=== PATIENT | female | born 1965 | race Caucasian/White ===

== ENCOUNTER → 2019-01-08 | Outpatient (CLI) | payer MEDICARE, MEDICAID ==
[~2019-01-08] MED LIST: ACET500L36 PO; ACHD5005 PO; ADDR10T PO; ALPR.25T PO; ALPR2TAB2 PO; ARPZ10T PO; ASCO-262 PO; BISA5TAB8 PO; BNZT1T PO; CEPH500T PO; CHOL200018 PO; CIPR-225 PO; CITA-105 PO; CLON1TAB27 PO; CLON1TAB3 PO; CYAN500T44 PO; CYCL5TAB PO; DICY10CA26 PO; EST30C VG; ESTR1TAB24 PO; GUAN1TAB PO; HYDR-3714 PO; HYDR-700 PO; HYDR-757 PO; LEVO25TA5 PO; LEVOTHYROXINE; LOVA10TA PO; MELO-195 PO; METH-290 PO; METO10TA3 PO; METR500T PO; MIRA50TA PO; MIRT30TA6 PO; NF-ESOM40C PO; NITR-65 PO; NORT10CA PO; OMG1KC PO; ONDA4TAB8 PO; ONDAN4ODT PO; OXYB5TAB9 PO; PARO40TA PO; POTA-53 PO; PREMARIN CREAM; PROM12.59 PO; PROM25TA14 PO; SULF-222 PO; TIZA4TAB55 PO; TRAM50TA2 PO
--- NOTE | 2019-01-08 12:36 | Diagnostic Imaging Report ---
INDICATION: Routine screening. COMPARISON: 08/26/2014. TECHNIQUE: 2D and 3D bilateral screening mammography was performed with CAD. FINDINGS: Scattered fibroglandular densities are identified bilaterally. The parenchymal pattern is stable. No dominant mass or malignant appearing microcalcifications are seen. The axillae are unremarkable. IMPRESSION: No mammographic features suspicious for malignancy are identified. ACR BI-RADS Category 1: Negative. Result letter will be mailed to the patient. Note: At least 10% of breast cancer is not imaged by mammography. Dictated by: Dictated on workstation # [id number]
== END ==
LOC: RAD 10:57
PROVIDERS: ATTEND Nurse Practitioner Family
DX: Z12.31 Encounter for screening mammogram for malignant neoplasm of breast (principal)
CPT/HCPCS: 77067

== ENCOUNTER 2019-01-30 05:35 | Outpatient (CLI) | payer MEDICARE, MEDICAID ==
[~2019-01-30] VITALS: Ht 157.5 cm; Wt 52.6 kg
[2019-01-30] MEDS ORDERED: ARIP10TA17 PO (11:01)
[2019-01-30] MEDS ORDERED: GABA-488 PO (11:01)
[2019-01-30] MEDS ORDERED: LOVA40TA2 PO (11:01)
[2019-01-30] MEDS ORDERED: MIRA50TA PO (11:01)
== END 2019-01-30 11:03 | disposition home or self-care (01) ==
LOC: PREOP 05:35
PROVIDERS: ATTEND Surgery
DX: Z01.818 Encounter for other preprocedural examination (principal)

== ENCOUNTER 2019-02-06 07:25 | Day surgery (SDC) | payer MEDICARE, MEDICAID ==
[~2019-02-06] VITALS: Ht 157.5 cm; Wt 52.6 kg
[~2019-02-06 07:25] MED LIST changes: +ARIP10TA17 PO; +GABA-488 PO; +LOVA40TA2 PO
[2019-02-06] MEDS ORDERED: LACTATED RINGERS 1,000 ML IV ONE (07:32)
[2019-02-06] MEDS ORDERED: LACTATED RINGERS 1,000 ML IV STA (07:34)
[2019-02-06] MEDS ORDERED: MIDAZOLAM 2 MG/2 ML (VERSED) VIAL ONE (07:44)
[2019-02-06] MEDS ORDERED: PROPOFOL INJECTION 50 ML IV ONE ×2 (07:45→09:19)
[2019-02-06 07:46] VITALS: BP 104/51
--- OUTSIDE RECORDS SUMMARY | 2019-02-06 07:46 | XMS REPORT | Encounter Summary ---
Author Author [facility] Organization [facility] Address Unknown Phone Unavailable Care Team Providers Care Fireworks Assembly Supervisor Name Role Phone Linda Goncalves MD Unavailable Cindy Harding RN Unavailable Unavailable Ryan Melvin RN Unavailable Unavailable Ryan Kovacs MD Unavailable Macarena Ramey MD PCP Unavailable Angel Avila [facility] Unavailable Sophia Sepulveda RN Unavailable Unavailable Opal Giraldo MD Unavailable Unavailable [employer] WOOD INSPECTOR Unavailable Reason for Visit * Reason Comments Medication Refill Encounter Details Care Team Description Date Type Department Linda Goncalves MD [address] [facility] [address] [place] [address] 11/12/2018 Refill [facility] [address] [place] [address] Social History Date Tobacco Use Types Packs/Day Years Used Current Every Day Smoker Cigarettes 1 35 Smokeless Tobacco: Never Used Alcohol Use Drinks/Week oz/Week Comments Yes 1-2 Standard 0.5 - 1.0 occ drinks or equivalent Sex Assigned at Date Recorded Not on file Industry Job Start Date Occupation Not on file Not on file Not on file Travel End Travel History Travel Start No recent travel history available. documented as of this encounter Plan of Treatment Not on filedocumented as of this encounter Visit Diagnoses Not on filedocumented in this encounter
--- OUTSIDE RECORDS SUMMARY | 2019-02-06 07:46 | XMS REPORT | Clinical Summary ---
Author Author [facility] Organization [facility] Address Unknown Phone Unavailable Care Team Providers Care Senior Engineering Associate Name Role Phone Linda Goncalves MD Unavailable Cindy Harding RN Unavailable Unavailable Ryan Melvin RN Unavailable Unavailable Ryan Kovacs MD Unavailable Macarena Ramey MD PCP Unavailable Angel Avila Unavailable Sophia Sepulveda RN Unavailable Unavailable Opal Giraldo MD Unavailable Unavailable Danna Washburn Unavailable Source Comments Some departments are not documenting in the electronic medical record. If you d o not see the information that you expected, contact Release of Information in [facility] Information Management department at [phone] for further assistan ce in locating additional records.[facility] Allergies Comments Active Allergy Reactions Severity Noted Date Benztropine MENTAL STATUS 02/07/2014 CHANGES Oxybutynin ANXIETY 05/14/2013 Solifenacin HALLUCINATION 11/26/2013 S Bupropion Hcl HIVES 05/14/2013 Medications End Date Status Medication Sig Dispensed Refills Start Date Active MULTIVITS Take by 0 W-IRON,HEMATINIC (HIGH mouth. POTENCY VIT A TO Z SELECT PO) Active guanFACINE (TENEX) 1 mg Take 1 mg by 0 tablet mouth daily. Active nortriptyline (PAMELOR) Take 10 mg by 0 10 mg capsule mouth at bedtime daily. Active ALPRAZolam(+) (XANAX) 2 Take 2 mg by 0 mg tablet mouth at bedtime as needed. Active citalopram (CELEXA) 40 mg Take 40 mg by 0 tablet mouth daily. Active estradiol (ESTRACE) 1 mg Take 1 mg by 0 tablet mouth daily. Active dextroamphetamine-ampheta Take 10 mg by 0 mine (ADDERALL) 10 mg mouth twice tablet daily Active promethazine (PHENERGAN) Take 25 mg by 0 25 mg tablet mouth every 6 hours as needed. Active estrogens, conjugated(+) Apply to 1 Container 11 (PREMARIN) 0.625 mg/g vaginal area 4 vaginal cream three times a week Active polyethylene glycol 3350 Take 17 g by 2 Bottle 1 (GLYCOLAX; MIRALAX) 17 mouth daily. 4 gram/dose powderIndications: Chronic constipation Active estrogens, conjugated(+) Insert or 42.5 g 11 (PREMARIN) 0.625 mg/g Apply to 6 vaginal cream vaginal area three times weekly. Active polyethylene glycol 3350 Take 17 g by 119 g (GLYCOLAX; MIRALAX) 17 mouth daily. 6 gram/dose powder Active estradiol (ESTRACE) 0.01 Apply a 42.5 g % (0.1 mg/g) vaginal finger tip to 6 cream vaginal area three times a week Active MYRBETRIQ 50 mg tablet TAKE 1 TABLET 90 tablet 0 BY MOUTH 9 EVERY DAY Active Problems Problem Noted Date Mixed stress and urge urinary incontinence 10/22/2013 Overview: S/P TVH-BSO and Mesh [place] [address] [place] in [place], [place], complicated by cystotomy and vaginal extrusion during TVT-O placement 2008 intra-office mesh excision and mesh intra-OR excision 2008 ( localized area excised) positional voiding, constipation, dyspareunia, episodes of gross hematuria, and ANGELITA at this time. UDS (06/11/13): +LPP, otherwise normal Urethrolysis, mesh excision 06/26/13; developed worsened mixed incontinence. Trial of vesicare: improved urgency, yet led to hallucinations and stopped CT unremarkable except signficant constipation - Mirabegron 50mg, PFRT, estrace and exercise regimen brought resolution of symptoms 09/23/2014: Symptoms well controlled on Mirabegron, Constipation management, pelvic exercise and estrace. L ast Assessment & Plan: Recommend patient resume premarin cream, begin miralax, resume mirabegron and RTC prn at this point. Erosion of vaginal mesh 05/14/2013 Overview: S/P TVH-BSO [place] Mesh [place] [address] [place] in [place], [place], complicated by cystotomy and vaginal extrusion during TVT-O placement 2008 intra-office mesh excision and mesh intra-OR excision 2008 ( localized area excised) positional voiding, constipation, dyspareunia, episodes of gross hematuria, and ANGELITA at this time. UDS (06/11/13): +LPP, otherwise normal Cysto (06/11/13): unremarkable Urethrolysis, mesh excision 06/26/13 Now developed severe mixed incontinence. 10/22/13:Stopped taking Vesicare because of hallucinations 11/26/13: on benztropine per psychologist with some improvement in urinary symptoms UDS: some dysnergia, no DO, rectal sphincter muscle overactivity Returns with persistent L suprapubic stabbing pain; constipation; attempting PFMT and seeing slight improvement; UUI slightly improved with mirabegron Multiple pelvic exams without any evidence of vaginal mesh L ast Assessment & Plan: - Encounters Care Team Description Date Type Specialty Linda Goncalves MD 11/12/2018 Refill Urology from Last 3 Months Family History Medical History Relation Name Comments Cancer Father Diabetes Father Heart Attack Father Heart Disease Father Cancer Maternal Grandmother Heart Attack Mother Heart Disease Mother Hypertension Mother Stroke Mother Bleeding Disorders Other Cancer-Prostate Other Kidney Cancer Other Kidney Disease Other Bleeding Disorders Sister Hypertension Sister Relation Name Status Comments Father Maternal Grandmother Mother Other Sister Social History Date Tobacco Use Types Packs/Day [...] Travel Start No recent travel history available. Last Filed Vital Signs Time Taken Vital Sign Reading 02/19/2016 4:07 PM CDT Blood Pressure 109/70 02/19/2016 4:07 PM CDT Pulse 90 01/31/2014 1:14 PM CDT Temperature 36.9 C (98.5 F) 02/19/2016 4:07 PM CDT Respiratory Rate 16 06/26/2013 4:00 PM CDT Oxygen Saturation 100% - Inhaled Oxygen - Concentration 02/19/2016 4:07 PM CDT Weight 51.6 kg (113 lb 12.8 oz) 02/19/2016 4:07 PM CDT Height 160 cm (5' 3") 02/19/2016 4:07 PM CDT Body Mass Index 20.16 Plan of Treatment Health Maintenance Due Date Last Done Comments HEPATITIS C SCREENING 1965 PHYSICAL (COMPREHENSIVE) 1972 EXAM HIV SCREENING 1980 DTAP/TDAP VACCINES (1 - 1983 Tdap) CERVICAL CANCER SCREENING 1995 BREAST CANCER SCREENING 2005 COLORECTAL CANCER 2015 SCREENING SHINGLES RECOMBINANT 2015 VACCINE (1 of 2) INFLUENZA VACCINE 06/19/2019 Results Not on filefrom Last 3 Months Insurance Type Payer Benefit Subscriber ID Effective Phone Address Plan / Dates Group Medicare COVENTRY MEDICARE COVENTRY xxxxxxxxxxx [id number] ADVANTRA resent MEDICARE PPO Advance Directives Patient has advance care planning documents on file. For more information, kailey costello contact: [facility] [address] [place] [address]
--- OUTSIDE RECORDS SUMMARY | 2019-02-06 07:47 | XMS REPORT ---
Author Author Migration, Doctor Organization [facility] Address Unknown Phone Unavailable Care Team Providers Care Mobile Ui Designer Name Role Phone Migration, Doctor Unavailable Unavailable PROBLEMS Type Condition ICD9-CM Code ZDY85-RE Code Onset Dates Condition Status SNOMED Code Problem Mixed hyperlipidemia E78.2 Active 427984626 Problem Acquired hypothyroidism E03.9 Active 551975355 Problem Hypothyroidism, unspecified E03.9 Active 90726487 Problem Cigarette nicotine dependence without complication F17.210 Active 79626613 Problem COPD (chronic obstructive pulmonary disease) J44.9 Active 49332750 Problem Generalized anxiety disorder F41.1 Active 15847673 Problem Bipolar II disorder F31.81 Active 59176524 Problem Cannabis use disorder, mild, abuse F12.10 Active 89390111 ALLERGIES No Information ENCOUNTERS Encounter Location Date Diagnosis [place] [id number] [place] [address] January, [place] [id number] [place] [address] Dec, Well woman exam without gynecological exam Z00.00 ; Screening for breast cancer Z12.31 and Screening for malignant neoplasm of colon Z12.11 [place] [id number] [place] [address] 06 Oct, 2018 Bipolar II disorder F31.81 ; Generalized anxiety disorder F41.1 and Cannabis use disorder, mild, abuse F12.10 [place] [id number] [place] [address] 09 Jun, 2018 Trochanteric bursitis of right hip M70.61 [place] [id number] [place] [address] 13 May, 2018 Trochanteric bursitis of right hip M70.61 and Cigarette nicotine dependence without complication F17.210 [place] [id number] [place] [address] Apr, [place] [id number] [place] [address] Apr, Mixed hyperlipidemia E78.2 [place] [id number] [place] [address] Apr, [address] [address] Apr, Bipolar II disorder F31.81 ; Generalized anxiety disorder F41.1 and Cannabis use disorder, mild, abuse F12.[address] [address] Feb, Mixed hyperlipidemia E78.2 ; Acquired hypothyroidism E03.9 and Routine adult health maintenance Z00.[address] [address] January, Bipolar II disorder F31.81 [place] [address] [address] January, Bipolar II disorder F31.81 ; Generalized anxiety disorder F41.1 ; Cannabis use disorder, mild, abuse F12.10 and Fatigue associated with anemia D64.9 [place] [id number] [place] [address] Dec, Hypothyroidism, unspecified E03.9 ; Tobacco abuse Z72.0 and COPD (chronic obstructive pulmonary disease) J44.9 [place] [id number] [place] [address] Jul, Bipolar II disorder F31.81 ; Generalized anxiety disorder F41.1 and Cannabis use disorder, mild, abuse F12.10 [place] [id number] [place] [address] Apr, Bipolar II disorder F31.81 ; Nausea and vomiting in adult R11.2 ; Generalized anxiety disorder F41.1 ; Heartburn R12 and Cannabis use disorder, mild, abuse F12.[address] [id number] [address] Apr, Bipolar II disorder F31.81 ; Generalized anxiety disorder F41.1 and Cannabis use disorder, mild, abuse F12.10 [place] [id number] [place] [address] Apr, Nausea and vomiting in adult R11.2 and Heartburn R12 [place] [id number] [place] [address] Apr, Bipolar II disorder F31.81 [place] [id number] [place] [address] Mar, Generalized anxiety disorder F41.1 [place] [id number] [place] [address] Feb, Bipolar II disorder F31.81 ; Generalized anxiety disorder F41.1 and Cannabis use disorder, mild, abuse F12.10 [place] [address] [place] [address] January, Bipolar II disorder F31.81 ; Generalized anxiety disorder F41.1 and Cannabis use disorder, mild, abuse F12.10 [place] [id number] [place] [address] Dec, Bipolar II disorder F31.81 ; Generalized anxiety disorder F41.1 and Cannabis use disorder, mild, abuse F12.10 [place] [address] [place] [address] Dec, Generalized anxiety disorder F41.1 [place] [id number] [place] [address] Nov, [place] [id number] [place] [address] Nov, Generalized anxiety disorder F41.1 ; Cannabis use disorder, mild, abuse F12.10 and Bipolar II disorder F31.81 [place] [id number] [place] [address] Nov, Bipolar II disorder F31.81 [place] [id number] [place] [address] Nov, Bipolar II disorder F31.81 ; Generalized anxiety disorder F41.1 and Cannabis use disorder, mild, abuse F12.10 [place] [id number] [place] [address] Oct, [place] [address] [address] Oct, Bipolar II disorder F31.81 ; Generalized anxiety disorder F41.1 and Cannabis use disorder, mild, abuse F12.10 [place] [id number] [place] [address] Aug, COPD (chronic obstructive pulmonary disease) J44.[address] [address] Aug, Recent urinary tract infection Z87.440 ; Acquired hypothyroidism E03.9 ; Encounter for immunization Z23 ; Mixed hyperlipidemia E78.2 ; COPD (chronic obstructive pulmonary disease) J44.9 and Tobacco abuse Z72.0 [place] [id number] [place] [address] Jul, [place] [id number] [place] [address] Jul, [address] [address] Jul, Recent urinary tract infection Z87.440 ; Acute cystitis with hematuria N30.01 ; Vaginal itching L29.8 and Skin infection L08.9 [place] [id number] [place] [address] Jun, Hydronephrosis, unspecified hydronephrosis type N13.30 [place] [id number] [place] [address] Apr, [facility] [address] [place] [address] Sep, Acquired hypothyroidism E03.9 ; Mixed hyperlipidemia E78.2 ; COPD (chronic obstructive pulmonary disease) J44.9 and Thrush B37.0 [place] [id number] [place] [address] Aug, [place] [address] [address] Aug, Acquired hypothyroidism E03.9 ; Mixed hyperlipidemia E78.2 ; COPD (chronic obstructive pulmonary disease) J44.9 and URI (upper respiratory infection) J06.9 [place] [address] [address] January, Blood in stool 578.1 and Weight loss 783.21 [place] [address] [address] January, Other and unspecified hyperlipidemia 272.4 ; Unspecified hypothyroidism 244.9 ; Nondependent tobacco use disorder 305.1 ; Weight loss 783.21 ; History of colon polyps V12.72 and Blood in stool 578.1 [place] [id number] [place] [address] Dec, [place] [id number] [place] [address] Dec, [place] [id number] [place] [address] Dec, [place] [id number] [place] [address] Dec, [place] [id number] [place] [address] Nov, [place] [id number] [place] [address] Nov, [place] [address] [address] Nov, [facility] [place] [facility] [address] [id number] [place] [address] Nov, [facility] [place] [facility] [address] [id number] [place] [address] Sep, [facility] [place] [facility] [address] [facility] [id number] [place] [address] Sep, [facility] [place] [facility] [address] [id number] [place] [address] Aug, [facility] [place] [facility] [address] [id number] [place] [address] Aug, [facility] [place] [facility] [address] [facility] [id number] [place] [address] Aug, [facility] [place] [facility] [address] [facility] [id number] [place] [address] Aug, [facility] [place] [facility] [address] [facility] [id number] [place] [address] Aug, [facility] [place] [facility] [address] [facility] [id number] [place] [address] Aug, [facility] [place] [facility] [address] [facility] [id number] [place] [address] Aug, [facility] [place] [facility] [address] [facility] [id number] [place] [address] Aug, [facility] [place] [facility] [address] [id number], [place] [address] Jul, [facility] [place] [facility] [address] [id number] [place] [address] Jul, [facility] [place] [facility] [address] [facility] [id number] [place] [address] Jul, [facility] [place] [facility] [address] [facility] [id number] [place] [address] Jul, [facility] [place] [facility] [address] [id number] [place] [address] Jul, [facility] [place] [facility] [address] [id number] [place] [address] Jul, [facility] [place] [facility] [address] [id number] [place] [address] Jun, [facility] [place] [facility] [address] [id number] [place] [address] Jun, [facility] [place] [facility] [address] [id number] [place] [address] Jun, [facility] [place] [facility] [address] [id number] [place] [address] Jun, [facility] [place] [facility] [address] [id number] [place] [address] Apr, [facility] [place] [facility] [address] [id number] [place] [address] Apr, [facility] [place] [facility] [address] [id number] [place] [address] Mar, [facility] [place] [facility] [address] [id number] [place] [address] Mar, [facility] [place] [facility] [address] [id number] [place] [address] Feb, [facility] [place] [facility] [address] [id number] [place] [address] Feb, [facility] [place] [facility] [address] [id number] [place] [address] Sep, [facility] [place] [facility] [address] [id number] [place] [address] Sep, [facility] [place] [facility] [address] [id number] [place] [address] Aug, [facility] [place] [facility] [address] [id number] [place] [address] Aug, [facility] [place] [facility] [address] [id number] [place] [address] Aug, [facility] [place] [facility] [address] [id number] [place] [address] Aug, [facility] [place] [facility] [address] [id number] [place] [address] Jun, [facility] [place] [facility] [address] [id number] [place] [address] Jun, [facility] [place] [facility] [address] [id number] [place] [address] Jun, [facility] [place] [facility] [address] [id number] [place] [address] Jun, [facility] [place] [facility] [address] [id number] [place] [address] Jun, [facility] [place] [facility] [address] [id number], [place] [address] Jun, [facility] [place] [facility] [address] [id number] [place] [address] Jun, [facility] [place] [facility] [address] [id number], [place] [address] Jun, [facility] [place] [facility] [address] [id number], [place] [address] Jun, [facility] [place] [facility] [address] [id number], [place] [address] May, [facility] [place] [facility] [address] [id number] [place] [address] Apr, [facility] [place] [facility] [address] [id number], [place] [address] Apr, [facility] [place] [facility] [address] [id number], [place] [address] Apr, [facility] [place] [facility] [address] [id number] [place] [address] Mar, [facility] [address] [id number] [place] [address] Mar, [facility] [place] [facility] [address] [id number] [place] [address] Mar, [facility] [address] [id number] [place] [address] Mar, [facility] [place] [facility] [address] [id number] [place] [address] Mar, [facility] [address] [id number] [place] [address] Mar, [facility] [address] [id number] [place] [address] Mar, [facility] [address] [id number] [place] [address] Mar, [facility] [address] [id number] [place] [address] Mar, [facility] [address] [id number] [place] [address] Mar, [facility] [address] [id number] [place] [address] Feb, [facility] [address] [id number] [place] [address] Oct, [facility] [address] [id number] [place] [address] Sep, [facility] [place] [facility] [address] [id number] [place] [address] Aug, [facility] [place] [facility] [address] [id number] [place] [address] Aug, [facility] [address] [id number] [place] [address] Aug, [facility] [address] [facility] [id number] [place] [address] Aug, [facility] [address] [facility] [id number], [place] [address] Nov, IMMUNIZATIONS No Known Immunizations SOCIAL HISTORY Never Assessed REASON FOR VISIT EMR-[facility] PLAN OF CARE VITAL SIGNS MEDICATIONS Unknown Medications RESULTS No Results PROCEDURES No Known procedures INSTRUCTIONS MEDICATIONS ADMINISTERED No Known Medications MEDICAL (GENERAL) HISTORY Type Description Date Medical History Hypothyroidism Medical History chronic pain Medical History Anxiety/Depression/Bipolar/PTSD?Painic Disorder/ADHD-Sees [facility] Medical History cyst on liver Medical History endometriosis Medical History chronic irregular bowels s/p back surgery with bowel injury Medical History CECY with freq UTIs Medical History PPV23 (PNEUMOVAX) DX Medical History Bulging Discs Medical History High Cholestrol Medical History Tobacco User Medical History Urinary Incontinence Medical History HEART MURMUR Surgical History colonoscopy- polyps 2011 Surgical History hysterectomy, total with bilateral salpingo-oophorectomy (BSO) r/t adhesions and endometriosis, complicated by cystotomy, required transvaginal tape obturator (Dr. rCow) 2004 or 2006 Surgical History bladder mesh removed 06/2013 Surgical History removal of vaginal wall lesion 07/2012 Surgical History back surgery with injury to bowel, bladder mesh for perforation Surgical History Bladder mesh Hospitalization History Surgery/ Childbirth Hospitalization History Denies any past psychiatric hospitalizations
--- OUTSIDE RECORDS SUMMARY | 2019-02-06 07:47 | XMS REPORT ---
Author Author Migration, Doctor Organization [facility] Address Unknown Phone Unavailable Care Team Providers Care Car Repairer Name Role Phone Migration, Doctor Unavailable Unavailable PROBLEMS Type Condition ICD9-CM Code CFP80-BM Code Onset Dates Condition Status SNOMED Code Problem Mixed hyperlipidemia E78.2 Active 900391010 Problem Acquired hypothyroidism E03.9 Active 109534400 Problem Hypothyroidism, unspecified E03.9 Active 51693894 Problem Cigarette nicotine dependence without complication F17.210 Active 84806232 Problem COPD (chronic obstructive pulmonary disease) J44.9 Active 93565079 Problem Generalized anxiety disorder F41.1 Active 82549818 Problem Bipolar II disorder F31.81 Active 67326428 Problem Cannabis use disorder, mild, abuse F12.10 Active 31576467 ALLERGIES No Information ENCOUNTERS Encounter Location Date Diagnosis [place] [id number] [place] [address] January, [place] [id number] [place] [address] Dec, Well woman exam without gynecological exam Z00.00 ; Screening for breast cancer Z12.31 and Screening for malignant neoplasm of colon Z12.11 [place] [id number] [place] [id number] 06 Oct, 2018 Bipolar II disorder F31.81 ; Generalized anxiety disorder F41.1 and Cannabis use disorder, mild, abuse F12.10 [place] [id number] [place] [address] 09 Jun, 2018 Trochanteric bursitis of right hip M70.61 [place] [id number] [place] [address] 13 May, 2018 Trochanteric bursitis of right hip M70.61 and Cigarette nicotine dependence without complication F17.210 [place] [id number] [place] [address] Apr, [place] [id number] [place] [address] Apr, Mixed hyperlipidemia E78.2 [place] [id number] [place] [address] Apr, [address] [address] Apr, Bipolar II disorder F31.81 ; Generalized anxiety disorder F41.1 and Cannabis use disorder, mild, abuse F12.[address] [address] Feb, Mixed hyperlipidemia E78.2 ; Acquired hypothyroidism E03.9 and Routine adult health maintenance Z00.[address] [address] January, Bipolar II disorder F31.81 [place] [address] [address] January, Bipolar II disorder F31.81 ; Generalized anxiety disorder F41.1 ; Cannabis use disorder, mild, abuse F12.10 and Fatigue associated with anemia D64.9 [place] [id number] [place] [address] Dec, Hypothyroidism, unspecified E03.9 ; Tobacco abuse Z72.0 and COPD (chronic obstructive pulmonary disease) J44.9 [place] [id number] [place] [address] Jul, Bipolar II disorder F31.81 ; Generalized anxiety disorder F41.1 and Cannabis use disorder, mild, abuse F12.10 [place] [id number] [place] [address] Apr, Bipolar II disorder F31.81 ; Nausea and vomiting in adult R11.2 ; Generalized anxiety disorder F41.1 ; Heartburn R12 and Cannabis use disorder, mild, abuse F12.[address] [id number] [address] Apr, Bipolar II disorder F31.81 ; Generalized anxiety disorder F41.1 and Cannabis use disorder, mild, abuse F12.10 [place] [id number] [place] [address] Apr, Nausea and vomiting in adult R11.2 and Heartburn R12 [place] [id number] [place] [address] Apr, Bipolar II disorder F31.81 [place] [id number] [place] [address] Mar, Generalized anxiety disorder F41.1 [place] [id number] [place] [address] Feb, Bipolar II disorder F31.81 ; Generalized anxiety disorder F41.1 and Cannabis use disorder, mild, abuse F12.10 [place] [address] [place] [address] January, Bipolar II disorder F31.81 ; Generalized anxiety disorder F41.1 and Cannabis use disorder, mild, abuse F12.10 [place] [address] [place] [address] Dec, Bipolar II disorder F31.81 ; Generalized anxiety disorder F41.1 and Cannabis use disorder, mild, abuse F12.10 [place] [address] [place] [address] Dec, Generalized anxiety disorder F41.1 [place] [id number] [place] [address] Nov, [place] [id number] [place] [address] Nov, Generalized anxiety disorder F41.1 ; Cannabis use disorder, mild, abuse F12.10 and Bipolar II disorder F31.81 [place] [id number] [place] [address] Nov, Bipolar II disorder F31.81 [place] [id number] [place] [address] Nov, Bipolar II disorder F31.81 ; Generalized anxiety disorder F41.1 and Cannabis use disorder, mild, abuse F12.10 [place] [id number] [place] [address] Oct, [place] [address] [address] Oct, Bipolar II disorder F31.81 ; Generalized anxiety disorder F41.1 and Cannabis use disorder, mild, abuse F12.10 [place] [id number] [place] [address] Aug, COPD (chronic obstructive pulmonary disease) J44.[address] [address] Aug, Recent urinary tract infection Z87.440 ; Acquired hypothyroidism E03.9 ; Encounter for immunization Z23 ; Mixed hyperlipidemia E78.2 ; COPD (chronic obstructive pulmonary disease) J44.9 and Tobacco abuse Z72.0 [place] [id number] [place] [address] Jul, [place] [id number] [place] [address] Jul, [address] [address] Jul, Recent urinary tract infection Z87.440 ; Acute cystitis with hematuria N30.01 ; Vaginal itching L29.8 and Skin infection L08.9 [place] [id number] [place] [address] Jun, Hydronephrosis, unspecified hydronephrosis type N13.30 [place] [id number] [place] [address] Apr, [facility] [address] [place] [address] Sep, Acquired hypothyroidism E03.9 ; Mixed hyperlipidemia E78.2 ; COPD (chronic obstructive pulmonary disease) J44.9 and Thrush B37.0 [place] [id number] [place] [address] Aug, [place] [address] [address] Aug, Acquired hypothyroidism E03.9 ; Mixed hyperlipidemia E78.2 ; COPD (chronic obstructive pulmonary disease) J44.9 and URI (upper respiratory infection) J06.9 [place] [address] [address] January, Blood in stool 578.1 and Weight loss 783.21 [place] [address] [address] January, Other and unspecified hyperlipidemia 272.4 ; Unspecified hypothyroidism 244.9 ; Nondependent tobacco use disorder 305.1 ; Weight loss 783.21 ; History of colon polyps V12.72 and Blood in stool 578.1 [place] [id number] [place] [address] Dec, [place] [id number] [place] [address] Dec, [place] [id number] [place] [address] Dec, [place] [id number] [place] [address] Dec, [place] [id number] [place] [address] Nov, [place] [id number] [place] [address] Nov, [place] [address] [address] Nov, [facility] [place] [facility] [address] [id number] [place] [address] Nov, [facility] [place] [facility] [address] [id number] [place] [address] Sep, [facility] [place] [facility] [address] [facility] [id number] [place] [address] Sep, [facility] [place] [facility] [address] [id number] [place] [address] Aug, [facility] [place] [facility] [address] [id number] [place] [address] Aug, [facility] [place] [facility] [address] [facility] [id number] [place] [address] Aug, [facility] [place] [facility] [address] [facility] [id number] [place] [address] Aug, [facility] [place] [facility] [address] [facility] [id number] [place] [address] Aug, [facility] [place] [facility] [address] [facility] [id number] [place] [address] Aug, [facility] [place] [facility] [address] [facility] [id number] [place] [address] Aug, [facility] [place] [facility] [address] [facility] [id number] [place] [address] Aug, [facility] [place] [facility] [address] [id number] [address] Jul, [facility] [place] [facility] [address] [id number] [place] [address] Jul, [facility] [place] [facility] [address] [facility] [id number] [place] [address] Jul, [facility] [place] [facility] [address] [facility] [id number] [place] [address] Jul, [facility] [place] [facility] [address] [id number] [place] [address] Jul, [facility] [place] [facility] [address] [id number] [place] [address] Jul, [facility] [place] [facility] [address] [id number] [place] [address] Jun, [facility] [place] [facility] [address] [id number] [place] [address] Jun, [facility] [place] [facility] [address] [id number] [place] [address] Jun, [facility] [place] [facility] [address] [id number] [place] [address] Jun, [facility] [place] [facility] [address] [id number] [place] [address] Apr, [facility] [place] [facility] [address] [id number] [place] [address] Apr, [facility] [place] [facility] [address] [id number] [place] [address] Mar, [facility] [place] [facility] [address] [id number] [place] [address] Mar, [facility] [place] [facility] [address] [id number] [place] [address] Feb, [facility] [place] [facility] [address] [id number] [place] [address] Feb, [facility] [place] [facility] [address] [id number] [place] [address] Sep, [facility] [place] [facility] [address] [id number] [place] [address] Sep, [facility] [place] [facility] [address] [id number] [place] [address] Aug, [facility] [place] [facility] [address] [id number] [place] [address] Aug, [facility] [place] [facility] [address] [id number] [place] [address] Aug, [facility] [place] [facility] [address] [id number] [place] [address] Aug, [facility] [place] [facility] [address] [id number] [place] [address] Jun, [facility] [place] [facility] [address] [id number] [place] [address] Jun, [facility] [place] [facility] [address] [id number] [place] [address] Jun, [facility] [place] [facility] [address] [id number] [place] [address] Jun, [facility] [place] [facility] [address] [id number] [place] [address] Jun, [facility] [place] [facility] [address] [id number] [address] Jun, [facility] [place] [facility] [address] [id number] [place] [address] Jun, [facility] [place] [facility] [address] [id number], [place] [address] Jun, [facility] [place] [facility] [address] [id number], [place] [address] Jun, [facility] [place] [facility] [address] [id number], [place] [address] May, [facility] [place] [facility] [address] [id number] [place] [address] Apr, [facility] [place] [facility] [address] [id number], [place] [address] Apr, [facility] [place] [facility] [address] [id number], [place] [address] Apr, [facility] [place] [facility] [address] [id number] [place] [address] Mar, [facility] [address] [id number] [place] [address] Mar, [facility] [place] [facility] [address] [id number] [place] [address] Mar, [facility] [address] [id number] [place] [address] Mar, [facility] [place] [facility] [address] [id number] [place] [address] Mar, [facility] [address] [id number] [place] [address] Mar, [facility] [address] [id number] [place] [address] Mar, [facility] [address] [id number] [place] [address] Mar, [facility] [address] [id number] [place] [address] Mar, [facility] [address] [id number] [place] [address] Mar, [facility] [address] [id number] [place] [address] Feb, [facility] [address] [id number] [place] [address] Oct, [facility] [address] [id number] [place] [address] Sep, [facility] [place] [facility] [address] [id number] [place] [address] Aug, [facility] [place] [facility] [address] [id number] [place] [address] Aug, [facility] [address] [id number] [place] [address] Aug, [facility] [address] [facility] [id number] [place] [address] Aug, [facility] [address] [facility] [id number], [place] [address] Nov, IMMUNIZATIONS No Known Immunizations SOCIAL HISTORY Never Assessed REASON FOR VISIT EMR-[facility] PLAN OF CARE VITAL SIGNS MEDICATIONS Unknown [...] by cystotomy, required transvaginal tape obturator (Dr. Crow) 2004 or 2006 Surgical History bladder mesh removed 06/2013 Surgical History removal of vaginal wall lesion 07/2012 Surgical History back surgery with injury to bowel, bladder mesh for perforation Surgical History Bladder mesh Hospitalization History Surgery/ Childbirth Hospitalization History Denies any past psychiatric hospitalizations
--- OUTSIDE RECORDS SUMMARY | 2019-02-06 07:47 | XMS REPORT ---
Author Author Migration, Doctor Organization [facility] Address Unknown Phone Unavailable Care Team Providers Care [employer]person [employer] Name Role Phone Migration, Doctor Unavailable Unavailable PROBLEMS Type Condition ICD9-CM Code VOF19-QZ Code Onset Dates Condition Status SNOMED Code Problem Mixed hyperlipidemia E78.2 Active 461509224 Problem Acquired hypothyroidism E03.9 Active 160334934 Problem Hypothyroidism, unspecified E03.9 Active 98730595 Problem Cigarette nicotine dependence without complication F17.210 Active 40886301 Problem COPD (chronic obstructive pulmonary disease) J44.9 Active 08502453 Problem Generalized anxiety disorder F41.1 Active 83531771 Problem Bipolar II disorder F31.81 Active 06502722 Problem Cannabis use disorder, mild, abuse F12.10 Active 58957150 ALLERGIES No Information ENCOUNTERS Encounter Location Date Diagnosis [place] [id number] [address] Apr, [place] [address] [place] [id number] [place] [address] January, Bipolar II disorder F31.81 ; Generalized anxiety disorder F41.1 and Cannabis use disorder, mild, abuse F12.10 [place] [id number], [place] [address] Dec, Well woman exam without gynecological exam Z00.00 ; Screening for breast cancer Z12.31 and Screening for malignant neoplasm of colon Z12.11 [place] [address], [place] [address] 06 Oct, 2018 Bipolar II disorder F31.81 ; Generalized anxiety disorder F41.1 and Cannabis use disorder, mild, abuse F12.10 [place] [address], [place] [address] Jun, Trochanteric bursitis of right hip M70.61 [place] [address] [place] [id number] [place] [address] May, Trochanteric bursitis of right hip M70.61 and Cigarette nicotine dependence without complication F17.210 [place] [address] [place] [id number] [place] [address] Apr, [place] [address] [place] [id number] [place] [address] Apr, Mixed hyperlipidemia E78.2 [place] [address] [address] Apr, [place] [address] [address] Apr, Bipolar II disorder F31.81 ; Generalized anxiety disorder F41.1 and Cannabis use disorder, mild, abuse F12.10 [place] [address] [address] Feb, Mixed hyperlipidemia E78.2 ; Acquired hypothyroidism E03.9 and Routine adult health maintenance Z00.00 [place] [address] [place] [id number] [place] [address] January, Bipolar II disorder F31.81 [place] [address] [place] [id number] [place] [address] January, Bipolar II disorder F31.81 ; Generalized anxiety disorder F41.1 ; Cannabis use disorder, mild, abuse F12.10 and Fatigue associated with anemia D64.9 [place] [address] [place] [id number] [place] [address] Dec, Hypothyroidism, unspecified E03.9 ; Tobacco abuse Z72.0 and COPD (chronic obstructive pulmonary disease) J44.9 [place] [address] [place] [id number] [place] [address] Jul, Bipolar II disorder F31.81 ; Generalized anxiety disorder F41.1 and Cannabis use disorder, mild, abuse F12.10 [place] [address] [place] [id number] [place] [address] Apr, Bipolar II disorder F31.81 ; Nausea and vomiting in adult R11.2 ; Generalized anxiety disorder F41.1 ; Heartburn R12 and Cannabis use disorder, mild, abuse F12.10 [facility] [id number] [place] [address] Apr, Bipolar II disorder F31.81 ; Generalized anxiety disorder F41.1 and Cannabis use disorder, mild, abuse F12.10 [facility] [address] [place] [id number] [place] [address] Apr, Nausea and vomiting in adult R11.2 and Heartburn R12 [facility] [address] [place] [id number] [place] [address] Apr, Bipolar II disorder F31.81 [facility] [address] [place] [id number] [place] [address] Mar, Generalized anxiety disorder F41.1 [facility] [address] [place] [id number] [place] [address] Feb, Bipolar II disorder F31.81 ; Generalized anxiety disorder F41.1 and Cannabis use disorder, mild, abuse F12.10 [facility] [address] [place] [id number] [place] [address] January, Bipolar II disorder F31.81 ; Generalized anxiety disorder F41.1 and Cannabis use disorder, mild, abuse F12.10 [facility] [id number] [place] [address] Dec, Bipolar II disorder F31.81 ; Generalized anxiety disorder F41.1 and Cannabis use disorder, mild, abuse F12.10 [facility] [address] [place] [id number] [place] [address] Dec, Generalized anxiety disorder F41.1 [facility] [address] [place] [id number] [place] [address] Nov, [facility] [address] [place] [id number] [place] [address] Nov, Generalized anxiety disorder F41.1 ; Cannabis use disorder, mild, abuse F12.10 and Bipolar II disorder F31.81 [place] [address] [place] [id number] [place] [address] Nov, Bipolar II disorder F31.81 [place] [address] [place] [id number] [place] [address] Nov, Bipolar II disorder F31.81 ; Generalized anxiety disorder F41.1 and Cannabis use disorder, mild, abuse F12.10 [place] [address] [place] [id number] [place] [address] Oct, [place] [address] [place] [id number] [place] [address] Oct, Bipolar II disorder F31.81 ; Generalized anxiety disorder F41.1 and Cannabis use disorder, mild, abuse F12.10 [place] [address] [address] Aug, COPD (chronic obstructive pulmonary disease) J44.9 [place] [address] [address] Aug, Recent urinary tract infection Z87.440 ; Acquired hypothyroidism E03.9 ; Encounter for immunization Z23 ; Mixed hyperlipidemia E78.2 ; COPD (chronic obstructive pulmonary disease) J44.9 and Tobacco abuse Z72.0 [place] [address] [place] [id number] [place] [address] Jul, [place] [address] [place] [id number] [place] [address] Jul, [place] [address] [address] Jul, Recent urinary tract infection Z87.440 ; Acute cystitis with hematuria N30.01 ; Vaginal itching L29.8 and Skin infection L08.9 [place] [address] [address] Jun, Hydronephrosis, unspecified hydronephrosis type N13.30 [place] [address] [place] [id number] [place] [address] Apr, [place] [address] [address] Sep, Acquired hypothyroidism E03.9 ; Mixed hyperlipidemia E78.2 ; COPD (chronic obstructive pulmonary disease) J44.9 and Thrush B37.0 [place] [address] [address] Aug, [place] [address] [address] Aug, Acquired hypothyroidism E03.9 ; Mixed hyperlipidemia E78.2 ; COPD (chronic obstructive pulmonary disease) J44.9 and URI (upper respiratory infection) J06.9 [place] [address] [address] January, Blood in stool 578.1 and Weight loss 783.[address] [address] January, Other and unspecified hyperlipidemia 272.4 ; Unspecified hypothyroidism 244.9 ; Nondependent tobacco use disorder 305.1 ; Weight loss 783.21 ; History of colon polyps V12.72 and Blood in stool 578.1 [place] [address] [place] [id number] [place] [address] Dec, [place] [address] [place] [id number] [place] [address] Dec, [place] [address] [address] Dec, [place] [address] [place] [id number] [place] [address] Dec, [place] [address] [address] Nov, [facility] [place] [facility] [address] [id number] [place] [address] Nov, [facility] [place] [facility] [address] [id number] [place] [address] Nov, [facility] [place] [facility] [address] [id number] [place] [address] Nov, [facility] [place] [facility] [address] [id number] [place] [address] Sep, [facility] [place] [facility] [address] [id number] [place] [address] Sep, [facility] [place] [facility] [address] [id number] [place] [address] Aug, [facility] [place] [facility] [address] [id number] [place] [address] Aug, [facility] [place] [facility] [address] [id number] [place] [address] Aug, [facility] [place] [facility] [address] [id number] [place] [address] Aug, [facility] [place] [facility] [address] [id number] [place] [address] Aug, [facility] [place] [facility] [address] [id number] [place] [address] Aug, [facility] [place] [facility] [address] [id number], [place] [address] Aug, [facility] [place] [facility] [address] [id number] [place] [address] Aug, [facility] [place] [facility] [address] [id number] [place] [address] Jul, [facility] [place] [facility] [address] [id number] [place] [address] Jul, [facility] [place] [facility] [address] [id number] [place] [address] Jul, [facility] [place] [facility] [address] [id number] [place] [address] Jul, [facility] [place] [facility] [address] [id number] [place] [address] Jul, [facility] [place] [facility] [address] [id number] [place] [address] Jul, [facility] [place] [facility] [address] [id number] [place] [address] Jun, [facility] [place] [facility] [address] [id number] [place] [address] Jun, [facility] [place] [facility] [address] [id number] [place] [address] Jun, [facility] [place] [facility] [address] [id number] [place] [address] Jun, [facility] [place] [facility] [address] [id number] [place] [address] Apr, [facility] [place] [facility] [address] [id number] [place] [address] Apr, [facility] [place] [facility] [address] [id number] [place] [address] Mar, [facility] [place] [facility] [address] [id number] [place] [address] Mar, [facility] [place] [facility] [address] [id number] [place] [address] Feb, [facility] [place] [facility] [address] [id number] [place] [address] Feb, [facility] [place] [facility] [address] [id number] [place] [address] Sep, [facility] [place] [facility] [address] [id number] [place] [address] Sep, [facility] [place] [facility] [address] [id number] [place] [address] Aug, [facility] [place] [facility] [address] [id number] [place] [address] Aug, [facility] [place] [facility] [address] [id number] [place] [address] Aug, [facility] [place] [facility] [address] [id number] [place] [address] Aug, [facility] [place] [facility] [address] [id number] [place] [address] Jun, [facility] [place] [facility] [address] [id number] [place] [address] Jun, [facility] [place] [facility] [address] [id number] [place] [address] Jun, [facility] [place] [facility] [address] [id number] [place] [address] Jun, [facility] [place] [facility] [address] [id number] [place] [address] Jun, [facility] [place] [facility] [address] [id number], [place] [address] Jun, [facility] [place] [facility] [address] [id number] [place] [address] Jun, [facility] [place] [facility] [address] [id number], [place] [address] Jun, [facility] [place] [facility] [address] [id number] [place] [address] Jun, [facility] [place] [facility] [address] [id number], [place] [address] May, [facility] [place] [facility] [address] [id number], [place] [address] Apr, [facility] [place] [facility] [address] [id number], [place] [address] Apr, [facility] [address] [id number] [place] [address] Apr, [facility] [place] [facility] [address] [id number] [place] [address] Mar, [facility] [place] [facility] [address] [id number] [place] [address] Mar, [facility] [place] [facility] [address] [id number] [place] [address] Mar, [facility] [place] [facility] [address] [id number] [place] [address] Mar, [facility] [place] [facility] [address] [id number] [place] [address] Mar, [facility] [address] [id number] [place] [address] Mar, [facility] [place] [facility] [address] [id number] [place] [address] Mar, [facility] [address] [id number] [place] [address] Mar, [facility] [place] [facility] [address] [id number] [place] [address] Mar, [facility] [place] [facility] [address] [id number] [place] [address] Mar, [facility] [place] [facility] [address] [id number] [place] [address] Feb, [facility] [place] [facility] [address] [id number] [place] [address] Oct, [facility] [place] [facility] [address] [id number] [place] [address] Sep, [facility] [place] [facility] [address] [id number] [place] [address] Aug, [facility] [place] [facility] [address] [facility] [place] [id number] [place] [address] Aug, [facility] [address] [facility] [place] [id number], [place] [address] Aug, [facility] [address] [facility] [place] [id number] [place] [address] Aug, [facility] [address] [facility] [id number], [place] [address] Nov, IMMUNIZATIONS No Known Immunizations SOCIAL HISTORY Never Assessed REASON FOR VISIT EMR-[facility] [place] PLAN OF CARE VITAL SIGNS MEDICATIONS [...]
--- OUTSIDE RECORDS SUMMARY | 2019-02-06 07:48 | XMS REPORT ---
Author Author Migration, Doctor Organization [facility] Address Unknown Phone Unavailable Care Team Providers Care Tool Machine Setup Operator Name Role Phone Migration, Doctor Unavailable Unavailable PROBLEMS Type Condition ICD9-CM Code FOM08-ER Code Onset Dates Condition Status SNOMED Code Problem Mixed hyperlipidemia E78.2 Active 085870703 Problem Acquired hypothyroidism E03.9 Active 584569285 Problem Hypothyroidism, unspecified E03.9 Active 06345551 Problem Cigarette nicotine dependence without complication F17.210 Active 25956796 Problem COPD (chronic obstructive pulmonary disease) J44.9 Active 90003562 Problem Generalized anxiety disorder F41.1 Active 24377728 Problem Bipolar II disorder F31.81 Active 68420397 Problem Cannabis use disorder, mild, abuse F12.10 Active 33826940 ALLERGIES No Information ENCOUNTERS Encounter Location Date Diagnosis [place] [id number] [place] [address] January, [place] [id number] [place] [address] Dec, Well woman exam without gynecological exam Z00.00 ; Screening for breast cancer Z12.31 and Screening for malignant neoplasm of colon Z12.11 [place] [id number] [place] [address] 06 Oct, 2018 Bipolar II disorder F31.81 ; Generalized anxiety disorder F41.1 and Cannabis use disorder, mild, abuse F12.10 [place] [id number] [place] [address] 09 Jun, 2018 Trochanteric bursitis of right hip M70.61 [place] [id number] [place] [address] 13 May, 2018 Trochanteric bursitis of right hip M70.61 and Cigarette nicotine dependence without complication F17.210 [place] [id number] [place] [address] Apr, [place] [id number] [place] [address] Apr, Mixed hyperlipidemia E78.2 [place] [id number] [place] [address] Apr, [address] [address] Apr, Bipolar II disorder F31.81 ; Generalized anxiety disorder F41.1 and Cannabis use disorder, mild, abuse F12.[address] [address] Feb, Mixed hyperlipidemia E78.2 ; Acquired hypothyroidism E03.9 and Routine adult health maintenance Z00.[address] [address] January, Bipolar II disorder F31.81 [place] [address] [address] January, Bipolar II disorder F31.81 ; Generalized anxiety disorder F41.1 ; Cannabis use disorder, mild, abuse F12.10 and Fatigue associated with anemia D64.9 [place] [id number] [place] [address] Dec, Hypothyroidism, unspecified E03.9 ; Tobacco abuse Z72.0 and COPD (chronic obstructive pulmonary disease) J44.9 [place] [id number] [place] [address] Jul, Bipolar II disorder F31.81 ; Generalized anxiety disorder F41.1 and Cannabis use disorder, mild, abuse F12.10 [place] [id number] [place] [address] Apr, Bipolar II disorder F31.81 ; Nausea and vomiting in adult R11.2 ; Generalized anxiety disorder F41.1 ; Heartburn R12 and Cannabis use disorder, mild, abuse F12.[address] [id number] [address] Apr, Bipolar II disorder F31.81 ; Generalized anxiety disorder F41.1 and Cannabis use disorder, mild, abuse F12.10 [place] [id number] [place] [address] Apr, Nausea and vomiting in adult R11.2 and Heartburn R12 [place] [id number] [place] [address] Apr, Bipolar II disorder F31.81 [place] [id number] [place] [address] Mar, Generalized anxiety disorder F41.1 [place] [id number] [place] [address] Feb, Bipolar II disorder F31.81 ; Generalized anxiety disorder F41.1 and Cannabis use disorder, mild, abuse F12.10 [place] [address] [place] [address] January, Bipolar II disorder F31.81 ; Generalized anxiety disorder F41.1 and Cannabis use disorder, mild, abuse F12.10 [place] [id number] [place] [address] Dec, Bipolar II disorder F31.81 ; Generalized anxiety disorder F41.1 and Cannabis use disorder, mild, abuse F12.10 [place] [id number] [place] [address] Dec, Generalized anxiety disorder F41.1 [place] [id number] [place] [address] Nov, [place] [id number] [place] [address] Nov, Generalized anxiety disorder F41.1 ; Cannabis use disorder, mild, abuse F12.10 and Bipolar II disorder F31.81 [place] [id number] [place] [address] Nov, Bipolar II disorder F31.81 [place] [id number] [place] [address] Nov, Bipolar II disorder F31.81 ; Generalized anxiety disorder F41.1 and Cannabis use disorder, mild, abuse F12.10 [place] [id number] [place] [address] Oct, [place] [address] [address] Oct, Bipolar II disorder F31.81 ; Generalized anxiety disorder F41.1 and Cannabis use disorder, mild, abuse F12.10 [place] [id number] [place] [address] Aug, COPD (chronic obstructive pulmonary disease) J44.[address] [address] Aug, Recent urinary tract infection Z87.440 ; Acquired hypothyroidism E03.9 ; Encounter for immunization Z23 ; Mixed hyperlipidemia E78.2 ; COPD (chronic obstructive pulmonary disease) J44.9 and Tobacco abuse Z72.0 [place] [id number] [place] [address] Jul, [place] [id number] [place] [address] Jul, [address] [address] Jul, Recent urinary tract infection Z87.440 ; Acute cystitis with hematuria N30.01 ; Vaginal itching L29.8 and Skin infection L08.9 [place] [id number] [place] [address] Jun, Hydronephrosis, unspecified hydronephrosis type N13.30 [place] [id number] [place] [address] Apr, [facility] [address] [place] [address] Sep, Acquired hypothyroidism E03.9 ; Mixed hyperlipidemia E78.2 ; COPD (chronic obstructive pulmonary disease) J44.9 and Thrush B37.0 [place] [id number] [place] [address] Aug, [place] [address] [address] Aug, Acquired hypothyroidism E03.9 ; Mixed hyperlipidemia E78.2 ; COPD (chronic obstructive pulmonary disease) J44.9 and URI (upper respiratory infection) J06.9 [place] [address] [address] January, Blood in stool 578.1 and Weight loss 783.21 [place] [address] [address] January, Other and unspecified hyperlipidemia 272.4 ; Unspecified hypothyroidism 244.9 ; Nondependent tobacco use disorder 305.1 ; Weight loss 783.21 ; History of colon polyps V12.72 and Blood in stool 578.1 [place] [id number] [place] [address] Dec, [place] [id number] [place] [address] Dec, [place] [id number] [place] [address] Dec, [place] [id number] [place] [address] Dec, [place] [id number] [place] [address] Nov, [place] [id number] [place] [address] Nov, [place] [address] [address] Nov, [facility] [place] [facility] [address] [id number] [place] [address] Nov, [facility] [place] [facility] [address] [id number] [place] [address] Sep, [facility] [place] [facility] [address] [facility] [id number] [place] [address] Sep, [facility] [place] [facility] [address] [id number] [place] [address] Aug, [facility] [place] [facility] [address] [id number] [place] [address] Aug, [facility] [place] [facility] [address] [facility] [id number] [place] [address] Aug, [facility] [place] [facility] [address] [facility] [id number] [place] [address] Aug, [facility] [place] [facility] [address] [facility] [id number] [place] [address] Aug, [facility] [place] [facility] [address] [facility] [id number] [place] [address] Aug, [facility] [place] [facility] [address] [facility] [id number] [place] [address] Aug, [facility] [place] [facility] [address] [facility] [id number] [place] [address] Aug, [facility] [place] [facility] [address] [id number], [place] [address] Jul, [facility] [place] [facility] [address] [id number] [place] [address] Jul, [facility] [place] [facility] [address] [facility] [id number] [place] [address] Jul, [facility] [place] [facility] [address] [facility] [id number] [place] [address] Jul, [facility] [place] [facility] [address] [id number] [place] [address] Jul, [facility] [place] [facility] [address] [id number] [place] [address] Jul, [facility] [place] [facility] [address] [id number] [place] [address] Jun, [facility] [place] [facility] [address] [id number] [place] [address] Jun, [facility] [place] [facility] [address] [id number] [place] [address] Jun, [facility] [place] [facility] [address] [id number] [place] [address] Jun, [facility] [place] [facility] [address] [id number] [place] [address] Apr, [facility] [place] [facility] [address] [id number] [place] [address] Apr, [facility] [place] [facility] [address] [id number] [place] [address] Mar, [facility] [place] [facility] [address] [id number] [place] [address] Mar, [facility] [place] [facility] [address] [id number] [place] [address] Feb, [facility] [place] [facility] [address] [id number] [place] [address] Feb, [facility] [place] [facility] [address] [id number] [place] [address] Sep, [facility] [place] [facility] [address] [id number] [place] [address] Sep, [facility] [place] [facility] [address] [id number] [place] [address] Aug, [facility] [place] [facility] [address] [id number] [place] [address] Aug, [facility] [place] [facility] [address] [id number] [place] [address] Aug, [facility] [place] [facility] [address] [id number] [place] [address] Aug, [facility] [place] [facility] [address] [id number] [place] [address] Jun, [facility] [place] [facility] [address] [id number] [place] [address] Jun, [facility] [place] [facility] [address] [id number] [place] [address] Jun, [facility] [place] [facility] [address] [id number] [place] [address] Jun, [facility] [place] [facility] [address] [id number] [place] [address] Jun, [facility] [place] [facility] [address] [id number][place] [address] Jun, [facility] [place] [facility] [address] [id number] [place] [address] Jun, [facility] [place] [facility] [address] [id number], [place] [address] Jun, [facility] [place] [facility] [address] [id number], [place] [address] Jun, [facility] [place] [facility] [address] [id number], [place] [address] May, [facility] [place] [facility] [address] [id number] [place] [address] Apr, [facility] [place] [facility] [address] [id number], [place] [address] Apr, [facility] [place] [facility] [address] [id number], [place] [address] Apr, [facility] [place] [facility] [address] [id number] [place] [address] Mar, [facility] [address] [id number] [place] [address] Mar, [facility] [place] [facility] [address] [id number] [place] [address] Mar, [facility] [address] [id number] [place] [address] Mar, [facility] [place] [facility] [address] [id number] [place] [address] Mar, [facility] [address] [id number] [place] [address] Mar, [facility] [address] [id number] [place] [address] Mar, [facility] [address] [id number] [place] [address] Mar, [facility] [address] [id number] [place] [address] Mar, [facility] [address] [id number] [place] [address] Mar, [facility] [address] [id number] [place] [address] Feb, [facility] [address] [id number] [place] [address] Oct, [facility] [address] [id number] [place] [address] Sep, [facility] [place] [facility] [address] [id number] [place] [address] Aug, [facility] [place] [facility] [address] [id number] [place] [address] Aug, [facility] [address] [id number] [place] [address] Aug, [facility] [address] [facility] [id number] [place] [address] Aug, [facility] [address] [facility] [id number], [place] [address] Nov, IMMUNIZATIONS No Known Immunizations SOCIAL HISTORY Never Assessed REASON FOR VISIT EMR-[facility] PLAN OF CARE VITAL SIGNS MEDICATIONS Unknown [...] by cystotomy, required transvaginal tape obturator (Dr. Crwo) 2004 or 2006 Surgical History bladder mesh removed 06/2013 Surgical History removal of vaginal wall lesion 07/2012 Surgical History back surgery with injury to bowel, bladder mesh for perforation Surgical History Bladder mesh Hospitalization History Surgery/ Childbirth Hospitalization History Denies any past psychiatric hospitalizations
--- OUTSIDE RECORDS SUMMARY | 2019-02-06 07:48 | XMS REPORT ---
Author Author Migration, Doctor Organization [facility] Address Unknown Phone Unavailable Care Team Providers Care [employer] Worker Name Role Phone Migration, Doctor Unavailable Unavailable PROBLEMS Type Condition ICD9-CM Code NZI98-IF Code Onset Dates Condition Status SNOMED Code Problem Mixed hyperlipidemia E78.2 Active 730222232 Problem Acquired hypothyroidism E03.9 Active 971780685 Problem Hypothyroidism, unspecified E03.9 Active 44041709 Problem Cigarette nicotine dependence without complication F17.210 Active 55645817 Problem COPD (chronic obstructive pulmonary disease) J44.9 Active 63246823 Problem Generalized anxiety disorder F41.1 Active 81539317 Problem Bipolar II disorder F31.81 Active 12918608 Problem Cannabis use disorder, mild, abuse F12.10 Active 15542431 ALLERGIES No Information ENCOUNTERS Encounter Location Date Diagnosis [place] [id number] [place] [address] January, [place] [id number] [place] [address] Dec, [place] [id number] [place] [address] Oct, Bipolar II disorder F31.81 ; Generalized anxiety disorder F41.1 and Cannabis use disorder, mild, abuse F12.10 [place] [id number] [place] [address] Jun, Trochanteric bursitis of right hip M70.61 [place] [id number] [place] [address] May, Trochanteric bursitis of right hip M70.61 and Cigarette nicotine dependence without complication F17.210 [place] [id number] [place] [address] Apr, [place] [address] [place] [address] Apr, Mixed hyperlipidemia E78.2 [place] [address] [address] Apr, [place] [id number] [place] [address] Apr, Bipolar II disorder F31.81 ; Generalized anxiety disorder F41.1 and Cannabis use disorder, mild, abuse F12.10 [place] [id number] [place] [address] Feb, Mixed hyperlipidemia E78.2 ; Acquired hypothyroidism E03.9 and Routine adult health maintenance Z00.00 [place] [address] [address] January, Bipolar II disorder F31.81 [place] [address] [address] January, Bipolar II disorder F31.81 ; Generalized anxiety disorder F41.1 ; Cannabis use disorder, mild, abuse F12.10 and Fatigue associated with anemia D64.9 [place] [address] [address] Dec, Hypothyroidism, unspecified E03.9 ; Tobacco abuse Z72.0 and COPD (chronic obstructive pulmonary disease) J44.9 [place] [id number] [place] [address] Jul, Bipolar II disorder F31.81 ; Generalized anxiety disorder F41.1 and Cannabis use disorder, mild, abuse F12.10 [place] [id number] [place] [address] Apr, Bipolar II disorder F31.81 ; Nausea and vomiting in adult R11.2 ; Generalized anxiety disorder F41.1 ; Heartburn R12 and Cannabis use disorder, mild, abuse F12.10 [place] [id number] [place] [address] 22 Aug, 2017 Bipolar II disorder F31.81 ; Generalized anxiety disorder F41.1 and Cannabis use disorder, mild, abuse F12.10 [facility] [address] [place] [address] Apr, 2017 Nausea and vomiting in adult R11.2 and Heartburn R12 [facility] [address], [place] [address] Apr, Bipolar II disorder F31.81 [facility] [id number] [place] [address] Mar, Generalized anxiety disorder F41.1 [place] [id number] [place] [address] Feb, Bipolar II disorder F31.81 ; Generalized anxiety disorder F41.1 and Cannabis use disorder, mild, abuse F12.10 [place] [id number] [place] [address] January, Bipolar II disorder F31.81 ; Generalized anxiety disorder F41.1 and Cannabis use disorder, mild, abuse F12.10 [facility] [id number] [place] [address] Dec, Bipolar II disorder F31.81 ; Generalized anxiety disorder F41.1 and Cannabis use disorder, mild, abuse F12.10 [facility] [address], [place] [address] Dec, Generalized anxiety disorder F41.1 [facility] [address], [place] [address] Nov, [facility] [address], [place] [address] Nov, Generalized anxiety disorder F41.1 ; Cannabis use disorder, mild, abuse F12.10 and Bipolar II disorder F31.81 [facility] [address], [place] [address] Nov, Bipolar II disorder F31.81 [facility] [id number] [place] [address] Nov, Bipolar II disorder F31.81 ; Generalized anxiety disorder F41.1 and Cannabis use disorder, mild, abuse F12.10 [facility] [address] [place] [address] Oct, [facility] [id number] [place] [address] Oct, Bipolar II disorder F31.81 ; Generalized anxiety disorder F41.1 and Cannabis use disorder, mild, abuse F12.10 [place] [id number] [place] [address] 16 Aug, 2016 COPD (chronic obstructive pulmonary disease) J44.9 [place] [id number] [place] [address] 08 Aug, 2016 Recent urinary tract infection Z87.440 ; Acquired hypothyroidism E03.9 ; Encounter for immunization Z23 ; Mixed hyperlipidemia E78.2 ; COPD (chronic obstructive pulmonary disease) J44.9 and Tobacco abuse Z72.0 [place] [id number] [place] [address] Jul, [place] [id number] [place] [address] Jul, [place] [id number] [place] [address] Jul, Recent urinary tract infection Z87.440 ; Acute cystitis with hematuria N30.01 ; Vaginal itching L29.8 and Skin infection L08.9 [place] [address] [place] [address] Jun, Hydronephrosis, unspecified hydronephrosis type N13.30 [facility] [id number] [place] [address] Apr, [place] [id number] [place] [address] Sep, Acquired hypothyroidism E03.9 ; Mixed hyperlipidemia E78.2 ; COPD (chronic obstructive pulmonary disease) J44.9 and Thrush B37.0 [facility] [id number] [place] [address] Aug, [facility] [id number] [place] [address] Aug, Acquired hypothyroidism E03.9 ; Mixed hyperlipidemia E78.2 ; COPD (chronic obstructive pulmonary disease) J44.9 and URI (upper respiratory infection) J06.9 [place] [id number] [place] [address] January, Blood in stool 578.1 and Weight loss 783.21 [place] [id number] [place] [address] January, Other and unspecified hyperlipidemia 272.4 ; Unspecified hypothyroidism 244.9 ; Nondependent tobacco use disorder 305.1 ; Weight loss 783.21 ; History of colon polyps V12.72 and Blood in stool 578.1 [place] [id number] [place] [address] Dec, [place] [id number] [place] [address] Dec, [place] [id number] [place] [address] Dec, [facility] [id number] [place] [address] Dec, [facility] [id number] [place] [address] Nov, [facility] [id number] [place] [address] Nov, [facility] [id number] [place] [address] Nov, [facility] [address] [place] [address] Nov, [facility] [place] [facility] [address] [id number] [place] [address] Sep, [facility] [place] [facility] [address] [id number] [place] [address] Sep, [facility] [place] [facility] [address] [id number] [place] [address] Aug, [facility] [place] [facility] [address] [id number] [place] [address] Aug, [facility] [place] [facility] [address] [id number] [place] [address] Aug, [facility] [place] [facility] [address] [id number] [place] [address] Aug, [facility] [place] [facility] [address] [id number] [place] [address] Aug, [facility] [place] [facility] [address] [id number] [place] [address] Aug, [facility] [place] [facility] [address] [id number] [place] [address] Aug, [facility] [place] [facility] [address] [facility] [id number] [place] [address] Aug, [facility] [place] [facility] [address] [id number] [place] [address] Jul, [facility] [place] [facility] [address] [id number] [place] [address] Jul, [facility] [place] [facility] [address] [id number] [place] [address] Jul, [facility] [place] [facility] [address] [id number] [place] [address] Jul, [facility] [place] [facility] [address] [facility] [id number] [place] [address] Jul, [facility] [place] [facility] [address] [id number] [place] [address] Jul, [facility] [place] [facility] [address] [id number] [place] [address] Jun, [facility] [place] [facility] [address] [id number] [place] [address] Jun, [facility] [place] [facility] [address] [id number] [place] [address] Jun, [facility] [place] [facility] [address] [id number] [place] [address] Jun, [facility] [place] [facility] [address] [id number] [place] [address] Apr, [facility] [place] [facility] [address] [id number] [place] [address] Apr, [facility] [place] [facility] [address] [id number] [place] [address] Mar, [facility] [place] [facility] [address] [id number] [place] [address] Mar, [facility] [place] [facility] [address] [id number] [place] [address] Feb, [facility] [place] [facility] [address] [id number] [place] [address] Feb, [facility] [place] [facility] [address] [id number] [place] [address] Sep, [facility] [place] [facility] [address] [id number] [place] [address] Sep, [facility] [place] [facility] [address] [id number] [place] [address] Aug, [facility] [place] [facility] [address] [id number] [place] [address] Aug, [facility] [place] [facility] [address] [id number] [place] [address] Aug, [facility] [place] [facility] [address] [id number] [place] [address] Aug, [facility] [place] [facility] [address] [id number] [place] [address] Jun, [facility] [place] [facility] [address] [id number] [place] [address] Jun, [facility] [place] [facility] [address] [id number] [place] [address] Jun, [facility] [place] [facility] [address] [id number] [place] [address] Jun, [facility] [place] [facility] [address] [id number] [place] [address] Jun, [facility] [place] [facility] [address] [id number] [place] [address] Jun, [facility] [place] [facility] [address] [id number] [place] [address] Jun, [facility] [place] [facility] [address] [id number] [place] [address] Jun, [facility] [place] [facility] [address] [id number] [place] [address] Jun, [facility] [place] [facility] [address] [id number], [place] [address] May, [facility] [place] [facility] [address] [id number], [place] [address] Apr, [facility] [place] [facility] [address] [id number] [place] [address] Apr, [facility] [place] [facility] [address] [id number] [place] [address] Apr, [facility] [place] [facility] [address] [id number] [place] [address] Mar, [facility] [place] [facility] [address] [id number] [place] [address] Mar, [facility] [address] [id number] [place] [address] Mar, [facility] [address] [id number] [place] [address] Mar, [facility] [address] [id number] [place] [address] Mar, [facility] [address] [id number] [place] [address] Mar, [facility] [address] [id number] [place] [address] Mar, [facility] [address] [id number] [place] [address] Mar, [facility] [address] [id number] [place] [address] Mar, [facility] [address] [id number] [place] [address] Mar, [facility] [address] [id number] [place] [address] Feb, [facility] [address] [id number] [place] [address] Oct, [facility] [address] [id number] [place] [address] Sep, [facility] [address] [id number] [place] [address] Aug, [facility] [address] [id number] [place] [address] Aug, [facility] [address] [id number] [place] [address] Aug, [facility] [address] [id number] [place] [address] Aug, [facility] [address] [facility] [id number] [place] [address] Nov, IMMUNIZATIONS No Known Immunizations SOCIAL HISTORY Never Assessed REASON FOR VISIT EMR-[facility] PLAN OF CARE VITAL SIGNS MEDICATIONS [...]
--- OUTSIDE RECORDS SUMMARY | 2019-02-06 07:48 | XMS REPORT ---
Author Author Migration, Doctor Organization [facility] [place] [facility] Address Unknown Phone Unavailable Care Team Providers Care Mica Miner Name Role Phone Migration, Doctor Unavailable Unavailable PROBLEMS Type Condition ICD9-CM Code XNT33-JK Code Onset Dates Condition Status SNOMED Code Problem Mixed hyperlipidemia E78.2 Active 903406211 Problem Acquired hypothyroidism E03.9 Active 628829974 Problem Hypothyroidism, unspecified E03.9 Active 17351674 Problem Cigarette nicotine dependence without complication F17.210 Active 51357238 Problem COPD (chronic obstructive pulmonary disease) J44.9 Active 95311216 Problem Generalized anxiety disorder F41.1 Active 98450902 Problem Bipolar II disorder F31.81 Active 23357894 Problem Cannabis use disorder, mild, abuse F12.10 Active 90268604 ALLERGIES No Information ENCOUNTERS Encounter Location Date Diagnosis [place] [id number] [place] [address] January, [place] [id number] [place] [address] Dec, Well woman exam without gynecological exam Z00.00 ; Screening for breast cancer Z12.31 and Screening for malignant neoplasm of colon Z12.11 [place] [id number] [place] [address] 06 Oct, 2018 Bipolar II disorder F31.81 ; Generalized anxiety disorder F41.1 and Cannabis use disorder, mild, abuse F12.10 [place] [id number] [place] [address] 09 Jun, 2018 Trochanteric bursitis of right hip M70.61 [place] [id number] [place] [address] 13 May, 2018 Trochanteric bursitis of right hip M70.61 and Cigarette nicotine dependence without complication F17.210 [place] [id number] [place] [address] Apr, [place] [id number] [place] [address] Apr, Mixed hyperlipidemia E78.2 [place] [id number] [place] [address] Apr, [address] [address] Apr, Bipolar II disorder F31.81 ; Generalized anxiety disorder F41.1 and Cannabis use disorder, mild, abuse F12.[address] [address] Feb, Mixed hyperlipidemia E78.2 ; Acquired hypothyroidism E03.9 and Routine adult health maintenance Z00.[address] [address] January, Bipolar II disorder F31.81 [place] [address] [address] January, Bipolar II disorder F31.81 ; Generalized anxiety disorder F41.1 ; Cannabis use disorder, mild, abuse F12.10 and Fatigue associated with anemia D64.9 [place] [id number] [place] [address] Dec, Hypothyroidism, unspecified E03.9 ; Tobacco abuse Z72.0 and COPD (chronic obstructive pulmonary disease) J44.9 [place] [id number] [place] [address] Jul, Bipolar II disorder F31.81 ; Generalized anxiety disorder F41.1 and Cannabis use disorder, mild, abuse F12.10 [place] [id number] [place] [address] Apr, Bipolar II disorder F31.81 ; Nausea and vomiting in adult R11.2 ; Generalized anxiety disorder F41.1 ; Heartburn R12 and Cannabis use disorder, mild, abuse F12.[address] [id number] [address] Apr, Bipolar II disorder F31.81 ; Generalized anxiety disorder F41.1 and Cannabis use disorder, mild, abuse F12.10 [place] [id number] [place] [address] Apr, Nausea and vomiting in adult R11.2 and Heartburn R12 [place] [id number] [place] [address] Apr, Bipolar II disorder F31.81 [place] [id number] [place] [address] Mar, Generalized anxiety disorder F41.1 [place] [id number] [place] [address] Feb, Bipolar II disorder F31.81 ; Generalized anxiety disorder F41.1 and Cannabis use disorder, mild, abuse F12.10 [place] [id number] [place] [address] January, Bipolar II disorder F31.81 ; Generalized anxiety disorder F41.1 and Cannabis use disorder, mild, abuse F12.10 [place] [id number] [place] [address] Dec, Bipolar II disorder F31.81 ; Generalized anxiety disorder F41.1 and Cannabis use disorder, mild, abuse F12.10 [place] [id number] [place] [address] Dec, Generalized anxiety disorder F41.1 [place] [id number] [place] [address] Nov, [place] [id number] [place] [address] Nov, Generalized anxiety disorder F41.1 ; Cannabis use disorder, mild, abuse F12.10 and Bipolar II disorder F31.81 [place] [id number] [place] [address] Nov, Bipolar II disorder F31.81 [place] [id number] [place] [address] Nov, Bipolar II disorder F31.81 ; Generalized anxiety disorder F41.1 and Cannabis use disorder, mild, abuse F12.10 [place] [id number] [place] [address] Oct, [place] [address] [address] Oct, Bipolar II disorder F31.81 ; Generalized anxiety disorder F41.1 and Cannabis use disorder, mild, abuse F12.10 [place] [id number] [place] [address] Aug, COPD (chronic obstructive pulmonary disease) J44.[address] [address] Aug, Recent urinary tract infection Z87.440 ; Acquired hypothyroidism E03.9 ; Encounter for immunization Z23 ; Mixed hyperlipidemia E78.2 ; COPD (chronic obstructive pulmonary disease) J44.9 and Tobacco abuse Z72.0 [place] [id number] [place] [address] Jul, [place] [id number] [place] [address] Jul, [address] [address] Jul, Recent urinary tract infection Z87.440 ; Acute cystitis with hematuria N30.01 ; Vaginal itching L29.8 and Skin infection L08.9 [place] [id number] [place] [address] Jun, Hydronephrosis, unspecified hydronephrosis type N13.30 [place] [id number] [place] [address] Apr, [facility] [id number] [place] [address] Sep, Acquired hypothyroidism E03.9 ; Mixed hyperlipidemia E78.2 ; COPD (chronic obstructive pulmonary disease) J44.9 and Thrush B37.0 [place] [id number] [place] [address] Aug, [place] [address] [address] Aug, Acquired hypothyroidism E03.9 ; Mixed hyperlipidemia E78.2 ; COPD (chronic obstructive pulmonary disease) J44.9 and URI (upper respiratory infection) J06.9 [place] [address] [address] January, Blood in stool 578.1 and Weight loss 783.21 [place] [address] [address] January, Other and unspecified hyperlipidemia 272.4 ; Unspecified hypothyroidism 244.9 ; Nondependent tobacco use disorder 305.1 ; Weight loss 783.21 ; History of colon polyps V12.72 and Blood in stool 578.1 [place] [id number] [place] [address] Dec, [place] [id number] [place] [address] Dec, [place] [id number] [place] [address] Dec, [place] [id number] [place] [address] Dec, [place] [id number] [place] [address] Nov, [place] [id number] [place] [address] Nov, [place] [address] [address] Nov, [facility] [place] [facility] [address] [id number] [place] [address] Nov, [facility] [place] [facility] [address] [id number] [place] [address] Sep, [facility] [place] [facility] [address] [facility] [id number] [place] [address] Sep, [facility] [place] [facility] [address] [id number] [place] [address] Aug, [facility] [place] [facility] [address] [id number] [place] [address] Aug, [facility] [place] [facility] [address] [facility] [id number] [place] [address] Aug, [facility] [place] [facility] [address] [facility] [id number] [place] [address] Aug, [facility] [place] [facility] [address] [facility] [id number] [place] [address] Aug, [facility] [place] [facility] [address] [facility] [id number] [place] [address] Aug, [facility] [place] [facility] [address] [facility] [id number] [place] [address] Aug, [facility] [place] [facility] [address] [facility] [id number] [place] [address] Aug, [facility] [place] [facility] [address] [id number], [place] [address] Jul, [facility] [place] [facility] [address] [id number] [place] [address] Jul, [facility] [place] [facility] [address] [facility] [id number] [place] [address] Jul, [facility] [place] [facility] [address] [facility] [id number] [place] [address] Jul, [facility] [place] [facility] [address] [id number] [place] [address] Jul, [facility] [place] [facility] [address] [id number] [place] [address] Jul, [facility] [place] [facility] [address] [id number] [place] [address] Jun, [facility] [place] [facility] [address] [id number] [place] [address] Jun, [facility] [place] [facility] [address] [id number] [place] [address] Jun, [facility] [place] [facility] [address] [id number] [place] [address] Jun, [facility] [place] [facility] [address] [id number] [place] [address] Apr, [facility] [place] [facility] [address] [id number] [place] [address] Apr, [facility] [place] [facility] [address] [id number] [place] [address] Mar, [facility] [place] [facility] [address] [id number] [place] [address] Mar, [facility] [place] [facility] [address] [id number] [place] [address] Feb, [facility] [place] [facility] [address] [id number] [place] [address] Feb, [facility] [place] [facility] [address] [id number] [place] [address] Sep, [facility] [place] [facility] [address] [id number] [place] [address] Sep, [facility] [place] [facility] [address] [id number] [place] [address] Aug, [facility] [place] [facility] [address] [id number] [place] [address] Aug, [facility] [place] [facility] [address] [id number] [place] [address] Aug, [facility] [place] [facility] [address] [id number] [place] [address] Aug, [facility] [place] [facility] [address] [id number] [place] [address] Jun, [facility] [place] [facility] [address] [id number] [place] [address] Jun, [facility] [place] [facility] [address] [id number] [place] [address] Jun, [facility] [place] [facility] [address] [id number] [place] [address] Jun, [facility] [place] [facility] [address] [id number] [place] [address] Jun, [facility] [place] [facility] [address] [id number], [place] [address] Jun, [facility] [place] [facility] [address] [id number] [place] [address] Jun, [facility] [place] [facility] [address] [id number], [place] [address] Jun, [facility] [place] [facility] [address] [id number], [place] [address] Jun, [facility] [place] [facility] [address] [id number], [place] [address] May, [facility] [place] [facility] [address] [id number] [place] [address] Apr, [facility] [place] [facility] [address] [id number], [place] [address] Apr, [facility] [place] [facility] [address] [id number], [place] [address] Apr, [facility] [place] [facility] [address] [id number] [place] [address] Mar, [facility] [address] [id number] [place] [address] Mar, [facility] [place] [facility] [address] [id number] [place] [address] Mar, [facility] [address] [id number] [place] [address] Mar, [facility] [place] [facility] [address] [id number] [place] [address] Mar, [facility] [address] [id number] [place] [address] Mar, [facility] [address] [id number] [place] [address] Mar, [facility] [address] [id number] [place] [address] Mar, [facility] [address] [id number] [place] [address] Mar, [facility] [address] [id number] [place] [address] Mar, [facility] [address] [id number] [place] [address] Feb, [facility] [address] [id number] [place] [address] Oct, [facility] [address] [id number] [place] [address] Sep, [facility] [place] [facility] [address] [id number] [place] [address] Aug, [facility] [place] [facility] [address] [id number] [place] [address] Aug, [facility] [address] [id number] [place] [address] Aug, [facility] [address] [facility] [id number] [place] [address] Aug, [facility] [address] [facility] [id number], [place] [address] Nov, IMMUNIZATIONS No Known Immunizations SOCIAL HISTORY Never Assessed REASON FOR VISIT [place]MR[place] [place] OF CARE VITAL SIGNS MEDICATIONS Unknown [...]
--- OUTSIDE RECORDS SUMMARY | 2019-02-06 07:49 | XMS REPORT ---
Author Author SOLEDAD RICK Organization [facility] Address [address] [place] [address] Care Team Providers Care Ag Equipment Field Service Technician Name Role Phone SOLEDAD RICK Unavailable PROBLEMS Type Condition ICD9-CM Code SYT17-NV Code Onset Dates Condition Status SNOMED Code Problem Acquired hypothyroidism E03.9 Active 279134896 Problem Mixed hyperlipidemia E78.2 Active 844017835 Problem Cigarette nicotine dependence without complication F17.210 Active 77994428 Problem Hypothyroidism, unspecified E03.9 Active 15131395 Problem Generalized anxiety disorder F41.1 Active 79882310 Problem COPD (chronic obstructive pulmonary disease) J44.9 Active 13679837 Problem Cannabis use disorder, mild, abuse F12.10 Active 68018480 Problem Bipolar II disorder F31.81 Active 93281562 ALLERGIES Substance Reaction Event Type Date Status Wellbutrin Unknown Drug Allergy May, Active Remeron hallucinations Drug Allergy May, Active Oxybutynin hallucinations Drug Allergy May, Active Clonazepam "fuzzy" Drug Allergy May, Active ENCOUNTERS Encounter Location Date Diagnosis [place] [id number] [place] [address] Jul, [facility] [id number] [place] [address] May, Trochanteric bursitis of right hip M70.61 and Cigarette nicotine dependence without complication F17.210 [facility] [id number] [place] [address] Apr, [place] [address] [place] [id number] [place] [address] Apr, Mixed hyperlipidemia E78.2 [facility] [id number] [place] [address] Apr, [place] [id number] [place] [address] Apr, Bipolar II disorder F31.81 ; Generalized anxiety disorder F41.1 and Cannabis use disorder, mild, abuse F12.10 [place] [address] [place] [id number] [place] [address] Feb, Mixed hyperlipidemia E78.2 ; Acquired hypothyroidism E03.9 and Routine adult health maintenance Z00.00 [place] [address] [address] January, Bipolar II disorder F31.[address] [address] January, Bipolar II disorder F31.81 ; Generalized anxiety disorder F41.1 ; Cannabis use disorder, mild, abuse F12.10 and Fatigue associated with anemia D64.[address] [address] Dec, Hypothyroidism, unspecified E03.9 ; Tobacco abuse Z72.0 and COPD (chronic obstructive pulmonary disease) J44.9 [place] [id number] [place] [address] Jul, Bipolar II disorder F31.81 ; Generalized anxiety disorder F41.1 and Cannabis use disorder, mild, abuse F12.10 [place] [address] [place] [id number] [place] [address] Apr, Bipolar II disorder F31.81 ; Nausea and vomiting in adult R11.2 ; Generalized anxiety disorder F41.1 ; Heartburn R12 and Cannabis use disorder, mild, abuse F12.10 [place] [id number] [place] [address] Apr, Bipolar II disorder F31.81 ; Generalized anxiety disorder F41.1 and Cannabis use disorder, mild, abuse F12.10 [place] [id number] [place] [address] Apr, Nausea and vomiting in adult R11.2 and Heartburn R12 [facility] [address] [address] Apr, Bipolar II disorder F31.81 [facility] [address] [place] [id number] [place] [address] Mar, Generalized anxiety disorder F41.1 [facility] [address] [place] [id number] [place] [address] Feb, Bipolar II disorder F31.81 ; Generalized anxiety disorder F41.1 and Cannabis use disorder, mild, abuse F12.10 [facility] [address] [place] [id number] [place] [address] January, Bipolar II disorder F31.81 ; Generalized anxiety disorder F41.1 and Cannabis use disorder, mild, abuse F12.10 [facility] [address] [place] [id number] [place] [address] Dec, Bipolar II disorder F31.81 ; Generalized anxiety disorder F41.1 and Cannabis use disorder, mild, abuse F12.10 [facility] [id number] [place] [address] Dec, Generalized anxiety disorder F41.1 [facility] [address] [place] [id number] [place] [address] Nov, [facility] [id number] [place] [address] Nov, Generalized anxiety disorder F41.1 ; Cannabis use disorder, mild, abuse F12.10 and Bipolar II disorder F31.81 [facility] [address] [address] Nov, Bipolar II disorder F31.81 [facility] [address] [place] [id number] [place], [place] [id number] Nov, Bipolar II disorder F31.81 ; Generalized anxiety disorder F41.1 and Cannabis use disorder, mild, abuse F12.10 [facility] [address] [place] [id number] [place] [address] 23 Oct, 2016 [place] [address] [place] [id number] [place] [address] 17 Oct, 2016 Bipolar II disorder F31.81 ; Generalized anxiety disorder F41.1 and Cannabis use disorder, mild, abuse F12.10 [place] [address] [place] [id number] [place] [address] 16 Aug, 2016 COPD (chronic obstructive pulmonary disease) J44.9 [place] [address] [place] [id number] [place] [address] 08 Aug, 2016 Recent urinary tract infection Z87.440 ; Acquired hypothyroidism E03.9 ; Encounter for immunization Z23 ; Mixed hyperlipidemia E78.2 ; COPD (chronic obstructive pulmonary disease) J44.9 and Tobacco abuse Z72.0 [place] [address] [place] [id number] [place] [address] Jul, [place] [address] [place] [id number] [place] [address] Jul, [place] [address] [place] [id number] [place] [address] Jul, Recent urinary tract infection Z87.440 ; Acute cystitis with hematuria N30.01 ; Vaginal itching L29.8 and Skin infection L08.9 [place] [address] [place] [id number] [place] [address] Jun, Hydronephrosis, unspecified hydronephrosis type N13.30 [place] [address] [place] [id number] [place] [address] Apr, [address] [address] Sep, Acquired hypothyroidism E03.9 ; Mixed hyperlipidemia E78.2 ; COPD (chronic obstructive pulmonary disease) J44.9 and Thrush B37.0 [place] [address] [place] [id number] [place] [address] Aug, [facility] [address] [address] Aug, Acquired hypothyroidism E03.9 ; Mixed hyperlipidemia E78.2 ; COPD (chronic obstructive pulmonary disease) J44.9 and URI (upper respiratory infection) J06.9 [facility] [address] [address] January, Blood in stool 578.1 and Weight loss 783.21 [facility] [address] [place] [id number] [address] January, Other and unspecified hyperlipidemia 272.4 ; Unspecified hypothyroidism 244.9 ; Nondependent tobacco use disorder 305.1 ; Weight loss 783.21 ; History of colon polyps V12.72 and Blood in stool 578.1 [facility] [address] [address] Dec, [facility] [address] [address] Dec, [facility] [address] [address] Dec, [facility] [address] [address] Dec, [facility] [address] [address] Nov, [facility] [address] [address] Nov, [facility] [address] [address] Nov, [facility] [address] [address] Nov, [facility] [address] [address] Sep, [facility] [address] [place] [id number] [place] [address] Sep, [facility] [address] [id number] [place] [address] Aug, [facility] [place] [facility] [address] [id number] [place] [address] Aug, [facility] [place] [facility] [address] [id number] [place] [address] Aug, [facility] [place] [facility] [address] [id number] [place] [address] Aug, [facility] [place] [facility] [address] [id number] [place] [address] Aug, [facility] [place] [facility] [address] [id number] [place] [address] Aug, [facility] [place] [facility] [address] [id number] [place] [address] Aug, [facility] [place] [facility] [address] [id number] [place] [address] Aug, [facility] [place] [facility] [address] [id number] [place] [address] Jul, [facility] [place] [facility] [address] [facility] [id number] [place] [address] Jul, [facility] [place] [facility] [address] [id number] [place] [address] Jul, [facility] [place] [facility] [address] [id number] [place] [address] Jul, [facility] [place] [facility] [address] [id number] [place] [address] Jul, [facility] [place] [facility] [address] [facility] [id number] [place] [address] Jul, [facility] [place] [facility] [address] [id number] [place] [address] Jun, [facility] [place] [facility] [address] [id number] [place] [address] Jun, [facility] [place] [facility] [address] [id number] [place] [address] Jun, [facility] [place] [facility] [address] [id number] [place] [address] Jun, [facility] [place] [facility] [address] [id number] [place] [address] Apr, [facility] [place] [facility] [address] [id number] [place] [address] Apr, [facility] [place] [facility] [address] [id number] [place] [address] Mar, [facility] [place] [facility] [address] [id number] [place] [address] Mar, [facility] [place] [facility] [address] [id number] [place] [address] Feb, [facility] [place] [facility] [address] [id number] [place] [address] Feb, [facility] [place] [facility] [address] [id number] [place] [address] Sep, [facility] [place] [facility] [address] [id number] [place] [address] Sep, [facility] [place] [facility] [address] [id number] [place] [address] Aug, [facility] [place] [facility] [address] [id number] [place] [address] Aug, [facility] [place] [facility] [address] [id number] [place] [address] Aug, [facility] [place] [facility] [address] [id number] [place] [address] Aug, [facility] [place] [facility] [address] [id number] [place] [address] Jun, [facility] [place] [facility] [address] [id number] [place] [address] Jun, [facility] [place] [facility] [address] [id number] [place] [address] Jun, [facility] [place] [facility] [address] [id number] [place] [address] Jun, [facility] [place] [facility] [address] [id number] [place] [address] Jun, [facility] [place] [facility] [address] [id number] [place] [address] Jun, [facility] [place] [facility] [address] [id number] [place] [address] Jun, [facility] [place] [facility] [address] [id number] [place] [address] Jun, [facility] [place] [facility] [address] [id number] [place] [address] Jun, [facility] [place] [facility] [address] [id number] [place] [address] May, [facility] [place] [facility] [address] [id number] [place] [address] Apr, [facility] [place] [facility] [address] [id number] [place] [address] Apr, [facility] [place] [facility] [address] [id number] [place] [address] Apr, [facility] [place] [facility] [address] [id number] [place] [address] Mar, [facility] [place] [facility] [address] [id number] [place] [address] Mar, [facility] [place] [facility] [address] [id number] [place] [address] Mar, [facility] [place] [facility] [address] [id number] [place] [address] Mar, [facility] [address] [id number] [place] [address] Mar, [facility] [address] [facility] [id number] [place] [address] Mar, [facility] [address] [id number] [place] [address] Mar, [facility] [address] [id number] [place] [address] Mar, [facility] [address] [facility] [id number] [place] [address] Mar, [facility] [address] [facility] [id number] [place] [address] Mar, [facility] [address] [facility] [id number] [address] Feb, [facility] [address] [facility] [id number] [address] Oct, [facility] [address] [facility] [id number] [address] Sep, [facility] [address] [facility] [id number] [address] Aug, [facility] [address] [facility] [id number] [address] Aug, [facility] [address] [facility] [id number] [place] [address] Aug, [facility] [address] [facility] [id number] [place] [address] Aug, [facility] [address] [facility] [id number] [place] [address] Nov, IMMUNIZATIONS No Known Immunizations SOCIAL HISTORY Never Assessed REASON FOR VISIT Pain (acute)hip / 2 months right hip hurting taking tylenol for pain [place], wants to discuss smoking cessation with chanjavier Harrison MA, wants to get mammo gram [place] [facility] PLAN OF CARE Activity Details Follow Up 4 Months Reason: Pending Test Mammogram, Bilateral Screening VITAL SIGNS Height 63 in 2018-06-01 Weight 122.5 lbs 2018-06-01 Temperature 97.3 degrees Fahrenheit 2018-06-01 Heart Rate 102 bpm 2018-06-01 Respiratory Rate 18 2018-06-01 BMI 21.70 kg/m2 2018-06-01 Blood pressure systolic 110 mmHg 2018-06-01 Blood pressure diastolic 72 mmHg 2018-06-01 MEDICATIONS Medication Instructions Dosage Frequency Start Date End Date Duration Status Chantix 1 MG Orally Twice a day 1 tablet 12h January, 30 day(s) Active Abilify 10 mg by oral route Once a day 1 tablet by Oral route 1 time per day 24h 30 Active Myrbetriq 50 MG Orally Once a day 1 tablet 24h Active Diclofenac Sodium 75 MG Orally Twice a day 1 tablet with food or milk 12h 13 May, 2018 Jul, 30 day(s) Active Paroxetine HCl 40 mg 1 1/2 TABLETS ONCE A DAY ORALLY 30 DAYS Active Lovastatin 40 MG TAKE 1 TABLET BY MOUTH DAILY WITH A MEAL 30 days Active Gabapentin 300 mg WICE A DAY NEEDED FOR ANXIETY ORALLY 30 DAY(S) Active Paroxetine HCl 40 mg 1 1/2 TABLETS ONCE A DAY ORALLY 30 DAYS 30 Not-Taking RESULTS No Results PROCEDURES Procedure Date Ordered Result Body Site [facility] ESTABLISHED PATIENT Jun 01, 2018 INSTRUCTIONS MEDICATIONS ADMINISTERED No Known Medications MEDICAL [...]
--- OUTSIDE RECORDS SUMMARY | 2019-02-06 07:49 | XMS REPORT ---
Author Author SOLEDAD RICK Organization [facility] Address [address] [place] [address] Care Team Providers Care Movie Operator Name Role Phone SOLEDAD RICK Unavailable PROBLEMS Type Condition ICD9-CM Code EVJ01-PY Code Onset Dates Condition Status SNOMED Code Problem Acquired hypothyroidism E03.9 Active 286713161 Problem Mixed hyperlipidemia E78.2 Active 739678194 Problem Cigarette nicotine dependence without complication F17.210 Active 70312951 Problem Hypothyroidism, unspecified E03.9 Active 28583620 Problem Generalized anxiety disorder F41.1 Active 09849160 Problem COPD (chronic obstructive pulmonary disease) J44.9 Active 34026623 Problem Cannabis use disorder, mild, abuse F12.10 Active 78671492 Problem Bipolar II disorder F31.81 Active 05187981 ALLERGIES No Information ENCOUNTERS Encounter Location Date Diagnosis [place] [id number] [place] [address] Jul, [place] [id number] [place] [address] Jun, Trochanteric bursitis of right hip M70.61 [place] [id number] [place] [address] May, Trochanteric bursitis of right hip M70.61 and Cigarette nicotine dependence without complication F17.210 [facility] [address] [place] [address] Apr, [place] [id number] [place] [address] Apr, Mixed hyperlipidemia E78.2 [facility] [id number] [place] [address] Apr, [place] [address] [place] [address] Apr, Bipolar II disorder F31.81 ; Generalized anxiety disorder F41.1 and Cannabis use disorder, mild, abuse F12.10 [place] [id number] [place] [address] Feb, Mixed hyperlipidemia E78.2 ; Acquired hypothyroidism E03.9 and Routine adult health maintenance Z00.00 [place] [address] [address] January, Bipolar II disorder F31.[address] [address] January, Bipolar II disorder F31.81 ; Generalized anxiety disorder F41.1 ; Cannabis use disorder, mild, abuse F12.10 and Fatigue associated with anemia D64.[address] [address] Dec, Hypothyroidism, unspecified E03.9 ; Tobacco abuse Z72.0 and COPD (chronic obstructive pulmonary disease) J44.[address] [address] Jul, Bipolar II disorder F31.81 ; Generalized anxiety disorder F41.1 and Cannabis use disorder, mild, abuse F12.10 [place] [id number] [place] [address] Apr, Bipolar II disorder F31.81 ; Nausea and vomiting in adult R11.2 ; Generalized anxiety disorder F41.1 ; Heartburn R12 and Cannabis use disorder, mild, abuse F12.10 [place] [id number] [place] [address] Apr, Bipolar II disorder F31.81 ; Generalized anxiety disorder F41.1 and Cannabis use disorder, mild, abuse F12.10 [place] [id number] [place] [address] Apr, Nausea and vomiting in adult R11.2 and Heartburn R12 [facility] [address] [address] Apr, Bipolar II disorder F31.81 [place] [id number] [place] [address] Mar, Generalized anxiety disorder F41.1 [place] [id number] [place] [address] Feb, Bipolar II disorder F31.81 ; Generalized anxiety disorder F41.1 and Cannabis use disorder, mild, abuse F12.10 [place] [address] [place] [address] January, Bipolar II disorder F31.81 ; Generalized anxiety disorder F41.1 and Cannabis use disorder, mild, abuse F12.10 [place] [id number] [place] [address] Dec, Bipolar II disorder F31.81 ; Generalized anxiety disorder F41.1 and Cannabis use disorder, mild, abuse F12.10 [place] [address] [place] [address] Dec, Generalized anxiety disorder F41.1 [place] [id number] [place] [address] Nov, [place] [address] [place] [address] Nov, Generalized anxiety disorder F41.1 ; Cannabis use disorder, mild, abuse F12.10 and Bipolar II disorder F31.81 [place] [address] [address] Nov, Bipolar II disorder F31.81 [place] [id number] [place] [address] Nov, Bipolar II disorder F31.81 ; Generalized anxiety disorder F41.1 and Cannabis use disorder, mild, abuse F12.10 [place] [id number] [place] [address] 23 Oct, 2016 [place] [address] [place] [address] 17 Oct, 2016 Bipolar II disorder F31.81 ; Generalized anxiety disorder F41.1 and Cannabis use disorder, mild, abuse F12.10 [place] [address] [place] [address] Aug, COPD (chronic obstructive pulmonary disease) J44.9 [place] [id number] [place] [address] 08 Aug, 2016 Recent urinary tract infection Z87.440 ; Acquired hypothyroidism E03.9 ; Encounter for immunization Z23 ; Mixed hyperlipidemia E78.2 ; COPD (chronic obstructive pulmonary disease) J44.9 and Tobacco abuse Z72.0 [place] [id number] [place] [address] Jul, [place] [id number] [place] [address] Jul, [place] [id number] [place] [address] Jul, Recent urinary tract infection Z87.440 ; Acute cystitis with hematuria N30.01 ; Vaginal itching L29.8 and Skin infection L08.9 [place] [address] [address] Jun, Hydronephrosis, unspecified hydronephrosis type N13.30 [place] [id number] [place] [address] Apr, [place] [id number] [place] [address] Sep, Acquired hypothyroidism E03.9 ; Mixed hyperlipidemia E78.2 ; COPD (chronic obstructive pulmonary disease) J44.9 and Thrush B37.0 [place] [id number] [place] [address] Aug, [facility] [address], [place] [address] Aug, Acquired hypothyroidism E03.9 ; Mixed hyperlipidemia E78.2 ; COPD (chronic obstructive pulmonary disease) J44.9 and URI (upper respiratory infection) J06.9 [facility] [id number] [address] January, Blood in stool 578.1 and Weight loss 783.21 [facility] [id number] [place] [address] January, Other and unspecified hyperlipidemia 272.4 ; Unspecified hypothyroidism 244.9 ; Nondependent tobacco use disorder 305.1 ; Weight loss 783.21 ; History of colon polyps V12.72 and Blood in stool 578.1 [facility] [id number] [place] [address] Dec, [facility] [id number] [place] [address] Dec, [facility] [id number] [place] [address] Dec, [facility] [id number] [place] [address] Dec, [facility] [address] [address] Nov, [facility] [id number] [place] [address] Nov, [facility] [id number] [address] Nov, [facility] [id number] [place] [address] Nov, [facility] [address] [address] Sep, [facility] [id number] [place] [address] [place] [address] Sep, [facility] [place] [facility] [address] [id number] [place] [address] Aug, [facility] [place] [facility] [address] [id number] [place] [address] Aug, [facility] [place] [facility] [address] [id number] [place] [address] Aug, [facility] [place] [facility] [address] [id number] [place] [address] Aug, [facility] [place] [facility] [address] [id number] [place] [address] Aug, [facility] [place] [facility] [address] [id number] [place] [address] Aug, [facility] [place] [facility] [address] [id number] [place] [address] Aug, [facility] [place] [facility] [address] [id number] [place] [address] Aug, [facility] [place] [facility] [address] [id number] [place] [address] Jul, [facility] [place] [facility] [address] [id number] [place] [address] Jul, [facility] [place] [facility] [address] [id number] [place] [address] Jul, [facility] [place] [facility] [address] [id number], [place] [address] Jul, [facility] [place] [facility] [address] [id number] [place] [address] Jul, [facility] [place] [facility] [address] [id number] [place] [address] Jul, [facility] [place] [facility] [address] [id number] [place] [address] Jun, [facility] [place] [facility] [address] [id number] [place] [address] Jun, [facility] [place] [facility] [address] [id number] [place] [address] Jun, [facility] [place] [facility] [address] [id number] [place] [address] Jun, [facility] [place] [facility] [address] [id number] [place] [address] Apr, [facility] [place] [facility] [address] [id number] [place] [address] Apr, [facility] [place] [facility] [address] [id number] [place] [address] Mar, [facility] [place] [facility] [address] [id number] [place] [address] Mar, [facility] [place] [facility] [address] [id number] [place] [address] Feb, [facility] [place] [facility] [address] [id number] [place] [address] Feb, [facility] [place] [facility] [address] [id number] [place] [address] Sep, [facility] [place] [facility] [address] [id number] [place] [address] Sep, [facility] [place] [facility] [address] [id number] [place] [address] Aug, [facility] [place] [facility] [address] [id number] [place] [address] Aug, [facility] [place] [facility] [address] [id number] [place] [address] Aug, [facility] [place] [facility] [address] [id number] [place] [address] Aug, [facility] [place] [facility] [address] [id number] [place] [address] Jun, [facility] [place] [facility] [address] [id number] [place] [address] Jun, [facility] [place] [facility] [address] [id number] [place] [address] Jun, [facility] [place] [facility] [address] [id number] [place] [address] Jun, [facility] [place] [facility] [address] [id number] [place] [address] Jun, [facility] [place] [facility] [address] [id number] [place] [address] Jun, [facility] [place] [facility] [address] [id number] [place] [address] Jun, [facility] [place] [facility] [address] [id number] [place] [address] Jun, [facility] [place] [facility] [address] [id number] [place] [address] Jun, [facility] [place] [facility] [address] [id number] [place] [address] May, [facility] [place] [facility] [address] [id number] [place] [address] Apr, [facility] [place] [facility] [address] [id number], [place] [address] Apr, [facility] [place] [facility] [address] [id number], [place] [address] Apr, [facility] [place] [facility] [address] [id number] [place] [address] Mar, [facility] [place] [facility] [address] [id number] [place] [address] Mar, [facility] [place] [facility] [address] [id number] [place] [address] Mar, [facility] [place] [facility] [address] [facility] [id number] [address] Mar, [facility] [address] [facility] [id number], [place] [address] Mar, [facility] [address] [facility] [id number], [place] [address] Mar, [facility] [address] [facility] [id number], [place] [address] Mar, [facility] [address] [facility] [id number], [place] [address] Mar, [facility] [address] [facility] [id number], [place] [address] Mar, [facility] [address] [facility] [id number], [place] [address] Mar, [facility] [address], [place] [address] Feb, [facility] [id number], [place] [address] Oct, [facility] [address], [place] [address] Sep, [facility] [id number], [place] [address] Aug, [facility] [id number], [place] [address] Aug, [facility] [id number], [place] [address] Aug, [facility] [id number], [place] [address] Aug, [facility] [id number], [place] [address] Nov, IMMUNIZATIONS No Known Immunizations SOCIAL HISTORY Never Assessed REASON FOR VISIT requesting 90 day supply PLAN OF CARE VITAL SIGNS MEDICATIONS Medication Instructions Dosage Frequency Start Date End Date Duration Status Gabapentin 300 Orally 2 times a day as needed 1 CAPSULE 90 days Active RESULTS No Results PROCEDURES No Known procedures [...]
--- OUTSIDE RECORDS SUMMARY | 2019-02-06 07:50 | XMS REPORT ---
Author Author SOLEDAD RICK Organization [facility] Address [address] [place] [address] Care Team Providers Care Mechanical Assembler Name Role Phone SOLEDAD RICK Unavailable PROBLEMS Type Condition ICD9-CM Code CNX38-QU Code Onset Dates Condition Status SNOMED Code Problem Acquired hypothyroidism E03.9 Active 396666663 Problem Mixed hyperlipidemia E78.2 Active 737598557 Problem Cigarette nicotine dependence without complication F17.210 Active 75888094 Problem Hypothyroidism, unspecified E03.9 Active 35594869 Problem Generalized anxiety disorder F41.1 Active 39581904 Problem COPD (chronic obstructive pulmonary disease) J44.9 Active 65577727 Problem Cannabis use disorder, mild, abuse F12.10 Active 45753934 Problem Bipolar II disorder F31.81 Active 70083130 ALLERGIES No Information ENCOUNTERS Encounter Location Date Diagnosis [place] [address] [address] Jul, [place] [address] [address] May, Trochanteric bursitis of right hip M70.61 and Cigarette nicotine dependence without complication F17.210 [place] [address] [place] [id number] [place] [address] Apr, [facility] [address] [place] [id number] [place] [address] Apr, Mixed hyperlipidemia E78.2 [facility] [address] [address] Apr, [place] [address] [address] Apr, Bipolar II disorder F31.81 ; Generalized anxiety disorder F41.1 and Cannabis use disorder, mild, abuse F12.10 [place] [address], [place] [address] Feb, Mixed hyperlipidemia E78.2 ; Acquired hypothyroidism E03.9 and Routine adult health maintenance Z00.[id number] [place] [address] January, Bipolar II disorder F31.81 [place] [id number] [place] [address] January, Bipolar II disorder F31.81 ; Generalized anxiety disorder F41.1 ; Cannabis use disorder, mild, abuse F12.10 and Fatigue associated with anemia D64.9 [place] [id number] [place] [address] Dec, Hypothyroidism, unspecified E03.9 ; Tobacco abuse Z72.0 and COPD (chronic obstructive pulmonary disease) J44.9 [place] [id number] [place] [address] Jul, Bipolar II disorder F31.81 ; Generalized anxiety disorder F41.1 and Cannabis use disorder, mild, abuse F12.10 [place] [id number] [place] [address] Apr, Bipolar II disorder F31.81 ; Nausea and vomiting in adult R11.2 ; Generalized anxiety disorder F41.1 ; Heartburn R12 and Cannabis use disorder, mild, abuse F12.10 [place] [address] [place] [id number] [place] [address] Apr, Bipolar II disorder F31.81 ; Generalized anxiety disorder F41.1 and Cannabis use disorder, mild, abuse F12.10 [place] [id number] [place] [address] Apr, Nausea and vomiting in adult R11.2 and Heartburn R12 [place] [id number] [place] [address] Apr, Bipolar II disorder F31.81 [facility] [id number] [place] [address] Mar, Generalized anxiety disorder F41.1 [facility] [address] [place] [id number] [place] [address] Feb, Bipolar II disorder F31.81 ; Generalized anxiety disorder F41.1 and Cannabis use disorder, mild, abuse F12.10 [place] [address] [place] [id number] [place] [address] January, Bipolar II disorder F31.81 ; Generalized anxiety disorder F41.1 and Cannabis use disorder, mild, abuse F12.10 [place] [address] [place] [id number] [place] [address] Dec, Bipolar II disorder F31.81 ; Generalized anxiety disorder F41.1 and Cannabis use disorder, mild, abuse F12.10 [place] [address] [place] [id number] [place] [address] Dec, Generalized anxiety disorder F41.1 [place] [address] [place] [id number] [place] [address] Nov, [place] [address] [place] [id number] [place] [address] Nov, Generalized anxiety disorder F41.1 ; Cannabis use disorder, mild, abuse F12.10 and Bipolar II disorder F31.81 [facility] [address] [place] [id number] [place] [address] Nov, Bipolar II disorder F31.81 [facility] [id number] [place] [address] Nov, Bipolar II disorder F31.81 ; Generalized anxiety disorder F41.1 and Cannabis use disorder, mild, abuse F12.10 [facility] [id number] [place] [address] Oct, [facility] [address] [place] [id number] [place] [address] Oct, Bipolar II disorder F31.81 ; Generalized anxiety disorder F41.1 and Cannabis use disorder, mild, abuse F12.10 [place] [address] [address] 16 Aug, 2016 COPD (chronic obstructive pulmonary disease) J44.9 [place] [address] [address] 08 Aug, 2016 Recent urinary tract infection Z87.440 ; Acquired hypothyroidism E03.9 ; Encounter for immunization Z23 ; Mixed hyperlipidemia E78.2 ; COPD (chronic obstructive pulmonary disease) J44.9 and Tobacco abuse Z72.0 [place] [address] [address] Jul, [place] [address] [address] Jul, [place] [address] [address] Jul, Recent urinary tract infection Z87.440 ; Acute cystitis with hematuria N30.01 ; Vaginal itching L29.8 and Skin infection L08.9 [place] [address] [address] Jun, Hydronephrosis, unspecified hydronephrosis type N13.30 [place] [address] [address] Apr, [place] [address] [address] Sep, Acquired hypothyroidism E03.9 ; Mixed hyperlipidemia E78.2 ; COPD (chronic obstructive pulmonary disease) J44.9 and Thrush B37.0 [place] [address] [address] Aug, [place] [address] [address] Aug, Acquired hypothyroidism E03.9 ; Mixed hyperlipidemia E78.2 ; COPD (chronic obstructive pulmonary disease) J44.9 and URI (upper respiratory infection) J06.9 [facility] [address] [place] [id number] [place] [address] January, Blood in stool 578.1 and Weight loss 783.21 [facility] [address] [place] [id number] [place] [address] January, Other and unspecified hyperlipidemia 272.4 ; Unspecified hypothyroidism 244.9 ; Nondependent tobacco use disorder 305.1 ; Weight loss 783.21 ; History of colon polyps V12.72 and Blood in stool 578.1 [facility] [address] [place] [id number] [place] [address] Dec, [facility] [address] [place] [id number] [place] [address] Dec, [facility] [address] [place] [id number] [place] [address] Dec, [facility] [address] [place] [id number] [place] [address] Dec, [facility] [address] [place] [id number] [place] [address] Nov, [facility] [address] [place] [id number] [address] Nov, [facility] [address] [place] [id number] [place] [address] Nov, [facility] [id number] [place] [address] Nov, [facility] [address] [place] [id number] [place] [address] Sep, [facility] [address] [place] [id number] [address] Sep, [facility] [address] [place] [id number] [place] [address] Aug, [facility] [place] [facility] [address] [id number] [place] [address] Aug, [facility] [place] [facility] [address] [id number] [place] [address] Aug, [facility] [place] [facility] [address] [id number] [place] [address] Aug, [facility] [place] [facility] [address] [id number] [place] [address] Aug, [facility] [place] [facility] [address] [id number] [place] [address] Aug, [facility] [place] [facility] [address] [id number] [place] [address] Aug, [facility] [place] [facility] [address] [id number] [place] [address] Aug, [facility] [place] [facility] [address] [id number] [place] [address] Jul, [facility] [place] [facility] [address] [id number] [place] [address] Jul, [facility] [place] [facility] [address] [id number] [place] [address] Jul, [facility] [place] [facility] [address] [id number] [place] [address] Jul, [facility] [place] [facility] [address] [id number] [address] Jul, [facility] [place] [facility] [address] [id number] [place] [address] Jul, [facility] [place] [facility] [address] [id number] [place] [address] Jun, [facility] [place] [facility] [address] [id number] [place] [address] Jun, [facility] [place] [facility] [address] [id number] [place] [address] Jun, [facility] [place] [facility] [address] [id number] [place] [address] Jun, [facility] [place] [facility] [address] [id number] [place] [address] Apr, [facility] [place] [facility] [address] [id number] [place] [address] Apr, [facility] [place] [facility] [address] [id number] [place] [address] Mar, [facility] [place] [facility] [address] [id number] [place] [address] Mar, [facility] [place] [facility] [address] [id number] [place] [address] Feb, [facility] [place] [facility] [address] [id number] [place] [address] Feb, [facility] [place] [facility] [address] [id number] [place] [address] Sep, [facility] [place] [facility] [address] [id number] [place] [address] Sep, [facility] [place] [facility] [address] [id number] [place] [address] Aug, [facility] [place] [facility] [address] [id number] [place] [address] Aug, [facility] [place] [facility] [address] [id number] [place] [address] Aug, [facility] [place] [facility] [address] [id number] [place] [address] Aug, [facility] [place] [facility] [address] [id number] [place] [address] Jun, [facility] [place] [facility] [address] [id number] [place] [address] Jun, [facility] [place] [facility] [address] [id number] [place] [address] Jun, [facility] [place] [facility] [address] [id number] [place] [address] Jun, [facility] [place] [facility] [address] [id number] [place] [address] Jun, [facility] [place] [facility] [address] [id number] [place] [address] Jun, [facility] [place] [facility] [address] [id number] [place] [address] Jun, [facility] [place] [facility] [address] [id number] [place] [address] Jun, [facility] [place] [facility] [address] [id number] [place] [address] Jun, [facility] [place] [facility] [address] [id number] [place] [address] May, [facility] [place] [facility] [address] [id number] [place] [address] Apr, [facility] [place] [facility] [address] [id number] [place] [address] Apr, [facility] [place] [facility] [address] [id number] [place] [address] Apr, [facility] [place] [facility] [address] [id number] [place] [address] Mar, [facility] [place] [facility] [address] [id number] [place] [address] Mar, [facility] [place] [facility] [address] [id number] [place] [address] Mar, [facility] [place] [facility] [address] [id number] [place] [address] Mar, [facility] [place] [facility] [address] [id number] [place] [address] Mar, [facility] [address] [place] [id number] [address] Mar, [facility] [address], [place] [address] Mar, [facility] [address] [place] [id number] [address] Mar, [facility] [address], [place] [address] Mar, [facility] [address], [place] [address] Mar, [facility] [address], [place] [address] Feb, [facility] [address], [place] [address] Oct, [facility] [address], [place] [address] Sep, [facility] [address], [place] [address] Aug, [facility] [address], [place] [address] Aug, [facility] [address] [id number] [address] Aug, [facility] [address], [place] [address] Aug, [facility] [address] [place] [id number] [address] Nov, IMMUNIZATIONS No Known Immunizations SOCIAL HISTORY Never Assessed REASON FOR VISIT medication changes PLAN OF CARE VITAL SIGNS MEDICATIONS Medication Instructions Dosage Frequency Start Date End Date Duration Status Lovastatin 40 MG TAKE 1 TABLET BY MOUTH DAILY WITH A MEAL 30 days Active RESULTS No Results PROCEDURES No [...]
--- OUTSIDE RECORDS SUMMARY | 2019-02-06 07:50 | XMS REPORT ---
Author Author SOLEDAD RICK Organization [facility] Address [address] [place] [address] Care Team Providers Care Director Digital Advertising Name Role Phone SOLEDAD RICK Unavailable PROBLEMS Type Condition ICD9-CM Code IER65-ON Code Onset Dates Condition Status SNOMED Code Problem Acquired hypothyroidism E03.9 Active 963754117 Problem Mixed hyperlipidemia E78.2 Active 550770581 Problem Cigarette nicotine dependence without complication F17.210 Active 82340070 Problem Hypothyroidism, unspecified E03.9 Active 73648464 Problem Generalized anxiety disorder F41.1 Active 47465152 Problem COPD (chronic obstructive pulmonary disease) J44.9 Active 06150260 Problem Cannabis use disorder, mild, abuse F12.10 Active 44211474 Problem Bipolar II disorder F31.81 Active 36676468 ALLERGIES No Information ENCOUNTERS Encounter Location Date Diagnosis [place] [id number] [place] [address] Jul, [place] [address] [place] [id number] [place] [address] May, Trochanteric bursitis of right hip M70.61 ; Cigarette nicotine dependence without complication F17.210 and Routine adult health maintenance Z00.00 [place] [id number] [place] [address] Apr, [place] [address] [place] [address] Apr, Mixed hyperlipidemia E78.2 [facility] [address] [place] [id number] [place] [address] Apr, [place] [address] [place] [id number] [place] [address] Apr, Bipolar II disorder F31.81 ; Generalized anxiety disorder F41.1 and Cannabis use disorder, mild, abuse F12.10 [place] [address] [address] Feb, Mixed hyperlipidemia E78.2 ; Acquired hypothyroidism E03.9 and Routine adult health maintenance Z00.00 [place] [address] [place] [address] January, Bipolar II disorder F31.81 [place] [address] [place] [id number] [place] [address] January, Bipolar II disorder F31.81 ; Generalized anxiety disorder F41.1 ; Cannabis use disorder, mild, abuse F12.10 and Fatigue associated with anemia D64.9 [place] [address] [place] [id number] [place] [address] Dec, Hypothyroidism, unspecified E03.9 ; Tobacco abuse Z72.0 and COPD (chronic obstructive pulmonary disease) J44.9 [place] [address] [place] [id number] [place] [address] Jul, Bipolar II disorder F31.81 ; Generalized anxiety disorder F41.1 and Cannabis use disorder, mild, abuse F12.10 [place] [address] [place] [address] Apr, Bipolar II disorder F31.81 ; Nausea and vomiting in adult R11.2 ; Generalized anxiety disorder F41.1 ; Heartburn R12 and Cannabis use disorder, mild, abuse F12.10 [place] [address] [place] [address] Apr, Bipolar II disorder F31.81 ; Generalized anxiety disorder F41.1 and Cannabis use disorder, mild, abuse F12.10 [place] [address] [place] [id number] [place] [address] Apr, Nausea and vomiting in adult R11.2 and Heartburn R12 [place] [id number] [place] [address] Apr, Bipolar II disorder F31.81 [facility] [address] [place] [address] Mar, Generalized anxiety disorder F41.1 [facility] [address] [place] [id number] [place] [address] Feb, Bipolar II disorder F31.81 ; Generalized anxiety disorder F41.1 and Cannabis use disorder, mild, abuse F12.10 [place] [address] [place] [id number] [place] [address] January, Bipolar II disorder F31.81 ; Generalized anxiety disorder F41.1 and Cannabis use disorder, mild, abuse F12.10 [place] [address] [place] [id number] [place] [address] Dec, Bipolar II disorder F31.81 ; Generalized anxiety disorder F41.1 and Cannabis use disorder, mild, abuse F12.10 [place] [address] [place] [id number] [place] [address] Dec, Generalized anxiety disorder F41.1 [place] [address] [place] [id number] [place] [address] Nov, [place] [address] [place] [id number] [place] [address] Nov, Generalized anxiety disorder F41.1 ; Cannabis use disorder, mild, abuse F12.10 and Bipolar II disorder F31.81 [place] [address] [place] [id number] [place] [address] Nov, Bipolar II disorder F31.81 [facility] [address] [place] [address] Nov, Bipolar II disorder F31.81 ; Generalized anxiety disorder F41.1 and Cannabis use disorder, mild, abuse F12.10 [place] [address] [place] [address] Oct, [facility] [address] [place] [id number] [place] [address] 17 Oct, 2016 Bipolar II disorder F31.81 ; Generalized anxiety disorder F41.1 and Cannabis use disorder, mild, abuse F12.10 [place] [address] [place] [id number] [place] [address] 16 Aug, 2016 COPD (chronic obstructive pulmonary disease) J44.9 [place] [address] [place] [id number] [place] [address] 08 Aug, 2016 Recent urinary tract infection Z87.440 ; Acquired hypothyroidism E03.9 ; Encounter for immunization Z23 ; Mixed hyperlipidemia E78.2 ; COPD (chronic obstructive pulmonary disease) J44.9 and Tobacco abuse Z72.0 [place] [address] [address] Jul, [place] [address] [address] Jul, [place] [address] [address] Jul, Recent urinary tract infection Z87.440 ; Acute cystitis with hematuria N30.01 ; Vaginal itching L29.8 and Skin infection L08.9 [place] [address] [place] [id number] [place] [address] Jun, Hydronephrosis, unspecified hydronephrosis type N13.30 [place] [address] [place] [id number] [place] [address] Apr, [place] [address] [address] Sep, Acquired hypothyroidism E03.9 ; Mixed hyperlipidemia E78.2 ; COPD (chronic obstructive pulmonary disease) J44.9 and Thrush B37.0 [place] [address] [place] [id number] [place] [address] Aug, [place] [address] [place] [id number] [place] [address] Aug, Acquired hypothyroidism E03.9 ; Mixed hyperlipidemia E78.2 ; COPD (chronic obstructive pulmonary disease) J44.9 and URI (upper respiratory infection) J06.9 [facility] [address] [place] [id number] [place] [address] January, Blood in stool 578.1 and Weight loss 783.21 [facility] [address] [place] [id number] [place] [address] January, Other and unspecified hyperlipidemia 272.4 ; Unspecified hypothyroidism 244.9 ; Nondependent tobacco use disorder 305.1 ; Weight loss 783.21 ; History of colon polyps V12.72 and Blood in stool 578.1 [facility] [address] [place] [id number] [place] [address] Dec, [facility] [address] [place] [id number] [place] [address] Dec, [facility] [address] [place] [id number] [place] [address] Dec, [facility] [address] [place] [id number] [place] [address] Dec, [facility] [address] [place] [id number] [place] [address] Nov, [facility] [address] [id number] [address] Nov, [facility] [address] [place] [id number] [place] [address] Nov, [facility] [address] [place] [address] Nov, [facility] [address] [place] [id number] [place] [address] Sep, [facility] [address] [place] [address] Sep, [facility] [address] [place] [id number] [place] [address] Aug, [facility] [place] [facility] [address] [id number] [place] [address] Aug, [facility] [place] [facility] [address] [id number] [place] [address] Aug, [facility] [place] [facility] [address] [id number] [place] [address] Aug, [facility] [place] [facility] [address] [id number] [place] [address] Aug, [facility] [place] [facility] [address] [id number] [place] [address] Aug, [facility] [place] [facility] [address] [id number] [place] [address] Aug, [facility] [place] [facility] [address] [id number] [place] [address] Aug, [facility] [place] [facility] [address] [id number] [place] [address] Jul, [facility] [place] [facility] [address] [id number] [place] [address] Jul, [facility] [place] [facility] [address] [id number] [place] [address] Jul, [facility] [place] [facility] [address] [id number], [place] [address] Jul, [facility] [place] [facility] [address] [id number], [place] [address] Jul, [facility] [place] [facility] [address] [id number], [place] [address] Jul, [facility] [place] [facility] [address] [id number] [place] [address] Jun, [facility] [place] [facility] [address] [id number] [place] [address] Jun, [facility] [place] [facility] [address] [id number] [place] [address] Jun, [facility] [place] [facility] [address] [id number] [place] [address] Jun, [facility] [place] [facility] [address] [id number] [place] [address] Apr, [facility] [place] [facility] [address] [id number] [place] [address] Apr, [facility] [place] [facility] [address] [id number] [place] [address] Mar, [facility] [place] [facility] [address] [id number] [place] [address] Mar, [facility] [place] [facility] [address] [id number] [place] [address] Feb, [facility] [place] [facility] [address] [id number] [place] [address] Feb, [facility] [place] [facility] [address] [id number] [place] [address] Sep, [facility] [place] [facility] [address] [id number] [place] [address] Sep, [facility] [place] [facility] [address] [id number] [place] [address] Aug, [facility] [place] [facility] [address] [id number] [place] [address] Aug, [facility] [place] [facility] [address] [id number] [place] [address] Aug, [facility] [place] [facility] [address] [id number] [place] [address] Aug, [facility] [place] [facility] [address] [id number] [place] [address] Jun, [facility] [place] [facility] [address] [id number] [place] [address] Jun, [facility] [place] [facility] [address] [id number] [place] [address] Jun, [facility] [place] [facility] [address] [id number] [place] [address] Jun, [facility] [place] [facility] [address] [id number] [place] [address] Jun, [facility] [place] [facility] [address] [id number] [place] [address] Jun, [facility] [place] [facility] [address] [id number] [place] [address] Jun, [facility] [place] [facility] [address] [id number] [place] [address] Jun, [facility] [place] [facility] [address] [id number] [place] [address] Jun, [facility] [place] [facility] [address] [id number] [place] [address] May, [facility] [place] [facility] [address] [id number] [place] [address] Apr, [facility] [place] [facility] [address] [id number] [place] [address] Apr, [facility] [place] [facility] [address] [id number] [place] [address] Apr, [facility] [place] [facility] [address] [id number], [place] [address] Mar, [facility] [place] [facility] [address] [id number] [place] [address] Mar, [facility] [place] [facility] [address] [id number] [place] [address] Mar, [facility] [place] [facility] [address] [id number] [place] [address] Mar, [facility] [place] [facility] [address] [place] [address] Mar, [facility] [id number] [place] [address] Mar, [facility] [address] [place] [id number] [address] Mar, [facility] [id number] [place] [address] Mar, [facility] [id number] [place] [address] Mar, [facility] [id number] [address] Mar, [facility] [id number] [place] [address] Feb, [facility] [id number] [place] [address] Oct, [facility] [id number] [place] [address] Sep, [facility] [id number] [address] Aug, [facility] [id number] [place] [address] Aug, [facility] [id number] [place] [address] Aug, [facility] [address] [place] [address] Aug, [facility] [id number] [address] Nov, IMMUNIZATIONS No Known Immunizations SOCIAL HISTORY Never Assessed REASON FOR VISIT Refill request PLAN OF CARE VITAL SIGNS MEDICATIONS Medication Instructions Dosage Frequency Start Date End Date Duration Status Lovastatin 10 TAKE 1 TABLET BY MOUTH DAILY WITH A MEAL 90 Active RESULTS No Results PROCEDURES No Known [...]
--- OUTSIDE RECORDS SUMMARY | 2019-02-06 07:50 | XMS REPORT ---
Author Author DONALDO DREW [facility] Address [address] [place] [address] Care Team Providers Care Director Of Acquisitions Name Role Phone DONALDODREW Unavailable PROBLEMS Type Condition ICD9-CM Code SXJ19-AX Code Onset Dates Condition Status SNOMED Code Problem Acquired hypothyroidism E03.9 Active 169233041 Problem Mixed hyperlipidemia E78.2 Active 861943967 Problem Cigarette nicotine dependence without complication F17.210 Active 53614628 Problem Hypothyroidism, unspecified E03.9 Active 39242919 Problem Generalized anxiety disorder F41.1 Active 97279848 Problem COPD (chronic obstructive pulmonary disease) J44.9 Active 80107748 Problem Cannabis use disorder, mild, abuse F12.10 Active 90538258 Problem Bipolar II disorder F31.81 Active 83911687 ALLERGIES Substance Reaction Event Type Date Status Wellbutrin Unknown Drug Allergy Apr, Active Remeron hallucinations Drug Allergy Apr, Active Oxybutynin hallucinations Drug Allergy Apr, Active Clonazepam "fuzzy" Drug Allergy Apr, Active ENCOUNTERS Encounter Location Date Diagnosis [place] [id number] [place] [address] Jul, [facility] [id number] [place] [address] May, Trochanteric bursitis of right hip M70.61 ; Cigarette nicotine dependence without complication F17.210 and Routine adult health maintenance Z00.00 [facility] [address] [address] Apr, [facility] [id number] [place] [address] Apr, Mixed hyperlipidemia E78.2 [facility] [address] [address] Apr, [place] [id number] [place] [address] Apr, Bipolar II disorder F31.81 ; Generalized anxiety disorder F41.1 and Cannabis use disorder, mild, abuse F12.10 [place] [id number] [place] [address] Feb, Mixed hyperlipidemia E78.2 ; Acquired hypothyroidism E03.9 and Routine adult health maintenance Z00.00 [place] [id number] [place] [address] January, Bipolar II disorder F31.81 [place] [id number] [place] [address] January, Bipolar II disorder F31.81 ; Generalized anxiety disorder F41.1 ; Cannabis use disorder, mild, abuse F12.10 and Fatigue associated with anemia D64.9 [place] [id number] [place] [address] Dec, Hypothyroidism, unspecified E03.9 ; Tobacco abuse Z72.0 and COPD (chronic obstructive pulmonary disease) J44.9 [place] [id number] [place] [address] Jul, Bipolar II disorder F31.81 ; Generalized anxiety disorder F41.1 and Cannabis use disorder, mild, abuse F12.10 [place] [id number] [place] [address] Apr, Bipolar II disorder F31.81 ; Nausea and vomiting in adult R11.2 ; Generalized anxiety disorder F41.1 ; Heartburn R12 and Cannabis use disorder, mild, abuse F12.10 [place] [id number] [place] [address] Apr, Bipolar II disorder F31.81 ; Generalized anxiety disorder F41.1 and Cannabis use disorder, mild, abuse F12.10 [place] [id number] [place] [address] Apr, Nausea and vomiting in adult R11.2 and Heartburn R12 [facility] [id number] [place] [address] Apr, Bipolar II disorder F31.81 [facility] [id number] [place] [address] Mar, Generalized anxiety disorder F41.1 [facility] [id number] [place] [address] Feb, Bipolar II disorder F31.81 ; Generalized anxiety disorder F41.1 and Cannabis use disorder, mild, abuse F12.10 [place] [id number] [place] [address] January, Bipolar II disorder F31.81 ; Generalized anxiety disorder F41.1 and Cannabis use disorder, mild, abuse F12.10 [place] [id number] [place] [address] Dec, Bipolar II disorder F31.81 ; Generalized anxiety disorder F41.1 and Cannabis use disorder, mild, abuse F12.10 [place] [id number] [place] [address] Dec, Generalized anxiety disorder F41.1 [facility] [id number] [place] [address] Nov, [facility] [id number] [place] [address] Nov, Generalized anxiety disorder F41.1 ; Cannabis use disorder, mild, abuse F12.10 and Bipolar II disorder F31.81 [facility] [id number] [place] [address] Nov, Bipolar II disorder F31.81 [facility] [id number] [place] [address] Nov, Bipolar II disorder F31.81 ; Generalized anxiety disorder F41.1 and Cannabis use disorder, mild, abuse F12.10 [place] [id number] [place] [address] 23 Oct, [address] [address] 17 Oct, 2016 Bipolar II disorder F31.81 ; Generalized anxiety disorder F41.1 and Cannabis use disorder, mild, abuse F12.10 [place] [address] [address] 16 Aug, 2016 COPD (chronic obstructive pulmonary disease) J44.9 [place] [address] [address] 08 Aug, 2016 Recent urinary tract infection Z87.440 ; Acquired hypothyroidism E03.9 ; Encounter for immunization Z23 ; Mixed hyperlipidemia E78.2 ; COPD (chronic obstructive pulmonary disease) J44.9 and Tobacco abuse Z72.[address] [address] Jul, [place] [id number] [place] [address] Jul, [address] [address] Jul, Recent urinary tract infection Z87.440 ; Acute cystitis with hematuria N30.01 ; Vaginal itching L29.8 and Skin infection L08.9 [place] [id number] [place] [address] Jun, Hydronephrosis, unspecified hydronephrosis type N13.30 [place] [id number] [place] [address] Apr, [address] [address] Sep, Acquired hypothyroidism E03.9 ; Mixed hyperlipidemia E78.2 ; COPD (chronic obstructive pulmonary disease) J44.9 and Thrush B37.[address] [place] [address] Aug, [facility] [id number] [place] [address] Aug, Acquired hypothyroidism E03.9 ; Mixed hyperlipidemia E78.2 ; COPD (chronic obstructive pulmonary disease) J44.9 and URI (upper respiratory infection) J06.9 [facility] [id number] [place] [address] January, Blood in stool 578.1 and Weight loss 783.21 [facility] [id number] [place] [address] January, Other and unspecified hyperlipidemia 272.4 ; Unspecified hypothyroidism 244.9 ; Nondependent tobacco use disorder 305.1 ; Weight loss 783.21 ; History of colon polyps V12.72 and Blood in stool 578.1 [facility] [id number] [place] [address] Dec, [facility] [id number] [place] [address] Dec, [facility] [id number] [place] [address] Dec, [facility] [id number] [place] [address] Dec, [facility] [id number] [place] [address] Nov, [facility] [id number] [place] [address] Nov, [facility] [id number] [place] [address] Nov, [facility] [id number] [place] [address] Nov, [facility] [id number] [place] [address] Sep, [facility] [place] [facility] [address] [id number] [place] [address] Sep, [facility] [place] [facility] [address] [id number] [place] [address] Aug, [facility] [place] [facility] [address] [id number] [place] [address] Aug, [facility] [place] [facility] [address] [id number] [place] [address] Aug, [facility] [place] [facility] [address] [id number] [place] [address] Aug, [facility] [place] [facility] [address] [id number] [place] [address] Aug, [facility] [place] [facility] [address] [id number] [place] [address] Aug, [facility] [place] [facility] [address] [id number] [place] [address] Aug, [facility] [place] [facility] [address] [id number] [place] [address] Aug, [facility] [place] [facility] [address] [id number] [place] [address] Jul, [facility] [place] [facility] [address] [id number], [place] [address] Jul, [facility] [place] [facility] [address] [id number], [place] [address] Jul, [facility] [place] [facility] [address] [id number] [place] [address] Jul, [facility] [place] [facility] [address] [id number] [place] [address] Jul, [facility] [place] [facility] [address] [id number], [place] [address] Jul, [facility] [place] [facility] [address] [id number], [place] [address] Jun, [facility] [place] [facility] [address] [id number] [place] [address] Jun, [facility] [place] [facility] [address] [id number] [place] [address] Jun, [facility] [place] [facility] [address] [id number] [place] [address] Jun, [facility] [place] [facility] [address] [id number] [place] [address] Apr, [facility] [place] [facility] [address] [id number] [place] [address] Apr, [facility] [place] [facility] [address] [id number] [place] [address] Mar, [facility] [place] [facility] [address] [id number] [place] [address] Mar, [facility] [place] [facility] [address] [id number] [place] [address] Feb, [facility] [place] [facility] [address] [id number] [place] [address] Feb, [facility] [place] [facility] [address] [id number] [place] [address] Sep, [facility] [place] [facility] [address] [id number] [place] [address] Sep, [facility] [place] [facility] [address] [id number] [place] [address] Aug, [facility] [place] [facility] [address] [id number] [place] [address] Aug, [facility] [place] [facility] [address] [id number] [place] [address] Aug, [facility] [place] [facility] [address] [id number] [place] [address] Aug, [facility] [place] [facility] [address] [id number] [place] [address] Jun, [facility] [place] [facility] [address] [id number] [place] [address] Jun, [facility] [place] [facility] [address] [id number] [place] [address] Jun, [facility] [place] [facility] [address] [id number] [place] [address] Jun, [facility] [place] [facility] [address] [id number] [place] [address] Jun, [facility] [place] [facility] [address] [id number] [place] [address] Jun, [facility] [place] [facility] [address] [id number] [place] [address] Jun, [facility] [place] [facility] [address] [id number] [place] [address] Jun, [facility] [place] [facility] [address] [id number] [place] [address] Jun, [facility] [place] [facility] [address] [id number] [place] [address] May, [facility] [place] [facility] [address] [id number] [place] [address] Apr, [facility] [place] [facility] [address] [id number] [place] [address] Apr, [facility] [place] [facility] [address] [id number] [place] [address] Apr, [facility] [place] [facility] [address] [id number] [place] [address] Mar, [facility] [place] [facility] [address] [id number] [place] [address] Mar, [facility] [place] [facility] [address] [id number] [place] [address] Mar, [facility] [address] [id number] [place] [address] Mar, [facility] [address] [id number] [place] [address] Mar, [facility] [address] [facility] [id number] [place] [address] Mar, [facility] [address] [id number] [place] [address] Mar, [facility] [address] [id number] [place] [address] Mar, [facility] [address] [facility] [id number] [place] [address] Mar, [facility] [address] [facility] [id number] [place] [address] Mar, [facility] [address] [facility] [id number], [place] [address] Feb, [facility] [address] [facility] [id number] [place] [address] Oct, [facility] [address] [facility] [id number], [place] [address] Sep, [facility] [address] [facility] [id number], [place] [address] Aug, [facility] [address] [facility] [id number], [place] [address] Aug, [facility] [address] [facility] [id number], [place] [address] Aug, [facility] [address] [facility] [id number], [place] [address] Aug, [facility] [address] [facility] [id number], [place] [address] Nov, IMMUNIZATIONS No Known Immunizations SOCIAL HISTORY Never Assessed REASON FOR VISIT f/u Jeanne CHAPA PLAN OF CARE Activity Details Follow Up 3 Months Reason: Follow-up VITAL SIGNS Height 63 in 2018-04-20 Weight 122.9 lbs 2018-04-20 Heart Rate 79 bpm 2018-04-20 Respiratory Rate 20 2018-04-20 Oximetry 97 % 2018-04-20 BMI 21.77 kg/m2 2018-04-20 Blood pressure systolic 110 mmHg 2018-04-20 Blood pressure diastolic 62 mmHg 2018-04-20 MEDICATIONS Medication Instructions Dosage Frequency Start Date End Date Duration Status Abilify 10 mg by oral route Once a day 1 tablet by Oral route 1 time per day 24h Active Gabapentin 300 MG 1 CAPSULE TWICE A DAY NEEDED FOR ANXIETY ORALLY 30 DAY(S) Active Paroxetine HCl 40 mg 1 1/2 TABLETS ONCE A DAY ORALLY 30 DAYS Active Lovastatin 10 TAKE 1 TABLET BY MOUTH DAILY WITH A MEAL 90 Active Myrbetriq 50 MG Orally Once a day 1 tablet 24h Active Chantix 1 MG Orally Twice a day 1 tablet 12h January, 30 day(s) Active Gabapentin 300 MG 1 CAPSULE TWICE A DAY NEEDED FOR ANXIETY ORALLY 30 DAY(S) 30 Active Paroxetine HCl 40 mg 1 1/2 TABLETS ONCE A DAY ORALLY 30 DAYS 30 Active RESULTS No Results PROCEDURES Procedure Date Ordered Result Body Site [facility] VISIT ESTABLISHED PATIENT Apr 20, 2018 INSTRUCTIONS MEDICATIONS ADMINISTERED No Known Medications [...]
--- OUTSIDE RECORDS SUMMARY | 2019-02-06 07:50 | XMS REPORT ---
Author Author SOLEDAD RICK Organization [facility] [place] Address [address] [place] [address] Care Team Providers Care Airplane Fueler Name Role Phone SOLEDAD RICK Unavailable PROBLEMS Type Condition ICD9-CM Code CFZ29-RC Code Onset Dates Condition Status SNOMED Code Problem Acquired hypothyroidism E03.9 Active 287108364 Problem Mixed hyperlipidemia E78.2 Active 880456679 Problem Cigarette nicotine dependence without complication F17.210 Active 67310040 Problem Hypothyroidism, unspecified E03.9 Active 61832213 Problem Generalized anxiety disorder F41.1 Active 66142997 Problem COPD (chronic obstructive pulmonary disease) J44.9 Active 30903927 Problem Cannabis use disorder, mild, abuse F12.10 Active 47312142 Problem Bipolar II disorder F31.81 Active 50319593 ALLERGIES No Information ENCOUNTERS Encounter Location Date Diagnosis [place] [address] [address] Jul, [place] [address] [address] May, Trochanteric bursitis of right hip M70.61 and Cigarette nicotine dependence without complication F17.210 [place] [address] [place] [id number] [place] [address] Apr, [facility] [place] [address] [place] [id number] [place] [address] Apr, Mixed hyperlipidemia E78.2 [facility] [place] [address] [address] Apr, [place] [address] [address] Apr, Bipolar II disorder F31.81 ; Generalized anxiety disorder F41.1 and Cannabis use disorder, mild, abuse F12.10 [place] [address] [address] Feb, Mixed hyperlipidemia E78.2 ; Acquired hypothyroidism E03.9 and Routine adult health maintenance Z00.[id number] [place] [address] January, Bipolar II disorder F31.81 [place] [id number] [place] [address] January, Bipolar II disorder F31.81 ; Generalized anxiety disorder F41.1 ; Cannabis use disorder, mild, abuse F12.10 and Fatigue associated with anemia D64.9 [place] [id number] [place] [address] Dec, Hypothyroidism, unspecified E03.9 ; Tobacco abuse Z72.0 and COPD (chronic obstructive pulmonary disease) J44.9 [place] [id number] [place] [address] Jul, Bipolar II disorder F31.81 ; Generalized anxiety disorder F41.1 and Cannabis use disorder, mild, abuse F12.10 [place] [id number] [place] [address] Apr, Bipolar II disorder F31.81 ; Nausea and vomiting in adult R11.2 ; Generalized anxiety disorder F41.1 ; Heartburn R12 and Cannabis use disorder, mild, abuse F12.10 [place] [address] [place] [id number] [place] [address] Apr, Bipolar II disorder F31.81 ; Generalized anxiety disorder F41.1 and Cannabis use disorder, mild, abuse F12.10 [place] [id number] [place] [address] Apr, Nausea and vomiting in adult R11.2 and Heartburn R12 [place] [id number] [place] [address] Apr, Bipolar II disorder F31.81 [facility] [place] [id number] [place] [address] Mar, Generalized anxiety disorder F41.1 [facility] [place] [address] [place] [id number] [place] [address] Feb, Bipolar II disorder F31.81 ; Generalized anxiety disorder F41.1 and Cannabis use disorder, mild, abuse F12.10 [place] [address] [place] [id number] [place] [address] January, Bipolar II disorder F31.81 ; Generalized anxiety disorder F41.1 and Cannabis use disorder, mild, abuse F12.10 [place] [address] [place] [id number] [place] [address] Dec, Bipolar II disorder F31.81 ; Generalized anxiety disorder F41.1 and Cannabis use disorder, mild, abuse F12.10 [place] [address] [place] [id number] [place] [address] Dec, Generalized anxiety disorder F41.1 [place] [address] [place] [id number] [place] [address] Nov, [place] [address] [place] [id number] [place] [address] Nov, Generalized anxiety disorder F41.1 ; Cannabis use disorder, mild, abuse F12.10 and Bipolar II disorder F31.81 [facility] [place] [address] [place] [id number] [place] [address] Nov, Bipolar II disorder F31.81 [facility] [place] [address] [place] [address] Nov, Bipolar II disorder F31.81 ; Generalized anxiety disorder F41.1 and Cannabis use disorder, mild, abuse F12.10 [facility] [place] [address] [place] [address] Oct, [facility] [place] [address] [place] [id number] [place] [address] Oct, Bipolar II disorder F31.81 ; Generalized anxiety disorder F41.1 and Cannabis use disorder, mild, abuse F12.10 [place] [address] [address] 16 Aug, 2016 COPD (chronic obstructive pulmonary disease) J44.9 [place] [address] [address] 08 Aug, 2016 Recent urinary tract infection Z87.440 ; Acquired hypothyroidism E03.9 ; Encounter for immunization Z23 ; Mixed hyperlipidemia E78.2 ; COPD (chronic obstructive pulmonary disease) J44.9 and Tobacco abuse Z72.0 [place] [address] [address] Jul, [place] [address] [address] Jul, [place] [address] [address] Jul, Recent urinary tract infection Z87.440 ; Acute cystitis with hematuria N30.01 ; Vaginal itching L29.8 and Skin infection L08.9 [place] [address] [address] Jun, Hydronephrosis, unspecified hydronephrosis type N13.30 [place] [address] [address] Apr, [place] [address] [address] Sep, Acquired hypothyroidism E03.9 ; Mixed hyperlipidemia E78.2 ; COPD (chronic obstructive pulmonary disease) J44.9 and Thrush B37.0 [place] [address] [address] Aug, [place] [address] [address] Aug, Acquired hypothyroidism E03.9 ; Mixed hyperlipidemia E78.2 ; COPD (chronic obstructive pulmonary disease) J44.9 and URI (upper respiratory infection) J06.9 [facility] [place] [address] [place] [id number] [place] [address] January, Blood in stool 578.1 and Weight loss 783.21 [facility] [place] [address] [place] [id number] [place] [address] January, Other and unspecified hyperlipidemia 272.4 ; Unspecified hypothyroidism 244.9 ; Nondependent tobacco use disorder 305.1 ; Weight loss 783.21 ; History of colon polyps V12.72 and Blood in stool 578.1 [facility] [place] [address] [place] [id number] [place] [address] Dec, [facility] [address] [place] [id number] [place] [address] Dec, [facility] [address] [place] [id number] [place] [address] Dec, [facility] [address] [place] [id number] [place] [address] Dec, [facility] [address] [place] [id number] [place] [address] Nov, [facility] [address] [place] [id number] [address] Nov, [facility] [address] [place] [id number] [place] [address] Nov, [facility] [address] [place] [address] Nov, [facility] [place] [address] [place] [id number] [place] [address] Sep, [facility] [place] [address] [place] [id number] [address] Sep, [facility] [place] [address] [place] [id number] [place] [address] Aug, [facility] [place] [facility] [address] [id number] [place] [address] Aug, [facility] [place] [facility] [address] [id number] [place] [address] Aug, [facility] [place] [facility] [address] [id number] [place] [address] Aug, [facility] [place] [facility] [address] [id number] [place] [address] Aug, [facility] [place] [facility] [address] [id number] [place] [address] Aug, [facility] [place] [facility] [address] [id number] [place] [address] Aug, [facility] [place] [facility] [address] [id number] [place] [address] Aug, [facility] [place] [facility] [address] [id number] [place] [address] Jul, [facility] [place] [facility] [address] [id number] [place] [address] Jul, [facility] [place] [facility] [address] [id number] [place] [address] Jul, [facility] [place] [facility] [address] [id number] [place] [address] Jul, [facility] [place] [facility] [address] [id number] [address] Jul, [facility] [place] [facility] [address] [id number] [place] [address] Jul, [facility] [place] [facility] [address] [id number] [place] [address] Jun, [facility] [place] [facility] [address] [id number] [place] [address] Jun, [facility] [place] [facility] [address] [id number] [place] [address] Jun, [facility] [place] [facility] [address] [id number] [place] [address] Jun, [facility] [place] [facility] [address] [id number] [place] [address] Apr, [facility] [place] [facility] [address] [id number] [place] [address] Apr, [facility] [place] [facility] [address] [id number] [place] [address] Mar, [facility] [place] [facility] [address] [id number] [place] [address] Mar, [facility] [place] [facility] [address] [id number] [place] [address] Feb, [facility] [place] [facility] [address] [id number] [place] [address] Feb, [facility] [place] [facility] [address] [id number] [place] [address] Sep, [facility] [place] [facility] [address] [id number] [place] [address] Sep, [facility] [place] [facility] [address] [id number] [place] [address] Aug, [facility] [place] [facility] [address] [id number] [place] [address] Aug, [facility] [place] [facility] [address] [id number] [place] [address] Aug, [facility] [place] [facility] [address] [id number] [place] [address] Aug, [facility] [place] [facility] [address] [id number] [place] [address] Jun, [facility] [place] [facility] [address] [id number] [place] [address] Jun, [facility] [place] [facility] [address] [id number] [place] [address] Jun, [facility] [place] [facility] [address] [id number] [place] [address] Jun, [facility] [place] [facility] [address] [id number] [place] [address] Jun, [facility] [place] [facility] [address] [id number] [place] [address] Jun, [facility] [place] [facility] [address] [id number] [place] [address] Jun, [facility] [place] [facility] [address] [id number] [place] [address] Jun, [facility] [place] [facility] [address] [id number] [place] [address] Jun, [facility] [place] [facility] [address] [id number] [place] [address] May, [facility] [place] [facility] [address] [id number] [place] [address] Apr, [facility] [place] [facility] [address] [id number] [place] [address] Apr, [facility] [place] [facility] [address] [id number] [place] [address] Apr, [facility] [place] [facility] [address] [id number] [place] [address] Mar, [facility] [place] [facility] [address] [id number] [place] [address] Mar, [facility] [place] [facility] [address] [id number] [place] [address] Mar, [facility] [place] [facility] [address] [id number] [place] [address] Mar, [facility] [place] [facility] [address] [id number] [place] [address] Mar, [facility] [address] [place] [id number] [address] Mar, [facility] [address] [address] Mar, [facility] [address] [id number] [address] Mar, [facility] [address] [address] Mar, [facility] [address] [id number] [address] Mar, [facility] [place] [address] [address] Feb, [facility] [address] [address] Oct, [facility] [address] [address] Sep, [facility] [place] [address] [address] Aug, [facility] [address] [address] Aug, [facility] [address] [id number] [address] Aug, [facility] [place] [address] [address] Aug, [facility] [address] [id number] [address] Nov, IMMUNIZATIONS No Known Immunizations SOCIAL HISTORY Never Assessed REASON FOR VISIT Lab (walk-in) PLAN OF CARE VITAL SIGNS MEDICATIONS Unknown Medications RESULTS No Results PROCEDURES Procedure Date Ordered Result Body Site LAB NOT BILLED BY [facility] May 11, 2018 RISHABH TOVAR* May 11, 2018 INSTRUCTIONS MEDICATIONS ADMINISTERED No Known Medications [...]
--- OUTSIDE RECORDS SUMMARY | 2019-02-06 07:51 | XMS REPORT ---
Author Author DONALDO DREW [facility] Address [address] [place] [address] Care Team Providers Care Chip Tester Name Role Phone DONALDODREW Unavailable PROBLEMS Type Condition ICD9-CM Code FWR30-WX Code Onset Dates Condition Status SNOMED Code Problem Mixed hyperlipidemia E78.2 Active 214310327 Problem Hypothyroidism, unspecified E03.9 Active 11023608 Problem Cannabis use disorder, mild, abuse F12.10 Active 99920431 Problem COPD (chronic obstructive pulmonary disease) J44.9 Active 65743780 Problem Acquired hypothyroidism E03.9 Active 730837781 Problem Bipolar II disorder F31.81 Active 98249329 Problem Generalized anxiety disorder F41.1 Active 76490901 ALLERGIES No Information ENCOUNTERS Encounter Location Date Diagnosis [place] [address] [address] Jul, [place] [address] [address] Apr, [place] [address] [address] Apr, Bipolar II disorder F31.81 ; Generalized anxiety disorder F41.1 and Cannabis use disorder, mild, abuse F12.10 [facility] [address] [place] [id number] [place] [address] Feb, Mixed hyperlipidemia E78.2 ; Acquired hypothyroidism E03.9 and Routine adult health maintenance Z00.00 [place] [address] [address] January, Bipolar II disorder F31.81 [place] [address] [address] January, Bipolar II disorder F31.81 ; Generalized anxiety disorder F41.1 ; Cannabis use disorder, mild, abuse F12.10 and Fatigue associated with anemia D64.9 [place] [address] [place] [id number] [place] [address] Dec, Hypothyroidism, unspecified E03.9 ; Tobacco abuse Z72.0 and COPD (chronic obstructive pulmonary disease) J44.9 [place] [address] [place] [id number] [place] [address] Jul, Bipolar II disorder F31.81 ; Generalized anxiety disorder F41.1 and Cannabis use disorder, mild, abuse F12.10 [place] [address] [place] [id number] [place] [address] Apr, Bipolar II disorder F31.81 ; Nausea and vomiting in adult R11.2 ; Generalized anxiety disorder F41.1 ; Heartburn R12 and Cannabis use disorder, mild, abuse F12.10 [place] [address] [place] [id number] [place] [address] Apr, Bipolar II disorder F31.81 ; Generalized anxiety disorder F41.1 and Cannabis use disorder, mild, abuse F12.10 [place] [address] [address] Apr, Nausea and vomiting in adult R11.2 and Heartburn R12 [place] [address] [place] [id number] [place] [address] Apr, Bipolar II disorder F31.81 [place] [address] [place] [id number] [place] [address] Mar, Generalized anxiety disorder F41.1 [place] [address] [place] [id number] [place] [address] Feb, Bipolar II disorder F31.81 ; Generalized anxiety disorder F41.1 and Cannabis use disorder, mild, abuse F12.10 [place] [address] [place] [id number] [place] [address] January, Bipolar II disorder F31.81 ; Generalized anxiety disorder F41.1 and Cannabis use disorder, mild, abuse F12.10 [place] [id number] [place] [address] Dec, Bipolar II disorder F31.81 ; Generalized anxiety disorder F41.1 and Cannabis use disorder, mild, abuse F12.10 [place] [address] [place] [id number] [place] [address] Dec, Generalized anxiety disorder F41.1 [place] [address] [place] [id number] [place] [address] Nov, [place] [address] [place] [id number] [place] [address] Nov, Generalized anxiety disorder F41.1 ; Cannabis use disorder, mild, abuse F12.10 and Bipolar II disorder F31.81 [place] [address] [place] [id number] [place] [address] Nov, Bipolar II disorder F31.81 [place] [address] [place] [id number] [place] [address] Nov, Bipolar II disorder F31.81 ; Generalized anxiety disorder F41.1 and Cannabis use disorder, mild, abuse F12.10 [place] [address] [place] [id number] [place] [address] Oct, [place] [address] [place] [id number] [place] [address] Oct, Bipolar II disorder F31.81 ; Generalized anxiety disorder F41.1 and Cannabis use disorder, mild, abuse F12.10 [place] [address] [place] [id number] [place] [address] Aug, COPD (chronic obstructive pulmonary disease) J44.9 [place] [address] [place] [id number] [place] [address] 08 Aug, 2016 Recent urinary tract infection Z87.440 ; Acquired hypothyroidism E03.9 ; Encounter for immunization Z23 ; Mixed hyperlipidemia E78.2 ; COPD (chronic obstructive pulmonary disease) J44.9 and Tobacco abuse Z72.0 [place] [address] [place] [id number] [place] [address] Jul, [place] [address] [place] [id number] [place] [address] Jul, [place] [address] [place] [id number] [place] [address] Jul, Recent urinary tract infection Z87.440 ; Acute cystitis with hematuria N30.01 ; Vaginal itching L29.8 and Skin infection L08.[address] [address] Jun, Hydronephrosis, unspecified hydronephrosis type N13.30 [place] [address] [address] Apr, [address] [address] Sep, Acquired hypothyroidism E03.9 ; Mixed hyperlipidemia E78.2 ; COPD (chronic obstructive pulmonary disease) J44.9 and Thrush B37.0 [place] [id number] [place] [address] Aug, [place] [address] [place] [id number] [place] [address] Aug, Acquired hypothyroidism E03.9 ; Mixed hyperlipidemia E78.2 ; COPD (chronic obstructive pulmonary disease) J44.9 and URI (upper respiratory infection) J06.9 [place] [address] [place] [id number] [place] [address] January, Blood in stool 578.1 and Weight loss 783.21 [place] [address] [place] [id number] [place] [address] January, Other and unspecified hyperlipidemia 272.4 ; Unspecified hypothyroidism 244.9 ; Nondependent tobacco use disorder 305.1 ; Weight loss 783.21 ; History of colon polyps V12.72 and Blood in stool 578.1 [facility] [address] [facility] [id number] [place] [address] 30 Dec, 2014 [facility] [address] [place] [id number] [address] [address], [address] [facility] [address] [place] [address] 14 Dec, 2014 [facility] [address] [facility] [id number], [place] [address] Dec, [facility] [address] [place] [address] Nov, [facility] [address] [facility] [id number] [place] [address] Nov, [facility] [address] [address] Nov, [facility] [address] [address] Nov, [facility] [address] [address] Sep, [facility] [address] [address] Sep, [facility] [address] [id number] [address] Aug, [facility] [address] [facility] [id number] [address] Aug, [facility] [address] [place] [id number] [address] Aug, [facility] [address] [facility] [id number] [address] Aug, [facility] [address] [place] [id number], [place] [address] Aug, [facility] [place] [facility] [address] [id number] [place] [address] Aug, [facility] [place] [facility] [address] [id number] [place] [address] Aug, [facility] [place] [facility] [address] [id number] [place] [address] Aug, [facility] [place] [facility] [address] [id number] [place] [address] Jul, [facility] [place] [facility] [address] [id number] [place] [address] Jul, [facility] [place] [facility] [address] [id number] [place] [address] Jul, [facility] [place] [facility] [address] [id number] [place] [address] Jul, [facility] [place] [facility] [address] [id number] [place] [address] Jul, [facility] [place] [facility] [address] [id number] [place] [address] Jul, [facility] [place] [facility] [address] [id number] [place] [address] Jun, [facility] [place] [facility] [address] [id number] [place] [address] Jun, [facility] [place] [facility] [address] [id number] [place] [address] Jun, [facility] [place] [facility] [address] [id number] [place] [address] Jun, [facility] [place] [facility] [address] [id number] [place] [address] Apr, [facility] [place] [facility] [address] [id number] [place] [address] Apr, [facility] [place] [facility] [address] [id number] [place] [address] Mar, [facility] [place] [facility] [address] [id number] [place] [address] Mar, [facility] [place] [facility] [address] [id number] [place] [address] Feb, [facility] [place] [facility] [address] [id number] [place] [address] Feb, [facility] [place] [facility] [address] [id number] [place] [address] Sep, [facility] [place] [facility] [address] [id number] [place] [address] Sep, [facility] [place] [facility] [address] [id number] [place] [address] Aug, [facility] [place] [facility] [address] [id number] [place] [address] Aug, [facility] [place] [facility] [address] [id number], [place] [address] Aug, [facility] [place] [facility] [address] [id number] [place] [address] Aug, [facility] [place] [facility] [address] [id number] [place] [address] 28 Jun, 2013 [facility] [place] [facility] [address] [id number], [place] [address] 28 Jun, 2013 [facility] [place] [facility] [address] [id number], [place] [address] 24 Jun, 2013 [facility] [place] [facility] [address] [id number] [place] [address] 23 Jun, 2013 [facility] [place] [facility] [address] [id number], [place] [address] 23 Jun, 2013 [facility] [place] [facility] [address] [id number], [place] [address] 14 Jun, 2013 [facility] [place] [facility] [address] [id number] [place] [address] Jun, [facility] [place] [facility] [address] [id number] [place] [address] Jun, [facility] [place] [facility] [address] [id number] [place] [address] Jun, [facility] [place] [facility] [address] [id number] [place] [address] May, [facility] [place] [facility] [address] [id number] [place] [address] Apr, [facility] [place] [facility] [address] [id number] [place] [address] Apr, [facility] [place] [facility] [address] [id number] [place] [address] Apr, [facility] [place] [facility] [address] [id number] [place] [address] Mar, [facility] [place] [facility] [address] [id number] [place] [address] Mar, [facility] [place] [facility] [address] [id number] [place] [address] Mar, [facility] [place] [facility] [address] [id number] [place] [address] Mar, [facility] [place] [facility] [address] [id number] [place] [address] Mar, [facility] [place] [facility] [address] [id number] [place] [address] Mar, [facility] [place] [facility] [address] [id number] [place] [address] Mar, [facility] [place] [facility] [address] [id number] [place] [address] Mar, [facility] [place] [facility] [address] [id number] [place] [address] Mar, [facility] [address] [place] [id number] [address] Mar, [facility] [address] [address] Feb, [facility] [address] [place] [id number] [address] Oct, [facility] [address] [address] Sep, [facility] [address] [address] Aug, [facility] [address] [address] Aug, [facility] [address] [address] Aug, [facility] [address], [place] [address] Aug, [facility] [address] [place] [id number], [place] [address] Nov, IMMUNIZATIONS No Known Immunizations SOCIAL HISTORY Never Assessed REASON FOR VISIT Requests return call PLAN OF CARE VITAL SIGNS MEDICATIONS Medication Instructions Dosage Frequency Start Date End Date Duration Status Abilify 10 mg by oral route Once a day 1 tablet by Oral route 1 time per day 24h 30 days Active Chantix 1 MG Orally Twice a day 1 tablet 12h January, 30 day(s) Active RESULTS No Results PROCEDURES No Known [...]
--- OUTSIDE RECORDS SUMMARY | 2019-02-06 07:51 | XMS REPORT ---
Author Author SOLEDAD RICK Organization [facility] Address [address] [place] [address] Care Team Providers Care Voltage Tester Name Role Phone SOLEDAD RICK Unavailable PROBLEMS Type Condition ICD9-CM Code [id number] Code Onset Dates Condition Status SNOMED Code Problem Mixed hyperlipidemia E78.2 Active 831228762 Problem Hypothyroidism, unspecified E03.9 Active 57883842 Problem Cannabis use disorder, mild, abuse F12.10 Active 63163511 Problem COPD (chronic obstructive pulmonary disease) J44.9 Active 24528336 Problem Acquired hypothyroidism E03.9 Active 950929178 Problem Bipolar II disorder F31.81 Active 46033674 Problem Generalized anxiety disorder F41.1 Active 65699303 ALLERGIES Substance Reaction Event Type Date Status Wellbutrin Unknown Drug Allergy Feb, Active Remeron hallucinations Drug Allergy Feb, Active Oxybutynin hallucinations Drug Allergy Feb, Active Clonazepam "fuzzy" Drug Allergy Feb, Active ENCOUNTERS Encounter Location Date Diagnosis [place] [id number] [place] [address] Jul, [facility] [id number] [place] [address] Apr, Mixed hyperlipidemia E78.2 [facility] [id number] [place] [address] Apr, [facility] [id number] [place] [address] Apr, Bipolar II disorder F31.81 ; Generalized anxiety disorder F41.1 and Cannabis use disorder, mild, abuse F12.10 [facility] [id number] [place] [address] Feb, Mixed hyperlipidemia E78.2 ; Acquired hypothyroidism E03.9 and Routine adult health maintenance Z00.00 [facility] [id number] [place] [address] January, Bipolar II disorder F31.81 [facility] [id number] [place] [address] January, Bipolar II disorder F31.81 ; Generalized anxiety disorder F41.1 ; Cannabis use disorder, mild, abuse F12.10 and Fatigue associated with anemia D64.9 [facility] [id number] [place] [address] Dec, Hypothyroidism, unspecified E03.9 ; Tobacco abuse Z72.0 and COPD (chronic obstructive pulmonary disease) J44.9 [facility] [id number] [place] [address] Jul, Bipolar II disorder F31.81 ; Generalized anxiety disorder F41.1 and Cannabis use disorder, mild, abuse F12.10 [place] [id number] [place] [address] Apr, Bipolar II disorder F31.81 ; Nausea and vomiting in adult R11.2 ; Generalized anxiety disorder F41.1 ; Heartburn R12 and Cannabis use disorder, mild, abuse F12.10 [facility] [id number] [place] [address] Apr, Bipolar II disorder F31.81 ; Generalized anxiety disorder F41.1 and Cannabis use disorder, mild, abuse F12.10 [facility] [id number] [place] [address] Apr, Nausea and vomiting in adult R11.2 and Heartburn R12 [address] [address] Apr, Bipolar II disorder F31.81 [facility] [id number] [place] [address] Mar, Generalized anxiety disorder F41.1 [place] [address] [place] [address] Feb, Bipolar II disorder F31.81 ; Generalized anxiety disorder F41.1 and Cannabis use disorder, mild, abuse F12.10 [facility] [id number] [place] [address] January, Bipolar II disorder F31.81 ; Generalized anxiety disorder F41.1 and Cannabis use disorder, mild, abuse F12.10 [facility] [id number] [place] [address] Dec, Bipolar II disorder F31.81 ; Generalized anxiety disorder F41.1 and Cannabis use disorder, mild, abuse F12.10 [facility] [id number] [place] [address] Dec, Generalized anxiety disorder F41.1 [facility] [id number] [place] [address] Nov, [facility] [id number] [place] [address] Nov, Generalized anxiety disorder F41.1 ; Cannabis use disorder, mild, abuse F12.10 and Bipolar II disorder F31.81 [facility] [id number] [place] [address] Nov, Bipolar II disorder F31.81 [facility] [id number] [place] [address] Nov, Bipolar II disorder F31.81 ; Generalized anxiety disorder F41.1 and Cannabis use disorder, mild, abuse F12.10 [facility] [address] [place] [address] Oct, [facility] [id number] [place] [address] Oct, Bipolar II disorder F31.81 ; Generalized anxiety disorder F41.1 and Cannabis use disorder, mild, abuse F12.10 [facility] [id number] [place] [address] 16 Aug, 2016 COPD (chronic obstructive pulmonary disease) J44.9 [facility] [id number] [place] [address] 08 Aug, 2016 Recent urinary tract infection Z87.440 ; Acquired hypothyroidism E03.9 ; Encounter for immunization Z23 ; Mixed hyperlipidemia E78.2 ; COPD (chronic obstructive pulmonary disease) J44.9 and Tobacco abuse Z72.0 [place] [address] [address] Jul, [facility] [address] [address] Jul, [facility] [address] [address] Jul, Recent urinary tract infection Z87.440 ; Acute cystitis with hematuria N30.01 ; Vaginal itching L29.8 and Skin infection L08.9 [place] [address] [address] Jun, Hydronephrosis, unspecified hydronephrosis type N13.30 [place] [address] [address] Apr, [facility] [id number] [place] [address] Sep, Acquired hypothyroidism E03.9 ; Mixed hyperlipidemia E78.2 ; COPD (chronic obstructive pulmonary disease) J44.9 and Thrush B37.0 [place] [id number] [place] [address] Aug, [place] [address] [address] Aug, Acquired hypothyroidism E03.9 ; Mixed hyperlipidemia E78.2 ; COPD (chronic obstructive pulmonary disease) J44.9 and URI (upper respiratory infection) J06.9 [place] [address] [address] January, Blood in stool 578.1 and Weight loss 783.21 [facility] [address] [address] January, Other and unspecified hyperlipidemia 272.4 ; Unspecified hypothyroidism 244.9 ; Nondependent tobacco use disorder 305.1 ; Weight loss 783.21 ; History of colon polyps V12.72 and Blood in stool 578.1 [facility] [id number] [place] [address] 30 Dec, 2014 [facility] [address] [address] Dec, [facility] [id number] [place] [address] Dec, [facility] [id number] [place] [address] Dec, [facility] [id number] [address] Nov, [facility] [address] [address] Nov, [facility] [address] [address] Nov, [facility] [address] [address] Nov, [facility] [address] [address] Sep, [facility] [id number] [address] Sep, [facility] [address] [address] Aug, [facility] [id number] [address] Aug, [facility] [id number] [place] [address], [place] [address] Aug, [facility] [place] [facility] [address] [id number] [place] [address] Aug, [facility] [place] [facility] [address] [id number] [place] [address] Aug, [facility] [place] [facility] [address] [id number] [place] [address] Aug, [facility] [place] [facility] [address] [id number] [place] [address] Aug, [facility] [place] [facility] [address] [id number] [place] [address] Aug, [facility] [place] [facility] [address] [id number] [place] [address] Jul, [facility] [place] [facility] [address] [id number] [place] [address] Jul, [facility] [place] [facility] [address] [id number] [place] [address] Jul, [facility] [place] [facility] [address] [id number] [place] [address] Jul, [facility] [place] [facility] [address] [facility] [id number] [place] [address] Jul, [facility] [place] [facility] [address] [id number] [place] [address] Jul, [facility] [place] [facility] [address] [id number] [address] Jun, [facility] [place] [facility] [address] [id number] [place] [address] Jun, [facility] [place] [facility] [address] [facility] [id number] [place] [address] Jun, [facility] [place] [facility] [address] [facility] [id number] [place] [address] Jun, [facility] [place] [facility] [address] [id number] [place] [address] Apr, [facility] [place] [facility] [address] [id number] [place] [address] Apr, [facility] [place] [facility] [address] [id number] [place] [address] Mar, [facility] [place] [facility] [address] [id number] [place] [address] Mar, [facility] [place] [facility] [address] [id number] [place] [address] Feb, [facility] [place] [facility] [address] [id number] [place] [address] Feb, [facility] [place] [facility] [address] [id number] [place] [address] Sep, [facility] [place] [facility] [address] [id number] [place] [address] Sep, [facility] [place] [facility] [address] [id number] [place] [address] Aug, [facility] [place] [facility] [address] [id number] [place] [address] Aug, [facility] [place] [facility] [address] [id number] [place] [address] Aug, [facility] [place] [facility] [address] [id number] [place] [address] Aug, [facility] [place] [facility] [address] [id number] [place] [address] Jun, [facility] [place] [facility] [address] [id number] [place] [address] Jun, [facility] [place] [facility] [address] [id number] [place] [address] Jun, [facility] [place] [facility] [address] [id number] [place] [address] Jun, [facility] [place] [facility] [address] [id number] [place] [address] Jun, [facility] [place] [facility] [address] [id number] [place] [address] Jun, [facility] [place] [facility] [address] [id number] [place] [address] Jun, [facility] [place] [facility] [address] [id number] [place] [address] Jun, [facility] [place] [facility] [address] [id number] [place] [address] Jun, [facility] [place] [facility] [address] [id number] [place] [address] May, [facility] [place] [facility] [address] [id number] [place] [address] Apr, [facility] [place] [facility] [address] [id number] [place] [address] Apr, [facility] [place] [facility] [address] [id number] [place] [address] Apr, [facility] [place] [facility] [address] [id number] [place] [address] Mar, [facility] [place] [facility] [address] [id number] [place] [address] Mar, [facility] [place] [facility] [address] [id number] [address] Mar, [facility] [place] [facility] [address] [id number] [place] [address] Mar, [facility] [place] [facility] [address] [id number] [place] [address] Mar, [facility] [place] [facility] [address] [id number] [place] [address] Mar, [facility] [place] [facility] [address], [place] [address] Mar, [facility] [id number] [address] Mar, [facility] [address], [place] [address] Mar, [facility] [id number] [address] Mar, [facility] [address], [place] [address] Feb, [facility] [address] [address] Oct, [facility] [address], [place] [address] Sep, [facility] [address], [place] [address] Aug, [facility] [address], [place] [address] Aug, [facility] [address], [place] [address] Aug, [facility] [id number] [address] Aug, [facility] [id number] [address] Nov, IMMUNIZATIONS No Known Immunizations SOCIAL HISTORY Never Assessed REASON FOR VISIT Transition of Care -PR PLAN OF CARE Activity Details Follow Up 6 Months Reason: Pending Test Mammogram, Bilateral Screening VITAL SIGNS Height 63 in 2018-02-24 Weight 124 lbs 2018-02-24 Temperature 98 degrees Fahrenheit 2018-02-24 Heart Rate 86 bpm 2018-02-24 Respiratory Rate 20 2018-02-24 BMI 21.96 kg/m2 2018-02-24 Blood pressure systolic 106 mmHg 2018-02-24 Blood pressure diastolic 64 mmHg 2018-02-24 MEDICATIONS Medication Instructions Dosage Frequency Start Date End Date Duration Status Myrbetriq 50 MG Orally Once a day 1 tablet 24h Active Lovastatin 10 TAKE 1 TABLET BY MOUTH DAILY WITH A MEAL 90 Active Chantix 1 MG Orally Twice a day 1 tablet 12h January, 30 day(s) Active Gabapentin 300 MG 1 CAPSULE TWICE A DAY NEEDED FOR ANXIETY ORALLY 30 DAY(S) 30 Active Abilify 10 mg by oral route Once a day 1 tablet by Oral route 1 time per day 24h 30 days Active Paroxetine HCl 40 mg 1 1/2 TABLETS ONCE A DAY ORALLY 30 DAYS Active RESULTS No Results PROCEDURES Procedure Date Ordered Result Body Site [facility] VISIT ESTABLISHED PATIENT February 24, 2018 INSTRUCTIONS MEDICATIONS ADMINISTERED No Known Medications [...]
--- OUTSIDE RECORDS SUMMARY | 2019-02-06 07:52 | XMS REPORT ---
Author Author ROBBIE ESPARZA Organization [employer] Address Unknown Phone Unavailable Care Team Providers Care Curing Pickling Packer Name Role Phone ROBBIE ESPARZA CP Unavailable Allergies No Known Allergies Problems Problem Type Condition Code Onset Dates Condition Status Problem Nondependent tobacco use disorder 305.1 Active Problem Mixed hyperlipidemia E78.2 Active Problem COPD (chronic obstructive pulmonary disease) J44.9 Active Problem Acquired hypothyroidism E03.9 Active Problem Lumbago 724.2 Active Problem Anxiety state, unspecified 300.00 Active Problem Other and unspecified hyperlipidemia 272.4 Active Problem Unspecified hypothyroidism 244.9 Active Medications No Known Medications Results No Known Results Summary Purpose [employer] Submission
--- OUTSIDE RECORDS SUMMARY | 2019-02-06 07:52 | XMS REPORT ---
Author Author JOSSELYN Calvo Organization [facility] Address [address] [place] [address] Care Team Providers Care Pediatric Genetic Counselor Name Role Phone JOSSELYN Calvo Unavailable PROBLEMS Type Condition ICD9-CM Code NVQ66-TR Code Onset Dates Condition Status SNOMED Code Problem Bipolar II disorder F31.81 Active 69005979 Problem Generalized anxiety disorder F41.1 Active 16840281 Problem COPD (chronic obstructive pulmonary disease) J44.9 Active 88212793 Problem Acquired hypothyroidism E03.9 Active 417983979 Problem Cannabis use disorder, mild, abuse F12.10 Active 08840779 Problem Mixed hyperlipidemia E78.2 Active 759607168 ALLERGIES Substance Reaction Event Type Date Status Wellbutrin Unknown Drug Allergy Nov, Active Remeron hallucinations Drug Allergy Nov, Active Oxybutynin hallucinations Drug Allergy Nov, Active SOCIAL HISTORY Never Assessed PLAN OF CARE Activity Details Follow Up 4 Weeks Reason: VITAL SIGNS Height 63 in 2016-11-19 Weight 123.3 lbs 2016-11-19 Heart Rate 112 bpm 2016-11-19 Respiratory Rate 20 2016-11-19 BMI 21.84 kg/m2 2016-11-19 Blood pressure systolic 96 mmHg 2016-11-19 Blood pressure diastolic 61 mmHg 2016-11-19 MEDICATIONS Medication Instructions Dosage Frequency Start Date End Date Duration Status Premarin 0.625 mg/gram insert 0.5 gram by vaginal route twice weekly Aug, Active Myrbetriq 50 MG Orally Once a day 1 tablet 24h Active Abilify 10 mg by oral route Once a day 1 tablet by Oral route 1 time per day 24h Jun, 30 days Active Clonazepam 2 MG Orally Twice a day 1 tablet 12h Oct, 14 days Active Paroxetine HCl 40 mg Orally Once a day 1 1/2 tablets 24h 30 days Active Nystatin 614037 UNIT/GM Externally Twice a day 1 application to affected area 12h Jul, Active Advair Diskus 250-50 MCG/DOSE Inhalation Twice a day 1 puff 12h Active ProAir HFA 108 (90 Base) MCG/ACT Inhalation every 4 hrs prn 2 puffs as needed Active Lovastatin 10 TAKE 1 TABLET BY MOUTH ONCE DAILY WITH A MEAL 30 Active RESULTS No Results PROCEDURES Procedure Date Ordered Result Body Site [facility] VISIT ESTABLISHED PATIENT November 19, 2016 IMMUNIZATIONS No Known Immunizations MEDICAL (GENERAL) HISTORY Type Description Date Medical History Hypothyroidism Medical History chronic pain Medical History Anxiety disorder Medical History depression Medical History bipolar disorder Medical History attention deficit hyperactivity disorder Medical History cyst on liver Medical History endometriosis Medical History chronic irregular bowels s/p back surgery with bowel injury Medical History CECY with freq UTIs Medical History PPV23 (PNEUMOVAX) DX Medical History Sees [facility] Medical History Bulging Discs Medical History High Cholestrol Medical History Major Depressive Disorder recurrent, moderate with anxious distress Medical History Panic Disorder without Agoraphobia Medical History PTSD Medical History Tobacco User Medical History Urinary [...]
--- OUTSIDE RECORDS SUMMARY | 2019-02-06 07:52 | XMS REPORT ---
Author Author DONALDO DREW [facility] Address [address] [place] [address] Care Team Providers Care Platform Inspector Name Role Phone DONALDO, DREW Unavailable PROBLEMS Type Condition ICD9-CM Code [id number] Code Onset Dates Condition Status SNOMED Code Problem Bipolar II disorder F31.81 Active 28705598 Problem Generalized anxiety disorder F41.1 Active 38384474 Problem COPD (chronic obstructive pulmonary disease) J44.9 Active 07597023 Problem Acquired hypothyroidism E03.9 Active 632992027 Problem Cannabis use disorder, mild, abuse F12.10 Active 78176950 Problem Mixed hyperlipidemia E78.2 Active 269433714 ALLERGIES Substance Reaction Event Type Date Status Wellbutrin Unknown Drug Allergy Apr, Active Remeron hallucinations Drug Allergy Apr, Active Oxybutynin hallucinations Drug Allergy Apr, Active Clonazepam "fuzzy" Drug Allergy Apr, Active ENCOUNTERS Encounter Location Date Diagnosis [facility] [id number] [place] [address] Dec, [facility] [id number] [place] [address] Jul, Bipolar II disorder F31.81 ; Generalized anxiety disorder F41.1 and Cannabis use disorder, mild, abuse F12.10 [facility] [address] [place] [address] Apr, Bipolar II disorder F31.81 ; Nausea and vomiting in adult R11.2 ; Generalized anxiety disorder F41.1 ; Heartburn R12 and Cannabis use disorder, mild, abuse F12.10 [facility] [address] [place] [address] Apr, Bipolar II disorder F31.81 ; Generalized anxiety disorder F41.1 and Cannabis use disorder, mild, abuse F12.10 [place] [address] [address] Apr, Nausea and vomiting in adult R11.2 and Heartburn R12 [place] [address] [address] Apr, Bipolar II disorder F31.81 [facility] [id number] [place] [address] Mar, Generalized anxiety disorder F41.1 [facility] [id number] [place] [address] Feb, Bipolar II disorder F31.81 ; Generalized anxiety disorder F41.1 and Cannabis use disorder, mild, abuse F12.10 [facility] [place] [address] [place] [address] January, Bipolar II disorder F31.81 ; Generalized anxiety disorder F41.1 and Cannabis use disorder, mild, abuse F12.10 [facility] [id number] [place] [address] Dec, Bipolar II disorder F31.81 ; Generalized anxiety disorder F41.1 and Cannabis use disorder, mild, abuse F12.10 [facility] [place] [address] [address] Dec, Generalized anxiety disorder F41.1 [facility] [id number] [place] [address] Nov, [facility] [id number] [place] [address] Nov, Generalized anxiety disorder F41.1 ; Cannabis use disorder, mild, abuse F12.10 and Bipolar II disorder F31.81 [facility] [address] [address] Nov, Bipolar II disorder F31.81 [facility] [id number] [place] [address] Nov, Bipolar II disorder F31.81 ; Generalized anxiety disorder F41.1 and Cannabis use disorder, mild, abuse F12.10 [facility] [place] [address] [place] [address] Oct, [facility] [id number] [place] [address] 17 Oct, 2016 Bipolar II disorder F31.81 ; Generalized anxiety disorder F41.1 and Cannabis use disorder, mild, abuse F12.10 [facility] [place] [address] [place] [address] 16 Aug, 2016 COPD (chronic obstructive pulmonary disease) J44.9 [facility] [id number] [place] [address] 08 Aug, 2016 Recent urinary tract infection Z87.440 ; Acquired hypothyroidism E03.9 ; Encounter for immunization Z23 ; Mixed hyperlipidemia E78.2 ; COPD (chronic obstructive pulmonary disease) J44.9 and Tobacco abuse Z72.0 [facility] [id number] [place] [address] 15 Jul, [address] [place] [id number] [place] [address] Jul, [facility] [address] [place] [address] Jul, Recent urinary tract infection Z87.440 ; Acute cystitis with hematuria N30.01 ; Vaginal itching L29.8 and Skin infection L08.9 [place] [place] [address] [place] [address] Jun, Hydronephrosis, unspecified hydronephrosis type N13.30 [facility] [place] [id number] [place] [address] Apr, [place] [address] [place] [address] Sep, Acquired hypothyroidism E03.9 ; Mixed hyperlipidemia E78.2 ; COPD (chronic obstructive pulmonary disease) J44.9 and Thrush B37.0 [facility] [id number] [place] [address] Aug, [facility] [id number] [place] [address] Aug, Acquired hypothyroidism E03.9 ; Mixed hyperlipidemia E78.2 ; COPD (chronic obstructive pulmonary disease) J44.9 and URI (upper respiratory infection) J06.9 [facility] [id number] [place] [address] January, Blood in stool 578.1 and Weight loss 783.21 [facility] [id number] [place] [address] January, Other and unspecified hyperlipidemia 272.4 ; Unspecified hypothyroidism 244.9 ; Nondependent tobacco use disorder 305.1 ; Weight loss 783.21 ; History of colon polyps V12.72 and Blood in stool 578.1 [facility] [id number] [place] [address] Dec, [facility] [id number] [place] [address] Dec, [facility] [id number] [place] [address] Dec, [facility] [id number] [place] [address] Dec, [facility] [id number] [place] [address] Nov, [facility] [id number] [place] [address] Nov, [facility] [id number] [place] [address] Nov, [facility] [place] [id number] [place] [address] Nov, [facility] [address] [id number] [place] [address] Sep, [facility] [place] [facility] [address] [id number] [place] [address] Sep, [facility] [place] [facility] [address] [id number] [place] [address] Aug, [facility] [place] [facility] [address] [id number] [place] [address] Aug, [facility] [place] [facility] [address] [id number] [place] [address] Aug, [facility] [place] [facility] [address] [id number] [place] [address] Aug, [facility] [place] [facility] [address] [id number] [place] [address] Aug, [facility] [place] [facility] [address] [id number] [place] [address] Aug, [facility] [place] [facility] [address] [id number] [place] [address] Aug, [facility] [place] [facility] [address] [id number] [place] [address] Aug, [facility] [place] [facility] [address] [id number] [place] [address] Jul, [facility] [place] [facility] [address] [id number] [place] [address] Jul, [facility] [place] [facility] [address] [id number] [place] [address] Jul, [facility] [place] [facility] [address] [id number] [place] [address] Jul, [facility] [place] [facility] [address] [id number] [place] [address] Jul, [facility] [place] [facility] [address] [id number] [place] [address] Jul, [facility] [place] [facility] [address] [id number] [place] [address] Jun, [facility] [place] [facility] [address] [id number] [place] [address] Jun, [facility] [place] [facility] [address] [id number] [place] [address] Jun, [facility] [place] [facility] [address] [id number] [place] [address] Jun, [facility] [place] [facility] [address] [id number] [place] [address] Apr, [facility] [place] [facility] [address] [id number] [place] [address] Apr, [facility] [place] [facility] [address] [id number] [place] [address] Mar, [facility] [place] [facility] [address] [id number] [place] [address] Mar, [facility] [place] [facility] [address] [id number] [place] [address] Feb, [facility] [place] [facility] [address] [id number] [place] [address] Feb, [facility] [place] [facility] [address] [id number] [place] [address] Sep, [facility] [place] [facility] [address] [id number] [place] [address] Sep, [facility] [place] [facility] [address] [id number] [place] [address] Aug, [facility] [place] [facility] [address] [id number] [place] [address] Aug, [facility] [place] [facility] [address] [id number] [place] [address] Aug, [facility] [place] [facility] [address] [id number] [place] [address] Aug, [facility] [address] [id number] [place] [address] Jun, [facility] [place] [facility] [address] [id number] [place] [address] Jun, [facility] [address] [id number] [place] [address] Jun, [facility] [place] [facility] [address] [id number] [place] [address] Jun, [facility] [place] [facility] [address] [id number] [place] [address] Jun, [facility] [place] [facility] [address] [id number] [place] [address] Jun, [facility] [place] [facility] [address] [id number] [place] [address] Jun, [facility] [address] [id number] [place] [address] Jun, [facility] [place] [facility] [address] [id number] [place] [address] Jun, [facility] [place] [facility] [address] [id number] [place] [address] May, [facility] [place] [facility] [address] [id number] [place] [address] Apr, [facility] [place] [facility] [address] [id number] [place] [address] Apr, [facility] [place] [facility] [address] [id number] [place] [address] Apr, [facility] [place] [facility] [address] [id number] [place] [address] Mar, [facility] [place] [facility] [address] [id number] [place] [address] Mar, [facility] [address] [id number] [place] [address] Mar, [facility] [place] [facility] [address] [id number] [place] [address] Mar, [facility] [place] [facility] [address] [id number] [place] [address] Mar, [facility] [place] [facility] [address] [id number] [place] [address] Mar, [facility] [address] [id number] [place] [address] Mar, [facility] [place] [facility] [address] [id number] [place] [address] Mar, [facility] [address] [id number] [place] [address] Mar, [facility] [address] [id number] [place] [address] Mar, [facility] [place] [facility] [address] [id number] [place] [address] Feb, [facility] [place] [facility] [address] [id number] [place] [address] Oct, [facility] [place] [facility] [address] [id number] [place] [address] Sep, [facility] [place] [facility] [address] [id number] [place] [address] Aug, [facility] [place] [facility] [address] [id number] [place] [address] Aug, [facility] [place] [facility] [address] [id number] [place] [address] Aug, [facility] [place] [facility] [address] [id number] [place] [address] Aug, [facility] [place] [facility] [address] [id number] [place] [address] Nov, IMMUNIZATIONS No Known Immunizations SOCIAL HISTORY Never Assessed REASON FOR VISIT f/uJjoCarolyn PLAN OF CARE Activity Details Follow Up 4 Weeks Reason: f/u VITAL SIGNS Height 63 in 2017-05-10 Weight 123.5 lbs 2017-05-10 Heart Rate 84 bpm 2017-05-10 Respiratory Rate 18 2017-05-10 BMI 21.87 kg/m2 2017-05-10 Blood pressure systolic 102 mmHg 2017-05-10 Blood pressure diastolic 74 mmHg 2017-05-10 MEDICATIONS Medication Instructions Dosage Frequency Start Date End Date Duration Status Paroxetine HCl 40 mg Orally Once a day 1 1/2 tablets 24h 30 days Active Gabapentin 300 MG Orally once a day as needed for anxiety 1 capsule Apr, 30 day(s) Active Myrbetriq 50 MG Orally Once a day 1 tablet 24h Active Premarin 0.625 mg/gram insert 0.5 gram by vaginal route twice weekly Aug, Active Promethazine HCl 12.5 MG Orally daily prn 1 tablet as needed Apr, May, 30 day(s) Active Lovastatin 10 TAKE 1 TABLET BY MOUTH ONCE DAILY WITH A MEAL 30 Active Advair Diskus 250-50 MCG/DOSE Inhalation Twice a day 1 puff 12h Active Omeprazole 40 mg Orally Once a day 1 capsule 24h Apr, 30 day(s) Active ProAir HFA 108 (90 Base) MCG/ACT Inhalation every 4 hrs prn 2 puffs as needed Active Abilify 10 mg by oral route Once a day 1 tablet by Oral route 1 time per day 24h Active RESULTS No Results PROCEDURES Procedure Date Ordered Result Body Site [facility] VISIT ESTABLISHED PATIENT May 10, 2017 INSTRUCTIONS MEDICATIONS ADMINISTERED No Known Medications MEDICAL [...]
--- OUTSIDE RECORDS SUMMARY | 2019-02-06 07:52 | XMS REPORT ---
Author Author DONALDO DREW [facility] Address [address] [place] [address] Care Team Providers Care Core Shaper Top Name Role Phone DONALDODREW Unavailable PROBLEMS Type Condition ICD9-CM Code MQM10-QT Code Onset Dates Condition Status SNOMED Code Problem Mixed hyperlipidemia E78.2 Active 434630365 Problem Hypothyroidism, unspecified E03.9 Active 40090607 Problem Cannabis use disorder, mild, abuse F12.10 Active 93567162 Problem COPD (chronic obstructive pulmonary disease) J44.9 Active 79125989 Problem Acquired hypothyroidism E03.9 Active 346578072 Problem Bipolar II disorder F31.81 Active 12416212 Problem Generalized anxiety disorder F41.1 Active 57167548 ALLERGIES Substance Reaction Event Type Date Status Wellbutrin Unknown Drug Allergy January, Active Remeron hallucinations Drug Allergy January, Active Oxybutynin hallucinations Drug Allergy January, Active Clonazepam "fuzzy" Drug Allergy January, Active ENCOUNTERS Encounter Location Date Diagnosis [facility] [id number] [place] [address] Jul, [facility] [id number] [place] [address] Apr, [facility] [address] [address] Apr, Bipolar II disorder F31.81 ; Generalized anxiety disorder F41.1 and Cannabis use disorder, mild, abuse F12.10 [facility] [id number] [place] [address] Feb, Mixed hyperlipidemia E78.2 ; Acquired hypothyroidism E03.9 and Routine adult health maintenance Z00.00 [facility] [id number] [place] [address] January, Bipolar II disorder F31.81 [facility] [id number] [address] January, Bipolar II disorder F31.81 ; Generalized anxiety disorder F41.1 ; Cannabis use disorder, mild, abuse F12.10 and Fatigue associated with anemia D64.9 [facility] [id number] [place] [address] Dec, Hypothyroidism, unspecified E03.9 ; Tobacco abuse Z72.0 and COPD (chronic obstructive pulmonary disease) J44.9 [facility] [id number] [place] [address] Jul, Bipolar II disorder F31.81 ; Generalized anxiety disorder F41.1 and Cannabis use disorder, mild, abuse F12.10 [facility] [id number] [place] [address] Apr, Bipolar II disorder F31.81 ; Nausea and vomiting in adult R11.2 ; Generalized anxiety disorder F41.1 ; Heartburn R12 and Cannabis use disorder, mild, abuse F12.10 [facility] [id number] [place] [address] Apr, Bipolar II disorder F31.81 ; Generalized anxiety disorder F41.1 and Cannabis use disorder, mild, abuse F12.10 [facility] [facility] [address] [place] [address] Apr, Nausea and vomiting in adult R11.2 and Heartburn R12 [facility] [id number] [place] [address] Apr, Bipolar II disorder F31.81 [facility] [id number] [place] [address] Mar, Generalized anxiety disorder F41.1 [facility] [id number] [place] [address] Feb, Bipolar II disorder F31.81 ; Generalized anxiety disorder F41.1 and Cannabis use disorder, mild, abuse F12.10 [facility] [address] [address] January, Bipolar II disorder F31.81 ; Generalized anxiety disorder F41.1 and Cannabis use disorder, mild, abuse F12.10 [facility] [address] [place] [address] Dec, Bipolar II disorder F31.81 ; Generalized anxiety disorder F41.1 and Cannabis use disorder, mild, abuse F12.10 [facility] [id number] [place] [address] Dec, Generalized anxiety disorder F41.1 [facility] [id number] [place] [address] Nov, [facility] [id number] [place] [address] Nov, Generalized anxiety disorder F41.1 ; Cannabis use disorder, mild, abuse F12.10 and Bipolar II disorder F31.81 [facility] [id number] [place] [address] Nov, Bipolar II disorder F31.81 [facility] [id number] [place] [address] Nov, Bipolar II disorder F31.81 ; Generalized anxiety disorder F41.1 and Cannabis use disorder, mild, abuse F12.10 [facility] [id number] [place] [address] Oct, [facility] [id number] [place] [address] Oct, Bipolar II disorder F31.81 ; Generalized anxiety disorder F41.1 and Cannabis use disorder, mild, abuse F12.10 [facility] [address] [place] [address] Aug, COPD (chronic obstructive pulmonary disease) J44.9 [facility] [address] [place] [address] 08 Aug, 2016 Recent urinary tract infection Z87.440 ; Acquired hypothyroidism E03.9 ; Encounter for immunization Z23 ; Mixed hyperlipidemia E78.2 ; COPD (chronic obstructive pulmonary disease) J44.9 and Tobacco abuse Z72.0 [facility] [id number] [place] [address] 15 Jul, 2016 [facility] [id number] [place] [address] Jul, [facility] [id number] [place] [address] 09 Jul, 2016 Recent urinary tract infection Z87.440 ; Acute cystitis with hematuria N30.01 ; Vaginal itching L29.8 and Skin infection L08.9 [facility] [id number] [place] [address] 04 Jun, 2016 Hydronephrosis, unspecified hydronephrosis type N13.30 [facility] [id number] [place] [address] Apr, [facility] [id number] [place] [address] Sep, Acquired hypothyroidism E03.9 ; Mixed hyperlipidemia E78.2 ; COPD (chronic obstructive pulmonary disease) J44.9 and Thrush B37.0 [facility] [id number] [place] [address] Aug, [facility] [id number] [place] [address] Aug, Acquired hypothyroidism E03.9 ; Mixed hyperlipidemia E78.2 ; COPD (chronic obstructive pulmonary disease) J44.9 and URI (upper respiratory infection) J06.9 [facility] [place] [address] [place] [address] January, Blood in stool 578.1 and Weight loss 783.21 [facility] [address] [place] [address] January, Other and unspecified hyperlipidemia 272.4 ; Unspecified hypothyroidism 244.9 ; Nondependent tobacco use disorder 305.1 ; Weight loss 783.21 ; History of colon polyps V12.72 and Blood in stool 578.1 [facility] [address] [address] Dec, [facility] [id number] [place] [address] Dec, [facility] [address] [address] Dec, [facility] [id number] [place] [address] Dec, [facility] [id number] [address] Nov, [facility] [id number] [place] [address] Nov, [facility] [address] [address] Nov, [facility] [address] [address] Nov, [facility] [address] [address] Sep, [facility] [address] [address] Sep, [facility] [address] [address] Aug, [facility] [address] [address] Aug, [facility] [id number] [address] Aug, [facility] [address] [address] Aug, [facility] [place] [facility] [address] [id number] [place] [address] Aug, [facility] [place] [facility] [address] [id number] [place] [address] Aug, [facility] [place] [facility] [address] [facility] [id number] [place] [address] Aug, [facility] [place] [facility] [address] [id number] [place] [address] Aug, [facility] [place] [facility] [address] [id number] [place] [address] Jul, [facility] [place] [facility] [address] [id number] [place] [address] Jul, [facility] [place] [facility] [address] [facility] [id number] [place] [address] Jul, [facility] [place] [facility] [address] [facility] [id number] [place] [address] Jul, [facility] [place] [facility] [address] [facility] [id number] [place] [address] Jul, [facility] [place] [facility] [address] [facility] [id number] [place] [address] Jul, [facility] [place] [facility] [address] [facility] [id number] [place] [address] Jun, [facility] [place] [facility] [address] [facility] [id number] [place] [address] Jun, [facility] [place] [facility] [address] [id number] [place] [address] Jun, [facility] [place] [facility] [address] [facility] [id number] [place] [address] Jun, [facility] [place] [facility] [address] [facility] [id number] [place] [address] Apr, [facility] [place] [facility] [address] [id number] [place] [address] Apr, [facility] [place] [facility] [address] [id number] [place] [address] Mar, [facility] [place] [facility] [address] [id number] [place] [address] Mar, [facility] [place] [facility] [address] [id number] [place] [address] Feb, [facility] [place] [facility] [address] [id number] [place] [address] Feb, [facility] [place] [facility] [address] [id number] [place] [address] Sep, [facility] [place] [facility] [address] [id number] [place] [address] Sep, [facility] [place] [facility] [address] [id number] [place] [address] Aug, [facility] [place] [facility] [address] [id number] [place] [address] Aug, [facility] [place] [facility] [address] [id number] [place] [address] Aug, [facility] [place] [facility] [address] [id number] [place] [address] Aug, [facility] [place] [facility] [address] [id number] [place] [address] Jun, [facility] [place] [facility] [address] [id number] [place] [address] Jun, [facility] [place] [facility] [address] [id number] [place] [address] Jun, [facility] [place] [facility] [address] [id number] [place] [address] Jun, [facility] [place] [facility] [address] [id number] [place] [address] Jun, [facility] [place] [facility] [address] [id number] [place] [address] Jun, [facility] [place] [facility] [address] [id number] [place] [address] Jun, [facility] [place] [facility] [address] [id number] [place] [address] Jun, [facility] [place] [facility] [address] [id number] [place] [address] Jun, [facility] [place] [facility] [address] [id number] [place] [address] May, [facility] [place] [facility] [address] [id number] [place] [address] Apr, [facility] [place] [facility] [address] [id number] [place] [address] Apr, [facility] [place] [facility] [address] [id number] [place] [address] Apr, [facility] [place] [facility] [address] [id number] [place] [address] Mar, [facility] [place] [facility] [address] [id number] [place] [address] Mar, [facility] [place] [facility] [address] [id number] [place] [address] Mar, [facility] [place] [facility] [address] [id number] [place] [address] Mar, [facility] [place] [facility] [address] [id number] [place] [address] Mar, [facility] [place] [facility] [address] [id number] [place] [address] Mar, [facility] [place] [facility] [address] [id number] [place] [address] Mar, [facility] [place] [facility] [id number] [address] Mar, [facility] [id number] [address] Mar, [facility] [address] [address] Mar, [facility] [address] [address] Feb, [facility] [address] [address] Oct, [facility] [id number] [place] [address] Sep, [facility] [id number] [place] [address] Aug, [facility] [address] [address] Aug, [facility] [address] [address] Aug, [facility] [address] [address] Aug, [facility] [address] [address] Nov, IMMUNIZATIONS No Known Immunizations SOCIAL HISTORY Never Assessed REASON FOR VISIT f/u AUDREY PLAN OF CARE Activity Details Follow Up 3 Months Reason: f/u VITAL SIGNS Height 63 in 2018-01-19 Weight 124 lbs 2018-01-19 Heart Rate 80 bpm 2018-01-19 Respiratory Rate 20 2018-01-19 BMI 21.96 kg/m2 2018-01-19 Blood pressure systolic 118 mmHg 2018-01-19 Blood pressure diastolic 68 mmHg 2018-01-19 MEDICATIONS Medication Instructions Dosage Frequency Start Date End Date Duration Status Gabapentin 300 MG 1 CAPSULE TWICE A DAY NEEDED FOR ANXIETY ORALLY 30 DAY(S) Active Abilify 10 mg by oral route Once a day 1 tablet by Oral route 1 time per day 24h Active Paroxetine HCl 40 mg 1 1/2 TABLETS ONCE A DAY ORALLY 30 DAYS Active Chantix Starting Month Luan 0.5 MG X 11 & 1 MG X 42 Orally as directed as directed Dec, January, 30 days Active Lovastatin 10 TAKE 1 TABLET BY MOUTH DAILY WITH A MEAL 90 Active Premarin 0.625 mg/gram insert 0.5 gram by vaginal route twice weekly Aug, Active Myrbetriq 50 MG Orally Once a day 1 tablet 24h Active RESULTS Name Result Date Reference Range CBC 2018-01-19 WHITE BLOOD CELL COUNT 6.9 3.8-10.8 RED BLOOD CELL COUNT 4.66 3.80-5.10 HEMOGLOBIN 13.9 11.7-15.5 HEMATOCRIT 41.4 35.0-45.0 MCV 88.8 80.0-100.0 MCH 29.8 27.0-33.0 MCHC 33.6 32.0-36.0 RDW 13.7 11.0-15.0 PLATELET COUNT 243 140-400 MPV 11.0 7.5-12.5 ABSOLUTE NEUTROPHILS 4644 7811-5407 ABSOLUTE LYMPHOCYTES 9832 700-6971 ABSOLUTE MONOCYTES 497 200-950 ABSOLUTE EOSINOPHILS 90 15-500 ABSOLUTE BASOPHILS 48 0-200 NEUTROPHILS 67.3 LYMPHOCYTES 23.5 MONOCYTES 7.2 EOSINOPHILS 1.3 BASOPHILS 0.7 PROCEDURES Procedure Date Ordered Result Body Site LAB NOT BILLED BY [facility] January 19, 2018 [facility] VISIT ESTABLISHED PATIENT January 19, 2018 [place], ROUTINE* January 19, 2018 INSTRUCTIONS MEDICATIONS ADMINISTERED No Known Medications [...]
--- OUTSIDE RECORDS SUMMARY | 2019-02-06 07:52 | XMS REPORT ---
Author Author JOSSELYN Calvo Organization [facility] Address [address] [place] [address] Care Team Providers Care Information Technology Administrator Name Role Phone JOSSELYN Calvo Unavailable PROBLEMS Type Condition ICD9-CM Code YAF68-UD Code Onset Dates Condition Status SNOMED Code Problem Bipolar II disorder F31.81 Active 57907884 Problem Generalized anxiety disorder F41.1 Active 99777018 Problem COPD (chronic obstructive pulmonary disease) J44.9 Active 61999374 Problem Acquired hypothyroidism E03.9 Active 284765304 Problem Cannabis use disorder, mild, abuse F12.10 Active 65259645 Problem Mixed hyperlipidemia E78.2 Active 673979402 ALLERGIES No Information SOCIAL HISTORY Never Assessed PLAN OF CARE VITAL SIGNS MEDICATIONS Medication Instructions Dosage Frequency Start Date End Date Duration Status Abilify 10 mg by oral route Once a day 1 tablet by Oral route 1 time per day 24h 30 Jun, 2014 30 days Active RESULTS No Results PROCEDURES No Known procedures IMMUNIZATIONS No Known Immunizations MEDICAL (GENERAL) HISTORY [...]
--- OUTSIDE RECORDS SUMMARY | 2019-02-06 07:52 | XMS REPORT ---
Author Author ROBBIE ESPARZA Organization [facility] Address [address] [place] [address] Care Team Providers Care Imaging Nurse Name Role Phone ROBBIE ESPARZA Unavailable PROBLEMS Type Condition ICD9-CM Code SEA58-BF Code Onset Dates Condition Status SNOMED Code Problem Bipolar II disorder F31.81 Active 36522298 Problem Generalized anxiety disorder F41.1 Active 03276260 Problem Mixed hyperlipidemia E78.2 Active 271817635 Problem COPD (chronic obstructive pulmonary disease) J44.9 Active 52567696 Problem Cannabis use disorder, mild, abuse F12.10 Active 59590218 Problem Acquired hypothyroidism E03.9 Active 534368174 ALLERGIES Unknown Allergies SOCIAL HISTORY No smoking Hx information available PLAN OF CARE VITAL SIGNS MEDICATIONS Medication Instructions Dosage Frequency Start Date End Date Duration Status Advair Diskus 250-50 MCG/DOSE Inhalation Twice a day 1 puff 12h Active ProAir HFA 108 (90 Base) MCG/ACT Inhalation every 4 hrs prn 2 puffs as needed Active RESULTS No Results PROCEDURES No Known procedures IMMUNIZATIONS No Known Immunizations
--- OUTSIDE RECORDS SUMMARY | 2019-02-06 07:52 | XMS REPORT ---
Author Author ROBBIE ESPARZA [facility] Address [address] [place] [address] Care Team Providers Care Carton Stapler Name Role Phone ROBBIE ESPARZA Unavailable PROBLEMS Type Condition ICD9-CM Code PKE62-WE Code Onset Dates Condition Status SNOMED Code Problem Mixed hyperlipidemia E78.2 Active 153704771 Problem Hypothyroidism, unspecified E03.9 Active 43723976 Problem Cannabis use disorder, mild, abuse F12.10 Active 51646778 Problem COPD (chronic obstructive pulmonary disease) J44.9 Active 41450728 Problem Acquired hypothyroidism E03.9 Active 110135059 Problem Bipolar II disorder F31.81 Active 80373468 Problem Generalized anxiety disorder F41.1 Active 26649242 ALLERGIES Substance Reaction Event Type Date Status Wellbutrin Unknown Drug Allergy Dec, Active Remeron hallucinations Drug Allergy Dec, Active Oxybutynin hallucinations Drug Allergy Dec, Active Clonazepam "fuzzy" Drug Allergy Dec, Active ENCOUNTERS Encounter Location Date Diagnosis [facility] [id number] [place] [address] Jul, [facility] [id number] [place] [address] Apr, Bipolar II disorder F31.81 ; Generalized anxiety disorder F41.1 and Cannabis use disorder, mild, abuse F12.10 [facility] [id number] [place] [address] Feb, Mixed hyperlipidemia E78.2 ; Acquired hypothyroidism E03.9 and Routine adult health maintenance Z00.00 [facility] [id number] [place] [address] January, Bipolar II disorder F31.81 [facility] [id number] [place] [address] January, Bipolar II disorder F31.81 ; Generalized anxiety disorder F41.1 ; Cannabis use disorder, mild, abuse F12.10 and Fatigue associated with anemia D64.9 [place] [id number] [place] [address] Dec, Hypothyroidism, unspecified E03.9 ; Tobacco abuse Z72.0 and COPD (chronic obstructive pulmonary disease) J44.9 [place] [id number] [place] [address] Jul, Bipolar II disorder F31.81 ; Generalized anxiety disorder F41.1 and Cannabis use disorder, mild, abuse F12.10 [place] [id number] [place] [address] Apr, Bipolar II disorder F31.81 ; Nausea and vomiting in adult R11.2 ; Generalized anxiety disorder F41.1 ; Heartburn R12 and Cannabis use disorder, mild, abuse F12.10 [place] [id number] [place] [address] Apr, Bipolar II disorder F31.81 ; Generalized anxiety disorder F41.1 and Cannabis use disorder, mild, abuse F12.10 [place] [id number] [place] [address] Apr, Nausea and vomiting in adult R11.2 and Heartburn R12 [place] [id number] [place] [address] Apr, Bipolar II disorder F31.81 [place] [id number] [place] [address] Mar, Generalized anxiety disorder F41.1 [place] [id number] [place] [address] Feb, Bipolar II disorder F31.81 ; Generalized anxiety disorder F41.1 and Cannabis use disorder, mild, abuse F12.10 [place] [id number] [place] [address] January, Bipolar II disorder F31.81 ; Generalized anxiety disorder F41.1 and Cannabis use disorder, mild, abuse F12.10 [place] [id number] [place] [address] Dec, Bipolar II disorder F31.81 ; Generalized anxiety disorder F41.1 and Cannabis use disorder, mild, abuse F12.10 [place] [id number] [place] [address] Dec, Generalized anxiety disorder F41.1 [place] [id number] [place] [address] Nov, [place] [id number] [place] [address] Nov, Generalized anxiety disorder F41.1 ; Cannabis use disorder, mild, abuse F12.10 and Bipolar II disorder F31.81 [place] [id number] [place] [address] Nov, Bipolar II disorder F31.81 [place] [id number] [place] [address] Nov, Bipolar II disorder F31.81 ; Generalized anxiety disorder F41.1 and Cannabis use disorder, mild, abuse F12.10 [place] [id number] [place] [address] Oct, [place] [id number] [place] [address] Oct, Bipolar II disorder F31.81 ; Generalized anxiety disorder F41.1 and Cannabis use disorder, mild, abuse F12.10 [place] [id number] [place] [address] Aug, COPD (chronic obstructive pulmonary disease) J44.9 [place] [id number] [place] [address] 08 Aug, 2016 Recent urinary tract infection Z87.440 ; Acquired hypothyroidism E03.9 ; Encounter for immunization Z23 ; Mixed hyperlipidemia E78.2 ; COPD (chronic obstructive pulmonary disease) J44.9 and Tobacco abuse Z72.0 [place] [address] [address] 15 Jul, 2016 [place] [id number] [place] [address] Jul, [place] [address] [address] Jul, Recent urinary tract infection Z87.440 ; Acute cystitis with hematuria N30.01 ; Vaginal itching L29.8 and Skin infection L08.[address] [address] 04 Jun, 2016 Hydronephrosis, unspecified hydronephrosis type N13.[address] [address] Apr, [place] [address] [address] Sep, Acquired hypothyroidism E03.9 ; Mixed hyperlipidemia E78.2 ; COPD (chronic obstructive pulmonary disease) J44.9 and Thrush B37.0 [place] [id number] [place] [address] Aug, [address] [address] Aug, Acquired hypothyroidism E03.9 ; Mixed hyperlipidemia E78.2 ; COPD (chronic obstructive pulmonary disease) J44.9 and URI (upper respiratory infection) J06.[address] [address] January, Blood in stool 578.1 and Weight loss 783.21 [place] [id number] [place] [address] January, Other and unspecified hyperlipidemia 272.4 ; Unspecified hypothyroidism 244.9 ; Nondependent tobacco use disorder 305.1 ; Weight loss 783.21 ; History of colon polyps V12.72 and Blood in stool 578.1 [facility] [address] [address] 30 Dec, 2014 [facility] [address] [address] 29 Dec, 2014 [facility] [id number] [place] [address] Dec, [facility] [address] [address] Dec, [facility] [address] [place] [address] Nov, [facility] [address] [address] Nov, [facility] [address] [address] Nov, [facility] [address] [address] Nov, [facility] [address] [address] Sep, [facility] [address] [address] Sep, [facility] [address] [address] Aug, [facility] [id number] [address] Aug, [facility] [address] [address] Aug, [facility] [id number] [address] Aug, [facility] [address] [address] Aug, [facility] [place] [facility] [address] [id number] [place] [address] Aug, [facility] [place] [facility] [address] [id number] [place] [address] Aug, [facility] [place] [facility] [address] [facility] [id number] [place] [address] Aug, [facility] [place] [facility] [address] [id number] [place] [address] Jul, [facility] [place] [facility] [address] [facility] [id number] [place] [address] Jul, [facility] [place] [facility] [address] [facility] [id number] [place] [address] Jul, [facility] [place] [facility] [address] [facility] [id number] [address] Jul, [facility] [place] [facility] [address] [facility] [id number] [place] [address] Jul, [facility] [place] [facility] [address] [facility] [id number] [place] [address] Jul, [facility] [place] [facility] [address] [facility] [id number] [place] [address] Jun, [facility] [place] [facility] [address] [facility] [id number], [place] [address] Jun, [facility] [place] [facility] [address] [facility] [id number], [place] [address] Jun, [facility] [place] [facility] [address] [id number] [place] [address] Jun, [facility] [place] [facility] [address] [facility] [id number], [place] [address] Apr, [facility] [place] [facility] [address] [facility] [id number] [place] [address] Apr, [facility] [place] [facility] [address] [id number] [place] [address] Mar, [facility] [place] [facility] [address] [id number] [place] [address] Mar, [facility] [place] [facility] [address] [id number] [place] [address] Feb, [facility] [place] [facility] [address] [id number] [place] [address] Feb, [facility] [place] [facility] [address] [id number] [place] [address] Sep, [facility] [place] [facility] [address] [id number] [place] [address] Sep, [facility] [place] [facility] [address] [id number] [place] [address] Aug, [facility] [place] [facility] [address] [id number] [place] [address] Aug, [facility] [place] [facility] [address] [id number] [place] [address] Aug, [facility] [place] [facility] [address] [id number] [place] [address] Aug, [facility] [place] [facility] [address] [id number] [place] [address] Jun, [facility] [place] [facility] [address] [id number] [place] [address] 28 Jun, 2013 [facility] [place] [facility] [address] [id number] [place] [address] 24 Jun, 2013 [facility] [place] [facility] [address] [id number] [place] [address] Jun, [facility] [place] [facility] [address] [id number] [place] [address] Jun, [facility] [place] [facility] [address] [id number] [place] [address] Jun, [facility] [place] [facility] [address] [id number] [place] [address] Jun, [facility] [place] [facility] [address] [id number] [place] [address] Jun, [facility] [place] [facility] [address] [id number] [place] [address] Jun, [facility] [place] [facility] [address] [id number] [place] [address] May, [facility] [place] [facility] [address] [id number] [place] [address] Apr, [facility] [place] [facility] [address] [id number] [place] [address] Apr, [facility] [place] [facility] [address] [id number] [place] [address] Apr, [facility] [place] [facility] [address] [id number] [place] [address] Mar, [facility] [place] [facility] [address] [id number] [place] [address] Mar, [facility] [place] [facility] [address] [id number] [place] [address] Mar, [facility] [place] [facility] [address] [id number] [address] Mar, [facility] [place] [facility] [address] [id number], [place] [address] Mar, [facility] [place] [facility] [address] [id number] [place] [address] Mar, [facility] [place] [facility] [address] [id number] [place] [address] Mar, [facility] [place] [facility] [address] [id number] [place] [address] Mar, [facility] [place] [facility] [id number] [address] Mar, [facility] [address] [place] [address] Mar, [facility] [address] [address] Feb, [facility] [address] [address] Oct, [facility] [address] [address] Sep, [facility] [id number] [place] [address] Aug, [facility] [id number] [place] [address] Aug, [facility] [id number] [place] [address] Aug, [facility] [address] [address] Aug, [facility] [address] [address] Nov, IMMUNIZATIONS No Known Immunizations SOCIAL HISTORY Never Assessed REASON FOR VISIT Thyroid--Desmond Pt also would like something to help her from smoking PLAN OF CARE Activity Details Follow Up 1month Reason:smoking cessation VITAL SIGNS Height 63 in 2018-01-11 Weight 126.7 lbs 2018-01-11 Temperature 98.3 degrees Fahrenheit 2018-01-11 Heart Rate 70 bpm 2018-01-11 Respiratory Rate 20 2018-01-11 BMI 22.44 kg/m2 2018-01-11 Blood pressure systolic 120 mmHg 2018-01-11 Blood pressure diastolic 68 mmHg 2018-01-11 MEDICATIONS Medication Instructions Dosage Frequency Start Date End Date Duration Status Abilify 10 mg by oral route Once a day 1 tablet by Oral route 1 time per day 24h 30 Active Myrbetriq 50 MG Orally Once a day 1 tablet 24h Active Chantix Starting Month Luan 0.5 MG X 11 & 1 MG X 42 Orally as directed as directed Dec, January, 30 days Active Paroxetine HCl 40 mg 1 1/2 TABLETS ONCE A DAY ORALLY 30 DAYS 30 Active Gabapentin 300 MG 1 CAPSULE TWICE A DAY NEEDED FOR ANXIETY ORALLY 30 DAY(S) 30 Active Premarin 0.625 mg/gram insert 0.5 gram by vaginal route twice weekly Aug, Active Lovastatin 10 TAKE 1 TABLET BY MOUTH ONCE DAILY WITH A MEAL 30 Active RESULTS No Results PROCEDURES Procedure Date Ordered Result Body Site LAB [facility] January 11, 2018 [facility] VISIT ESTABLISHED PATIENT January 11, 2018 VENMICHAELUNCT, ROUTINE* January 11, 2018 INSTRUCTIONS MEDICATIONS ADMINISTERED No Known [...]
--- OUTSIDE RECORDS SUMMARY | 2019-02-06 07:53 | XMS REPORT ---
Author Author ROBBIE ESPARZA Organization [employer] Address Unknown Phone Unavailable Care Team Providers Care Cigar Head Perforator Name Role Phone ROBBIE ESPARZA CP Unavailable [...] Active Problem Unspecified hypothyroidism 244.9 Active Medications Medication Code System Code Instructions Start Date End Date Status Dosage Advair Diskus [facility] [id number] 250-50 MCG/DOSE Inhalation Twice a day Sep 09, 2015 1 puff Results No Known Results Summary Purpose [employer] Submission
--- OUTSIDE RECORDS SUMMARY | 2019-02-06 07:53 | XMS REPORT ---
Author Author DONALDO DREW [facility] Address [address] [place] [address] Care Team Providers Care Director Of Occupational Therapy Name Role Phone Josefina FULTONYEN Unavailable PROBLEMS Type Condition ICD9-CM Code MVS19-RQ Code Onset Dates Condition Status SNOMED Code Problem Bipolar II disorder F31.81 Active 35444120 Problem Generalized anxiety disorder F41.1 Active 07071960 Problem COPD (chronic obstructive pulmonary disease) J44.9 Active 20452788 Problem Acquired hypothyroidism E03.9 Active 522111768 Problem Cannabis use disorder, mild, abuse F12.10 Active 87156630 Problem Mixed hyperlipidemia E78.2 Active 210689014 ALLERGIES No Information ENCOUNTERS Encounter Location Date Diagnosis [facility] [id number] [place] [address] Dec, [facility] [address] [address] Jul, Bipolar II disorder F31.81 ; Generalized anxiety disorder F41.1 and Cannabis use disorder, mild, abuse F12.10 [facility] [id number] [place] [address] Apr, Bipolar II disorder F31.81 ; Nausea and vomiting in adult R11.2 ; Generalized anxiety disorder F41.1 ; Heartburn R12 and Cannabis use disorder, mild, abuse F12.10 [facility] [id number] [place] [address] Apr, Bipolar II disorder F31.81 ; Generalized anxiety disorder F41.1 and Cannabis use disorder, mild, abuse F12.10 [facility] [id number] [place] [address] Apr, Nausea and vomiting in adult R11.2 and Heartburn R12 [facility] [address], [place] [address] Apr, Bipolar II disorder F31.81 [facility] [id number] [place] [address] Mar, Generalized anxiety disorder F41.1 [facility] [id number] [place] [address] Feb, Bipolar II disorder F31.81 ; Generalized anxiety disorder F41.1 and Cannabis use disorder, mild, abuse F12.10 [facility] [id number] [place] [address] January, Bipolar II disorder F31.81 ; Generalized anxiety disorder F41.1 and Cannabis use disorder, mild, abuse F12.10 [facility] [id number] [place] [address] Dec, Bipolar II disorder F31.81 ; Generalized anxiety disorder F41.1 and Cannabis use disorder, mild, abuse F12.10 [facility] [id number] [place] [address] Dec, Generalized anxiety disorder F41.1 [facility] [id number] [place] [address] Nov, [facility] [id number] [place] [address] Nov, Generalized anxiety disorder F41.1 ; Cannabis use disorder, mild, abuse F12.10 and Bipolar II disorder F31.81 [facility] [address], [place] [address] Nov, Bipolar II disorder F31.81 [facility] [id number] [place] [address] Nov, Bipolar II disorder F31.81 ; Generalized anxiety disorder F41.1 and Cannabis use disorder, mild, abuse F12.10 [facility] [id number] [place] [address] 23 Oct, 2016 [facility] [id number] [place] [address] 17 Oct, 2016 Bipolar II disorder F31.81 ; Generalized anxiety disorder F41.1 and Cannabis use disorder, mild, abuse F12.10 [facility] [id number] [place] [address] 16 Aug, 2016 COPD (chronic obstructive pulmonary disease) J44.9 [facility] [id number] [place] [address] 08 Aug, 2016 Recent urinary tract infection Z87.440 ; Acquired hypothyroidism E03.9 ; Encounter for immunization Z23 ; Mixed hyperlipidemia E78.2 ; COPD (chronic obstructive pulmonary disease) J44.9 and Tobacco abuse Z72.0 [facility] [id number] [place] [address] Jul, [facility] [id number] [place] [address] Jul, [facility] [id number] [place] [address] Jul, Recent urinary tract infection Z87.440 ; Acute cystitis with hematuria N30.01 ; Vaginal itching L29.8 and Skin infection L08.9 [facility] [id number] [place] [address] Jun, Hydronephrosis, unspecified hydronephrosis type N13.30 [facility] [id number] [place] [address] Apr, [facility] [id number] [place] [address] Sep, Acquired hypothyroidism E03.9 ; Mixed hyperlipidemia E78.2 ; COPD (chronic obstructive pulmonary disease) J44.9 and Thrush B37.0 [facility] [id number] [place] [address] Aug, [facility] [address], [place] [address] Aug, Acquired hypothyroidism E03.9 ; Mixed hyperlipidemia E78.2 ; COPD (chronic obstructive pulmonary disease) J44.9 and URI (upper respiratory infection) J06.9 [facility] [id number] [address] January, Blood in stool 578.1 and Weight loss 783.21 [facility] [id number] [place] [address] January, Other and unspecified hyperlipidemia 272.4 ; Unspecified hypothyroidism 244.9 ; Nondependent tobacco use disorder 305.1 ; Weight loss 783.21 ; History of colon polyps V12.72 and Blood in stool 578.1 [facility] [id number] [place] [address] Dec, [facility] [id number] [place] [address] Dec, [facility] [id number] [place] [address] Dec, [facility] [id number] [place] [address] Dec, [facility] [address], [place] [address] Nov, [facility] [id number] [place] [address] Nov, [facility] [address] [place] [address] Nov, [facility] [id number] [place] [address] Nov, [facility] [address] [place] [address] Sep, [facility] [id number] [place] [address] Sep, [facility] [place] [facility] [address] [id number] [place] [address] Aug, [facility] [place] [facility] [address] [id number] [place] [address] Aug, [facility] [place] [facility] [address] [facility] [id number] [place] [address] Aug, [facility] [place] [facility] [address] [id number] [place] [address] Aug, [facility] [place] [facility] [address] [id number] [place] [address] Aug, [facility] [place] [facility] [address] [id number] [place] [address] Aug, [facility] [place] [facility] [address] [facility] [id number] [place] [address] Aug, [facility] [place] [facility] [address] [facility] [id number] [place] [address] Aug, [facility] [place] [facility] [address] [facility] [id number] [place] [address] Jul, [facility] [place] [facility] [address] [facility] [id number] [place] [address] Jul, [facility] [place] [facility] [address] [id number], [place] [address] Jul, [facility] [place] [facility] [address] [id number], [place] [address] Jul, [facility] [place] [facility] [address] [id number] [place] [address] Jul, [facility] [place] [facility] [address] [facility] [id number] [place] [address] Jul, [facility] [place] [facility] [address] [facility] [facility] [id number] [place] [address] Jun, [facility] [place] [facility] [address] [id number] [place] [address] Jun, [facility] [place] [facility] [address] [id number] [place] [address] Jun, [facility] [place] [facility] [address] [id number] [place] [address] Jun, [facility] [place] [facility] [address] [id number] [place] [address] Apr, [facility] [place] [facility] [address] [id number] [place] [address] Apr, [facility] [place] [facility] [address] [id number] [place] [address] Mar, [facility] [place] [facility] [address] [id number] [place] [address] Mar, [facility] [place] [facility] [address] [id number] [place] [address] Feb, [facility] [place] [facility] [address] [id number] [place] [address] Feb, [facility] [place] [facility] [address] [id number] [place] [address] Sep, [facility] [place] [facility] [address] [id number] [place] [address] Sep, [facility] [place] [facility] [address] [id number] [place] [address] Aug, [facility] [place] [facility] [address] [id number] [place] [address] Aug, [facility] [place] [facility] [address] [id number] [place] [address] Aug, [facility] [place] [facility] [address] [id number] [place] [address] Aug, [facility] [place] [facility] [address] [id number] [place] [address] Jun, [facility] [place] [facility] [address] [id number] [place] [address] Jun, [facility] [place] [facility] [address] [id number] [place] [address] Jun, [facility] [place] [facility] [address] [id number] [place] [address] Jun, [facility] [place] [facility] [address] [id number] [place] [address] Jun, [facility] [place] [facility] [address] [id number] [place] [address] Jun, [facility] [place] [facility] [address] [id number] [place] [address] Jun, [facility] [place] [facility] [address] [id number] [place] [address] Jun, [facility] [place] [facility] [address] [id number] [place] [address] Jun, [facility] [place] [facility] [address] [id number] [place] [address] May, [facility] [place] [facility] [address] [id number] [place] [address] Apr, [facility] [place] [facility] [address] [id number] [place] [address] Apr, [facility] [place] [facility] [address] [id number], [place] [address] Apr, [facility] [place] [facility] [address] [id number] [place] [address] Mar, [facility] [place] [facility] [address] [id number] [place] [address] Mar, [facility] [place] [facility] [address] [id number] [place] [address] Mar, [facility] [place] [facility] [id number] [address] Mar, [facility] [address] [facility] [facility] [id number], [place] [address] Mar, [facility] [address] [facility] [id number], [place] [address] Mar, [facility] [address] [place] [address] Mar, [facility] [address] [facility] [id number], [place] [address] Mar, [facility] [address] [id number], [place] [address] Mar, [facility] [address] [facility] [id number], [place] [address] Mar, [facility] [address], [place] [address] Feb, [facility] [id number] [address] Oct, [facility] [id number] [address] Sep, [facility] [id number] [address] Aug, [facility] [id number] [address] Aug, [facility] [id number], [place] [address] Aug, [facility] [id number], [place] [address] Aug, [facility] [id number] [address] Nov, IMMUNIZATIONS No Known Immunizations SOCIAL HISTORY Never Assessed REASON FOR VISIT Lab (walk-in) PLAN OF CARE VITAL SIGNS MEDICATIONS Unknown Medications RESULTS Name Result Date Reference Range A1C 2017-05-16 Hemoglobin A1c 5.3 4.8-5.6 LIPID PANEL 2017-05-16 Cholesterol, Total 209 100-199 Triglycerides 107 0-149 HDL Cholesterol 49 >39 VLDL Cholesterol [place] 21 5-40 LDL Cholesterol Calc 139 0-99 Comment: CMP 2017-05-16 Glucose, Serum 95 65-99 BUN 9 6-24 Creatinine, Serum 0.69 0.57-1.00 eGFR If NonAfricn Am 100 >59 eGFR If Africn Am 116 >59 BUN/Creatinine Ratio 13 9-23 Sodium, Serum 140 134-144 Potassium, Serum 4.6 3.5-5.2 Chloride, Serum 96 96-106 Carbon Dioxide, Total 27 18-29 Calcium, Serum 9.7 8.7-10.2 Protein, Total, Serum 7.1 6.0-8.5 Albumin, Serum 4.4 3.5-5.5 Globulin, Total 2.7 1.5-4.5 A/G Ratio 1.6 1.2-2.2 Bilirubin, Total 0.4 0.0-1.2 Alkaline Phosphatase, S 122 39-117 AST (SGOT) 21 0-40 ALT (SGPT) 10 0-32 PROCEDURES Procedure Date Ordered Result Body Site Hemoglobin Test Send Out 0 dollar May 16, 2017 [facility] May 16, 2017 VENIPUNCT, ROUTINE* May 16, 2017 INSTRUCTIONS MEDICATIONS ADMINISTERED No Known Medications [...]
--- OUTSIDE RECORDS SUMMARY | 2019-02-06 07:53 | XMS REPORT ---
Author Author DONALDO DREW [facility] Address [address] [place] [address] Care Team Providers Care [employer] Name Role Phone Josefina FULTONYEN Unavailable PROBLEMS Type Condition ICD9-CM Code NWO52-RV Code Onset Dates Condition Status SNOMED Code Problem Bipolar II disorder F31.81 Active 09288994 Problem Generalized anxiety disorder F41.1 Active 91285318 Problem COPD (chronic obstructive pulmonary disease) J44.9 Active 89633769 Problem Acquired hypothyroidism E03.9 Active 348091063 Problem Cannabis use disorder, mild, abuse F12.10 Active 55146605 Problem Mixed hyperlipidemia E78.2 Active 943637043 ALLERGIES No Information ENCOUNTERS Encounter Location Date Diagnosis [facility] [id number] [place] [address] Dec, [facility] [address] [address] Jul, Bipolar II disorder F31.81 ; Generalized anxiety disorder F41.1 and Cannabis use disorder, mild, abuse F12.10 [facility] [id number] [place] [address] Apr, Bipolar II disorder F31.81 ; Nausea and vomiting in adult R11.2 ; Generalized anxiety disorder F41.1 ; Heartburn R12 and Cannabis use disorder, mild, abuse F12.10 [facility] [id number] [place] [address] Apr, Bipolar II disorder F31.81 ; Generalized anxiety disorder F41.1 and Cannabis use disorder, mild, abuse F12.10 [facility] [id number] [place] [address] Apr, Nausea and vomiting in adult R11.2 and Heartburn R12 [facility] [address], [place] [address] Apr, Bipolar II disorder F31.81 [facility] [id number] [place] [address] Mar, Generalized anxiety disorder F41.1 [facility] [id number] [place] [address] Feb, Bipolar II disorder F31.81 ; Generalized anxiety disorder F41.1 and Cannabis use disorder, mild, abuse F12.10 [facility] [id number] [place] [address] January, Bipolar II disorder F31.81 ; Generalized anxiety disorder F41.1 and Cannabis use disorder, mild, abuse F12.10 [facility] [id number] [place] [address] Dec, Bipolar II disorder F31.81 ; Generalized anxiety disorder F41.1 and Cannabis use disorder, mild, abuse F12.10 [facility] [id number] [place] [address] Dec, Generalized anxiety disorder F41.1 [facility] [id number] [place] [address] Nov, [facility] [id number] [place] [address] Nov, Generalized anxiety disorder F41.1 ; Cannabis use disorder, mild, abuse F12.10 and Bipolar II disorder F31.81 [facility] [address] [address] Nov, Bipolar II disorder F31.81 [facility] [id number] [place] [address] Nov, Bipolar II disorder F31.81 ; Generalized anxiety disorder F41.1 and Cannabis use disorder, mild, abuse F12.10 [facility] [id number] [place] [address] 23 Oct, 2016 [facility] [id number] [place] [address] 17 Oct, 2016 Bipolar II disorder F31.81 ; Generalized anxiety disorder F41.1 and Cannabis use disorder, mild, abuse F12.10 [facility] [id number] [place] [address] 16 Aug, 2016 COPD (chronic obstructive pulmonary disease) J44.9 [facility] [id number] [place] [address] 08 Aug, 2016 Recent urinary tract infection Z87.440 ; Acquired hypothyroidism E03.9 ; Encounter for immunization Z23 ; Mixed hyperlipidemia E78.2 ; COPD (chronic obstructive pulmonary disease) J44.9 and Tobacco abuse Z72.0 [facility] [id number] [place] [address] Jul, [facility] [id number] [place] [address] Jul, [facility] [id number] [place] [address] Jul, Recent urinary tract infection Z87.440 ; Acute cystitis with hematuria N30.01 ; Vaginal itching L29.8 and Skin infection L08.9 [facility] [id number] [place] [address] Jun, Hydronephrosis, unspecified hydronephrosis type N13.30 [facility] [id number] [place] [address] Apr, [facility] [id number] [place] [address] Sep, Acquired hypothyroidism E03.9 ; Mixed hyperlipidemia E78.2 ; COPD (chronic obstructive pulmonary disease) J44.9 and Thrush B37.0 [facility] [id number] [place] [address] Aug, [facility] [address] [address] Aug, Acquired hypothyroidism E03.9 ; Mixed hyperlipidemia E78.2 ; COPD (chronic obstructive pulmonary disease) J44.9 and URI (upper respiratory infection) J06.9 [facility] [id number] [address] January, Blood in stool 578.1 and Weight loss 783.21 [facility] [id number] [place] [address] January, Other and unspecified hyperlipidemia 272.4 ; Unspecified hypothyroidism 244.9 ; Nondependent tobacco use disorder 305.1 ; Weight loss 783.21 ; History of colon polyps V12.72 and Blood in stool 578.1 [facility] [id number] [place] [address] Dec, [facility] [id number] [place] [address] Dec, [facility] [id number] [place] [address] Dec, [facility] [id number] [place] [address] Dec, [facility] [address] [address] Nov, [facility] [id number] [place] [address] Nov, [facility] [address] [address] Nov, [facility] [id number] [place] [address] Nov, [facility] [address] [address] Sep, [facility] [id number] [place] [address] Sep, [facility] [place] [facility] [address] [id number] [place] [address] Aug, [facility] [place] [facility] [address] [id number] [place] [address] Aug, [facility] [place] [facility] [address] [facility] [id number] [place] [address] Aug, [facility] [place] [facility] [address] [id number] [place] [address] Aug, [facility] [place] [facility] [address] [id number] [place] [address] Aug, [facility] [place] [facility] [address] [id number] [place] [address] Aug, [facility] [place] [facility] [address] [facility] [id number] [place] [address] Aug, [facility] [place] [facility] [address] [facility] [id number] [place] [address] Aug, [facility] [place] [facility] [address] [facility] [id number] [place] [address] Jul, [facility] [place] [facility] [address] [facility] [id number] [place] [address] Jul, [facility] [place] [facility] [address] [id number] [address] Jul, [facility] [place] [facility] [address] [id number] [address] Jul, [facility] [place] [facility] [address] [id number] [place] [address] Jul, [facility] [place] [facility] [address] [facility] [id number] [place] [address] Jul, [facility] [place] [facility] [address] [facility] [id number] [place] [address] Jun, [facility] [place] [facility] [address] [id number] [place] [address] Jun, [facility] [place] [facility] [address] [id number] [place] [address] Jun, [facility] [place] [facility] [address] [id number] [place] [address] Jun, [facility] [place] [facility] [address] [id number] [place] [address] Apr, [facility] [place] [facility] [address] [id number] [place] [address] Apr, [facility] [place] [facility] [address] [id number] [place] [address] Mar, [facility] [place] [facility] [address] [id number] [place] [address] Mar, [facility] [place] [facility] [address] [id number] [place] [address] Feb, [facility] [place] [facility] [address] [id number] [place] [address] Feb, [facility] [place] [facility] [address] [id number] [place] [address] Sep, [facility] [place] [facility] [address] [id number] [place] [address] Sep, [facility] [place] [facility] [address] [id number] [place] [address] Aug, [facility] [place] [facility] [address] [id number] [place] [address] Aug, [facility] [place] [facility] [address] [id number] [place] [address] Aug, [facility] [place] [facility] [address] [id number] [place] [address] Aug, [facility] [place] [facility] [address] [id number] [place] [address] Jun, [facility] [place] [facility] [address] [id number] [place] [address] Jun, [facility] [place] [facility] [address] [id number] [place] [address] Jun, [facility] [place] [facility] [address] [id number] [place] [address] Jun, [facility] [place] [facility] [address] [id number] [place] [address] Jun, [facility] [place] [facility] [address] [id number] [place] [address] Jun, [facility] [place] [facility] [address] [id number] [place] [address] Jun, [facility] [place] [facility] [address] [id number] [place] [address] Jun, [facility] [place] [facility] [address] [id number] [place] [address] Jun, [facility] [place] [facility] [address] [id number] [place] [address] May, [facility] [place] [facility] [address] [id number] [place] [address] Apr, [facility] [place] [facility] [address] [id number] [place] [address] Apr, [facility] [place] [facility] [address] [id number], [place] [address] Apr, [facility] [place] [facility] [address] [id number] [place] [address] Mar, [facility] [place] [facility] [address] [id number] [place] [address] Mar, [facility] [place] [facility] [address] [id number] [place] [address] Mar, [facility] [place] [facility] [address] [facility] [id number], [place] [address] Mar, [facility] [address] [facility] [id number], [place] [address] Mar, [facility] [address] [facility] [id number], [place] [address] Mar, [facility] [address] [facility] [id number], [place] [address] Mar, [facility] [address] [facility] [id number], [place] [address] Mar, [facility] [address] [facility] [id number], [place] [address] Mar, [facility] [address] [facility] [id number], [place] [address] Mar, [facility] [address], [place] [address] Feb, [facility] [address] [facility] [id number], [place] [address] Oct, [facility] [address], [place] [address] Sep, [facility] [id number] [address] Aug, [facility] [id number] [address] Aug, [facility] [id number] [address] Aug, [facility] [id number] [address] Aug, [facility] [id number] [address] Nov, IMMUNIZATIONS No Known Immunizations SOCIAL HISTORY Never Assessed REASON FOR VISIT xanax refill PLAN OF CARE VITAL SIGNS MEDICATIONS Medication Instructions Dosage Frequency Start Date End Date Duration Status Alprazolam 0.5 MG Orally bid prn 1 tablet Dec, 30 days Active RESULTS No Results PROCEDURES [...] PPV23 (PNEUMOVAX) DX Medical History Sees Via [facility] Medical History Bulging Discs Medical History High [...]
--- OUTSIDE RECORDS SUMMARY | 2019-02-06 07:53 | XMS REPORT ---
Author Author JOSSELYN Calvo Organization [facility] Address [address] [place] [address] Care Team Providers Care Pharmacy District Manager Name Role Phone JOSSELYN Calvo Unavailable PROBLEMS Type Condition ICD9-CM Code [id number] Code Onset Dates Condition Status SNOMED Code Problem Bipolar II disorder F31.81 Active 95667962 Problem Generalized anxiety disorder F41.1 Active 81690469 Problem COPD (chronic obstructive pulmonary disease) J44.9 Active 59118643 Problem Acquired hypothyroidism E03.9 Active 821123457 Problem Cannabis use disorder, mild, abuse F12.10 Active 33110472 Problem Mixed hyperlipidemia E78.2 Active 573564769 ALLERGIES No Information SOCIAL HISTORY Never Assessed PLAN OF CARE VITAL SIGNS MEDICATIONS Unknown [...]
--- OUTSIDE RECORDS SUMMARY | 2019-02-06 07:53 | XMS REPORT ---
Author Author JOSSELYN Calvo Organization [facility] Address [address] [place] [address] Care Team Providers Care Assistant Public Defender Name Role Phone JOSSELYN Calvo Unavailable PROBLEMS Type Condition ICD9-CM Code [id number] Code Onset Dates Condition Status SNOMED Code Problem Bipolar II disorder F31.81 Active 01355829 Problem Generalized anxiety disorder F41.1 Active 65992226 Problem COPD (chronic obstructive pulmonary disease) J44.9 Active 05827896 Problem Acquired hypothyroidism E03.9 Active 588465568 Problem Cannabis use disorder, mild, abuse F12.10 Active 28030926 Problem Mixed hyperlipidemia E78.2 Active 623314282 ALLERGIES Substance Reaction Event Type Date Status Wellbutrin Unknown Drug Allergy Oct, Active Remeron hallucinations Drug Allergy Oct, Active Oxybutynin hallucinations Drug Allergy Oct, Active SOCIAL HISTORY Never Assessed PLAN OF CARE Activity Details Follow Up 4 Weeks Reason: VITAL SIGNS Height 63 in 2016-11-05 Weight 122.5 lbs 2016-11-05 Heart Rate 108 bpm 2016-11-05 Respiratory Rate 20 2016-11-05 BMI 21.70 kg/m2 2016-11-05 Blood pressure systolic 107 mmHg 2016-11-05 Blood pressure diastolic 73 mmHg 2016-11-05 MEDICATIONS Medication Instructions Dosage Frequency Start Date End Date Duration Status Advair Diskus 250-50 MCG/DOSE Inhalation Twice a day 1 puff 12h Active Abilify 10 mg by oral route Once a day 1 tablet by Oral route 1 time per day 24h Jun, 30 days Active Premarin 0.625 mg/gram insert 0.5 gram by vaginal route twice weekly Aug, Active Myrbetriq 50 MG Orally Once a day 1 tablet 24h Active Paroxetine HCl 40 mg Orally Once a day 1 1/2 tablets 24h 30 days Active Nystatin 542566 UNIT/GM Externally Twice a day 1 application to affected area 12h Jul, Active Clonazepam 2 MG Orally Twice a day 1 tablet 12h 17 Oct, 2016 14 days Active Lovastatin 10 TAKE 1 TABLET BY MOUTH ONCE DAILY WITH A MEAL 30 Active ProAir HFA 108 (90 Base) MCG/ACT [...]
--- OUTSIDE RECORDS SUMMARY | 2019-02-06 07:53 | XMS REPORT ---
Author Author ROBBIE ESPARZA Organization [employer] Address Unknown Phone Unavailable Care Team Providers Care Biomedical Engineering Director Name Role Phone ROBBIE ESPARZA CP Unavailable Allergies No Known Allergies Problems Problem Type Condition Code Onset Dates Condition Status Problem Nondependent tobacco use disorder 305.1 Active Assessment Hydronephrosis, unspecified hydronephrosis type N13.30 Active Problem Mixed hyperlipidemia E78.2 Active Problem COPD (chronic obstructive pulmonary disease) J44.9 Active Problem Acquired hypothyroidism E03.9 Active Problem Lumbago 724.2 Active Problem Anxiety state, unspecified 300.00 Active Problem Other and unspecified hyperlipidemia 272.4 Active Problem Unspecified hypothyroidism 244.9 Active Medications No Known Medications Results No Known Results Summary Purpose [employer] Submission
--- OUTSIDE RECORDS SUMMARY | 2019-02-06 07:54 | XMS REPORT ---
Author Author ROBBIE ESPARZA [facility] [employer] Address Unknown Phone Unavailable Care Team Providers Care Ward Nurse Name Role Phone ROBBIE ESPARZA Unavailable Allergies, Adverse Reactions, Alerts Substance Reaction Event Type Wellbutrin Info Not Available Drug Allergy Remeron hallucinations Drug Allergy Oxybutynin hallucinations Drug Allergy Problems Problem Type Condition Code Onset Dates Condition Status Assessment Mixed hyperlipidemia E78.2 Active Problem Nondependent tobacco use disorder 305.1 Active Assessment Acquired hypothyroidism E03.9 Active Assessment URI (upper respiratory infection) J06.9 Active Assessment COPD (chronic obstructive pulmonary disease) J44.9 Active Problem Mixed hyperlipidemia E78.2 Active Problem COPD (chronic obstructive pulmonary disease) J44.9 Active Problem Acquired hypothyroidism E03.9 Active Problem Lumbago 724.2 Active Problem Anxiety state, unspecified 300.00 Active Problem Other and unspecified hyperlipidemia 272.4 Active Problem Unspecified hypothyroidism 244.9 Active Medications Medication Code System Code Instructions Start Date End Date Status Dosage Adderall [facility] [address]-84 15 MG Orally Jul 18, 2014 take 1 tablet (10 mg) by oral route 2 times per day before breakfast and at noon Premarin [facility] [address]-47 0.625 mg/gram Sep 13, 2012 insert 0.5 gram by vaginal route twice weekly Symbicort [facility] [address]-89 80-4.5 MCG/ACT Inhalation Twice a day Sep 02, 2015 2 puffs Levothyroxine Sodium [facility] 10119045120 25 MCG Orally Once a day 1 tablet Abilify [facility] [address]-33 10 mg Jul 18, 2014 1 tablet by Oral route 1 time per day Alprazolam [facility] [address]-84 2 mg March 21, 2013 take 1 tablet (2 mg) by oral route 4 times per day Mirabegron ER [facility] [address]-49 50 MG Orally Once a day 1 tablet Trazodone HCl [facility] [address]-67 100 MG Orally Once a day 2 tablet at bedtime ProAir HFA [facility] [address]-94 108 (90 Base) MCG/ACT Inhalation every 4 hrs prn Sep 02, 2015 2 puffs as needed Azithromycin [facility] [address]-53 250 MG Orally Once a day Sep 02, 2015 Sep 07, 2015 2 tablets on the first day, then 1 tablet daily for 4 days Lovastatin [facility] 09787966958 10 TAKE 1 TABLET BY MOUTH WITH A MEAL ONCE DAILY Procedures Procedure Coding System Code Date [facility] VISIT ESTABLISHED PATIENT CPT-4 G0467 Sep 02, 2015 Office Visit, Est Pt., Level 4 CPT-4 74517 Sep 02, 2015 [facility] NOBLL Sep 02, 2015 VENIPUNCT, ROUTINE* CPT-4 77972 Sep 02, 2015 Vital Signs Date/Time: Sep 02, 2015 Temperature 98.8 F Weight 107.1 lbs Height 63 in BMI 18.97 Index Blood Pressure Diastolic 62 mmHg Blood Pressure Systolic 100 mmHg Cardiac Monitoring Heart Rate 88 bpm Results Name Result Date Reference Range Unit Abnormality Flag ROUTINE VENIPUNCTURE Summary Purpose [employer] Submission
--- OUTSIDE RECORDS SUMMARY | 2019-02-06 07:54 | XMS REPORT ---
Author Author DONALDO DREW [facility] Address [address] [place] [address] Care Team Providers Care Home Health Occupational Therapist Name Role Phone DONALDO, DREW Unavailable PROBLEMS Type Condition ICD9-CM Code PXP42-ET Code Onset Dates Condition Status SNOMED Code Problem Bipolar II disorder F31.81 Active 95068718 Problem Generalized anxiety disorder F41.1 Active 62941470 Problem COPD (chronic obstructive pulmonary disease) J44.9 Active 14617683 Problem Acquired hypothyroidism E03.9 Active 709745791 Problem Cannabis use disorder, mild, abuse F12.10 Active 28165097 Problem Mixed hyperlipidemia E78.2 Active 621039053 ALLERGIES Substance Reaction Event Type Date Status Wellbutrin Unknown Drug Allergy Feb, Active Remeron hallucinations Drug Allergy Feb, Active Oxybutynin hallucinations Drug Allergy Feb, Active Clonazepam "fuzzy" Drug Allergy Feb, Active ENCOUNTERS Encounter Location Date Diagnosis [facility] [id number] [place] [address] Dec, [facility] [id number] [place] [address] Jul, Bipolar II disorder F31.81 ; Generalized anxiety disorder F41.1 and Cannabis use disorder, mild, abuse F12.10 [facility] [id number] [place] [address] Apr, Bipolar II disorder F31.81 ; Nausea and vomiting in adult R11.2 ; Generalized anxiety disorder F41.1 ; Heartburn R12 and Cannabis use disorder, mild, abuse F12.10 [facility] [id number] [place] [address] Apr, Bipolar II disorder F31.81 ; Generalized anxiety disorder F41.1 and Cannabis use disorder, mild, abuse F12.10 [place] [address] [address] Apr, Nausea and vomiting in adult R11.2 and Heartburn R12 [place] [address], [place] [address] Apr, Bipolar II disorder F31.81 [facility] [id number] [place] [address] Mar, Generalized anxiety disorder F41.1 [place] [place] [id number] [place] [address] Feb, Bipolar II disorder F31.81 ; Generalized anxiety disorder F41.1 and Cannabis use disorder, mild, abuse F12.10 [place] [id number] [place] [address] January, Bipolar II disorder F31.81 ; Generalized anxiety disorder F41.1 and Cannabis use disorder, mild, abuse F12.10 [facility] [id number] [place] [address] Dec, Bipolar II disorder F31.81 ; Generalized anxiety disorder F41.1 and Cannabis use disorder, mild, abuse F12.10 [place] [address] [address] Dec, Generalized anxiety disorder F41.1 [place] [id number] [place] [address] Nov, [facility] [id number] [place] [address] Nov, Generalized anxiety disorder F41.1 ; Cannabis use disorder, mild, abuse F12.10 and Bipolar II disorder F31.81 [place] [address], [place] [address] Nov, Bipolar II disorder F31.81 [facility] [id number] [place] [address] Nov, Bipolar II disorder F31.81 ; Generalized anxiety disorder F41.1 and Cannabis use disorder, mild, abuse F12.10 [place] [address] [place] [address] Oct, [place] [id number] [place] [address] 17 Oct, 2016 Bipolar II disorder F31.81 ; Generalized anxiety disorder F41.1 and Cannabis use disorder, mild, abuse F12.10 [place] [address] [place] [address] 16 Aug, 2016 COPD (chronic obstructive pulmonary disease) J44.9 [place] [id number] [place] [address] 08 Aug, 2016 Recent urinary tract infection Z87.440 ; Acquired hypothyroidism E03.9 ; Encounter for immunization Z23 ; Mixed hyperlipidemia E78.2 ; COPD (chronic obstructive pulmonary disease) J44.9 and Tobacco abuse Z72.0 [facility] [id number] [place] [address] 15 Jul, [address] [place] [id number] [place] [address] Jul, [place] [address] [place] [address] Jul, Recent urinary tract infection Z87.440 ; Acute cystitis with hematuria N30.01 ; Vaginal itching L29.8 and Skin infection L08.9 [place] [address] [place] [address] Jun, Hydronephrosis, unspecified hydronephrosis type N13.30 [place] [id number] [place] [address] Apr, [place] [address] [place] [address] Sep, Acquired hypothyroidism E03.9 ; Mixed hyperlipidemia E78.2 ; COPD (chronic obstructive pulmonary disease) J44.9 and Thrush B37.0 [place] [id number] [place] [address] Aug, [facility] [id number] [place] [address] Aug, Acquired hypothyroidism E03.9 ; Mixed hyperlipidemia E78.2 ; COPD (chronic obstructive pulmonary disease) J44.9 and URI (upper respiratory infection) J06.9 [place] [id number] [place] [address] January, Blood in stool 578.1 and Weight loss 783.21 [place] [id number] [place] [address] January, Other and unspecified hyperlipidemia 272.4 ; Unspecified hypothyroidism 244.9 ; Nondependent tobacco use disorder 305.1 ; Weight loss 783.21 ; History of colon polyps V12.72 and Blood in stool 578.1 [place] [id number] [place] [address] Dec, [place] [id number] [place] [address] Dec, [place] [id number] [place] [address] Dec, [place] [id number] [place] [address] Dec, [place] [id number] [place] [address] Nov, [place] [id number] [place] [address] Nov, [facility] [id number] [place] [address] Nov, [place] [id number] [place] [address] Nov, [facility] [address] [id number] [place] [address] Sep, [facility] [place] [facility] [address] [id number] [place] [address] Sep, [facility] [place] [facility] [address] [id number] [place] [address] Aug, [facility] [place] [facility] [address] [id number] [place] [address] Aug, [facility] [place] [facility] [address] [id number] [place] [address] Aug, [facility] [place] [facility] [address] [id number] [place] [address] Aug, [facility] [place] [facility] [address] [id number] [place] [address] Aug, [facility] [place] [facility] [address] [id number] [place] [address] Aug, [facility] [place] [facility] [address] [id number] [place] [address] Aug, [facility] [place] [facility] [address] [id number] [place] [address] Aug, [facility] [place] [facility] [address] [id number] [place] [address] Jul, [facility] [place] [facility] [address] [id number] [place] [address] Jul, [facility] [place] [facility] [address] [id number] [place] [address] Jul, [facility] [place] [facility] [address] [id number] [place] [address] Jul, [facility] [place] [facility] [address] [id number] [place] [address] Jul, [facility] [place] [facility] [address] [id number] [place] [address] Jul, [facility] [place] [facility] [address] [id number] [place] [address] Jun, [facility] [place] [facility] [address] [id number] [place] [address] Jun, [facility] [place] [facility] [address] [id number] [place] [address] Jun, [facility] [place] [facility] [address] [id number] [place] [address] Jun, [facility] [place] [facility] [address] [id number] [place] [address] Apr, [facility] [place] [facility] [address] [id number] [place] [address] Apr, [facility] [place] [facility] [address] [id number] [place] [address] Mar, [facility] [place] [facility] [address] [id number] [place] [address] Mar, [facility] [place] [facility] [address] [id number] [place] [address] Feb, [facility] [place] [facility] [address] [id number] [place] [address] Feb, [facility] [place] [facility] [address] [id number] [place] [address] Sep, [facility] [place] [facility] [address] [id number] [place] [address] Sep, [facility] [place] [facility] [address] [id number] [place] [address] Aug, [facility] [place] [facility] [address] [id number] [place] [address] Aug, [facility] [place] [facility] [address] [id number] [place] [address] Aug, [facility] [place] [facility] [address] [id number] [place] [address] Aug, [facility] [address] [id number] [place] [address] Jun, [facility] [place] [facility] [address] [id number] [place] [address] Jun, [facility] [address] [id number] [place] [address] Jun, [facility] [place] [facility] [address] [id number] [place] [address] Jun, [facility] [place] [facility] [address] [id number] [place] [address] Jun, [facility] [place] [facility] [address] [id number] [place] [address] Jun, [facility] [place] [facility] [address] [id number] [place] [address] Jun, [facility] [address] [id number] [place] [address] Jun, [facility] [place] [facility] [address] [id number] [place] [address] Jun, [facility] [place] [facility] [address] [id number] [place] [address] May, [facility] [place] [facility] [address] [id number] [place] [address] Apr, [facility] [place] [facility] [address] [id number] [place] [address] Apr, [facility] [place] [facility] [address] [id number] [place] [address] Apr, [facility] [place] [facility] [address] [id number] [place] [address] Mar, [facility] [place] [facility] [address] [id number] [place] [address] Mar, [facility] [address] [id number] [place] [address] Mar, [facility] [place] [facility] [address] [id number] [place] [address] Mar, [facility] [place] [facility] [address] [id number] [place] [address] Mar, [facility] [place] [facility] [address] [id number] [place] [address] Mar, [facility] [address] [id number] [place] [address] Mar, [facility] [place] [facility] [address] [id number] [place] [address] Mar, [facility] [address] [id number] [place] [address] Mar, [facility] [address] [id number] [place] [address] Mar, [facility] [place] [facility] [address] [id number] [place] [address] Feb, [facility] [place] [facility] [address] [id number] [place] [address] Oct, [facility] [place] [facility] [address] [id number] [place] [address] Sep, [facility] [place] [facility] [address] [id number] [place] [address] Aug, [facility] [place] [facility] [address] [id number] [place] [address] Aug, [facility] [place] [facility] [address] [id number] [place] [address] Aug, [facility] [place] [facility] [address] [id number] [place] [address] Aug, [facility] [place] [facility] [address] [id number] [place] [address] 14 Nov, 2011 IMMUNIZATIONS No Known Immunizations SOCIAL HISTORY Never Assessed REASON FOR VISIT intake - Kesha CHAPA PLAN OF CARE Activity Details Follow Up 2 Months Reason:MED CHECK F/U APPOINTMENT VITAL SIGNS Height 63 in 2017-03-15 Weight 120.3 lbs 2017-03-15 Heart Rate 108 bpm 2017-03-15 Respiratory Rate 20 2017-03-15 BMI 21.31 kg/m2 2017-03-15 Blood pressure systolic 120 mmHg 2017-03-15 Blood pressure diastolic 62 mmHg 2017-03-15 MEDICATIONS Medication Instructions Dosage Frequency Start Date End Date Duration Status ProAir HFA 108 (90 Base) MCG/ACT Inhalation every 4 hrs prn 2 puffs as needed Active Lovastatin 10 TAKE 1 TABLET BY MOUTH ONCE DAILY WITH A MEAL 30 Active Myrbetriq 50 MG Orally Once a day 1 tablet 24h Active Abilify 10 mg by oral route Once a day 1 tablet by Oral route 1 time per day 24h Jun, Active Alprazolam 0.5 MG Orally bid prn 1 tablet Dec, 30 days Active Advair Diskus 250-50 MCG/DOSE Inhalation Twice a day 1 puff 12h Active Premarin 0.625 mg/gram insert 0.5 gram by vaginal route twice weekly Aug, Active Paroxetine HCl 40 mg Orally Once a day 1 1/2 tablets 24h Active RESULTS No Results PROCEDURES Procedure Date Ordered Result Body Site [facility] VISIT ESTABLISHED PATIENT March 15, 2017 INSTRUCTIONS MEDICATIONS ADMINISTERED No Known Medications [...]
--- OUTSIDE RECORDS SUMMARY | 2019-02-06 07:54 | XMS REPORT ---
Author Author ROBBIE ESPARZA [facility] eClinicalWorks Address Unknown Phone Unavailable Care Team Providers Care Satellite Dish Installer Name Role Phone ROBBIE ESPARZA Unavailable Allergies, Adverse Reactions, Alerts Substance Reaction Event Type Wellbutrin Info Not Available Drug Allergy Remeron hallucinations Drug Allergy Oxybutynin hallucinations Drug Allergy Problems Problem Type Condition Code Onset Dates Condition Status Assessment Acute cystitis with hematuria N30.01 Active Problem Nondependent tobacco use disorder 305.1 Active Assessment Recent urinary tract infection Z87.440 Active Assessment Skin infection L08.9 Active Assessment Vaginal itching L29.8 Active Problem Mixed hyperlipidemia E78.2 Active Problem COPD (chronic obstructive pulmonary disease) J44.9 Active Problem Acquired hypothyroidism E03.9 Active Problem Lumbago 724.2 Active Problem Anxiety state, unspecified 300.00 Active Problem Other and unspecified hyperlipidemia 272.4 Active Problem Unspecified hypothyroidism 244.9 Active Medications Medication Code System Code Instructions Start Date End Date Status Dosage Mirabegron ER [facility] [address]-16 50 MG Orally Once a day 1 tablet Alprazolam [facility] [address]-07 2 mg March 21, 2013 take 1 tablet (2 mg) by oral route 4 times per day Advair Diskus [facility] [address]-92 250-50 MCG/DOSE Inhalation Twice a day- Must be seen for offie visit for futher refills Sep 09, 2015 1 puff Lovastatin [facility] 97016626921 10 TAKE 1 TABLET BY MOUTH ONCE DAILY WITH A MEAL Adderall [facility] [address]-39 15 MG Orally Jul 18, 2014 take 1 tablet (10 mg) by oral route 2 times per day before breakfast and at noon Abilify [facility] [address]-01 10 mg Jul 18, 2014 1 tablet by Oral route 1 time per day Premarin [facility] [address]-53 0.625 mg/gram Sep 13, 2012 insert 0.5 gram by vaginal route twice weekly Levothyroxine Sodium [facility] 74042141593 25 MCG 1 TABLET ONCE A DAY ORALLY 30 Trazodone HCl [facility] [address]-86 100 MG Orally Once a day 2 tablet at bedtime Diflucan [facility] [address]-57 100 MG Orally daily Jul 28, 2016 Aug 07, 2016 1 tablet Nystatin [facility] [address]-39 966658 UNIT/GM Externally Twice a day Jul 28, 2016 1 application to affected area Bactrim DS [facility] [address]-72 800-160 MG Orally Twice a day Jul 28, 2016 Aug 07, 2016 1 tablet Procedures Procedure Coding System Code Date LAB NOT BILLED BY [facility] CPT-4 NOBLL Jul 28, 2016 ALICIA VAG, DNA, DIR PROBE CPT-4 42970 Jul 28, 2016 URINALYSIS, AUTO, W/O SCOPE CPT-4 92764 Jul 28, 2016 Office Visit, Est Pt., Level 5 CPT-4 92867 Jul 28, 2016 [facility] VISIT ESTABLISHED PATIENT CPT-4 G0467 Jul 28, 2016 Vital Signs Date/Time: Jul 28, 2016 Cardiac Monitoring Heart Rate 72 bpm Weight 117.8 lbs Height 63 in BMI 20.87 Index Blood Pressure Diastolic 68 mmHg Blood Pressure Systolic 100 mmHg Results Name Result Date Reference Range Unit Abnormality Flag UA LONG DIP (IN HOUSE) ----pH 6.0 20160728 ----BLO trace-lysed [id number] ----SG 1.015 [id number] ----KET neg [id number] ----FÁTIMA neg [id number] ----URO 0.2 [id number] ----Protein neg [id number] ----FRANTZ trace [id number] ----NIT neg [id number] ----Clarity clear [id number] ----Color yellow [id number] ----Odor yes [id number] ----GLU neg [id number] BACTERIAL VAGINOSIS (IN HOUSE) ----Exp date [id number] ----Control + [id number] ----Lot # [id number] ----RESULTS POSITIVE [id number] Summary Purpose eClinicalWorks Submission
--- OUTSIDE RECORDS SUMMARY | 2019-02-06 07:54 | XMS REPORT ---
Author Author ROBBIE ESPARZA Organization [employer] Address Unknown Phone Unavailable Care Team Providers Care Sales Advisor Name Role Phone ROBBIE ESPARZA CP Unavailable [...] Instructions Start Date End Date Status D[facility] [address]-68 500 MG Orally 2 times a day Jul 30, 2016 Aug 06, 2016 1 tablet Results No Known Results Summary Purpose eClinicalWorks Submission
--- OUTSIDE RECORDS SUMMARY | 2019-02-06 07:54 | XMS REPORT ---
Author Author ROBBIE ESPARZA Organization [employer] Address Unknown Phone Unavailable Care Team Providers Care Valuation Manager Name Role Phone ROBBIE ESPARZA CP Unavailable [...] Date End Date Status Dosage Advair Diskus [facility] [address]-73 250-50 MCG/DOSE Inhalation Twice a day- Must be seen for offie visit for futher refills Sep 09, 2015 1 puff Results No Known Results Summary Purpose eClinicalWorks Submission
--- OUTSIDE RECORDS SUMMARY | 2019-02-06 07:55 | XMS REPORT ---
Author Author ROBBIE ESPARZA [facility] eClinical[employer] Address Unknown Phone Unavailable Care Team Providers Care Wool Washer Feeder Name Role Phone ROBBIE ESPARZA Unavailable Allergies, Adverse Reactions, Alerts Substance Reaction Event Type Wellbutrin Info Not Available Drug Allergy Remeron hallucinations Drug Allergy Oxybutynin hallucinations Drug Allergy Problems Problem Type Condition Code Onset Dates Condition Status Assessment Mixed hyperlipidemia E78.2 Active Problem Nondependent tobacco use disorder 305.1 Active Assessment Acquired hypothyroidism E03.9 Active Assessment Thrush B37.0 Active Assessment COPD (chronic obstructive pulmonary disease) J44.9 Active Problem Mixed hyperlipidemia E78.2 Active Problem COPD (chronic obstructive pulmonary disease) J44.9 Active Problem Acquired hypothyroidism E03.9 Active Problem Lumbago 724.2 Active Problem Anxiety state, unspecified 300.00 Active Problem Other and unspecified hyperlipidemia 272.4 Active Problem Unspecified hypothyroidism 244.9 Active Medications Medication Code System Code Instructions Start Date End Date Status Dosage Adderall [facility] [address]-12 15 MG Orally Jul 18, 2014 take 1 tablet (10 mg) by oral route 2 times per day before breakfast and at noon Alprazolam [facility] [address]-78 2 mg March 21, 2013 take 1 tablet (2 mg) by oral route 4 times per day Advair Diskus [facility] [address]-44 250-50 MCG/DOSE Inhalation Twice a day Sep 09, 2015 1 puff Levothyroxine Sodium [facility] 26838736640 25 MCG Orally Once a day 1 tablet Lovastatin [facility] 53137725586 10 TAKE 1 TABLET BY MOUTH WITH A MEAL ONCE DAILY Mirabegron ER [facility] [address]-28 50 MG Orally Once a day 1 tablet ProAir HFA [facility] [address]-04 108 (90 Base) MCG/ACT Inhalation every 4 hrs prn 2 puffs as needed Nystatin [facility] [address]-73 329257 U/ML Mouth/Throat four times a day Sep 30, 2015 Oct 07, 2015 1 tsp Trazodone HCl [facility] [address]-96 100 MG Orally Once a day 2 tablet at bedtime Premarin [facility] [address]-93 0.625 mg/gram Sep 13, 2012 insert 0.5 gram by vaginal route twice weekly Abilify [facility] [address]-69 10 mg Jul 18, 2014 1 tablet by Oral route 1 time per day Procedures Procedure Coding System Code Date [facility] VISIT ESTABLISHED PATIENT CPT-4 G0467 Sep 30, 2015 Office Visit, Est Pt., Level 3 CPT-4 58107 Sep 30, 2015 LAB [facility] BILLED BY [facility] CPT-4 NOBLL Sep 30, 2015 VENIPUNCT, ROUTINE* CPT-4 94780 Sep 30, 2015 Vital Signs Date/Time: Sep 30, 2015 Temperature 97.6 F Weight 106.7 lbs Height 63 in BMI 18.90 Index Blood Pressure Diastolic 68 mmHg Blood Pressure Systolic 104 mmHg Cardiac Monitoring Heart Rate 88 bpm Results Name Result Date Reference Range Unit Abnormality Flag ROUTINE VENIPUNCTURE Summary Purpose eClinicalWorks Submission
--- OUTSIDE RECORDS SUMMARY | 2019-02-06 07:55 | XMS REPORT ---
Author Author DONALDO DREW [facility] Address [address] [place] [address] Care Team Providers Care Bundle Wrapper Name Role Phone Josefina FULTONYEN Unavailable PROBLEMS Type Condition ICD9-CM Code FJO26-DM Code Onset Dates Condition Status SNOMED Code Problem Bipolar II disorder F31.81 Active 49869464 Problem Generalized anxiety disorder F41.1 Active 05691307 Problem COPD (chronic obstructive pulmonary disease) J44.9 Active 59063293 Problem Acquired hypothyroidism E03.9 Active 288883720 Problem Cannabis use disorder, mild, abuse F12.10 Active 56083295 Problem Mixed hyperlipidemia E78.2 Active [id number] ALLERGIES No Information ENCOUNTERS Encounter Location Date Diagnosis [facility] [id number] [place] [address] Dec, [facility] [address] [address] Jul, Bipolar II disorder F31.81 ; Generalized anxiety disorder F41.1 and Cannabis use disorder, mild, abuse F12.10 [facility] [id number] [place] [address] Apr, Bipolar II disorder F31.81 ; Nausea and vomiting in adult R11.2 ; Generalized anxiety disorder F41.1 ; Heartburn R12 and Cannabis use disorder, mild, abuse F12.10 [facility] [id number] [place] [address] Apr, Bipolar II disorder F31.81 ; Generalized anxiety disorder F41.1 and Cannabis use disorder, mild, abuse F12.10 [facility] [id number] [place] [address] Apr, Nausea and vomiting in adult R11.2 and Heartburn R12 [facility] [address] [address] Apr, Bipolar II disorder F31.81 [facility] [id number] [place] [address] Mar, Generalized anxiety disorder F41.1 [facility] [id number] [place] [address] Feb, Bipolar II disorder F31.81 ; Generalized anxiety disorder F41.1 and Cannabis use disorder, mild, abuse F12.10 [facility] [id number] [place] [address] January, Bipolar II disorder F31.81 ; Generalized anxiety disorder F41.1 and Cannabis use disorder, mild, abuse F12.10 [facility] [id number] [place] [address] Dec, Bipolar II disorder F31.81 ; Generalized anxiety disorder F41.1 and Cannabis use disorder, mild, abuse F12.10 [facility] [id number] [place] [address] Dec, Generalized anxiety disorder F41.1 [facility] [id number] [place] [address] Nov, [facility] [id number] [place] [address] Nov, Generalized anxiety disorder F41.1 ; Cannabis use disorder, mild, abuse F12.10 and Bipolar II disorder F31.81 [facility] [address] [address] Nov, Bipolar II disorder F31.81 [facility] [id number] [place] [address] Nov, Bipolar II disorder F31.81 ; Generalized anxiety disorder F41.1 and Cannabis use disorder, mild, abuse F12.10 [facility] [id number] [place] [address] 23 Oct, 2016 [facility] [id number] [place] [address] 17 Oct, 2016 Bipolar II disorder F31.81 ; Generalized anxiety disorder F41.1 and Cannabis use disorder, mild, abuse F12.10 [facility] [id number] [place] [address] 16 Aug, 2016 COPD (chronic obstructive pulmonary disease) J44.9 [facility] [id number] [place] [address] 08 Aug, 2016 Recent urinary tract infection Z87.440 ; Acquired hypothyroidism E03.9 ; Encounter for immunization Z23 ; Mixed hyperlipidemia E78.2 ; COPD (chronic obstructive pulmonary disease) J44.9 and Tobacco abuse Z72.0 [facility] [id number] [place] [address] Jul, [facility] [id number] [place] [address] Jul, [facility] [id number] [place] [address] Jul, Recent urinary tract infection Z87.440 ; Acute cystitis with hematuria N30.01 ; Vaginal itching L29.8 and Skin infection L08.9 [facility] [id number] [place] [address] Jun, Hydronephrosis, unspecified hydronephrosis type N13.30 [facility] [id number] [place] [address] Apr, [facility] [id number] [place] [address] Sep, Acquired hypothyroidism E03.9 ; Mixed hyperlipidemia E78.2 ; COPD (chronic obstructive pulmonary disease) J44.9 and Thrush B37.0 [facility] [id number] [place] [address] Aug, [facility] [address] [address] Aug, Acquired hypothyroidism E03.9 ; Mixed hyperlipidemia E78.2 ; COPD (chronic obstructive pulmonary disease) J44.9 and URI (upper respiratory infection) J06.9 [facility] [id number] [address] January, Blood in stool 578.1 and Weight loss 783.21 [facility] [id number] [place] [address] January, Other and unspecified hyperlipidemia 272.4 ; Unspecified hypothyroidism 244.9 ; Nondependent tobacco use disorder 305.1 ; Weight loss 783.21 ; History of colon polyps V12.72 and Blood in stool 578.1 [facility] [id number] [place] [address] Dec, [facility] [id number] [place] [address] Dec, [facility] [id number] [place] [address] Dec, [facility] [id number] [place] [address] Dec, [facility] [address] [address] Nov, [facility] [id number] [place] [address] Nov, [facility] [address] [address] Nov, [facility] [id number] [place] [address] Nov, [facility] [address] [address] Sep, [facility] [id number] [place] [address] Sep, [facility] [place] [facility] [address] [id number] [place] [address] Aug, [facility] [place] [facility] [address] [id number] [place] [address] Aug, [facility] [place] [facility] [address] [facility] [id number] [place] [address] Aug, [facility] [place] [facility] [address] [id number] [place] [address] Aug, [facility] [place] [facility] [address] [id number] [place] [address] Aug, [facility] [place] [facility] [address] [id number] [place] [address] Aug, [facility] [place] [facility] [address] [facility] [id number] [place] [address] Aug, [facility] [place] [facility] [address] [facility] [id number] [place] [address] Aug, [facility] [place] [facility] [address] [facility] [id number] [place] [address] Jul, [facility] [place] [facility] [address] [facility] [id number] [place] [address] Jul, [facility] [place] [facility] [address] [id number] [address] Jul, [facility] [place] [facility] [address] [id number] [address] Jul, [facility] [place] [facility] [address] [id number] [place] [address] Jul, [facility] [place] [facility] [address] [facility] [id number] [place] [address] Jul, [facility] [place] [facility] [address] [facility] [id number] [place] [address] Jun, [facility] [place] [facility] [address] [id number] [place] [address] Jun, [facility] [place] [facility] [address] [id number] [place] [address] Jun, [facility] [place] [facility] [address] [id number] [place] [address] Jun, [facility] [place] [facility] [address] [id number] [place] [address] Apr, [facility] [place] [facility] [address] [id number] [place] [address] Apr, [facility] [place] [facility] [address] [id number] [place] [address] Mar, [facility] [place] [facility] [address] [id number] [place] [address] Mar, [facility] [place] [facility] [address] [id number] [place] [address] Feb, [facility] [place] [facility] [address] [id number] [place] [address] Feb, [facility] [place] [facility] [address] [id number] [place] [address] Sep, [facility] [place] [facility] [address] [id number] [place] [address] Sep, [facility] [place] [facility] [address] [id number] [place] [address] Aug, [facility] [place] [facility] [address] [id number] [place] [address] Aug, [facility] [place] [facility] [address] [id number] [place] [address] Aug, [facility] [place] [facility] [address] [id number] [place] [address] Aug, [facility] [place] [facility] [address] [id number] [place] [address] Jun, [facility] [place] [facility] [address] [id number] [place] [address] Jun, [facility] [place] [facility] [address] [id number] [place] [address] Jun, [facility] [place] [facility] [address] [id number] [place] [address] Jun, [facility] [place] [facility] [address] [id number] [place] [address] Jun, [facility] [place] [facility] [address] [id number] [place] [address] Jun, [facility] [place] [facility] [address] [id number] [place] [address] Jun, [facility] [place] [facility] [address] [id number] [place] [address] Jun, [facility] [place] [facility] [address] [id number] [place] [address] Jun, [facility] [place] [facility] [address] [id number] [place] [address] May, [facility] [place] [facility] [address] [id number] [place] [address] Apr, [facility] [place] [facility] [address] [id number] [place] [address] Apr, [facility] [place] [facility] [address] [id number] [address] Apr, [facility] [place] [facility] [address] [id number] [place] [address] Mar, [facility] [place] [facility] [address] [id number] [place] [address] Mar, [facility] [place] [facility] [address] [id number] [place] [address] Mar, [facility] [place] [facility] [address] [facility] [id number] [address] Mar, [facility] [address] [facility] [id number] [address] Mar, [facility] [address] [facility] [id number] [address] Mar, [facility] [address] [facility] [id number] [address] Mar, [facility] [address] [facility] [id number] [address] Mar, [facility] [address] [facility] [id number] [address] Mar, [facility] [address] [facility] [id number] [address] Mar, [facility] [address] [address] Feb, [facility] [address] [facility] [id number] [address] Oct, [facility] [address] [address] Sep, [facility] [id number] [address] Aug, [facility] [id number] [address] Aug, [facility] [id number] [address] Aug, [facility] [id number] [address] Aug, [facility] [id number] [address] Nov, IMMUNIZATIONS No Known Immunizations SOCIAL HISTORY [...]
--- OUTSIDE RECORDS SUMMARY | 2019-02-06 07:57 | XMS REPORT | Continuity of Care Document ---
Author Organization Unknown Address Unknown Allergies Active Description Code Type Severity Reaction Onset Reported/Identified Relationship to Patient Clinical Status Yes mirtazapine [id number] Drug Allergy Unknown N/A 07/27/2012 Yes Remeron Drug Allergy N/A N/A 09/13/2012 Yes Wellbutrin Drug Allergy N/A N/A 09/13/2012 Yes Remeron Drug Allergy 09/13/2012 Yes Wellbutrin Drug Allergy 09/13/2012 Yes oxybutynin Drug Allergy N/A N/A 04/04/2014 Yes bupropion HCl [id number] Drug Allergy Unknown HIVES 01/08/2015 Yes oxybutynin [id number] Drug Allergy Unknown N/A 01/08/2015 Yes oxybutynin [id number] Drug Allergy Moderate "MADE ME CRAZY" 01/30/2019 Yes bupropion HCl [id number] Drug Allergy Mild HIVES 01/30/2019 Medications There is no data. Problems Date Dx Coded Attending Type Code Diagnosis Diagnosed By 08/26/2011 Ot 346.90 MIGRAINE UNSPECIFIED W/O INTRACT MGRN W/ 08/26/2011 Ot 784.0 HEADACHE 08/01/2012 Ot 569.3 RECTAL ANAL HEMORRHAGE 08/01/2012 Ot 629.32 EXPOSURE OF IMPLANT VAG MESH OTH PROST 09/13/2012 SOLEDAD RICK MD 300.00 anxiety 09/13/2012 SOLEDAD RICK MD 305.1 NICOTINE DEPENDENCE 09/13/2012 SOLEDAD RICK MD 724.2 lower back pain 09/13/2012 300.00 anxiety 09/13/2012 305.1 NICOTINE DEPENDENCE 09/13/2012 724.2 lower back pain 09/13/2012 SANTOS VELIZ MD 300.00 anxiety 09/13/2012 SANTOS VELIZ MD 305.1 NICOTINE DEPENDENCE 09/13/2012 SANTOS VELIZ MD 724.2 lower back pain 09/13/2012 SANTOS VELIZ MD 300.00 anxiety 09/13/2012 SANTOS VELIZ MD 305.1 NICOTINE DEPENDENCE 09/13/2012 SANTOS VELIZ MD 724.2 lower back pain 09/13/2012 SANTOS VELIZ MD M 300.00 anxiety 09/13/2012 SANTOS VELIZ MD 305.1 NICOTINE DEPENDENCE 09/13/2012 SANTOS VELIZ MD 724.2 lower back pain 09/13/2012 FORD DO, FELIPA K 300.00 anxiety 09/13/2012 FORD DO, FELIPA K 305.1 NICOTINE DEPENDENCE 09/13/2012 FORD DO, FELIPA K 724.2 lower back pain 09/13/2012 FORD DO, FELIPA K 300.00 anxiety 09/13/2012 FORD DO, FELIPA K 305.1 NICOTINE DEPENDENCE 09/13/2012 FORD DO, FELIPA K 724.2 lower back pain 09/13/2012 MADL HAIRSPRING CUTTER, ROBBIE L 300.00 anxiety 09/13/2012 MADL HAIRSPRING CUTTER, ROBBIE L 305.1 NICOTINE DEPENDENCE 09/13/2012 MADL HAIRSPRING CUTTER, ROBBIE L 724.2 lower back pain 09/13/2012 MADL HAIRSPRING CUTTER, ROBBIE L 300.00 anxiety 09/13/2012 MADL HAIRSPRING CUTTER, ROBBIE L 305.1 NICOTINE DEPENDENCE 09/13/2012 MADL HAIRSPRING CUTTER, ROBBIE L 724.2 lower back pain 09/13/2012 MADL HAIRSPRING CUTTER, ROBBIE L 300.00 anxiety 09/13/2012 MADL HAIRSPRING CUTTER, ROBBIE L 305.1 NICOTINE DEPENDENCE 09/13/2012 MADL HAIRSPRING CUTTER, ROBBIE L 724.2 lower back pain 09/13/2012 MADL HAIRSPRING CUTTER, ROBBIE L 300.00 anxiety 09/13/2012 MADL HAIRSPRING CUTTER, ROBBIE L 305.1 NICOTINE DEPENDENCE 09/13/2012 MADL HAIRSPRING CUTTER, ROBBIE L 724.2 lower back pain 02/21/2013 DUKE CAROLINA, BRENNAN Singleton Ot 789.00 ABDOMINAL PAIN, UNSPECIFIED SITE 03/21/2013 228.04 LIVER NEOPLASM, BENIGN - HEMANGIOMA 03/21/2013 625.9 PELVIC PAIN 03/21/2013 787.91 DIARRHEA 03/21/2013 JOSE ALFREDO CAROLINA, SANTOS Gao 228.04 LIVER NEOPLASM, BENIGN - HEMANGIOMA 03/21/2013 SANTOS VELIZ MD 625.9 PELVIC PAIN 03/21/2013 JOSE ALFREDO CAR[place], SANTOS Gao 787.91 DIARRHEA 03/21/2013 SANTOS VELIZ MD 228.04 LIVER NEOPLASM, BENIGN - HEMANGIOMA 03/21/2013 SANTOS VELIZ MD 625.9 PELVIC PAIN 03/21/2013 SANTOS VELIZ MD 787.91 DIARRHEA 03/21/2013 SANTOS VELIZ MD 228.04 LIVER NEOPLASM, BENIGN - HEMANGIOMA 03/21/2013 SANTOS VELIZ MD 625.9 PELVIC PAIN 03/21/2013 SANTOS VELIZ MD 787.91 DIARRHEA 03/21/2013 FORD DO, FELIPA K 228.04 LIVER NEOPLASM, BENIGN - HEMANGIOMA 03/21/2013 FORD DO, FELIPA K 625.9 PELVIC PAIN 03/21/2013 FORD DO, FELIPA K 787.91 DIARRHEA 03/21/2013 FORD DO, FELIPA K 228.04 LIVER NEOPLASM, BENIGN - HEMANGIOMA 03/21/2013 FORD DO, FELIPA K 625.9 PELVIC PAIN 03/21/2013 FORD DO, FELIPA K 787.91 DIARRHEA 03/21/2013 MADL HAIRSPRING CUTTER, ROBBIE L 228.04 LIVER NEOPLASM, BENIGN - HEMANGIOMA 03/21/2013 MADL HAIRSPRING CUTTER, ROBBIE L 625.9 PELVIC PAIN 03/21/2013 MADL HAIRSPRING CUTTER, ROBBIE L 787.91 DIARRHEA 03/21/2013 MADL HAIRSPRING CUTTER, ROBBIE L 228.04 LIVER NEOPLASM, BENIGN - HEMANGIOMA 03/21/2013 MADL HAIRSPRING CUTTER, ROBBIE L 625.9 PELVIC PAIN 03/21/2013 MADL HAIRSPRING CUTTER, ROBBIE L 787.91 DIARRHEA 03/21/2013 MADL HAIRSPRING CUTTER, ROBBIE L 228.04 LIVER NEOPLASM, BENIGN - HEMANGIOMA 03/21/2013 MADL HAIRSPRING CUTTER, ROBBIE L 625.9 PELVIC PAIN 03/21/2013 MADL HAIRSPRING CUTTER, ROBBIE L 787.91 DIARRHEA 03/21/2013 MADL HAIRSPRING CUTTER, ROBBIE L 228.04 LIVER NEOPLASM, BENIGN - HEMANGIOMA 03/21/2013 MADL HAIRSPRING CUTTER, ROBBIE L 625.9 PELVIC PAIN 03/21/2013 MADL HAIRSPRING CUTTER, ROBBIE L 787.91 DIARRHEA 04/18/2013 CHRIS CAROLINA, CELESTINO Peterson Ot 789.00 ABDOMINAL PAIN, UNSPECIFIED SITE 07/11/2013 JOSE ALFREDO CAR[place], SANTOS Gao 788.30 URINARY INCONTINENCE UNSPECIFIED 07/11/2013 SANTOS VELIZ MD V04.81 FLU SHOT 07/11/2013 SANTOS VELIZ MD 788.30 URINARY INCONTINENCE UNSPECIFIED 07/11/2013 JOSE ALFREDO CAR[place], SANTOS Gao V04.81 FLU SHOT 07/11/2013 FORD DO, FELIPA K 788.30 URINARY INCONTINENCE UNSPECIFIED 07/11/2013 FORD DO, FELIPA K V04.81 FLU SHOT 07/11/2013 FORD DO, FELIPA K 788.30 URINARY INCONTINENCE UNSPECIFIED 07/11/2013 FORD DO, FELIPA K V04.81 FLU SHOT 07/11/2013 MADL HAIRSPRING CUTTER, ROBBIE L 788.30 URINARY INCONTINENCE UNSPECIFIED 07/11/2013 MADL HAIRSPRING CUTTER, ROBBIE L V04.81 FLU SHOT 07/11/2013 MADL HAIRSPRING CUTTER, ROBBIE L 788.30 URINARY INCONTINENCE UNSPECIFIED 07/11/2013 MADL HAIRSPRING CUTTER, ROBBIE L V04.81 FLU SHOT 07/11/2013 MADL HAIRSPRING CUTTER, ROBBIE L 788.30 URINARY INCONTINENCE UNSPECIFIED 07/11/2013 MADL HAIRSPRING CUTTER, ROBBIE L V04.81 FLU SHOT 07/11/2013 MADL HAIRSPRING CUTTER, ROBBIE L 788.30 URINARY INCONTINENCE UNSPECIFIED 07/11/2013 MADL HAIRSPRING CUTTER, ROBBIE L V04.81 FLU SHOT 12/16/2013 RAJENDRA SLAUGHTER APRN Ot 564.00 UNSPEC CONSTIPATION 12/16/2013 RAJENDRA SLAUGHTER APRN Ot 789.09 ABDOMINAL PAIN, OTHER SPECIFIED SITE 04/04/2014 FORD DO, FELIPA K 625.8 OTHER SPECIFIED SYMPTOMS ASSOCIATED WITH FEMALE GENITAL ORGANS 04/04/2014 MADL HAIRSPRING CUTTER, ORBBIE L 625.8 OTHER SPECIFIED SYMPTOMS ASSOCIATED WITH FEMALE GENITAL ORGANS 04/04/2014 MADL HAIRSPRING CUTTER, ROBBIE L 625.8 OTHER SPECIFIED SYMPTOMS ASSOCIATED WITH FEMALE GENITAL ORGANS 04/04/2014 MADL HAIRSPRING CUTTER, ROBBIE L 625.8 OTHER SPECIFIED SYMPTOMS ASSOCIATED WITH FEMALE GENITAL ORGANS 04/04/2014 MADL HAIRSPRING CUTTER, ROBBIE L 625.8 OTHER SPECIFIED SYMPTOMS ASSOCIATED WITH FEMALE GENITAL ORGANS 07/18/2014 MADL HAIRSPRING CUTTER, ROBBIE L 461.9 SINUSITIS ACUTE 07/18/2014 MADL HAIRSPRING CUTTER, ROBBIE L 786.2 COUGH 07/18/2014 MADL HAIRSPRING CUTTER, ROBBIE L 788.1 DYSURIA 07/18/2014 MADL HAIRSPRING CUTTER, ROBBIE L V03.82 PPV23 (PNEUMOVAX) DX 07/18/2014 MADL HAIRSPRING CUTTER, ROBBIE L 461.9 SINUSITIS ACUTE 07/18/2014 MADL HAIRSPRING CUTTER, ROBBIE L 786.2 COUGH 07/18/2014 MADL HAIRSPRING CUTTER, ROBBIE L 788.1 DYSURIA 07/18/2014 MADL HAIRSPRING CUTTER, ROBBIE L V03.82 PPV23 (PNEUMOVAX) DX 07/18/2014 MADL HAIRSPRING CUTTER, ROBBIE L 461.9 SINUSITIS ACUTE 07/18/2014 MADL HAIRSPRING CUTTER, ROBBIE L 786.2 COUGH 07/18/2014 MADL HAIRSPRING CUTTER, ROBBIE L 788.1 DYSURIA 07/18/2014 MADL HAIRSPRING CUTTER, ROBBIE L V03.82 PPV23 (PNEUMOVAX) DX 07/18/2014 MADL HAIRSPRING CUTTER, ROBBIE L 461.9 SINUSITIS ACUTE 07/18/2014 MADL HAIRSPRING CUTTER, ROBBIE L 786.2 COUGH 07/18/2014 MADL HAIRSPRING CUTTER, ROBBIE L 788.1 DYSURIA 07/18/2014 MADL HAIRSPRING CUTTER, ROBBIE L V03.82 PPV23 (PNEUMOVAX) DX 08/13/2014 MADL HAIRSPRING CUTTER, ROBBIE L 244.9 UNSPECIFIED ACQUIRED HYPOTHYROIDISM 08/13/2014 MADL HAIRSPRING CUTTER, ROBBIE L V65.42 COUNSELING - SMOKING CESSATION 08/13/2014 MADL HAIRSPRING CUTTER, ROBBIE L V72.31 CREATIVE ENGAGEMENT DIRECTOR EXAM, ROUTINE 08/13/2014 MADL HAIRSPRING CUTTER, ROBBIE L V76.10 BREAST CANCER SCREENING 08/13/2014 MADL HAIRSPRING CUTTER, ROBBIE L 244.9 UNSPECIFIED ACQUIRED HYPOTHYROIDISM 08/13/2014 MADL HAIRSPRING CUTTER, ROBBIE L V65.42 COUNSELING - SMOKING CESSATION 08/13/2014 MADL HAIRSPRING CUTTER, ROBBIE L V72.31 CREATIVE ENGAGEMENT DIRECTOR EXAM, ROUTINE 08/13/2014 MADL HAIRSPRING CUTTER, ROBBIE L V76.10 BREAST CANCER SCREENING 08/13/2014 MADL HAIRSPRING CUTTER, ROBBIE L 244.9 UNSPECIFIED ACQUIRED HYPOTHYROIDISM 08/13/2014 MADL HAIRSPRING CUTTER, RBOBIE L V65.42 COUNSELING - SMOKING CESSATION 08/13/2014 MADL HAIRSPRING CUTTER, ROBBIE L V72.31 CREATIVE ENGAGEMENT DIRECTOR EXAM, ROUTINE 08/13/2014 MADL HAIRSPRING CUTTER, ROBBIE L V76.10 BREAST CANCER SCREENING 08/19/2014 MADL HAIRSPRING CUTTER, ROBBIE L 272.4 OTHER AND UNSPECIFIED HYPERLIPIDEMIA 08/19/2014 MADL HAIRSPRING CUTTER, ROBBIE L 272.4 OTHER AND UNSPECIFIED HYPERLIPIDEMIA 09/10/2014 DIEGO DOVE HAIRSPRING CUTTER Ot V76.12 01/08/2015 Ot V76.12 01/08/2015 Ot 285.9 01/08/2015 Ot 311 01/08/2015 Ot V58.69 01/08/2015 Ot 722.52 01/08/2015 Ot 783.21 01/08/2015 Ot V76.12 01/08/2015 Ot 623.8 01/08/2015 Ot V72.84 01/08/2015 Ot V74.8 01/08/2015 MAX BALL DO Ot 573.9 01/08/2015 SANTOS VELIZ MD Ot 625.9 01/08/2015 SANTOS VELIZ MD Ot 787.91 01/08/2015 DIEGO DOVE HAIRSPRING CUTTER Ot V76.12 01/08/2015 Ot V76.12 01/08/2015 Ot 285.9 01/08/2015 Ot 311 01/08/2015 Ot V58.69 01/08/2015 Ot 722.52 01/08/2015 Ot 783.21 01/08/2015 Ot V76.12 01/08/2015 Ot 623.8 01/08/2015 Ot V72.84 01/08/2015 Ot V74.8 01/08/2015 MAX BALL DO Ot 573.9 01/08/2015 SANTOS VELIZ MD Ot 625.9 01/08/2015 SANTOS VELIZ MD Ot 787.91 01/08/2015 DIEGO DOVE HAIRSPRING CUTTER Ot V76.12 01/08/2015 RAJENDRA SLAUGHTER HAIRSPRING CUTTER Ot 682.3 CELLULITIS OF ARM 06/20/2016 BRENNAN WALL MD Ot E87.6 HYPOKALEMIA 06/20/2016 BRENNAN WALL MD Ot F17.210 NICOTINE DEPENDENCE, CIGARETTES, UNCOMPL 06/20/2016 BRENNAN WALL MD Ot N39.0 URINARY TRACT INFECTION, SITE NOT SPECIF 06/20/2016 BRENNAN WALL MD Ot R11.2 NAUSEA WITH VOMITING, UNSPECIFIED 06/20/2016 BRENNAN WALL MD Ot R19.7 DIARRHEA, UNSPECIFIED 06/22/2016 BRENNAN WALL MD Ot E87.6 HYPOKALEMIA 06/22/2016 BRENNAN WALL MD Ot F17.210 NICOTINE DEPENDENCE, CIGARETTES, UNCOMPL 06/22/2016 BRENNAN WALL MD Ot N39.0 URINARY TRACT INFECTION, SITE NOT SPECIF 06/22/2016 BRENNAN WALL MD Ot R11.2 NAUSEA WITH VOMITING, UNSPECIFIED 06/22/2016 BRENNAN WALL MD Ot R19.7 DIARRHEA, UNSPECIFIED 06/24/2016 CELESTINO PEREZ MD Ot E03.9 HYPOTHYROIDISM, UNSPECIFIED 06/24/2016 CELESTINO PEREZ MD Ot E87.6 HYPOKALEMIA 06/24/2016 CELESTINO PEREZ MD Ot F17.210 NICOTINE DEPENDENCE, CIGARETTES, UNCOMPL 06/24/2016 CELESTINO PEREZ MD Ot K92.1 MELENA 06/24/2016 CELESTINO PEREZ MD Ot N13.30 UNSPECIFIED HYDRONEPHROSIS 06/24/2016 CELESTINO PEREZ MD Ot N39.0 URINARY TRACT INFECTION, SITE NOT SPECIF 06/24/2016 CHRIS CAROL[place], CELESTINO Peterson Ot R10.84 GENERALIZED ABDOMINAL PAIN 06/24/2016 CHRIS CAROL[place], CELESTINO Peterson Ot R11.2 NAUSEA WITH VOMITING, UNSPECIFIED 06/25/2016 CELESTINO PEREZ MD Ot E03.9 HYPOTHYROIDISM, UNSPECIFIED 06/25/2016 CELESTINO PEREZ MD Ot E87.6 HYPOKALEMIA 06/25/2016 CELESTINO PEREZ MD Ot F17.210 NICOTINE DEPENDENCE, CIGARETTES, UNCOMPL 06/25/2016 CELESTINO PEREZ MD Ot K92.1 MELENA 06/25/2016 CELESTINO PEREZ MD Ot N13.30 UNSPECIFIED HYDRONEPHROSIS 06/25/2016 CELESTINO PEREZ MD Ot N39.0 URINARY TRACT INFECTION, SITE NOT SPECIF 06/25/2016 CELESTINO PEREZ MD Ot R10.84 GENERALIZED ABDOMINAL PAIN 06/25/2016 CELESTINO PEREZ MD Ot R11.2 NAUSEA WITH VOMITING, UNSPECIFIED 06/30/2016 MARIKA CAROLINA, MARTIN Rinaldi Ot N13.30 UNSPECIFIED HYDRONEPHROSIS 06/30/2016 MARIKA CAROLINA, MARTIN Rinaldi Ot N32.81 OVERACTIVE BLADDER 06/30/2016 MARTIN HAIRSTON MD Ot R32 UNSPECIFIED URINARY INCONTINENCE 06/30/2016 MARIKA CAROLINA, MARTIN Rinaldi Ot Z01.818 ENCOUNTER FOR OTHER PREPROCEDURAL EXAMIN 07/02/2016 MARTIN HAIRSTON MD Ot N13.30 UNSPECIFIED HYDRONEPHROSIS 07/02/2016 MARTIN HAIRSTON MD Ot N32.81 OVERACTIVE BLADDER 07/02/2016 MARTIN HAIRSTON MD Ot R32 UNSPECIFIED URINARY INCONTINENCE 07/02/2016 MARIKA CAROLINA, MARTIN Rinaldi Ot Z01.818 ENCOUNTER FOR OTHER PREPROCEDURAL EXAMIN 07/06/2016 MARTIN HAIRSTON MD Ot N13.30 UNSPECIFIED HYDRONEPHROSIS 07/06/2016 MARIKA CAROLINA, MARTIN Rinaldi Ot N32.81 OVERACTIVE BLADDER 07/06/2016 MARTIN HAIRSTON MD Ot R32 UNSPECIFIED URINARY INCONTINENCE 07/06/2016 MARIKA CAROLINA, MARTIN Rinaldi Ot Z01.818 ENCOUNTER FOR OTHER PREPROCEDURAL EXAMIN 07/06/2016 MARIKA CAROLINA, MARTIN Rinaldi Ot Q62.5 DUPLICATION OF URETER 07/07/2016 MARIKA CAROLINA, MARTIN Rinaldi Ot Q62.5 DUPLICATION OF URETER 07/09/2016 Ot 783.21 LOSS OF WEIGHT 07/09/2016 Ot V76.12 OTH SCREEN MAMMO- MALIGN NEOPLASM OF JASWINDER 07/09/2016 Ot 623.8 NONINFLAM DIS VAGINA NEC 07/09/2016 Ot V72.84 EXAM PRE-OPERATIVE NOS 07/09/2016 Ot V74.8 SCREEN-BACTERIAL DIS NEC 07/09/2016 MAX BALL DO Ot 573.9 LIVER DISORDER NOS 07/09/2016 JOSE ALFREDO CAROLINA, SANTOS Gao Ot 625.9 FEM GENITAL SYMPTOMS NOS 07/09/2016 SANTOS VELIZ MD Ot 787.91 DIARRHEA 07/09/2016 DIEGO DOVE HAIRSPRING CUTTER Ot V76.12 OTH SCREEN MAMMO-MALIGN NEOPLASM OF JASWINDER 07/10/2016 BRENNAN WALL MD Ot E87.6 HYPOKALEMIA 07/10/2016 BRENNAN WALL MD Ot F17.210 NICOTINE DEPENDENCE, CIGARETTES, UNCOMPL 07/10/2016 BRENNAN WALL MD Ot N39.0 URINARY TRACT INFECTION, SITE NOT SPECIF 07/10/2016 BRENNAN WALL MD Ot R11.2 NAUSEA WITH VOMITING, UNSPECIFIED 07/10/2016 BRENNAN WALL MD Ot R19.7 DIARRHEA, UNSPECIFIED 02/24/2018 MAX BALL DO Ot 573.9 LIVER DISORDER NOS 02/24/2018 SANTOS VELIZ MD Ot 625.9 FEM GENITAL SYMPTOMS NOS 02/24/2018 SANTOS VELIZ MD Ot 787.91 DIARRHEA 02/24/2018 DIEGO DOVE APRN Ot V76.12 OTH SCREEN MAMMO-MALIGN NEOPLASM OF JASWINDER 06/05/2018 PRABHJOT CAROLINA, SOLEDAD Myers Ot Z12.31 ENCNTR SCREEN MAMMOGRAM FOR MALIGNANT NE 12/28/2018 ELIAS HERMAN APRN Ot Z12.31 ENCNTR SCREEN MAMMOGRAM FOR MALIGNANT NE 01/08/2019 DIEGO DOVE HAIRSPRING CUTTER Ot V76.12 OTH SCREEN MAMMO-MALIGN NEOPLASM OF JSAWINDER 01/08/2019 ELIAS HERMAN Mani HAIRSPRING CUTTER Ot Z12.31 ENCNTR SCREEN MAMMOGRAM FOR MALIGNANT NE 01/09/2019 ELIAS HERMAN Mani HAIRSPRING CUTTER Ot Z12.31 ENCNTR SCREEN MAMMOGRAM FOR MALIGNANT NE 01/14/2019 DIEGO DOVE HAIRSPRING CUTTER Ot V76.12 OTH SCREEN MAMMO-MALIGN NEOPLASM OF JASWINDER 01/14/2019 DWIGHT HERMANTANA Singleton HAIRSPRING CUTTER Ot Z12.31 ENCNTR SCREEN MAMMOGRAM FOR MALIGNANT NE 01/30/2019 ELIAS HERMAN Mani HAIRSPRING CUTTER Ot Z12.31 ENCNTR SCREEN MAMMOGRAM FOR MALIGNANT NE 01/30/2019 RING JAMISON ECHOLS Ot Z01.818 ENCOUNTER FOR OTHER PREPROCEDURAL EXAMIN 01/31/2019 RING JAMISON ECHOLS Ot Z01.818 ENCOUNTER FOR OTHER PREPROCEDURAL EXAMIN 02/05/2019 RING JAMISON ECHOLS Ot Z01.818 ENCOUNTER FOR OTHER PREPROCEDURAL EXAMIN 02/05/2019 DIEGO DOVE HAIRSPRING CUTTER Ot V76.12 OTH SCREEN MAMMO-MALIGN NEOPLASM OF JASWINDER 02/05/2019 ELIAS HERMAN Mani HAIRSPRING CUTTER Ot Z12.31 ENCNTR SCREEN MAMMOGRAM FOR MALIGNANT NE Procedures Code Description [place] [address] ROUTINE VENIPUNCTURE 09/14/2012 27381 URINE DRUG SCREEN (IN-HOUSE) 09/14/2012 49146 A1C (IN-HOUSE) 09/14/2012 62462 CBC 09/14/2012 86047 MAGNESIUM 09/14/2012 87451 LIPID PANEL 09/14/2012 80613 CMP 09/14/2012 [id number] GFR CALC (RESULT ONLY) 09/14/2012 20790 TSH 09/15/2012 22733 ROUTINE VENIPUNCTURE 03/21/2013 69462 HEPATITIS PROFILE 03/21/2013 55448 CELIAC DISEASE ANALYZER 03/23/2013 47432 UA W/ CULTURE IF INDICATED 07/11/2013 G0008 FLU ADMINISTRATION (MEDICARE ONLY) 07/11/2013 24663 ROUTINE VENIPUNCTURE 07/11/2013 67036 CBC 07/12/2013 [id number] GFR CALC (RESULT ONLY) 07/12/2013 65086 CMP 07/12/2013 89092 MAGNESIUM 07/12/2013 [id number] SPTYPE 07/12/2013 69912 UA W/ CULTURE IF INDICATED 10/16/2013 01811 ROUTINE VENIPUNCTURE 07/18/2014 11794 URINE DRUG SCREEN (IN-HOUSE) 07/18/2014 93192 CBC 07/18/2014 [id number] GFR CALC (RESULT ONLY) 07/18/2014 88980 CMP 07/18/2014 THYANA THYROID ANALYZER 07/18/2014 78182 T4 FREE 07/18/2014 05414 ROUTINE VENIPUNCTURE 08/13/2014 97738 UA W/ CULTURE IF INDICATED 08/13/2014 34020 MAMMOGRAM, SCREENING 08/13/2014 24759 LIPID PANEL 08/13/2014 Results Test Result Range Complete urinalysis with reflex to culture - 06/20/16 18:10 Urine color determination YELLOW NRG Urine clarity determination SLIGHTLY CLOUDY NRG Urine pH measurement by test strip 6.5 5-9 Specific gravity of urine by test strip 1.010 1.016-1.022 Urine protein assay by test strip, semi-quantitative 1+ NEGATIVE Urine glucose detection by automated test strip NEGATIVE NEGATIVE Erythrocytes detection in urine sediment by light microscopy 2+ NEGATIVE Urine ketones detection by automated test strip NEGATIVE NEGATIVE Urine nitrite detection by test strip NEGATIVE NEGATIVE Urine total bilirubin detection by test strip NEGATIVE NEGATIVE Urine urobilinogen measurement by automated test strip (mass/volume) NORMAL NORMAL Urine leukocyte esterase detection by dipstick 3+ NEGATIVE Automated urine sediment erythrocyte count by microscopy (number/high power field) [HPF] NRG Automated urine sediment leukocyte count by microscopy (number/high power field) > [HPF] NRG Bacteria detection in urine sediment by light microscopy FEW NRG Squamous epithelial cells detection in urine sediment by light microscopy 0-2 NRG Crystals detection in urine sediment by light microscopy NONE NRG Casts detection in urine sediment by light microscopy NONE NRG Mucus detection in urine sediment by light microscopy NEGATIVE NRG Complete urinalysis with reflex to culture YES NRG Bacterial urine culture - 06/20/16 18:10 Bacterial urine culture [id number] NRG COLONY COUNT 10,000/ML - 100,000/ML NRG FTX;REPORTABLE SENSITIVITY REPORTED AT 0712, 10-4-16 NRG URINE CULTURE RESULTS PLUS NRG Bacterial susceptibility panel - 06/20/16 18:10 Gentamicin susceptibility test by minimum inhibitory concentration <= NRG Trimethoprim/sulfamethoxazole susceptibility test by minimum inhibitoryconcentration <= NRG Ampicillin susceptibility test by minimum inhibitory concentration <= NRG Tobramycin susceptibility test by minimum inhibitory concentration <= NRG Cefazolin susceptibility test by minimum inhibitory concentration <= NRG Ceftriaxone susceptibility test by minimum inhibitory concentration <= NRG Ampicillin/sulbactam susceptibility test by minimum inhibitory concentration <= NRG Piperacillin/tazobactam susceptibility test by minimum inhibitory concentration <= NRG Ciprofloxacin susceptibility test by minimum inhibitory concentration <= NRG Meropenem susceptibility test by minimum inhibitory concentration <= NRG Nitrofurantoin susceptibility test by minimum inhibitory concentration <= NRG Aztreonam susceptibility test by minimum inhibitory concentration <= NRG Extended spectrum beta lactamase (ESBL) producing bacteria susceptibility test by minimum inhibitory concentration - NRG Complete blood count (CBC) with automated white blood cell (WBC) differential - 06/20/16 18:14 Blood leukocytes automated count (number/volume) 10.7 10*3/uL 4.3-11.0 Blood erythrocytes automated count (number/volume) 4.58 10*6/uL 4.35-5.85 Venous blood hemoglobin measurement (mass/volume) 13.4 g/dL 11.5-16.0 Blood hematocrit (volume fraction) 39 % 35-52 Automated erythrocyte mean corpuscular volume 85 [foz_us] 80-99 Automated erythrocyte mean corpuscular hemoglobin (mass per erythrocyte) 29 pg 25-34 Automated erythrocyte mean corpuscular hemoglobin concentration measurement (mass/volume) 34 g/dL 32-36 Automated erythrocyte distribution width ratio 14.4 % 10.0- 14.5 Automated blood platelet count (count/volume) 488 10*3/uL 130-400 Automated blood platelet mean volume measurement 10.5 [foz_us] 7.4-10.4 Automated blood neutrophils/100 leukocytes 78 % 42-75 Automated blood lymphocytes/100 leukocytes 12 % 12-44 Blood monocytes/100 leukocytes 9 % 0-12 Automated blood eosinophils/100 leukocytes 1 % 0-10 Automated blood basophils/100 leukocytes 0 % 0-10 Blood neutrophils automated count (number/volume) 8.3 10*3 1.8-7.8 Blood lymphocytes automated count (number/volume) 1.3 10*3 1.0-4.0 Blood monocytes automated count (number/volume) 1.0 10*3 0.0- 1.0 Automated eosinophil count 0.1 10*3/uL 0.0-0.3 Automated blood basophil count (count/volume) 0.0 10*3/uL 0.0-0.1 Comprehensive metabolic panel - 06/20/16 18:14 Serum or plasma sodium measurement (moles/volume) 135 mmol/L 135-145 Serum or plasma potassium measurement (moles/volume) 2.7 mmol/L 3.6-5.0 Serum or plasma chloride measurement (moles/volume) 93 mmol/L 98-107 Carbon dioxide 26 mmol/L 21-32 Serum or plasma anion gap determination (moles/volume) 16 mmol/L 5-14 Serum or plasma urea nitrogen measurement (mass/volume) 7 mg/dL 7-18 Serum or plasma creatinine measurement (mass/volume) 0.96 mg/dL 0.60-1.30 Serum or plasma urea nitrogen/creatinine mass ratio 7 NRG Serum or plasma creatinine measurement with calculation of estimated glomerular filtration rate > NRG Serum or plasma glucose measurement (mass/volume) 132 mg/dL 70-105 Serum or plasma calcium measurement (mass/volume) 9.3 mg/dL 8.5-10.1 Serum or plasma total bilirubin measurement (mass/volume) 0.7 mg/dL 0.1-1.0 Serum or plasma alkaline phosphatase measurement (enzymatic activity/volume) 132 U/L 40-136 Serum or plasma aspartate aminotransferase measurement (enzymatic activity/volume) 35 U/L 5-34 Serum or plasma alanine aminotransferase measurement (enzymatic activity/volume) 31 U/L 0-55 Serum or plasma protein measurement (mass/volume) 7.2 g/dL 6.4-8.2 Serum or plasma albumin measurement (mass/volume) 3.7 g/dL 3.2-4.5 Magnesium - 06/20/16 18:14 Magnesium 2.1 mg/dL 1.8-2.4 Serum or plasma amylase measurement (enzymatic activity/volume) - 06/20/16 18:14 Serum or plasma amylase measurement (enzymatic activity/volume) 74 U/L 25-125 Lipase - 06/20/16 18:14 Lipase 36 U/L 8-78 THYROID STIMULATING HORMONE - 06/20/16 18:14 THYROID STIMULATING HORMONE 1.88 u[iU]/mL 0.35-4.94 Complete urinalysis with reflex to culture - 06/24/16 15:39 Urine color determination YELLOW NRG Urine clarity determination CLEAR NRG Urine pH measurement by test strip 7 5-9 Specific gravity of urine by test strip 1.010 1.016-1.022 Urine protein assay by test strip, semi-quantitative NEGATIVE NEGATIVE Urine glucose detection by automated test strip NEGATIVE NEGATIVE Erythrocytes detection in urine sediment by light microscopy 1+ NEGATIVE Urine ketones detection by automated test strip NEGATIVE NEGATIVE Urine nitrite detection by test strip NEGATIVE NEGATIVE Urine total bilirubin detection by test strip NEGATIVE NEGATIVE Urine urobilinogen measurement by automated test strip (mass/volume) NORMAL NORMAL Urine leukocyte esterase detection by dipstick 3+ NEGATIVE Automated urine sediment erythrocyte count by microscopy (number/high power field) [HPF] NRG Automated urine sediment leukocyte count by microscopy (number/high power field) [HPF] NRG Bacteria detection in urine sediment by light microscopy TRACE NRG Squamous epithelial cells detection in urine sediment by light microscopy 0-2 NRG Crystals detection in urine sediment by light microscopy NONE NRG Casts detection in urine sediment by light microscopy NONE NRG Mucus detection in urine sediment by light microscopy NEGATIVE NRG Complete urinalysis with reflex to culture YES NRG Bacterial urine culture - 06/24/16 15:39 Bacterial urine culture [id number] NRG COLONY COUNT <10,000 NRG FTX;REPORTABLE PLUS NRG FREE TEXT ENTRY 2 MIXED GRAM POSITIVES NRG FREE TEXT ENTRY 3 <10, 000/ML NRG Magnesium - 06/24/16 15:45 Magnesium 2.0 mg/dL 1.8-2.4 Complete blood count (CBC) with automated white blood cell (WBC) differential - 06/24/16 15:47 Blood leukocytes automated count (number/volume) 10.3 10*3/uL 4.3-11.0 Blood erythrocytes automated count (number/volume) 4.48 10*6/uL 4.35-5.85 Venous blood hemoglobin measurement (mass/volume) 13.2 g/dL 11.5-16.0 Blood hematocrit (volume fraction) 39 % 35-52 Automated erythrocyte mean corpuscular volume 87 [foz_us] 80-99 Automated erythrocyte mean corpuscular hemoglobin (mass per erythrocyte) 30 pg 25-34 Automated erythrocyte mean corpuscular hemoglobin concentration measurement (mass/volume) 34 g/dL 32-36 Automated erythrocyte distribution width ratio 14.7 % 10.0- 14.5 Automated blood platelet count (count/volume) 683 10*3/uL 130-400 Automated blood platelet mean volume measurement 10.0 [foz_us] 7.4-10.4 Automated blood neutrophils/100 leukocytes 77 % 42-75 Automated blood lymphocytes/100 leukocytes 16 % 12-44 Blood monocytes/100 leukocytes 7 % 0-12 Automated blood eosinophils/100 leukocytes 1 % 0-10 Automated blood basophils/100 leukocytes 0 % 0-10 Blood neutrophils automated count (number/volume) 7.9 10*3 1.8-7.8 Blood lymphocytes automated count (number/volume) 1.6 10*3 1.0-4.0 Blood monocytes automated count (number/volume) 0.7 10*3 0.0- 1.0 Automated eosinophil count 0.1 10*3/uL 0.0-0.3 Automated blood basophil count (count/volume) 0.0 10*3/uL 0.0-0.1 Comprehensive metabolic panel - 06/24/16 15:47 Serum or plasma sodium measurement (moles/volume) 142 mmol/L 135-145 Serum or plasma potassium measurement (moles/volume) 3.2 mmol/L 3.6-5.0 Serum or plasma chloride measurement (moles/volume) 102 mmol/L 98-107 Carbon dioxide 27 mmol/L 21-32 Serum or plasma anion gap determination (moles/volume) 13 mmol/L 5-14 Serum or plasma urea nitrogen measurement (mass/volume) 4 mg/dL 7-18 Serum or plasma creatinine measurement (mass/volume) 0.95 mg/dL 0.60-1.30 Serum or plasma urea nitrogen/creatinine mass ratio 4 NRG Serum or plasma creatinine measurement with calculation of estimated glomerular filtration rate > NRG Serum or plasma glucose measurement (mass/volume) 105 mg/dL 70-105 Serum or plasma calcium measurement (mass/volume) 9.4 mg/dL 8.5-10.1 Serum or plasma total bilirubin measurement (mass/volume) 0.3 mg/dL 0.1-1.0 Serum or plasma alkaline phosphatase measurement (enzymatic activity/volume) 114 U/L 40-136 Serum or plasma aspartate aminotransferase measurement (enzymatic activity/volume) 22 U/L 5-34 Serum or plasma alanine aminotransferase measurement (enzymatic activity/volume) 20 U/L 0-55 Serum or plasma protein measurement (mass/volume) 7.1 g/dL 6.4-8.2 Serum or plasma albumin measurement (mass/volume) 3.8 g/dL 3.2-4.5 Lipase - 06/24/16 15:47 Lipase 37 U/L 8-78 THYROID STIMULATING HORMONE - 06/24/16 15:47 THYROID STIMULATING HORMONE 2.16 u[iU]/mL 0.35-4.94 Serum or plasma thyroxine (T4) free measurement (mass/volume) - 06/24/16 15:47 Serum or plasma thyroxine (T4) free measurement (mass/volume) 1.05 ng/dL 0.70-1.48 Methicillin resistant Staphylococcus aureus (MRSA) screening culture - 07/06/16 08:15 Methicillin resistant Staphylococcus aureus (MRSA) screening culture NEG NR CMP - 05/16/17 12:49 Glucose, Serum 95 mg/dL 65-99 BUN 9 mg/dL 6-24 Creatinine, Serum 0.69 mg/dL 0.57-1.00 eGFR If NonAfricn Am 100 mL/min/1.73 >59 eGFR If Africn Am 116 mL/min/1.73 >59 BUN/Creatinine Ratio 13 9-23 Sodium, Serum 140 mmol/L 134-144 Potassium, Serum 4.6 mmol/L 3.5-5.2 Chloride, Serum 96 mmol/L 96-106 Carbon Dioxide, Total 27 mmol/L 18-29 Calcium, Serum 9.7 mg/dL 8.7-10.2 Protein, Total, Serum 7.1 g/dL 6.0-8.5 Albumin, Serum 4.4 g/dL 3.5-5.5 Globulin, Total 2.7 g/dL 1.5-4.5 A/G Ratio 1.6 1.2-2.2 Bilirubin, Total 0.4 mg/dL 0.0-1.2 Alkaline Phosphatase, S 122 IU/L 39-117 AST (SGOT) 21 IU/L 0-40 ALT (SGPT) 10 IU/L 0-32 LIPID PANEL - 05/11/18 10:02 CHOLESTEROL, TOTAL 182 mg/dL <200 HDL CHOLESTEROL 35 mg/dL >50 TRIGLYCERIDES 191 mg/dL <150 LDL-CHOLESTEROL 116 mg/dL (calc) NRG CHOL/HDLC RATIO 5.2 (calc) <5.0 NON HDL CHOLESTEROL 147 mg/dL (calc) <130 Encounters ACCT No. Visit Date/Time Discharge Status Pt. Type Provider Facility Loc./Unit Complaint [id number] 10/28/2014 00:00:00 10/28/2014 23:59:59 CLS Outpatient ROBBIE ESPARZA APRN [id number] 08/19/2014 14:06:00 08/19/2014 23:59:59 CLS Outpatient ROBBIE ESPARZA APRN [id number] 08/13/2014 10:45:00 08/13/2014 23:59:59 CLS Outpatient HERMILAL ROBBIE OSORIO [id number] 07/18/2014 14:26:00 07/18/2014 23:59:59 CLS Outpatient ROBBIE ESPARZA APRN [id number] 04/04/2014 14:39:00 04/04/2014 23:59:59 CLS Outpatient FELIPA FORD DO [id number] 10/16/2013 11:52:00 10/16/2013 23:59:59 CLS Outpatient FELIPA FORD DO [id number] 07/11/2013 15:13:00 07/11/2013 23:59:59 CLS Outpatient SANTOS VELIZ MD [id number] 07/11/2013 15:13:00 07/11/2013 23:59:59 CLS Outpatient SANTOS VELIZ MD [id number] 03/29/2013 00:00:00 03/29/2013 23:59:59 CLS Outpatient SANTOS VELIZ MD [id number] 09/14/2012 09:09:00 09/14/2012 23:59:59 CLS Outpatient SOLEDAD RICK MD [id number] 03/21/2013 14:14:00 Document Registration [id number] 01/30/2019 05:35:00 01/30/2019 11:03:00 DIS Outpatient JAMISON RING DO [facility] PREOP COLONOSCOPY [id number] 01/08/2019 10:57:00 01/08/2019 23:59:59 CLS Outpatient ELIAS HERMAN HAIRSPRING CUTTER [facility] RAD SCREENING [id number] 06/05/2018 09:02:00 06/05/2018 23:59:59 CLS Preadmit SOLEDAD RICK MD [facility] RAD SCREENING [id number] 02/24/2018 16:10:00 02/24/2018 23:59:59 CLS Preadmit SOLEDAD RICK MD [facility] RAD ROUTINE ADULT HEALTH MAINTENANCE [id number] 07/06/2016 07:44:00 07/06/2016 11:35:00 DIS Outpatient MARTIN HAIRSTON MD [facility] SDC RT. HYDRONEPHROSIS, INCONT., OVERACTIVE BLADDER [id number] 06/30/2016 05:43:00 06/30/2016 14:49:00 DIS Outpatient MARTIN HAIRSTON MD [facility] PREOP RT. HYDRONEPHROSIS, INCONTENCE, OVERACTIVE BLADDER [id number] 06/24/2016 15:29:00 06/24/2016 18:25:00 DIS Emergency CHRIS CAROLINA, CELESTINO Peterson [facility] ER ABD PAIN,VOMITING [id number] 06/20/2016 17:46:00 06/20/2016 21:11:00 DIS Emergency DUKE CAROLINA, BRENNAN Singleton [facility] ER VOMITING/NAUSEA/HEADACHE [id number] 01/08/2015 16:00:00 01/08/2015 17:15:00 DIS Emergency RAJENDRA SLAUGHTER [employer] C[employer]TER [facility] ER L UNDER ARM ABCESS [id number] 08/26/2014 15:18:00 08/26/2014 23:59:59 CLS Outpatient DIEGO DOVE [employer]TER [facility] RAD SCREENING [id number] 12/16/2013 16:05:00 12/16/2013 19:07:00 DIS Emergency RAJENDRA SLAUGHTER [employer]ING CUTTER [facility] ER ABD PAIN [id number] 04/18/2013 17:37:00 04/18/2013 20:01:00 DIS Emergency CHRIS CAROLINA, CELESTINO Peterson [facility] ER ABD PAIN [id number] 04/11/2013 13:46:00 04/11/2013 23:59:59 CLS Outpatient SANTOS VELIZ MD [facility] RAD LOWER ABD PAIN,BOWEL INCONT [id number] 02/27/2013 11:50:00 02/27/2013 23:59:59 CLS Outpatient BALLVinayak ECHOLS MAX C [facility] RAD LIVER MASS [id number] 02/21/2013 10:18:00 02/21/2013 16:19:00 DIS Emergency BRENNAN WALL MD [facility] ER LOWER ABD PAIN/VOMITING [id number] 01/30/2019 10:51:00 Document Registration [id number] 01/08/2015 16:01:00 Document Registration [id number] 01/08/2015 16:01:00 Document Registration [id number] 01/08/2015 16:01:00 Document Registration [id number] 01/08/2015 16:01:00 Document Registration [id number] 08/01/2012 08:56:00 Document Registration [id number] 08/26/2011 13:16:00 Document Registration [id number] 06/22/2011 09:23:00 Document Registration [id number] 12/18/2009 10:35:00 Document Registration [id number] 10/28/2009 09:22:00 Document Registration [id number] 10/28/2009 09:12:00 Document Registration [id number] 01/22/2019 13:20:00 01/22/2019 23:59:59 CLS Outpatient PRABHJOT [place] [id number] 05/11/2018 10:20:00 Document Registration [id number] 05/16/2017 12:40:00 Document Registration
--- NOTE | 2019-02-06 08:48 | Progress Note-Pre Operative ---
Pre-Operative Progress Note H&P Reviewed The H&P was reviewed, patient examined and no changes noted. Date Seen by Provider: February 06, 2019 Time Seen by Provider: 08:47 Date H&P Reviewed: February 06, 2019 Time H&P Reviewed: 08:48 Pre-Operative Diagnosis: history of polyps JAMISON RING DO February 06, 2019 08:48
--- NOTE | 2019-02-06 09:25 | Discharge Inst-Simple/Standard ---
Discharge Inst-Standard Patient Instructions/Follow Up Plan of Care/Instructions/FU: 2 weeks Vikash Activity as Tolerated: Yes Discharge Diet: Regular Diet JAMISON RING DO February 06, 2019 09:25
--- NOTE | 2019-02-06 09:30 | Progress Note-Post Operative ---
Post-Operative Progess Note Surgeon (s)/Station Engineer Chief (s) Surgeon JAMISON RING DO Station Engineer Chief: na Pre-Operative Diagnosis history of polyps Post-Operative Diagnosis sigmoid polyp Procedure & Operative Findings Date of Procedure 02/06/19 Procedure Performed/Findings colonoscopy with hot bx polypectomy Anesthesia Type per staff readiness officer Estimated Blood Loss Estimated blood loss (mL): none Specimens/Packing Specimens Removed sigmoid polyp JAMISON RING DO February 06, 2019 09:29
[2019-02-06 09:35] VITALS: BP 123/70
[2019-02-06 10:00] VITALS: BP 111/63
[2019-02-06 10:10] VITALS: BP 111/63
--- NOTE | 2019-02-06 11:13 | Anesthesia-General Post-Op ---
MAC Patient Condition Mental Status/LOC: Same as Preop Cardiovascular: Satisfactory Nausea/Vomiting: Absent Respiratory: Satisfactory Pain: Controlled Complications: Absent Post Op Complications Complications None Follow Up Care/Instructions Patient Instructions None needed. Anesthesiology Discharge Order Discharge Order Patient is doing well, no complaints, stable vital signs, no apparent adverse anesthesia problems. No complications reported per nursing. HUNG CACERES CRNA February 06, 2019 11:13
--- NOTE | 2019-02-06 13:18 | OPERATIVE REPORT ---
DATE OF SERVICE: 02/06/2019 PREOPERATIVE DIAGNOSIS: History of polyps. POSTOPERATIVE DIAGNOSIS: Sigmoid colon polyp. PROCEDURE: Colonoscopy with hot biopsy polypectomy. SURGEON: Jamison Suh DO ANESTHESIA: Per TELEVISION PRODUCTION ASSISTANT. ESTIMATED BLOOD LOSS: None. COMPLICATIONS: None. INDICATIONS: The patient is a 53-year-old female with history of polyps. She understands the risks and benefits of procedure and wished to proceed with procedure. Consent was signed in the chart. PROCEDURE IN DETAIL: The patient was taken to the endoscopy suite and placed in left lateral recumbent position. Timeout was performed. Digital rectal exam was performed. There were no palpable polyps, mass or ulcerations. The scope was then inserted into the rectum and advanced all the way to the cecum with minimal difficulty. Prep was adequate with irrigation and suction. Scope was slowly retracted back. There were no polyps, masses or ulcerations within the cecum, ascending, transverse and descending colon. Within the sigmoid colon, a small polyp was present, which hot biopsy polypectomy was performed. Scope was continued to be slowly retracted back. In the rectum, it was also retroflexed noting no other pathology. Scope was returned to its normal position, slowly withdrawn until completely removed. The patient tolerated the procedure well without any complications. She was taken to recovery room in stable condition. RECOMMENDATIONS: The patient will follow up in the office in 2 weeks to discuss pathology results. The patient will need repeat colonoscopy in 5 years. Any issues before that be seen at that time for reevaluation. Job ID: [id number] DocumentID: [id number] Dictated Date: 02/06/2019 09:30:42 Rotary Swaging Machine Operator Date: 02/06/2019 13:17:00 Dictated By: JAMISON SUH DO
== END 2019-02-06 10:10 | disposition home or self-care (01) ==
LOC: ENDO 07:25
PROVIDERS: ATTEND Surgery
DX: Z12.11 Encounter for screening for malignant neoplasm of colon (principal); D12.5 Benign neoplasm of sigmoid colon; E78.00 Pure hypercholesterolemia, unspecified; F41.0 Panic disorder [episodic paroxysmal anxiety]; F90.2 Attention-deficit hyperactivity disorder, combined type; F33.1 Major depressive disorder, recurrent, moderate; F43.10 Post-traumatic stress disorder, unspecified; R32 Unspecified urinary incontinence; F17.210 Nicotine dependence, cigarettes, uncomplicated; Z86.010 Personal history of colon polyps; Z79.899 Other long term (current) drug therapy

== ENCOUNTER 2019-09-02 00:13 | Emergency (ER) | payer MEDICARE, MEDICAID ==
[~2019-09-02] VITALS: Ht 158 cm; Wt 55.0 kg
--- NOTE | 2019-09-02 01:19 | ED GU-Female ---
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 She's not used a pad yet. She says about same level as a period. She had a hysterectomy years ago by Dr. Ball. She's been having normal Pap smears up into her last one sometime within the last 5 years. She is also had a back surgery historically where they nicked her colon and had to go ahead and do a colon repair. She still has her gallbladder and appendix in place. She's not having abdominal pain but she has some general discomfort malodorous discharge for the past week and the feeling of bloating. No weight loss or gain unexpectedly. She is not on blood thinner. Her last intercourse was approximately 3 weeks ago. No dysuria. No fevers chills nausea vomiting. Allergies and Home Medications Allergies Coded Allergies: oxybutynin (Verified Allergy, Intermediate, "MADE ME CRAZY", 01/30/19) bupropion HCl (Unverified Allergy, Mild, HIVES, 01/30/19) Home Medications Aripiprazole 10 Mg Tablet, 10 MG PO DAILY, (Reported) Gabapentin 300 Mg Capsule, 300 MG PO BID, (Reported) Levothyroxine Sodium 25 Mcg Tablet, 25 MCG PO DAILY, (Reported) Lovastatin 40 Mg Tablet, 40 MG PO DAILY, (Reported) Paroxetine HCl 40 Mg Tablet, 40 MG PO DAILY, (Reported) Patient Home Medication List Home Medication List Reviewed: Yes Review of Systems Review of Systems Constitutional: No chills, No fever EENTM: No ear discharge, No ear pain Respiratory: No cough, No short of breath Cardiovascular: No chest pain, No edema Gastrointestinal: see HPI; No abdominal pain, No constipation, No diarrhea Genitourinary: see HPI; denies burning; discharge; denies dysuria, denies flank pain, denies hematuria : No Musculoskeletal: No back pain, No joint pain Skin: No pruritus, No rash Past Hosfjjn-Xyzkev-Pkpkii Hx Patient Social History Alcohol Use: Occasionally Uses Recreational Drug Use: No Smoking Status: Current Everyday Smoker Type Used: Cigarettes 2nd Hand Smoke Exposure: Yes Recent Foreign Travel: No Contact w/Someone Who Travel: No Recent Hopitalizations: No Immunizations Up To Date Tetanus Booster (TDap): More than 5yrs Date of Influenza Vaccine: Jun 26, 2018 Seasonal Allergies Seasonal Allergies: No Past Medical History Surgeries: Yes (BACK, PV SLING/REMOVAL, PERF BOWEL FROM BACK SX) Hysterectomy, Oophorectomy, Orthopedic Respiratory: No Cardiac: Yes Heart Murmur, High Cholesterol Neurological: Yes Reproductive Disorders: No 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 Sexually Transmitted Disease: No HIV/AIDS: No Genitourinary: No Gastrointestinal: Yes Chronic Constipation, Chronic Diarrhea, Polyps Musculoskeletal: Yes Chronic Back Pain Endocrine: Yes Hypothyroidsim HEENT: Yes (GLASSES, DENTURES) Loss of Vision: Bilateral Hearing Impairment: Denies Cancer: No Psychosocial: Yes ADD/ADHD, Anxiety, Bipolar, Depression Integumentary: No Blood Disorders: No (HX ANEMIA) Adverse Reaction/Blood Tranf: No (HAS HAD BLOOD AN -NO REACTION) Family Medical History No Pertinent Family Hx Physical Exam Vital Signs Vital Signs - First Documented 09/02/19 01:07 Temp 36.6 Pulse 75 Resp 16 B/P (MAP) 112/55 (74) Pulse Ox 96 O2 Delivery Room Air Capillary Refill : Height, Weight, BMI Height: 5'2.00" Weight: 116lbs. 0.0oz. 52.179451az; 21.2 BMI Method:Stated General Appearance: WD/WN, no apparent distress HEENT: PERRL/EOMI, pharynx normal Neck: full range of motion, normal inspection Cardiovascular: normal peripheral pulses, regular rate, rhythm Respiratory: no respiratory distress, no accessory muscle use Gastrointestinal: normal bowel sounds, non tender, soft, no organomegaly, other (her bluejeans are unbuttoned) Genital/Rectal: other (external genitalia unremarkable except for some type blood. Vaginal vault we are not able to find any laceration, polyp or tumor. There are thin, sanguinous secretions with a few 1-2 cc clots in the vaginal vault. No purulence.) Neurologic/Psychiatric: alert, normal mood/affect, oriented x 3 Skin: normal color, warm/dry Progress/Results/Core Measures Suspected Sepsis SIRS Temperature: Pulse: Respiratory Rate: Laboratory Tests 09/02/19 01:21: White Blood Count 8.4 Blood Pressure / Mean: Laboratory Tests 09/02/19 01:21: Creatinine 0.78, Platelet Count 268, Total Bilirubin 0.2 Results/Orders Lab Results Laboratory Tests Test 09/02/19 01:16 09/02/19 01:21 09/02/19 01:34 Range/Units Urine Color RED H Urine Clarity SL CLOUDY Urine pH 6.0 5-9 Urine Specific [place] <=1.005 1.016-1.022 Urine Protein TRACE NEGATIVE Urine Glucose (UA) NEGATIVE NEGATIVE Urine Ketones NEGATIVE NEGATIVE Urine Nitrite NEGATIVE NEGATIVE Urine Bilirubin NEGATIVE NEGATIVE Urine Urobilinogen 0.2 < = 1.0 MG/DL Urine Leukocyte Esterase 1+ H NEGATIVE Urine RBC (Auto) 3+ H NEGATIVE Urine RBC TNTC H /HPF Urine WBC 5-10 H /HPF Urine Squamous Epithelial Cells 0-2 /HPF Urine Crystals NONE /LPF Urine Bacteria TRACE /HPF Urine Casts NONE /LPF Urine Mucus SMALL H /LPF Urine Culture Indicated YES White Blood Count 8.4 4.3-11.0 10^3/uL Red Blood Count 4.70 4.35-5.85 10^6/uL Hemoglobin 14.0 11.5-16.0 G/DL Hematocrit 41 35-52 % Mean Corpuscular Volume 88 80-99 FL Mean Corpuscular Hemoglobin 30 25-34 PG Mean Corpuscular Hemoglobin Concent 34 32-36 G/DL Red Cell Distribution Width 14.8 H 10.0-14.5 % Platelet Count 268 130-400 10^3/uL Mean Platelet Volume 10.2 7.4-10.4 FL Neutrophils (%) (Auto) 67 42-75 % Lymphocytes (%) (Auto) 23 12-44 % Monocytes (%) (Auto) 7 0-12 % Eosinophils (%) (Auto) 3 0-10 % Basophils (%) (Auto) 1 0-10 % Neutrophils # (Auto) 5.6 1.8-7.8 X 10^3 Lymphocytes # (Auto) 1.9 1.0-4.0 X 10^3 Monocytes # (Auto) 0.6 0.0-1.0 X 10^3 Eosinophils # (Auto) 0.3 0.0-0.3 10^3/uL Basophils # (Auto) 0.0 0.0-0.1 10^3/uL Sodium Level 138 135-145 MMOL/L Potassium Level 3.2 L 3.6-5.0 MMOL/L Chloride Level 99 98-107 MMOL/L Carbon Dioxide Level 26 21-32 MMOL/L Anion Gap 13 5-14 MMOL/L Blood Urea Nitrogen 8 7-18 MG/DL Creatinine 0.78 0.60-1.30 MG/DL Estimat Glomerular Filtration Rate > 60 BUN/Creatinine Ratio 10 Glucose Level 119 H 70-105 MG/DL Calcium Level 9.0 8.5-10.1 MG/DL Corrected Calcium 8.7 8.5-10.1 MG/DL Total Bilirubin 0.2 0.1-1.0 MG/DL Aspartate Amino Transf (AST/SGOT) 17 5-34 U/L Alanine Aminotransferase (ALT/SGPT) 8 0-55 U/L Alkaline Phosphatase 112 40-136 U/L Total Protein 7.2 6.4-8.2 GM/DL Albumin 4.4 3.2-4.5 GM/DL My Orders Orders - JESS FONTANEZ Cbc With Automated Diff (09/02/19 00:21) Comprehensive Metabolic Panel (09/02/19 00:21) Ua Culture If Indicated (09/02/19 00:27) Wet Prep (09/02/19 01:12) Neisseria Gonorrhea Swab (09/02/19 01:12) Chlamydia Trachomatis Swab (09/02/19 01:12) Syphilis Antibody Screen (09/02/19 01:12) Urine Culture (09/02/19 01:16) Vital Signs/I&O 09/02/19 01:07 Temp 36.6 Pulse 75 Resp 16 B/P (MAP) 112/55 (74) Pulse Ox 96 O2 Delivery Room Air Capillary Refill : Progress Note #1: Time: 01:18 Progress Note Plan to do a speculum vaginal exam get a wet prep, A probe for GC and chlamydia as well as check some basic labs to look for anemia and syphilis. Progress Note #2: Time: 02:08 Progress Note Wet prep came back a few white blood cells but no bacteria or clue cells. Departure Impression Primary Impression: Vaginal bleeding Additional Impression: Urinary tract infection Qualified Codes: N30.01 - Acute cystitis with hematuria Disposition: HOME, SELF-CARE Condition: Stable Departure-Patient Inst. Decision time for Depature: 02:08 Referrals: SOLEDAD RICK MD (PCP/Family) Primary Care Physician MAX BALL DO Patient Instructions: Bleeding After Menopause Add. Discharge Instructions: Plan to follow up with Dr. Ball, gynecology to discuss other causes of vaginal bleeding and how to work this up. Plan to start Macrobid one tablet twice a day for the next 7 days for urinary tract infection. All discharge instructions reviewed with patient and/or family. Voiced un derstanding. Scripts Nitrofurantoin Monohyd/M-Cryst (Macrobid 100 mg Capsule) 100 Mg Capsule 1 TAB PO BID for 7 Days, #14 CAP 0 Refills Prov: JESS FONTANEZ 09/02/19 Copy Copies To 1: MAX BALL DO JESS FONTANEZ Sep 02, 2019 01:19 POS
[2019-09-02 01:23] LABS: BILIRUBIN,URINE NEGATIVE (NEGATIVE); CLARITY,URINE SL CLOUDY; COLOR,URINE RED; GLUCOSE, URINE (UA) NEGATIVE (NEGATIVE); KETONES,URINE NEGATIVE (NEGATIVE); LEUKOCYTE ESTERASE ,URINE 1+ (NEGATIVE); NITRITE,URINE NEGATIVE (NEGATIVE); PROTEIN,URINE TRACE (NEGATIVE)
[2019-09-02 01:30] LABS: BASOPHILS % (AUTO) 1 % (0-10); EOSINOPHILS # (AUTO) 0.3 10^3/uL (0.0-0.3); EOSINOPHILS % (AUTO) 3 % (0-10); HEMATOCRIT 41 % (35-52); LYMPHOCYTES # (AUTO) 1.9 X 10^3 (1.0-4.0); LYMPHOCYTES % (AUTO) 23 % (12-44); MEAN CORPUSCULAR HEMOGLOBIN 30 PG (25-34); MEAN CORPUSCULAR HGB CONC 34 G/DL (32-36); MEAN CORPUSCULAR VOLUME 88 FL (80-99); MEAN PLATELET VOLUME 10.2 FL (7.4-10.4); MONOCYTES # (AUTO) 0.6 X 10^3 (0.0-1.0); MONOCYTES % (AUTO) 7 % (0-12); NEUTROPHILS # (AUTO) 5.6 X 10^3 (1.8-7.8); NEUTROPHILS % (AUTO) 67 % (42-75); PLATELET COUNT 268 10^3/uL (130-400); RED CELL DISTRIBUTION WIDTH 14.8 % (10.0-14.5); WHITE BLOOD COUNT 8.4 10^3/uL (4.3-11.0)
[2019-09-02 01:43] LABS: BACTERIA,URINE TRACE /HPF; RBC,URINE TNTC /HPF
[2019-09-02 01:44] LABS: SQUAMOUS EPITHELIAL CELL,UR 0-2 /HPF
[2019-09-02 01:47] LABS: ALANINE AMINOTRANSFERASE 8 U/L (0-55); ALBUMIN 4.4 GM/DL (3.2-4.5); ALKALINE PHOSPHATASE 112 U/L (40-136); BILIRUBIN,TOTAL 0.2 MG/DL (0.1-1.0); BUN/CREATININE RATIO 10; CARBON DIOXIDE 26 MMOL/L (21-32); CHLORIDE 99 MMOL/L (98-107); CREATININE SERUM 0.78 MG/DL (0.60-1.30); GFR ESTIMATED > 60; GLUCOSE 119 MG/DL (70-105); POTASSIUM 3.2 MMOL/L (3.6-5.0); SODIUM 138 MMOL/L (135-145); TOTAL PROTEIN 7.2 GM/DL (6.4-8.2)
[2019-09-02] MEDS ORDERED: NITR-65 PO (02:12)
[2019-09-02 02:15] VITALS: BP 110/56
== END 2019-09-02 02:16 | disposition home or self-care (01) ==
LOC: EDUNIT# 00:13 → ER 00:15
DX: N93.9 Abnormal uterine and vaginal bleeding, unspecified (principal); N39.0 Urinary tract infection, site not specified; E78.00 Pure hypercholesterolemia, unspecified; E03.9 Hypothyroidism, unspecified; F90.9 Attention-deficit hyperactivity disorder, unspecified type; F41.9 Anxiety disorder, unspecified; F31.9 Bipolar disorder, unspecified; D64.9 Anemia, unspecified; F17.210 Nicotine dependence, cigarettes, uncomplicated; Z90.710 Acquired absence of both cervix and uterus; Z88.8 Allergy status to other drugs, medicaments and biological substances
CPT/HCPCS: 36415; 80053; 81000; 85025; 86780; 87088; 87210; 87491; 87591; 99284

== ENCOUNTER 2019-12-06 09:15 | Outpatient (CLI) | payer MEDICARE, MEDICAID ==
[~2019-12-06] VITALS: Ht 160 cm; Wt 52.3 kg
== END 2019-12-06 10:11 | disposition home or self-care (01) ==
LOC: PREOP 09:15
PROVIDERS: ATTEND Specialist
DX: Z01.818 Encounter for other preprocedural examination (principal)

== ENCOUNTER 2020-02-12 09:05 | Outpatient (RCR) | payer MEDICARE, MEDICAID ==
[~2020-02-12] VITALS: Ht 160 cm; Wt 54.3 kg
[~2020-02-12 09:05] MED LIST changes: +GABA-486 PO
== END 2020-02-12 15:48 | disposition home or self-care (01) ==
LOC: PREOP 09:05
PROVIDERS: ATTEND Specialist
DX: Z01.818 Encounter for other preprocedural examination (principal); Z11.59 Encounter for screening for other viral diseases
CPT/HCPCS: 87635

== ENCOUNTER 2020-02-15 06:07 | Day surgery (SDC) | payer MEDICARE, MEDICAID ==
[~2020-02-15] VITALS: Ht 160 cm; Wt 54.3 kg
[2020-02-15] MEDS ORDERED: MOXIFLOXACIN OPHTH SOLN 5 MG/ML 0.3 ML SYRINGE OP ONE (06:15)
[2020-02-15] MEDS ORDERED: TIMOLOL MALEATE 0.5% 5 ML (TIMOPTIC) BTL OU PRN (06:15)
[2020-02-15] MEDS ORDERED: POVIDONE (BETADINE) OPHTH SOLN 5% 30 ML OP ONE (06:15)
[2020-02-15] MEDS ORDERED: LIDOCAINE PF 1% 2 ML VIAL IR PRN (06:15)
[2020-02-15 06:20] VITALS: BP 105/55
[2020-02-15] MEDS: TETRACAINE 0.5% OPHTH SOLN 4 ML BTL (SINGLE DOSE ONLY) OU PRN ×4 (06:24→06:41)
[2020-02-15] MEDS: CYCLOPENTOLATE 1% (CYCLOGYL) 2 ML DROPS OP SCH ×3 (06:30→06:41)
[2020-02-15] MEDS: PHENYLEPHRINE 10% OPHTH (NEO-SYN) 5 ML BTL OU SCH ×3 (06:30→06:41)
[2020-02-15] MEDS ORDERED: MIDAZOLAM 2 MG/2 ML (VERSED) VIAL ONE (07:06)
--- NOTE | 2020-02-15 07:30 | Ophthalmologist Pre-Op Note ---
Pre-Operative Progress Note H&P Reviewed The H&P was reviewed, patient examined and no changes noted. Date H&P Reviewed: February 15, 2020 Time H&P Reviewed: 07:30 Pre-Op Dx Cataract, Right Eye CRISTHIAN POSADA MD February 15, 2020 07:30
--- NOTE | 2020-02-15 07:56 | Ophthalmology Operative Report ---
Cataract removal/placement IOL PREOPERATIVE DIAGNOSIS: Cataract Right Eye POSTOPERATIVE DIAGNOSIS: Cataract Right Eye PROCEDURE: Cataract removal and placement of posterior chamber implant, right eye SURGEON: Yosvany Posada ANESTHESIA: Topical with sedation COMPLICATIONS: None ESTIMATED BLOOD LOSS: Minimal DESCRIPTION OF PROCEDURE: After proper informed consent was obtained, the patient, a 54 female, was taken to the Operating Room and the right eye was anesthetized with tetracaine. The right eye was then prepped and draped in the usual manner. A wire lid speculum was placed. A paracentesis was made at the left hand position. Preservative free lidocaine was injected into the anterior chamber followed by viscoelastic. A clear corneal incision was made in the temporal position. A capsulorrhexis was preformed and the central nuclear and cortical material were removed. The posterior capsule was polished and Josiah 20.0 AU00T0 IOL was placed into the capsular bag. The residual viscoelastic was aspirated and balanced saline solution was injected into the anterior chamber. Moxifloxacin was injected into the anterior chamber. The wound was checked and found to be water tight. The patient tolerated the procedure well without complications. YOSVANY POSADA MD February 15, 2020 07:56
[2020-02-15 08:00] VITALS: BP 120/71
--- OUTSIDE RECORDS SUMMARY | 2020-02-15 08:35 | XMS REPORT ---
Author Author [employer] [facility] Address [address] [address] Care Team Providers Care Upper Tier Name Role Phone MADL, ROBBIE Unavailable Unavailable [facility] Unavailable [phone] SANTOS VELIZ Unavailable NO, LOCAL PHYSICIAN Unavailable Unavailable [facility] Unavailable [phone] MADL, ROBBIE Unavailable JOSSELYN Cavlo Unavailable JOSSELYN Calvo Unavailable Umesh JOSSELYN Unavailable DONALDO, DREW Unavailable DONALDO, DREW Unavailable MADL, ROBBIE Unavailable DONALDO, DREW Unavailable DONALDO, DREW Unavailable SOLEDAD RICK Unavailable DONALDO, DREW Unavailable SOLEDAD RICK Unavailable SOLEDAD RICK Unavailable SOLEDAD RIKC Unavailable SOLEDAD RICK Unavailable SOLEDAD RICK Unavailable Migration, Doctor Unavailable Unavailable Migration, Doctor Unavailable Unavailable Migration, Doctor Unavailable Unavailable Migration, Doctor Unavailable Unavailable Migration, Doctor Unavailable Unavailable DIEGO DOVE BARREL COOPER Unavailable Unavailable MARIKA CAROLINA, MARTIN Rinaldi Unavailable Unavailable RAJENDRA SLAUGHTER BARREL COOPER Unavailable Unavailable ELIAS HERMAN BARREL COOPER Unavailable Unavailable DUKE CAROLINA, BRENNAN Singleton Unavailable Unavailable CHRIS CAROLINA, CELESTINO Peterson Unavailable Unavailable SOLEDAD RICK Unavailable Unavailable [facility] PCP Migration, Doctor Unavailable Unavailable SOLEDAD RICK PCP JAMISON RING DO Unavailable Unavailable Migration, Doctor Unavailable Unavailable MADL, ROBBIE Unavailable MADL, ROBBIE Unavailable Migration, Doctor Unavailable Unavailable MADL, ROBBIE Unavailable MADL, ROBBIE Unavailable MADL, ROBBIE Unavailable MADL, ROBBIE Unavailable MADL, ROBBIE Unavailable Halie, DIEGO Unavailable SOLEDAD RICK Unavailable JESS FONTANEZ Unavailable Unavailable SOLEDAD RICK PCP BROWN, ARIES Unavailable Unavailable BROWN, ARIES Unavailable Unavailable BROWN, ARIES Unavailable Unavailable zzHEIMMAURA DIEGO Unavailable Migration, Doctor Unavailable Unavailable CRISTHIAN POSADA MD Unavailable Unavailable MADL, ROBBIE Unavailable MADL, ROBBIE Unavailable Migration, Doctor Unavailable Unavailable Migration, Doctor Unavailable Unavailable Migration, Doctor Unavailable Unavailable SOLEDAD RICK Unavailable Unavailable Unavailable Unavailable Unavailable Unavailable Unavailable Unavailable Unavailable Unavailable Unavailable Unavailable Unavailable Allergies The data below is from unstructured sourcesNo Known Allergies No Known Allergies No Known Allergies No Known Allergies No Known Allergies Unknown Allergies Unknown Allergies No Information No Information No Information No Information No Information No Information No Information No Information No Information No Information No Information No Information No Information No Information No Information No Information No Information No Information No Information No Information No Information No Information No Information No Information No Information No Information No Information No Information No Information No Information No Information No Information No Information No Information No Information No Information No Information No Information No Information No Information No Information No Information No Information No Information No Information No Information No Information No Information No Information No Information No Information No Information No Information No Information No Information No Information No Information No Information No Information No Information No Information No Information No Information No Information Medications Medication Ingredient Drug Dose Dates Status Sig Sig Care Class(es) (Normalized) (Original) Provid er no Acetaminoph no 07-27-20 Complete no Acetaminophe (no information en/Hydrocod information 12 d information n/ Hydrocodon phone) (2 one Bitart e Bitart sources.) (Lortab 5 (Lortab 5 Mg Mg Tablet) Tablet) 1 1 Each Each Tablet, Tablet, 1 1 Each Oral Each Oral Three Times A Day as needed Discontinued no Acetaminoph no 01-09-20 Complete no Acetaminophe (no information en/Hydrocod information 15 d information n/ Hydrocodon phone) (2 one Bitart e Bitart sources.) (Lortab 5 (Lortab 5 Mg Mg Tablet) Tablet) 1 1 Each Each Tablet, Tablet, 1-2 1-2 Each Each Oral Oral Every 6 Hours as needed Discontinued no Amphetamine no 06-30-20 Complete no Amphetamine ( no information Aspartate/A information 16 d information As partate/Am phone) (2 mphetam phetam Sulf sources.) Sulf (Adderall 10 (Adderall Mg Tablet) 10 Mg 10 Mg Tablet) 10 Tablet, 1 Mg Tablet, Tab Oral 1 Tab Oral Twice A Day Discontinued no Ascorbate no 02-22-20 Complete no Ascorbate (no information Calcium information 13 d information Calciu m phone) (2 (Vitamin C) (Vitamin C) sources.) 500 Mg 500 Mg Tablet, 500 Tablet, 500 Mg Oral Mg Oral Daily Discontinued no Bisacodyl no 12-17-19 Complete no Bisacodyl Peter information (Dulcolax information 14 - d information (Dul colax [employer] (2 Tab) 5 Mg 06-30-20 Tab) 5 Mg Slaughter sources.) Tab, 10 Mg 16 Tab, 10 Mg (no Oral Oral Daily phone) 12/16/13 Discontinued no Cholecalcif no 02-22-20 Complete no Cholecalcife (no information willie information 13 d information rol (Vi tamin phone) (2 (Vitamin D3) (Vitamin sources.) D3) D-3) 2,000 (Vitamin Unit D-3) 2,000 Capsule, Unit 1000 Unit Capsule, Oral Daily 1000 Unit Discontinued Oral no Esomeprazol no 06-22-20 Complete no Esomeprazole Sunita K information e Magnesium information 09 - d information Ma gnesium [place] (2 (Nexium) 40 07-27-20 (Nexium) 40 (no sources.) Mg 12 Mg phone) Capsule.dr, Capsule., 1 Cap Oral 1 Cap Oral Daily 06/22/09 Discontinued no Hydrocodone no 12-17-19 Complete no Hydrocodone P eter information Bit/Acetami information 14 - d information Bi t/Acetamin [employer] (2 nophen 01-09-20 ophen [place]aughter sources.) (Hydrocodon 15 (Hydrocodone (no e-Apap -Apap 5-325 phone) 5-325 Tab) Tab) 1 Tab 1 Tab Tablet, 1 Tablet, 1 Tab Oral Tab Oral Every 4HRS 12/16/13 Discontinued no Hydroxyzine no 02-22-20 Complete no Hydroxyzine ( no information Hcl information 13 d information Hcl phone) (2 (Hydroxyzin (Hydroxyzine sources.) e 25 Mg 25 Mg Tablet) 25 Tablet) 25 Mg Tablet, Mg Tablet, 1 1 Each Oral Each Oral Three Times A Day And Prn Discontinued no Levothyroxi no 06-30-20 Complete no Levothyroxin (no information ne , 25 Not information 16 d information e , 25 Not phone) (2 Applicable Applicable sources.) Discontinued no Meloxicam no 07-27-20 Complete no Meloxicam 15 (n o information 15 Mg information 12 d information Mg Tabl et, 1 phone) (2 Tablet, 1 Each Oral sources.) Each Oral Daily Discontinued no Methylpheni no 20 mg 04-18-20 Complete take 1 Methyl phenid (no information date Hcl information 13 d tablet by ate Hcl phone) (2 (Methylphen mouth three (Methylpheni sources.) idate Er) times daily date Er) 10 10 Mg Mg Tablet.sa, Tablet.sa, 20 Mg Oral 20 Mg Oral Three Times A Day Discontinued no Metoclopram no 06-22-20 Complete no Metocloprami Sunita K information howard Hcl 10 information 09 - d information de Hcl 10 Mg [place] (2 Mg Tablet, 07-27-20 Tablet, 1 (no sources.) 1 Each Oral 12 Each Oral phone) Qid Prn 06/22/09 Discontinued no Mirtazapine no 07-27-20 Complete no Mirtazapine ( no information (Mirtazapin information 12 d information (M irtazapine phone) (2 e 30 Mg) 30 30 Mg) 30 Mg sources.) Mg Tablet, Tablet, 1 1 Each Oral Each Oral Bedtime Discontinued nitrofurant NITROFURANT Nitrofuran 09-02-20 Complete no Nitr ofuranto no oin, OIN, Antibacteri 19 - d information in name tarun WALSH al 09-09-20 Monohyd/M-Cr ls 25 mg / LS / 19 yst nitrofurant Nitrofurant Discontinued oin, oin, 1 ORAL Twice monohydrate Monohydrate A Day 14 7 75 mg oral Jorge capsule (2018 source.) 2:12am September 09, 2019 no Ondansetron no 06-22-20 Complete no Ondansetron L maisha K information Hcl (Zofran information 09 - d information Hc l (Zofran [place] (2 Oral 08-26-20 Oral (no sources.) Dissolve) 4 11 Dissolve) 4 phone) Mg Tab, 4 Mg Tab, 4 Mg Mg Oral Oral Every 4HRS 06/22/09 Discontinued no Oxybutynin no 02-22-20 Complete no Oxybutynin (no information Chloride 5 information 13 d information Chl oride 5 phone) (2 Mg Tablet, Mg Tablet, 1 sources.) 1 Each Oral Each Oral Twice A Day Discontinued no Premarin no 06-30-20 Complete no Premarin (no information Cream , Not information 16 d information Cr eam , Not phone) (2 Applicable Applicable sources.) Discontinued Problems Active Problems Problem Normalized Date Last Normalized Normalized Provider Fa cility Classification Problem(s) Recorded Problem Problem Sta tus Duration Other female Abnormal 02-15-2020 - Chronic Active JESS WELLE R [facility] Via genital uterine and [place] disorders (14 vaginal Hospital - sources.) bleeding, [place] unspecified ([id number]) 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 Active JESS HUSEYIN V [facility] Via codes; absence of [place] unclassified both cervix Hospital - (7 sources.) and uterus [place] ([id number]) Attention-defi Attention-defi 02-15-2020 - Chronic Active DORETHA TT RING , [facility] Via cit conduct cit DO [place] and disruptive hyperactivity Hospital - behavior disorder, [place] disorders (9 combined type (02422) sources.) Attention-defi Attention-defi 02-15-2020 - Chronic Active TIT US HUSEYIN [facility] Via cit conduct cit [place] and disruptive hyperactivity Hospital - behavior disorder, [place] disorders (7 unspecified (45334) sources.) type Other and Benign 02-15-2020 - Episodic Active JAMISON RING , [facility] Via unspecified neoplasm of DO [place] benign sigmoid colon Hospital - neoplasm (9 [place] sources.) ([address]871) Other Constipation, Episodic Active RAJENDRA SLAUGHTER Not Av ailable gastrointestin unspecified (86528) al disorders (4 sources.) Other Diarrhea, 02-15-2020 - Episodic Active BRENNAN [facility] Via gastrointestin unspecified MD [place] WALL al disorders Hospital - (8 sources.) [place] ([address]99) 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 , [facility]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 (8 Hospital - sources.) [place] (74353) Other diseases Overactive 02-15-2020 - Chronic Active MARTIN T AWIL , [facility] Via of bladder and bladder [facility] urethra (8 Hospital - sources.) [place] ([address]) Other and Personal 02-15-2020 - Episodic Active JAMISON RING , [facility] Via unspecified history of DO [place] benign colonic polyps Hospital - neoplasm (9 [place] sources.) (10070) Other liver Unspecified Chronic Active MAX BALL , Not Available diseases (1 disorder of DO (79332) source.) liver Genitourinary Unspecified 02-15-2020 - Chronic Active MARTIN T AWIL , [facility] Via symptoms and urinary [facility] ill-defined incontinence Hospital - conditions (17 [place] sources.) (55823) Other female Vaginal Chronic Active SOLEDAD RICK [facility] genital bleeding [address]606 [place] disorders (1 Hospital source.) (43730) Past or Other Problems Problem Normalized Date Last Normalized Normalized Provider Fa cility Classification Problem(s) Recorded Problem Problem Sta tus Duration Disorders of Pure no information no information JAMISON BUCKLEY R , [facility] Via lipid hypercholester DO [place] metabolism (3 [place], Hospital - sources.) unspecified [place] ([address]605) Other female Unspecified Episodic Completed SANTOS Not Divina ilable genital symptom MD JOSE ALFREDO ([id number]) disorders (1 associated source.) with female genital organs Procedures Procedure Normalized Procedure Procedure Result Performer Facility Date 02-06-2019 Administration of no information JAMISON RING As cension Via [facility] ([id number]) 05-11-2018 Collection venous no information no name Critical access hospital blood venipuncture [facility] (24779) 02-06-2019 Colonoscopy no information JAMISON R[facility] (88389) 06-01-2018 FQHC visit, estab pt no information no name [facility] (43815) 04-20-2018 [facility]HC visit, estab pt no information no name Co [facility] ([id number]) 02-24-2018 FQHC visit, estab pt no information no name Co [facility] (60531) 05-11-2018 LAB NOT BILLED BY no information no name Critical access hospital [facility] (19842) Immunizations Normalized Immunization Date Notes Care Provider Facili ty Immunization influenza, seasonal, 07-20-2019 no information no name [facility] (77184) vaccine no information [facility] [place] Via Translations: [ [address] [facility] vaccine] (99150) no information 09-02-2019 no information SOLEDAD RICK [address] [place] Via [facility] (55240) no information 02-06-2019 no [facility] [address] [place] Via [facility] ([id number]) Results Test Name Value Interpretation Reference Range Date Time Fa cility (Normalized) (Normalized) (Medline Reference) laboratory on 2020-02-12 Coronavirus Ab Negative (no code) 02-12-2020 PENDING LOC ATION Qn (S) 09:40-0400 [facility] ([id number]) laboratory on 2019-10-08 Albumin 4.4 g/dL (N) 3.4 - 5.4 g/dL [facility] [Mass/Vol] [facility] (96460) Albumin/Globulin 1.9 {ratio} (N) 1 - 2.5 {ratio} [facility] [Mass ratio] [facility] (54788) ALP [Catalytic 105 U/L (N) 44 - 147 U/L [facility] activity/Vol] [facility] (56324) ALT [Catalytic 9 U/L (N) 4 - 40 U/L [facility] activity/Vol] [facility] (67689) AST [Catalytic 14 U/L (N) 10 - 34 U/L [facility] activity/Vol] [facility] (49745) Bilirubin 0.7 mg/dL (N) 0.1 - 1.2 mg/dL [facility] [Mass/Vol] [facility] (66916) Calcium 9.7 mg/dL (N) 8.5 - 10.2 mg/dL [facility] [Mass/Vol] [facility] (14964) Chloride 98 mmol/L (N) 95 - 106 mmol/L [facility] [Moles/Vol] [facility] (47888) Cholesterol 185 mg/dL (N) 180 - 200 mg/dL [facility] [Mass/Vol] [facility] (66907) Cholesterol in 56 mg/dL (N) [facility] HDL [Mass/Vol] [facility] (93316) Cholesterol in 112 mg/dL (H) 0 - 100 mg/dL [facility] LDL [Mass/Vol] [facility] (07009) Cholesterol non 129 mg/dL (N) [facility] HDL [Mass/Vol] [facility] (05656) Cholesterol.tota 3.3 {ratio} (N) [facility] l/Cholesterol in [facility] HDL [Mass ratio] [facility] (92717) CO2 [Moles/Vol] 35 mmol/L (H) 23 - 29 mmol/L [facility] (24610) Creatinine 0.87 mg/dL (N) [facility] h [Mass/Vol] [facility] (96931) GFR/1.73 sq M 88 (N) 90 - 120 [facility] predicted among mL/min/{1.73_m2} mL/min/{1.73_m2} [place] MDRD [facility] (S/P/Bld) [Vol (34125) rate/Area] GFR/1.73 sq 76 (N) 90 - 120 [facility] M.predicted MDRD mL/min/{1.73_m2} mL/min/{1.73_m2} [facility] (S/P/Bld) [Vol [facility] rate/Area] (34436) Globulin (S) 2.3 g/dL (N) 2 - 3.5 g/dL [facility] ealth [Mass/Vol] [facility] (59996) Glucose 109 mg/dL (H) 60 - 125 mg/dL [facility] [Mass/Vol] [facility] (10567) Potassium 4.4 mmol/L (N) 3.7 - 5.2 mmol/L [facility] [Moles/Vol] [facility] (53170) Protein 6.7 g/dL (N) 6.4 - 8.3 g/dL [facility] [Mass/Vol] [facility] (12324) Sodium 140 mmol/L (N) 135 - 145 mmol/L [facility] [Moles/Vol] [facility] (70401) Triglyceride 83 mg/dL (N) 0 - 150 mg/dL [facility] [Mass/Vol] [facility] (89875) Urea nitrogen 8 mg/dL (N) 7 - 20 mg/dL [facility] [Mass/Vol] [facility] (98006) Urea NOT APPLICABLE (no code) [facility]/Creatin [facility] [Mass ratio] [facility] () not yet categorized on 2019-09-13 BLO 2+ (no code) [facility] () KET 10/09~yellow~clou (no code) [facility] dy~no~neg~neg~ne [facility] (75555) FRANTZ neg~1+ (no code) [facility] (81094) Lot # [id number] (no code) [facility] (65595) SG 1.015 (no code) [facility] (43372) URO 0.2 (no code) [facility] (56161) laboratory on 2019-09-13 Bacteria SEE NOTE (A) [facility] identified Cx [facility] (U) [facility] (16331) pH (Bld) 7.0 [pH] (no code) 7.38 - 7.42 [pH] [facility] (91218) Protein (U) Negative (no code) 0 - 20 mg/dL [facility] alth [Mass/Vol] [facility] (82495) other on 2018-05-11 Albumin/Globulin 1.8 (N) [facility] lt mass ratio [facility] (20450) Cholesterol in 116 (H) no information LDL mass conc Cholesterol non 147 (H) no information HDL mass conc Cholesterol.tota 5.2 (H) no informatio n l/Cholesterol in HDL mass ratio Globulin 2.3 (N) [facility] h Calculated mass [facility] (S) [facility] (38520) metabolic panel on 2018-05-11 Albumin mass 4.2 g/dL (N) 3.4 - 5.4 g/dL [facility] (52425) ALP enzyme 108 U/L (N) 44 - 147 U/L [facility] act/vol [facility] (74403) ALT enzyme 5 U/L (L) 4 - 40 U/L [facility] act/vol [facility] (80697) AST enzyme 18 U/L (N) 10 - 34 U/L [facility] act/vol [facility] (66743) Bilirubin mass 0.5 mg/dL (N) 0.1 - 1.2 mg/dL [facility] (28217) Calcium mass 9.5 mg/dL (N) 8.5 - 10.2 mg/dL [facility] (51000) Chloride molar 103 mmol/L (N) 95 - 106 mmol/L [facility] (64673) CO2 molar conc 33 mmol/L (H) 23 - 29 mmol/L [facility] (12763) Creatinine mass 0.84 mg/dL (N) [facility] (40458) GFR/1.73 sq M 92 (N) 90 - 120 [facility] predicted among mL/min/{1.73_m2} mL/min/{1.73_m2} [place] [facility] blacks MDRD vol [facility] rate/area (08268) (S/P/Bld) GFR/1.73 sq 79 (N) 90 - 120 [facility] M.predicted MDRD mL/min/{1.73_m2} mL/min/{1.73_m2} [facility] rate/area [facility] (08697) Glucose mass 85 mg/dL (N) 60 - 125 mg/dL [facility] (25503) Potassium molar 4.3 mmol/L (N) 3.7 - 5.2 mmol/L [facility] (88372) Protein mass 6.5 g/dL (N) 6.4 - 8.3 g/dL [facility] (58130) Sodium molar 142 mmol/L (N) 135 - 145 mmol/L [facility] (98784) Urea nitrogen 5 mg/dL (L) 7 - 20 mg/dL [facility] conc [facility] (86522) Urea 6 mg/mg (N) 6 - 22 mg/mg [facility] alth nitrogen/Creatin [facility] mass ratio [facility] (47519) cardiac on 2018-05-11 Cholesterol in 35 mg/dL (L) no information HDL mass conc Cholesterol mass 182 mg/dL (N) 180 - 200 mg/dL no i nformation conc Triglyceride 191 mg/dL (H) 0 - 150 mg/dL no informa tion mass conc other on 2017-05-17 Albumin/Globulin 1.6 {ratio} (no code) 1 - 2.5 {ratio} 7 Not Available [Mass ratio] 09: (99360) Cholesterol in 21 mg/dL (no code) 05-17-2017 Not Availab le VLDL [Mass/Vol] 09: (97472) Globulin (S) 2.7 g/dL (no code) 2 - 3.5 g/dL 05-17-2017 Not Av ailable [Mass/Vol] 09: (86781) metabolic panel on 2017-05-17 Albumin 4.4 g/dL (no code) 3.4 - 5.4 g/dL 05-17-2017 Not Divina ilable [Mass/Vol] 09: (91670) ALP [Catalytic 122 U/L (H) 44 - 147 U/L 05-17-2017 Not Available activity/Vol] 09: (85318) ALT [Catalytic 10 U/L (no code) 4 - 40 U/L 05-17-2017 Not Av ailable activity/Vol] 09: (62772) AST [Catalytic 21 U/L (no code) 10 - 34 U/L 05-17-2017 Not A vailable activity/Vol] 09: (48180) Bilirubin 0.4 mg/dL (no code) 0.1 - 1.2 mg/dL 05-17-2017 Not Av ailable [Mass/Vol] 09: () Calcium 9.7 mg/dL (no code) 8.5 - 10.2 mg/dL 05-17-2017 Not A vailable [Mass/Vol] 09: (42104) Chloride 96 mmol/L (no code) 95 - 106 mmol/L 05-17-2017 Not Av ailable [Moles/Vol] 09: (31962) CO2 [Moles/Vol] 27 mmol/L (no code) 23 - 29 mmol/L 05-17-2017 N ot Available 09: () Creatinine 0.69 mg/dL (no code) 05-17-2017 Not Available [Mass/Vol] 09: (57312) GFR/1.73 sq M 116 (no code) 90 - 120 05-17-2017 Not Avai lable predicted among mL/min/{1.73_m2} mL/min/{1.73_m2} 09: (92952) blacks MDRD (S/P/Bld) [Vol rate/Area] GFR/1.73 sq M 100 (no code) 90 - 120 05-17-2017 Not Avai lable predicted among mL/min/{1.73_m2} mL/min/{1.73_m2} 09: (42841) non-blacks MDRD (S/P/Bld) [Vol rate/Area] Glucose 95 mg/dL (no code) 60 - 125 mg/dL 05-17-2017 Not Divina ilable [Mass/Vol] 09: (94714) HbA1c (Bld) 5.3 % (no code) 0 - 5.7 % 05-17-2017 Not Availa ble [Mass fraction] 07:530400 (59391) Potassium 4.6 mmol/L (no code) 3.7 - 5.2 mmol/L 05-17-2017 Not Available [Moles/Vol] 09: (44783) Protein 7.1 g/dL (no code) 6.4 - 8.3 g/dL 05-17-2017 Not Divina ilable [Mass/Vol] 09: (09709) Sodium 140 mmol/L (no code) 135 - 145 mmol/L 05-17-2017 Not Available [Moles/Vol] 09: (09424) Urea nitrogen 9 mg/dL (no code) 7 - 20 mg/dL 05-17-2017 Not A vailable [Mass/Vol] 09: (33360) Urea 13 mg/mg (no code) 6 - 22 mg/mg 05-17-2017 Not Avail able nitrogen/Creatin 09: (83289) ine [Mass ratio] cardiac on 2017-05-17 Cholesterol 209 mg/dL (H) 180 - 200 mg/dL 05-17-2017 Not Available [Mass/Vol] 09: (81931) Cholesterol in 49 mg/dL (no code) 05-17-2017 Not Availab le HDL [Mass/Vol] 09: (23740) Cholesterol in 139 mg/dL (H) 0 - 100 mg/dL 05-17-2017 Not Available LDL [Mass/Vol] 09: (48158) Triglyceride 107 mg/dL (no code) 0 - 150 mg/dL 05-17-2017 Not A vailable [Mass/Vol] 09: (34067) Vital Signs Vital Sign Value Interpretation Reference Date Time Care Prov ider Facility (Normalized) (Normalized) Range BMI (Body Mass 21.7 kg/m2 (no code) 15 - 25 kg/m2 06-01-2018 DA JOSH RICK Community Index) 16:20-0400 13217 [facility] (49732) BMI (Body Mass 21.77 kg/m2 (no code) 15 - 25 kg/m2 04-20-2018 UY EN DONALDO Community Index) 16:[id number] 65786 [facility] (29724) BMI (Body Mass 21.96 kg/m2 (no code) 15 - 25 kg/m2 02-24-2018 D ANATOLY RICK Community Index) 14:00-0400 98580 [facility] (34419) Body 97.3 [degF] (no code) 97.8 - 99.0 06-01-2018 SOLEDAD FERGUSON [facility] Temperature [degF] 16:200400 [id number] [place] [address] (96906) Body 98 [degF] (no code) 97.8 - 99.0 02-24-2018 SOLEDAD TOTH [facility] Temperature [degF] 14:000400 [address] [place] [address] (77049) Height 160.02 cm (no code) cm 06-01-2018 [facility] 16:20-0400 08414 [facility] (48790) Height 160.02 cm (no code) cm 04-20-2018 DREW DONALDO [employer] 16:00762 [facility] (98774) Height 160.02 cm (no code) cm 02-24-2018 [facility] 14:000400 [address] [place] [address] (65821) Pulse Oximetry 97 % (no code) 95 - 100 % 04-20-2018 DREW DIN H Community 16:000400 95909 [facility] (63334) Weight 55.57 kg (no code) kg 06-01-2018 SOELDAD [employer] [id number] [facility] ([id number]) Weight 55.75 kg (no code) kg 04-20-2018 DREW hopper 16:00-0400 [id number] [facility] ([id number]) Weight 56.25 kg (no code) kg 02-24-2018 SOLEDAD Kelly ommunity 14:00-0400 [id number] [facility] ([id number]) Interventions No Information Plan of Treatment Normalized Care Care Detail Care Activity Date Care Provider F acility Activity (PSY-FU-20) [facility] 07-20-2018 [facility] [id number] [facility] 20 [facility] ([id number]) Bacteria identified no information no information SOLEDAD RICK [id number] [place] [address] [facility] (U) [facility] ([id number]) Patient Education Bleeding After no information SOLEDAD RICK [phone] [place] [address] [facility] ([id number]) Patient referral no information no information SOLEDAD RICK [phone] [place] [address] [facility] ([id number]) no information no information no information SOLEDAD RICK [phone] 2 [facility] ([id number]) Goals Patient Goal Desired Goal no information no information Social History Normalized Code Original Code Date Value Tobacco smoking status Tobacco smoking status no information Smokes tobacco daily VAIS NHIS (finding) no information no information 01-08-2015 Rarely Uses no information no information 12-16-2013 No no information no information 09-02-2019 Denies no information no information 09-02-2019 Current Everyda y Smoker no information no information 09-02-2019 Cigarettes Sex Assigned At Sex Assigned At no information F emale Functional Status The data below is from unstructured sourcesNo functional status results.No functional status results.No functional status results.No functional status results.No functional status results.No functional status information available.No functional status information available.No functional status information available.No functional status information available.No Functional Status information availableNo Functional Status information availabl e Mental Status The data below is from unstructured sourcesNo Mental Status Information Available Encounters Encounter Normalized Encounter Encounter Diagnosis Care Provi jasmin Organization Date Type 02-06-2019 Admission to day no information JAMISON RING Work 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 - 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 Phone: 02-06-2019 09-02-2019 Emergency department no information (no phone) [facility] patient visit Hospital (no phone) 09-02-2019 09-01-2019 Emergency department no information JESS FONTANEZ MD (no [facility] - patient visit phone) [facility] 09-01-2019 (no phone) 06-24-2016 Emergency department no information CELESTINO REYES [facility] - patient visit MD (no phone) [facility] 06-24-2016 (no phone) 06-20-2016 Emergency department no information BRENNAN BURRELL MD [facility] - patient visit (no phone) [facility] 06-20-2016 (no phone) 12-16-2013 Emergency department no information no name 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 - patient visit 12-16-2013 06-07-2018 Patient encounter no information no name no or ganization name 05-11-2018 Patient encounter no information no name no or ganization name 02-24-2018 Patient encounter no information no name no or ganization name 01-19-2018 Patient encounter no information no name no or ganization name 07-06-2016 Patient encounter no information no name no or ganization name - 07-06-2016 06-30-2016 Patient encounter no information no name no or ganization name - 06-30-2016 08-26-2014 Patient encounter no information no name no or ganization name 04-11-2013 Patient encounter no information no name no or ganization name 02-27-2013 Patient encounter no information no name no or ganization name 02-15-2020 Patient encounter no information CRISTHIAN POSADA MD (no [facility] procedure phone) [facility] (no phone) 02-12-2020 Patient encounter no information CRISTHIAN POSADA MD (no [facility] - procedure phone) [facility] 02-12-2020 (no phone) 02-07-2020 Patient encounter no information CRISTHIAN POSADA MD (no [facility] procedure phone) [facility] (no phone) 12-06-2019 Patient encounter no information CRISTHIAN POSADA MD (no [facility] - procedure phone) [facility] 12-06-2019 (no phone) 12-05-2019 Patient encounter no information CRISTHIAN POSADA MD (no [facility] procedure phone) [facility] (no phone) 10-16-2019 Patient encounter no information no name no or ganization name procedure 10-08-2019 Patient encounter no information no name no or ganization name procedure 09-22-2019 Patient encounter no information no name no or ganization name - procedure 09-22-2019 09-13-2019 Patient encounter no information no name no or ganization name procedure 09-06-2019 Patient encounter no information no name no or ganization name procedure 09-01-2019 Patient encounter no information no name no or ganization name procedure 02-06-2019 Patient encounter no information no name no or ganization name procedure 02-06-2019 Patient encounter no information no name no or ganization name - procedure 02-06-2019 02-06-2019 Patient encounter no information JAMISONBRITTANY RING DO (no [facility] - procedure phone) [facility] 02-06-2019 (no phone) 01-30-2019 Patient encounter no information JAMISON RING Wor k 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 - procedure Phone: 01-30-2019 JAMISON Mani RING 01-30-2019 Patient encounter no information JAMISONBRITTANY RING DO (no [facility] - procedure phone) [facility] 01-30-2019 (no phone) 01-22-2019 Patient encounter no information no name no or ganization name procedure 01-08-2019 Patient encounter no information ELI[facility] D [facility] 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 procedure [facility] 01-08-2019 Patient encounter no information ELIAS D VIRGIL BARREL COOPER (no [facility] procedure phone) [facility] (no phone) 07-06-2016 Patient encounter no information MARTIN HAIRSTON MD ( no [facility] - procedure phone) [facility] 07-06-2016 (no phone) 06-30-2016 Patient encounter no information MARTIN HAIRSTON MD ( no [facility] - procedure phone) [facility] 06-30-2016 (no phone) 12-07-2019 no information Encounter for other no name (no phone) preprocedural examination no information Encounter for other no name (no phone) preprocedural examination Medical Equipment The data below is from unstructured sourcesNo Medical Equipment Information available Payers Normalized Payer Value Medicaid no information ([id number]) Medicare [id number] ([id number]) Medicare no information ([id number]) Evaluation note Note Type Note Facility Evaluation No Assessments Information Available A scension note [facility] ([id number]) Summary Purpose eClinicalWorks SubmissioneClinicalWorks SubmissioneClinicalWorks Submission Advance Directives Directive Response Recor ded Date/Time Advance Directives No 6:03pm Health Care Power of Timber Cruiser No 06/20/16 6:03pm Organ Donor Yes 06/20/16 6:03pm Resuscitation Status Full Code 06/20/16 6:03pm Directive Response Recor ded Date/Time Advance Directives No 3:31pm Health Care Power of Timber Cruiser No 06/24/16 3:31pm Organ Donor Yes 06/24/16 3:31pm Resuscitation Status Full Code 06/24/16 3:31pm Directive Response Recor ded Date Advance Directives N 6:04pm Health Care Power of Timber Cruiser N 04/18/13 6:04pm Organ Donor Y 04/18/13 6 :04pm Directive Response Recor ded Date Advance Directives N 01/29 10:35am Health Care Power of Timber Cruiser N 02/21/13 10:35am Organ Donor Y 02/21/13 1 0:35am Directive Response Recor ded Date/Time Advance Directives No 4:10pm Health Care Power of Timber Cruiser No 01/08/15 4:10pm Organ Donor Yes 01/08/15 4:10pm Resuscitation Status Full Code 01/08/15 4:10pm Directive Response Recor ded Date/Time Advance Directives No 10:49am Health Care Power of Timber Cruiser No 01/30/19 10:49am Organ Donor Yes 01/30/19 10:49am Resuscitation Status Full Code 01/30/19 10:49am Directive Response Recor ded Date/Time Advance Directives No 7:44am Health Care Power of Timber Cruiser No 02/06/19 7:44am Organ Donor Yes 02/06/19 7:44am Resuscitation Status Full Code 02/06/19 7:44am Advance Directive Response Recorded Date/Time Advance Directives No Gonzalez 2018 1:07am Health Care Power of Timber Cruiser No September 02, 2019 1:07am Organ Donor Yes September 02, 2019 1:07am Resuscitation Status Full Code September 02, 2019 1:07am Discharge Instructions No hospital discharge instructions.No hospital discharge instructions.No hospital discharge instructions.No hospital discharge instruction information available.No hospital discharge instruction information available. 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 FOR RECORDS PERTAINING TO PATIENTS WHO ARE OR HAVE BEEN ENROLLED IN A CHEMICAL D EPENDENCY/SUBSTANCE ABUSE PROGRAM, SOME INFORMATION MAY BE OMITTED. This clinica l summary was aggregated from multiple sources. Caution should be exercised in using it in the provision of clinical care. This summary normalizes information from multiple sources, and as a consequence, information in this document may ma terially change the coding, format and clinical context of patient data. In giselle tion, data may be omitted in some cases. CLINICAL DECISIONS SHOULD BE BASED ON T HE PRIMARY CLINICAL RECORDS. [employer] provides no warranty or guara ntee of the accuracy or completeness of information in this document.The followi ng information is based on time limited clinical information UNRECOGNIZED CONTENT PROVIDED BELOW FOR UNRECOGNIZED SECTION MEDICAL (GENERAL) HISTORY Type Description Date Medical History Hypothyroidism Medical History chronic pain Medical History Anxiety disorder Medical History depression Medical History bipolar disorder Medical History attention deficit hy peractivity disorder Medical History cyst on liver Medical History endometriosis Medical History chronic irregular shea wels s/p back surgery with bowel injury Medical History CECY with freq UTIs Medical History PPV23 (PNEUMOVAX) DX Medical History Sees [facility] Medical History Bulging Discs Medical History High Cholestrol Medical History Major Depressive Dis order recurrent, moderate with anxious distress Medical History Panic Disorder witho ut Agoraphobia Medical History PTSD Medical History Tobacco User Medical History Urinary Incontinence Medical History HEART MURMUR Surgical History colonoscopy- polyps 2011 Surgical History hysterectomy, total with bilateral salpingo- oophorectomy (BSO) r/t adhesions and endometriosis, complicated by cystotomy, required transvaginal tape obturator (Dr. Ball) 2004 or 2006 Surgical History bladder mesh removed 06/2013 Surgical History removal of vaginal wall lesion 07/2012 Surgical History back surgery with i njury to bowel, bladder mesh for perforation Surgical History Bladder mesh Hospitalization History Surgery/ [facility] Hospitalization History Denies any p ast psychiatric hospitalizations Type Description Date Medical History Hypothyroidism Medical History chronic pain Medical History Anxiety/Depression/B ipolar/PTSD?Painic Disorder/ADHD-Sees [facility] Medical History cyst on liver Medical History endometriosis Medical History chronic irregular shea wels s/p back surgery with bowel injury Medical History CECY with freq UTIs Medical History PPV23 (PNEUMOVAX) DX Medical History Bulging Discs Medical History High Cholestrol Medical History Tobacco User Medical History Urinary Incontinence Medical History HEART MURMUR Surgical History colonoscopy- polyps 2011 Surgical History hysterectomy, total with bilateral salpingo- oophorectomy (BSO) r/t adhesions and endometriosis, complicated by cystotomy, required transvaginal tape obturator (Dr. Ball) 2004 or 2006 Surgical History bladder mesh removed 06/2013 Surgical History removal of vaginal wall lesion 07/2012 Surgical History back surgery with i njury to bowel, bladder mesh for perforation Surgical History Bladder mesh Hospitalization History Surgery/ [facility] Hospitalization History Denies any p ast psychiatric hospitalizations UNRECOGNIZED CONTENT PROVIDED BELOW FOR UNRECOGNIZED SECTION REASON FOR VISIT f/u -Clay Singh requestLab (walk-in)medication changesPain (acute)hip / 2 months right hip hurting taking tylenol for pain [facility] CHAPA, wants to discuss smoking cessation with sybil Harrison MA, wants to get mammogram [facility] stone 90 day supplyrequesting 90 day [id number]-M [facility]
--- OUTSIDE RECORDS SUMMARY | 2020-02-15 08:35 | XMS REPORT ---
Author Author Loan RICK Organization [facility] Address [address] [place] [address] Care Team Providers Care Counter Roller Name Role Phone SOLEDAD RICK Unavailable PROBLEMS Type Condition ICD9-CM Code XCA49-TJ Code Onset Dates Condition S tatus SNOMED Code Problem Mixed hyperlipidemia E78.2 Active 619653431 Problem Acquired hypothyroidism E03.9 Active 090483195 Problem COPD (chronic obstructive pulmonary disease) J44.9 Active 46924674 Problem Cigarette nicotine dependence without complication F17.210 Active 98664779 Problem Post-menopausal bleeding N95.0 Activ e 12694776 Problem Generalized anxiety disorder F41.1 A ctive 24536643 Problem Bipolar II disorder F31.81 Active 80381370 Problem Cannabis use disorder, mild, abuse F12.10 Active 99337909 Problem Hypothyroidism, unspecified E03.9 Ac tive 31435144 ALLERGIES No Information ENCOUNTERS Encounter Location Date Diagnosis [place] [id number] [facility] [id number] [address] [place] [address] Mar, [facility] [address] [facility] [id number] [address] [place] [address] 15 Dec, 2019 Bipolar II disorder F31.81 ; Generalized anxiety disorder F41.1 and Cannabis use disorder, mild, abuse F12.10 [facility] [address] [facility] [id number] [address] [place] [address] 15 Dec, 2019 [facility] [address] [facility] [id number] [address] [place] [address] 04 Nov, 2019 Post-menopausal bleeding N95 .0 [facility] [address] [facility] [id number] [address] [place] [address] Oct, Bipolar II disorder F31.81 [facility] [address] [facility] [id number] [address] [place] [address] 17 Oct, 2019 [place] [address] [place] [id number] [place] [address] Oct, [place] [address] [place] [id number] [place] [address] Sep, Post-menopausal bleeding N95 .0 and Cigarette nicotine dependence without complication F17.210 [place] [address] [address] Sep, Bipolar II disorder F31.81 [place] [address] [address] Sep, Other senior living (current) dr abdias craven Z79.899 [place] [address] [address] Sep, Urticaria L50.9 and Mixed hy perlipidemia E78.2 [place] [address] [address] Aug, Acute cystitis with hematuri a N30.01 and Dysuria R30.0 [place] [address] [address] Aug, Bipolar II disorder F31.81 ; Generalized anxiety disorder F41.1 and Cannabis use disorder, mild, abuse F12.10 [place] [address] [address] Aug, [place] [address] [address] Jul, [place] [address] [address] May, Bipolar II disorder F31.81 [place] [address] [place] [id number] [place] [address] Apr, Bipolar II disorder F31.81 ; Generalized anxiety disorder F41.1 ; Cannabis use disorder, mild, abuse F12.10 and Other senior living (current) drug therapy Z79.899 [place] [address] [facility] [id number] [address] [place] [address] January, Bipolar II disorder F31.81 ; Generalized anxiety disorder F41.1 and Cannabis use disorder, mild, abuse F12.10 [place] [address] [facility] [id number] [address] [place] [address] Dec, Well woman exam without gyne cological exam Z00.00 ; Screening for breast cancer Z12.31 and Screening for malignant neoplasm of colon Z12.11 [place] [address] [facility] [id number] [address] [place] [address] 06 Oct, 2018 Bipolar II disorder F31.81 ; Generalized anxiety disorder F41.1 and Cannabis use disorder, mild, abuse F12.10 [place] [address] [facility] [id number] [address] [place] [address] Jun, Trochanteric bursitis of rig ht hip M70.61 [place] [address] [facility] [id number] [address] [place] [address] 13 May, 2018 Trochanteric bursitis of rig ht hip M70.61 and Cigarette nicotine dependence without complication F17.210 [place] [address] [facility] [id number] [address] [place] [address] Apr, [place] [address] [facility] [id number] [address] [place] [address] Apr, Mixed hyperlipidemia E78.2 [place] [address] [facility] [id number] [address] [place] [address] Apr, [place] [address] [facility] [id number] [address] [place] [address] Apr, Bipolar II disorder F31.81 ; Generalized anxiety disorder F41.1 and Cannabis use disorder, mild, abuse F12.10 [place] [address] [facility] [id number] [address] [place] [address] Feb, Mixed hyperlipidemia E78.2 ; Acquired hypothyroidism E03.9 and Routine adult health maintenance Z00.00 [facility] [address] [facility] [id number] [address] [place] [address] January, Bipolar II disorder F31.81 [facility] [address] [facility] [id number] [address] [place] [address] January, Bipolar II disorder F31.81 ; Generalized anxiety disorder F41.1 ; Cannabis use disorder, mild, abuse F12.10 and Fatigue associated with anemia D64.9 [facility] [address] [facility] [id number] [address] [place] [address] Dec, Hypothyroidism, unspecified E03.9 ; Tobacco abuse Z72.0 and COPD (chronic obstructive pulmonary disease) J44.9 [place] [address] [place] [id number] [place] [address] Jul, Bipolar II disorder F31.81 ; Generalized anxiety disorder F41.1 and Cannabis use disorder, mild, abuse F12.10 [place] [id number] [place] [address] Apr, Bipolar II disorder F31.81 ; Nausea and vomiting in adult R11.2 ; Generalized anxiety disorder F41.1 ; Heartburn R12 and Cannabis use disorder, mild, abuse F12.10 [place] [address] [place] [id number] [place] [address] Apr, Bipolar II disorder F31.81 ; Generalized anxiety disorder F41.1 and Cannabis use disorder, mild, abuse F12.10 [place] [address] [facility] [id number] [address] [place] [address] Apr, Nausea and vomiting in adult R11.2 and Heartburn R12 [place] [address] [facility] [id number] [address] [place] [address] Apr, Bipolar II disorder F31.81 [place] [address] [facility] [id number] [address] [place] [address] Mar, Generalized anxiety disorder F41.1 [place] [address] [facility] [id number] [address] [place] [address] Feb, Bipolar II disorder F31.81 ; Generalized anxiety disorder F41.1 and Cannabis use disorder, mild, abuse F12.10 [place] [address] [place] [id number] [place] [address] January, Bipolar II disorder F31.81 ; Generalized anxiety disorder F41.1 and Cannabis use disorder, mild, abuse F12.10 [place] [address] [facility] [id number] [address] [place] [address] Dec, Bipolar II disorder F31.81 ; Generalized anxiety disorder F41.1 and Cannabis use disorder, mild, abuse F12.10 [place] [address] [facility] [id number] [address] [place] [address] Dec, Generalized anxiety disorder F41.1 [place] [address] [place] [id number] [place] [address] Nov, [place] [address] [place] [id number] [address] [place] [address] Nov, Generalized anxiety disorder F41.1 ; Cannabis use disorder, mild, abuse F12.10 and Bipolar II disorder F31.81 [place] [address] [place] [id number] [place] [address] Nov, Bipolar II disorder F31.81 [place] [address] [place] [id number] [place] [address] Nov, Bipolar II disorder F31.81 ; Generalized anxiety disorder F41.1 and Cannabis use disorder, mild, abuse F12.10 [place] [address] [facility] [id number] [address] [place] [address] Oct, [place] [address] [place] [id number] [place] [address] Oct, Bipolar II disorder F31.81 ; Generalized anxiety disorder F41.1 and Cannabis use disorder, mild, abuse F12.10 [place] [address] [place] [id number] [place] [address] 16 Aug, 2016 COPD (chronic obstructive pu lmonary disease) J44.9 [place] [address] [place] [id number] [address] [place] [address] 08 Aug, 2016 Recent urinary tract infecti on Z87.440 ; Acquired hypothyroidism E03.9 ; Encounter for immunization Z23 ; Mixed hyperlipidemia E78.2 ; COPD (chronic obstructive pulmonary disease) J44.9 and Tobacco abuse Z72.0 [place] [address] [address] 15 Jul, 2016 [place] [address] [place] [id number] [place] [address] 11 Jul, 2016 [place] [address] [address] 09 Jul, 2016 Recent urinary tract infecti on Z87.440 ; Acute cystitis with hematuria N30.01 ; Vaginal itching L29.8 and Skin infection L08.9 [place] [id number] [place] [address] 04 Jun, 2016 Hydronephrosis, unspecified hydronephrosis type N13.30 [place] [address] [place] [id number] [address] [place] [address] Apr, [place] [address] [address] Sep, Acquired hypothyroidism E03. 9 ; Mixed hyperlipidemia E78.2 ; COPD (chronic obstructive pulmonary disease) J44.9 and Thrush B37.0 [place] [address] [facility] [id number] [address] [place] [address] Aug, [place] [address] [place] [id number] [place] [address] Aug, Acquired hypothyroidism E03. 9 ; Mixed hyperlipidemia E78.2 ; COPD (chronic obstructive pulmonary disease) J44.9 and URI (upper respiratory infection) J06.9 [place] [address] [place] [id number] [address] [place] [address] January, Blood in stool 578.1 and Hernando ght loss 783.21 [facility] [address] [id number] [address] [place] [address] January, Other and unspecified hyperl ipidemia 272.4 ; Unspecified hypothyroidism 244.9 ; Nondependent tobacco use disorder 305.1 ; Weight loss 783.21 ; History of colon polyps V12.72 and Blood in stool 578.1 [facility] [address] [id number] [address] [place] [address] 30 Dec, 2014 [facility] [address] [id number] [address] [place] [address] Dec, [facility] [address] [id number] [address] [place] [address] Dec, [facility] [address] [id number] [address] [place] [address] Dec, [facility] [address] [id number] [address] [place] [address] Nov, [facility] [address] [id number] [address] [place] [address] Nov, [facility] [address] [facility] [id number] [address] [place] [phone] Nov, [facility] [address] [id number] [address] [place] [address] Nov, [facility] [address] [id number] [address] [place] [address] Sep, [facility] [address] [id number] [address] [place] [phone] Sep, [facility] [address] [facility] [id number] [address] [place] [address] Aug, [facility] [address] [facility] [id number] [address] [place] [phone] Aug, [facility] [address] [id number] [address] [place] [address], [place] [address] Aug, [facility] [address] [id number] [address] [place] [address], [place] [address] Aug, [facility] [address] [id number] [address] [place] [address], [place] [address] Aug, [facility] [address] [id number] [address] [place] [address], [place] [address] Aug, [facility] [address] [id number] [address] [place] [address], [place] [address] Aug, [facility] [address] [id number] [address] [place] [address], [place] [address] Aug, [facility] [address] [id number] [address] [place] [address], [place] [address] Jul, [facility] [address] [id number] [address] [place] [address], [place] [address] Jul, [facility] [address] [id number] [address] [place] [address], [place] [address] Jul, [facility] [address] [id number] [address] [place] [address], [place] [address] Jul, [facility] [address] [id number] [address] [place] [address] Jul, [facility] [address] [id number] [address] [place] [address] Jul, [facility] [address] [id number] [address] [place] [address], [place] [address] Jun, [facility] [address] [id number] [address] [place] [address], [place] [address] Jun, [facility] [address] [id number] [address] [place] [address] Jun, [facility] [address] [id number] [address] [place] [phone] Jun, [facility] [address] [id number] [address] [place] [address], [place] [address] Apr, [facility] [address] [id number] [address] [place] [address], [place] [address] Apr, [facility] [address] [id number] [address] [place] [address], [place] [address] Mar, [facility] [address] [id number] [address] [place] [address], [place] [address] Mar, [facility] [address] [id number] [address] [place] [address], [place] [address] Feb, [facility] [address] [id number] [address] [place] [address], [place] [address] Feb, [facility] [address] [id number] [address] [place] [address], [place] [address] Sep, [facility] [address] [id number] [address] [place] [address], [place] [address] Sep, [facility] [address] [id number] [address] [place] [address], [place] [address] Aug, [facility] [address] [id number] [address] [place] [address], [place] [address] Aug, [facility] [address] [id number] [address] [place] [address], [place] [address] Aug, [facility] [address] [id number] [address] [place] [address], [place] [address] Aug, [facility] [address] [id number] [address] [place] [address], [place] [address] Jun, [facility] [address] [id number] [address] [place] [address], [place] [address] Jun, [facility] [address] [id number] [address] [place] [address], [place] [address] Jun, [facility] [address] [id number] [address] [place] [address], [place] [address] Jun, [facility] [address] [id number] [address] [place] [address], [place] [address] Jun, [facility] [address] [id number] [address] [place] [address], [place] [address] Jun, [facility] [address] [id number] [address] [place] [address], [place] [address] Jun, [facility] [address] [id number] [address] [place] [address], [place] [address] Jun, [facility] [address] [id number] [address] [place] [address], [place] [address] Jun, [facility] [address] [id number] [address] [place] [address], [place] [address] May, [facility] [address] [id number] [address] [place] [address], [place] [address] Apr, [facility] [address] [id number] [address] [place] [address], [place] [address] Apr, [facility] [address] [id number] [address] [place] [address], [place] [address] Apr, [facility] [address] [id number] [address] [place] [address], [place] [address] Mar, [facility] [address] [id number] [address] [place] [address], [place] [address] Mar, [facility] [address] [id number] [address] [place] [address], [place] [address] Mar, [facility] [address] [id number] [address] [place] [address], [place] [address] Mar, [facility] [address] [id number] [address] [place] [address], [place] [address] Mar, [facility] [address] [id number] [address] [place] [address], [place] [address] Mar, [facility] [address] [id number] [address] [place] [address] Mar, [facility] [address] [id number] [address] [place] [address] Mar, [facility] [address] [id number] [address] [place] [address] Mar, [facility] [address] [id number] [address] [place] [address] Mar, [facility] [address] [id number] [address] [place] [address] Feb, [facility] [address] [id number] [address] [place] [address] Oct, [facility] [address] [id number] [address] [place] [address] Sep, [facility] [address] [id number] [address] [place] [address] Aug, [facility] [address] [id number] [address] [place] [address] Aug, [facility] [address] [id number] [address] [place] [address] Aug, [facility] [address] [id number] [address] [place] [address] Aug, [facility] [address] [id number] [address] [place] [address] Nov, IMMUNIZATIONS No Known Immunizations SOCIAL HISTORY Never Assessed REASON FOR VISIT PLAN OF CARE VITAL SIGNS MEDICATIONS Unknown Medications RESULTS No Results PROCEDURES No Known procedures INSTRUCTIONS MEDICATIONS ADMINISTERED No Known Medications MEDICAL (GENERAL) HISTORY Type Description Date Medical History Hypothyroidism Medical History chronic pain Medical History Anxiety/Depression/Bipolar/P TSD?Painic Disorder/ADHD-Sees [facility] Medical History cyst on liver Medical History endometriosis Medical History chronic irregular bowels s/p back surger y with bowel injury Medical History CECY with freq UTIs Medical History PPV23 (PNEUMOVAX) DX Medical History Bulging Discs Medical History High Cholestrol Medical History Tobacco User Medical History Urinary Incontinence Medical History HEART MURMUR Surgical History colonoscopy- polyps 2011 Surgical History hysterectomy, total with toni ateral salpingo-oophorectomy (BSO) r/t adhesions and endometriosis, complicated by cystotomy, required transvaginal tape obturator (Dr. Crow) 2004 or 2006 Surgical History bladder mesh removed 06/2013 Surgical History removal of vaginal wall lesion 07/2012 Surgical History back surgery with injury to bowel, bladder mesh for perforation Surgical History Bladder mesh Hospitalization History Surgery/ Childbirth Hospitalization History Denies any past psychiatric hospital izations
--- OUTSIDE RECORDS SUMMARY | 2020-02-15 08:35 | XMS REPORT | Clinical Summary ---
Author Author [facility] Organization [facility] Address Unknown Phone Unavailable Care Team Providers Care Pocket Stitcher Name Role Phone Linda Goncalves MD Unavailable Unavailable Cindy Harding RN Unavailable Unavailable Ryan Melvin RN Unavailable Unavailable Ryan Kovacs MD Unavailable Macarena Ramey MD PCP Angel Avila Unavailable [phone] Sophia Sepulveda RN Unavailable Unavailable Opal Giraldo MD Unavailable Unavailable Danna Washburn AUDIO VIDEO REPAIRER-ACCREDITED PHARMACY TECHNICIAN Unavailable Source Comments Some departments are not documenting in the electronic medical record. If you d o not see the information that you expected, contact Release of Information in [facility] Health Information Management department at [phone] for further assistan ce in locating additional records.[facility] Allergies Comments Active Allergy Reactions Severity Noted [...] estrogens, conjugated(+) Apply to 1 Container 11 0 (PREMARIN) 0.625 mg/g vaginal area 4 vaginal cream three times a week Active polyethylene glycol 3350 Take 17 g by 2 Bottle 1 (GLYCOLAX; MIRALAX) 17 mouth daily. 4 gram/dose powderIndications: Chronic constipation Active estrogens, conjugated(+) Insert or 42.5 g 11 0 (PREMARIN) 0.625 mg/g Apply to 6 vaginal cream vaginal area three times weekly. Active polyethylene glycol 3350 Take 17 g by 119 g 11 (GLYCOLAX; MIRALAX) 17 mouth daily. 6 gram/dose powder Active estradiol (ESTRACE) 0.01 Apply a 42.5 g 11 0 % (0.1 mg/g) vaginal finger tip to 6 cream vaginal area three times a week Active MYRBETRIQ 50 mg tablet TAKE 1 TABLET 90 tablet 0 0 BY MOUTH 9 EVERY DAY Active Problems Problem Noted Date Mixed stress and urge urinary incontinence 4 Overview: S/P TVH-BSO [place] Mesh [place] [address] [place] in [place], [place], complicated by cystotomy and vaginal ex trusion during TVT-O placement 2008 intra-office mesh excision and mes h intra-OR excision 2008 ( localized area excised) positional voiding, constipation, dyspa reunia, episodes of gross hematuria, and ANGELITA at this time. UDS (06/11/13): +LPP, otherwise normal Urethrolysis, mesh excision 06/26/13; de veloped worsened mixed incontinence. Trial of vesicare: improved urgency, ye t led to hallucinations and stopped CT unremarkable except signficant const ipation - Mirabegron 50mg, PFRT, estrace and ex ercise regimen brought resolution of symptoms 09/23/2014: Symptoms well controlled on M irabegron, Constipation management, pelvic exercise and estrace. L ast Assessment & Plan: Recommend patient resume premarin cream , begin miralax, resume mirabegron and RTC prn at this point. Erosion of vaginal mesh 05/14/2013 Overview: S/P TVH-BSO [place] Mesh [place] [address] Crow in [place], [place], complicated by cystotomy and vaginal ex trusion during TVT-O placement 2008 intra-office mesh excision and mes h intra-OR excision 2008 ( localized area excised) positional voiding, constipation, dyspa reunia, episodes of gross hematuria, and ANGELITA at this time. UDS (06/11/13): +LPP, otherwise normal Cysto (06/11/13): unremarkable Urethrolysis, mesh excision 06/26/13 Now developed severe mixed incontinence . 10/22/13:Stopped taking Vesicare because of hallucinations 11/26/13: on benztropine per psychologis t with some improvement in urinary symptoms UDS: some dysnergia, no DO, rectal sphi ncter muscle overactivity Returns with persistent L suprapubic st abbing pain; constipation; attempting PFMT and seeing slight impro vement; UUI slightly improved with mirabegron Multiple pelvic exams without any evide nce of vaginal mesh L ast Assessment & Plan: - Family History Medical History Relation Name Comments [...] Cigarettes 1 35 Smokeless Tobacco: Never Used Drinks/Week oz/Week Comments Alcohol Use 1-2 Standard drinks or equivalent 0.8 - 1.7 occ Yes Sex Assigned at Date Recorded Not on file Industry Job Start Date Occupation Not on file Not on file Not on file Travel End Travel History Travel Start No recent travel history available. Last Filed Vital Signs Reading Time Taken Comments Vital Sign 109/70 02/19/2016 4:07 PM CDT Blood Pressure 90 02/19/2016 4:07 PM CDT Pulse 36.9 C (98.5 F) 01/31/2014 1:14 PM CDT Temperature 16 02/19/2016 4:07 PM CDT Respiratory Rate 100% 06/26/2013 4:00 PM CDT Oxygen Saturation - - Inhaled Oxygen Concentration 51.6 kg (113 lb 12.8 oz) 02/19/2016 4:07 PM CDT Weight 160 cm (5' 3") 02/19/2016 4:07 PM CDT Height 20.16 02/19/2016 4:07 PM CDT Body Mass Index Plan of Treatment Health Maintenance Due Date Last Done Comments HIV SCREENING 1980 DTAP/TDAP VACCINES (1 - 1983 Tdap) HEPATITIS C SCREENING 1983 PHYSICAL (COMPREHENSIVE) 1983 EXAM CERVICAL CANCER SCREENING 1986 BREAST CANCER SCREENING 2005 COLORECTAL CANCER 2015 SCREENING SHINGLES RECOMBINANT 2015 VACCINE (1 of 2) INFLUENZA VACCINE 06/19/2020 Results Not on filefrom Last 3 Months Advance Directives Patient Lead Database Administrator Explanation Type Date Recorded Advance 06/25/2013 2:28 PM Directive/DPOA
--- OUTSIDE RECORDS SUMMARY | 2020-02-15 08:35 | XMS REPORT ---
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 Name Role Phone Migration, Doctor Unavailable Unavailable PROBLEMS Type Condition ICD9-CM Code ZNZ31-UN Code Onset Dates Condition S tatus SNOMED Code Problem Mixed hyperlipidemia E78.2 Active 177965003 Problem Acquired hypothyroidism E03.9 Active 032484775 Problem COPD (chronic obstructive pulmonary disease) J44.9 Active 27471105 Problem Cigarette nicotine dependence without complication F17.210 Active 69340936 Problem Post-menopausal bleeding N95.0 Activ e 62360184 Problem Generalized anxiety disorder F41.1 A ctive 22224514 Problem Bipolar II disorder F31.81 Active 90172998 Problem Cannabis use disorder, mild, abuse F12.10 Active 13234902 Problem Hypothyroidism, unspecified E03.9 Ac tive 51968342 ALLERGIES No Information ENCOUNTERS Encounter Location Date Diagnosis [place] [id number] [facility] [id number] [address] [place] [address] Mar, [place] [address] [facility] [id number] [address] [place] [address] Dec, Bipolar II disorder F31.81 ; Generalized anxiety disorder F41.1 and Cannabis use disorder, mild, abuse F12.10 [facility] [address] [facility] [id number] [address] [place] [address] Dec, [facility] [address] [facility] [id number] [address] [place] [address] Nov, Post-menopausal bleeding N95 .0 [facility] [address] [facility] [id number] [address] [place] [address] 23 Oct, 2019 Bipolar II disorder F31.81 [facility] [address] [facility] [id number] [address] [place] [address] 17 Oct, 2019 [place] [address] [address] Oct, [place] [address] [address] Sep, Post-menopausal bleeding N95 .0 and Cigarette nicotine dependence without complication F17.210 [place] [address] [address] Sep, Bipolar II disorder F31.81 [place] [address] [address] Sep, Other mcfp (current) dr ug therapy Z79.899 [place] [address] [address] Sep, Urticaria L50.9 and Mixed hy perlipidemia E78.2 [place] [address] [address] Aug, Acute cystitis with hematuri a N30.01 and Dysuria R30.0 [place] [address] [address] Aug, Bipolar II disorder F31.81 ; Generalized anxiety disorder F41.1 and Cannabis use disorder, mild, abuse F12.10 [place] [address] [place] [id number] [address] [place] [address] Aug, [place] [address] [address] Jul, [place] [address] [place] [id number] [address] [place] [address] May, Bipolar II disorder F31.81 [place] [address] [address] Apr, Bipolar II disorder F31.81 ; Generalized anxiety disorder F41.1 ; Cannabis use disorder, mild, abuse F12.10 and Other mcfp (current) drug therapy Z79.899 [place] [address] [place] [id number] [address] [place] [address] January, Bipolar II disorder F31.81 ; Generalized anxiety disorder F41.1 and Cannabis use disorder, mild, abuse F12.10 [place] [address] [place] [id number] [address] [place] [address] 10 Dec, 2018 Well woman exam without gyne cological exam Z00.00 ; Screening for breast cancer Z12.31 and Screening for malignant neoplasm of colon Z12.11 [place] [address] [place] [address] 06 Oct, 2018 Bipolar II disorder F31.81 ; Generalized anxiety disorder F41.1 and Cannabis use disorder, mild, abuse F12.10 [place] [address] [place] [id number] [address] [place] [address] 09 Jun, 2018 Trochanteric bursitis of rig ht hip M70.[address] [address] 13 May, 2018 Trochanteric bursitis of rig ht hip M70.61 and Cigarette nicotine dependence without complication F17.210 [place] [address] [place] [id number] [address] [place] [address] Apr, [place] [address] [place] [id number] [address] [place] [address] Apr, Mixed hyperlipidemia E78.2 [place] [id number] [address] [place] [address] Apr, [place] [address] [place] [id number] [address] [place] [address] Apr, Bipolar II disorder F31.81 ; Generalized anxiety disorder F41.1 and Cannabis use disorder, mild, abuse F12.10 [place] [address] [place] [id number] [address] [place] [address] Feb, Mixed hyperlipidemia E78.2 ; Acquired hypothyroidism E03.9 and Routine adult health maintenance Z00.00 [place] [address] [place] [id number] [address] [place] [address] January, Bipolar II disorder F31.81 [place] [address] [address] January, Bipolar II disorder F31.81 ; Generalized anxiety disorder F41.1 ; Cannabis use disorder, mild, abuse F12.10 and Fatigue associated with anemia D64.9 [facility] [address] [place] [id number] [place] [address] Dec, Hypothyroidism, unspecified E03.9 ; Tobacco abuse Z72.0 and COPD (chronic obstructive pulmonary disease) J44.9 [place] [address] [address] Jul, Bipolar II disorder F31.81 ; Generalized anxiety disorder F41.1 and Cannabis use disorder, mild, abuse F12.10 [place] [address] [address] Apr, Bipolar II disorder F31.81 ; Nausea and vomiting in adult R11.2 ; Generalized anxiety disorder F41.1 ; Heartburn R12 and Cannabis use disorder, mild, abuse F12.10 [place] [address] [address] Apr, Bipolar II disorder F31.81 ; Generalized anxiety disorder F41.1 and Cannabis use disorder, mild, abuse F12.10 [place] [address] [address] Apr, Nausea and vomiting in adult R11.2 and Heartburn R12 [place] [address] [place] [id number] [address] [place] [address] Apr, Bipolar II disorder F31.81 [place] [address] [place] [id number] [place] [address] Mar, Generalized anxiety disorder F41.1 [place] [address] [place] [id number] [address] [place] [address] 27 Cristino, 2017 Bipolar II disorder F31.81 ; Generalized anxiety disorder F41.1 and Cannabis use disorder, mild, abuse F12.10 [facility] [address] [id number] [address] [place] [address] January, Bipolar II disorder F31.81 ; Generalized anxiety disorder F41.1 and Cannabis use disorder, mild, abuse F12.10 [facility] [address] [id number] [address] [place] [address] Dec, Bipolar II disorder F31.81 ; Generalized anxiety disorder F41.1 and Cannabis use disorder, mild, abuse F12.10 [facility] [address] [id number] [address] [place] [address] Dec, Generalized anxiety disorder F41.1 [facility] [address] [id number] [address] [place] [address] Nov, [facility] [address] [facility] [id number] [address] [place] [address] Nov, Generalized anxiety disorder F41.1 ; Cannabis use disorder, mild, abuse F12.10 and Bipolar II disorder F31.81 [facility] [address] [id number] [address] [place] [address] Nov, Bipolar II disorder F31.81 [facility] [address] [id number] [address] [place] [address] Nov, Bipolar II disorder F31.81 ; Generalized anxiety disorder F41.1 and Cannabis use disorder, mild, abuse F12.10 [facility] [address] [id number] [address] [place] [address] Oct, [facility] [address] [id number] [address] [place] [address] Oct, Bipolar II disorder F31.81 ; Generalized anxiety disorder F41.1 and Cannabis use disorder, mild, abuse F12.10 [facility] [address] [id number] [address] [place] [address] Aug, COPD (chronic obstructive pu lmonary disease) J44.9 [facility] [address] [facility] [id number] [address] [place] [address] 08 Aug, 2016 Recent urinary tract infecti on Z87.440 ; Acquired hypothyroidism E03.9 ; Encounter for immunization Z23 ; Mixed hyperlipidemia E78.2 ; COPD (chronic obstructive pulmonary disease) J44.9 and Tobacco abuse Z72.0 [facility] [address] [facility] [id number] [address] [place] [address] Jul, [facility] [address] [facility] [id number] [address] [place] [address] Jul, [place] [address] [facility] [id number] [address] [place] [address] Jul, Recent urinary tract infecti on Z87.440 ; Acute cystitis with hematuria N30.01 ; Vaginal itching L29.8 and Skin infection L08.9 [place] [address] [place] [id number] [address] [place] [address] Jun, Hydronephrosis, unspecified hydronephrosis type N13.30 [place] [address] [facility] [id number] [address] [place] [address] Apr, [place] [address] [place] [id number] [address] [place] [address] Sep, Acquired hypothyroidism E03. 9 ; Mixed hyperlipidemia E78.2 ; COPD (chronic obstructive pulmonary disease) J44.9 and Thrush B37.0 [facility] [address] [facility] [id number] [address] [place] [address] Aug, [facility] [address] [facility] [id number] [address] [place] [address] Aug, Acquired hypothyroidism E03. 9 ; Mixed hyperlipidemia E78.2 ; COPD (chronic obstructive pulmonary disease) J44.9 and URI (upper respiratory infection) J06.9 [facility] [address] [facility] [id number] [address] [place] [address] January, Blood in stool 578.1 and Hernando ght loss 783.21 [facility] [address] [id number] [address] [place] [address] January, Other and unspecified hyperl ipidemia 272.4 ; Unspecified hypothyroidism 244.9 ; Nondependent tobacco use disorder 305.1 ; Weight loss 783.21 ; History of colon polyps V12.72 and Blood in stool 578.1 [facility] [address] [id number] [address] [place] [phone] Dec, [facility] [address] [id number] [address] [place] [address] Dec, [facility] [address] [id number] [address] [place] [address] Dec, [facility] [address] [id number] [address] [place] [address] Dec, [facility] [address] [id number] [address] [place] [address] Nov, [facility] [address] [id number] [address] [place] [address] Nov, [facility] [address] [id number] [address] [place] [address] Nov, [facility] [address] [id number] [address] [place] [address] Nov, [facility] [address] [id number] [address] [place] [address] Sep, [facility] [address] [id number] [address] [place] [address] Sep, [facility] [address] [id number] [address] [place] [address] Aug, [facility] [address] [id number] [address] [place] [address] Aug, [facility] [address] [id number] [address] [place] [address] Aug, [facility] [address] [id number] [address] [place] [address], [place] [address] Aug, [facility] [address] [id number] [address] [place] [address], [place] [address] Aug, [facility] [address] [id number] [address] [place] [address], [place] [address] Aug, [facility] [address] [id number] [address] [place] [address], [place] [address] Aug, [facility] [address] [id number] [address] [place] [address], [place] [address] Aug, [facility] [address] [id number] [address] [place] [address], [place] [address] Jul, [facility] [address] [id number] [address] [place] [address], [place] [address] Jul, [facility] [address] [id number] [address] [place] [address], [place] [address] Jul, [facility] [address] [id number] [address] [place] [address], [place] [address] Jul, [facility] [address] [id number] [address] [place] [address], [place] [address] Jul, [facility] [address] [id number] [address] [place] [address] Jul, [facility] [address] [id number] [address] [place] [address] Jun, [facility] [address] [id number] [address] [place] [address], [place] [address] Jun, [facility] [address] [id number] [address] [place] [address], [place] [address] Jun, [facility] [address] [id number] [address] [place] [address], [place] [address] Jun, [facility] [address] [id number] [address] [place] [address], [place] [address] Apr, [facility] [address] [id number] [address] [place] [address], [place] [address] Apr, [facility] [address] [id number] [address] [place] [address], [place] [address] Mar, [facility] [address] [id number] [address] [place] [address], [place] [address] Mar, [facility] [address] [id number] [address] [place] [address], [place] [address] Feb, [facility] [address] [id number] [address] [place] [address], [place] [address] Feb, [facility] [address] [id number] [address] [place] [address], [place] [address] Sep, [facility] [address] [id number] [address] [place] [address], [place] [address] Sep, [facility] [address] [id number] [address] [place] [address], [place] [address] Aug, [facility] [address] [id number] [address] [place] [address], [place] [address] Aug, [facility] [address] [id number] [address] [place] [address], [place] [address] Aug, [facility] [address] [id number] [address] [place] [address], [place] [address] Aug, [facility] [address] [id number] [address] [place] [address], [place] [address] Jun, [facility] [address] [id number] [address] [place] [address], [place] [address] Jun, [facility] [address] [id number] [address] [place] [address], [place] [address] Jun, [facility] [address] [id number] [address] [place] [address], [place] [address] Jun, [facility] [address] [id number] [address] [place] [address], [place] [address] Jun, [facility] [address] [id number] [address] [place] [address], [place] [address] Jun, [facility] [address] [id number] [address] [place] [address], [place] [address] Jun, [facility] [address] [id number] [address] [place] [address], [place] [address] Jun, [facility] [address] [id number] [address] [place] [address], [place] [address] Jun, [facility] [address] [id number] [address] [place] [address], [place] [address] May, [facility] [address] [id number] [address] [place] [address], [place] [address] Apr, [facility] [address] [id number] [address] [place] [address], [place] [address] Apr, [facility] [address] [id number] [address] [place] [address], [place] [address] Apr, [facility] [address] [id number] [address] [place] [address], [place] [address] Mar, [facility] [address] [id number] [address] [place] [address], [place] [address] Mar, [facility] [address] [id number] [address] [place] [address], [place] [address] Mar, [facility] [address] [id number] [address] [place] [address], [place] [address] Mar, [facility] [address] [id number] [address] [place] [address], [place] [address] Mar, [facility] [address] [id number] [address] [place] [address], [place] [address] Mar, [facility] [address] [id number] [address] [place] [id number] Mar, [facility] [address] [id number] [address] [place] [id number] Mar, [facility] [address] [id number] [address] [place] [id number] Mar, [facility] [address] [id number] [address] [place] [id number] Mar, [facility] [address] [id number] [address] [place] [phone] Feb, [facility] [address] [id number] [address] [place] [phone] Oct, [facility] [address] [id number] [address] [place] [phone] Sep, [facility] [address] [id number] [address] [place] [id number] Aug, [facility] [address] [id number] [address] [place] [id number] Aug, [facility] [address] [id number] [address] [place] [phone] Aug, [facility] [address] [id number] [address] [place] [id number] Aug, [facility] [address] [id number] [address] [place] [id number] Nov, IMMUNIZATIONS No Known Immunizations SOCIAL HISTORY [...]
--- OUTSIDE RECORDS SUMMARY | 2020-02-15 08:36 | XMS REPORT ---
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 Name Role Phone Migration, Doctor Unavailable Unavailable PROBLEMS Type Condition ICD9-CM Code PAD33-FY Code Onset Dates Condition S tatus SNOMED Code Problem Mixed hyperlipidemia E78.2 Active 807504794 Problem Acquired hypothyroidism E03.9 Active 388643147 Problem COPD (chronic obstructive pulmonary disease) J44.9 Active 68136751 Problem Cigarette nicotine dependence without complication F17.210 Active 67533113 Problem Post-menopausal bleeding N95.0 Activ e 55555059 Problem Generalized anxiety disorder F41.1 A ctive 46058105 Problem Bipolar II disorder F31.81 Active 72795907 Problem Cannabis use disorder, mild, abuse F12.10 Active 37024380 Problem Hypothyroidism, unspecified E03.9 Ac tive 72074261 ALLERGIES No Information ENCOUNTERS Encounter Location Date Diagnosis [place] [id number] [facility] [id number] [address] [place] [phone] Mar, [place] [address] [facility] [id number] [address] [place] [address] Dec, Bipolar II disorder F31.81 ; Generalized anxiety disorder F41.1 and Cannabis use disorder, mild, abuse F12.10 [facility] [address] [facility] [id number] [address] [place] [phone] Dec, [facility] [address] [facility] [id number] [address] [place] [address] Nov, Post-menopausal bleeding N95 .0 [facility] [address] [facility] [id number] [address] [place] [address] Oct, Bipolar II disorder F31.81 [facility] [address] [facility] [id number] [address] [place] [address] 17 Oct, 2019 [place] [address] [address] Oct, [place] [address] [address] Sep, Post-menopausal bleeding N95 .0 and Cigarette nicotine dependence without complication F17.210 [place] [address] [address] Sep, Bipolar II disorder F31.81 [place] [address] [address] Sep, Other care home (current) dr ug therapy Z79.899 [place] [address] [address] Sep, Urticaria L50.9 and Mixed hy perlipidemia E78.2 [place] [address] [address] Aug, Acute cystitis with hematuri a N30.01 and Dysuria R30.0 [place] [address] [address] Aug, Bipolar II disorder F31.81 ; Generalized anxiety disorder F41.1 and Cannabis use disorder, mild, abuse F12.10 [place] [address] [place] [id number] [address] [place] [address] Aug, [place] [address] [address] Jul, [place] [address] [place] [id number] [address] [place] [address] May, Bipolar II disorder F31.81 [place] [address] [address] Apr, Bipolar II disorder F31.81 ; Generalized anxiety disorder F41.1 ; Cannabis use disorder, mild, abuse F12.10 and Other care home (current) drug therapy Z79.899 [place] [address] [place] [id number] [address] [place] [address] January, Bipolar II disorder F31.81 ; Generalized anxiety disorder F41.1 and Cannabis use disorder, mild, abuse F12.10 [place] [address] [place] [id number] [address] [place] [address] 10 Dec, 2018 Well woman exam without gyne cological exam Z00.00 ; Screening for breast cancer Z12.31 and Screening for malignant neoplasm of colon Z12.11 [place] [id number] [place] [address] 06 Oct, 2018 Bipolar II disorder F31.81 ; Generalized anxiety disorder F41.1 and Cannabis use disorder, mild, abuse F12.10 [place] [address] [place] [id number] [address] [place] [address] 09 Jun, 2018 Trochanteric bursitis of rig ht hip M70.[address] [address] 13 May, 2018 Trochanteric bursitis of rig ht hip M70.61 and Cigarette nicotine dependence without complication F17.210 [place] [address] [place] [id number] [address] [place] [address] Apr, [place] [address] [place] [id number] [address] [place] [address] Apr, Mixed hyperlipidemia E78.2 [place] [id number] [address] [place] [address] Apr, [place] [address] [place] [id number] [address] [place] [address] Apr, Bipolar II disorder F31.81 ; Generalized anxiety disorder F41.1 and Cannabis use disorder, mild, abuse F12.10 [place] [address] [place] [id number] [address] [place] [address] Feb, Mixed hyperlipidemia E78.2 ; Acquired hypothyroidism E03.9 and Routine adult health maintenance Z00.00 [place] [address] [place] [id number] [address] [place] [address] January, Bipolar II disorder F31.81 [place] [address] [address] January, Bipolar II disorder F31.81 ; Generalized anxiety disorder F41.1 ; Cannabis use disorder, mild, abuse F12.10 and Fatigue associated with anemia D64.9 [facility] [address] [place] [id number] [place] [address] Dec, Hypothyroidism, unspecified E03.9 ; Tobacco abuse Z72.0 and COPD (chronic obstructive pulmonary disease) J44.9 [place] [address] [address] Jul, Bipolar II disorder F31.81 ; Generalized anxiety disorder F41.1 and Cannabis use disorder, mild, abuse F12.10 [place] [address] [address] Apr, Bipolar II disorder F31.81 ; Nausea and vomiting in adult R11.2 ; Generalized anxiety disorder F41.1 ; Heartburn R12 and Cannabis use disorder, mild, abuse F12.10 [place] [address] [address] Apr, Bipolar II disorder F31.81 ; Generalized anxiety disorder F41.1 and Cannabis use disorder, mild, abuse F12.10 [place] [address] [address] Apr, Nausea and vomiting in adult R11.2 and Heartburn R12 [place] [address] [place] [id number] [address] [place] [address] Apr, Bipolar II disorder F31.81 [place] [address] [place] [id number] [place] [address] Mar, Generalized anxiety disorder F41.1 [place] [address] [place] [id number] [address] [place] [address] 27 Cristino, 2017 Bipolar II disorder F31.81 ; Generalized anxiety disorder F41.1 and Cannabis use disorder, mild, abuse F12.10 [facility] [address] [id number] [address] [place] [address] January, Bipolar II disorder F31.81 ; Generalized anxiety disorder F41.1 and Cannabis use disorder, mild, abuse F12.10 [facility] [address] [id number] [address] [place] [address] Dec, Bipolar II disorder F31.81 ; Generalized anxiety disorder F41.1 and Cannabis use disorder, mild, abuse F12.10 [facility] [address] [id number] [address] [place] [address] Dec, Generalized anxiety disorder F41.1 [facility] [address] [id number] [address] [place] [address] Nov, [facility] [address] [facility] [id number] [address] [place] [address] Nov, Generalized anxiety disorder F41.1 ; Cannabis use disorder, mild, abuse F12.10 and Bipolar II disorder F31.81 [facility] [address] [id number] [address] [place] [address] Nov, Bipolar II disorder F31.81 [facility] [address] [id number] [address] [place] [address] Nov, Bipolar II disorder F31.81 ; Generalized anxiety disorder F41.1 and Cannabis use disorder, mild, abuse F12.10 [facility] [address] [id number] [address] [place] [address] Oct, [facility] [address] [id number] [address] [place] [address] Oct, Bipolar II disorder F31.81 ; Generalized anxiety disorder F41.1 and Cannabis use disorder, mild, abuse F12.10 [facility] [address] [id number] [address] [place] [address] Aug, COPD (chronic obstructive pu lmonary disease) J44.9 [facility] [address] [facility] [id number] [address] [place] [address] 08 Aug, 2016 Recent urinary tract infecti on Z87.440 ; Acquired hypothyroidism E03.9 ; Encounter for immunization Z23 ; Mixed hyperlipidemia E78.2 ; COPD (chronic obstructive pulmonary disease) J44.9 and Tobacco abuse Z72.0 [facility] [address] [facility] [id number] [address] [place] [address] Jul, [facility] [address] [facility] [id number] [address] [place] [address] Jul, [place] [address] [facility] [id number] [address] [place] [address] Jul, Recent urinary tract infecti on Z87.440 ; Acute cystitis with hematuria N30.01 ; Vaginal itching L29.8 and Skin infection L08.9 [place] [address] [place] [id number] [address] [place] [address] Jun, Hydronephrosis, unspecified hydronephrosis type N13.30 [place] [address] [facility] [id number] [address] [place] [address] Apr, [place] [address] [place] [id number] [address] [place] [address] Sep, Acquired hypothyroidism E03. 9 ; Mixed hyperlipidemia E78.2 ; COPD (chronic obstructive pulmonary disease) J44.9 and Thrush B37.0 [facility] [address] [facility] [id number] [address] [place] [address] Aug, [facility] [address] [facility] [id number] [address] [place] [address] Aug, Acquired hypothyroidism E03. 9 ; Mixed hyperlipidemia E78.2 ; COPD (chronic obstructive pulmonary disease) J44.9 and URI (upper respiratory infection) J06.9 [facility] [address] [facility] [id number] [address] [place] [address] January, Blood in stool 578.1 and Hernando ght loss 783.21 [facility] [address] [id number] [address] [place] [address] January, Other and unspecified hyperl ipidemia 272.4 ; Unspecified hypothyroidism 244.9 ; Nondependent tobacco use disorder 305.1 ; Weight loss 783.21 ; History of colon polyps V12.72 and Blood in stool 578.1 [facility] [address] [id number] [address] [place] [address] Dec, [facility] [address] [id number] [address] [place] [address] Dec, [facility] [address] [id number] [address] [place] [address] Dec, [facility] [address] [id number] [address] [place] [address] Dec, [facility] [address] [id number] [address] [place] [address] Nov, [facility] [address] [id number] [address] [place] [address] Nov, [facility] [address] [id number] [address] [place] [address] Nov, [facility] [address] [id number] [address] [place] [address] Nov, [facility] [address] [id number] [address] [place] [address] Sep, [facility] [address] [id number] [address] [place] [address] Sep, [facility] [address] [id number] [address] [place] [address] Aug, [facility] [address] [id number] [address] [place] [address] Aug, [facility] [address] [id number] [address] [place] [address] Aug, [facility] [address] [id number] [address] [place] [address], [place] [address] Aug, [facility] [address] [id number] [address] [place] [address], [place] [address] Aug, [facility] [address] [id number] [address] [place] [address], [place] [address] Aug, [facility] [address] [id number] [address] [place] [address], [place] [address] Aug, [facility] [address] [id number] [address] [place] [address], [place] [address] Aug, [facility] [address] [id number] [address] [place] [address], [place] [address] Jul, [facility] [address] [id number] [address] [place] [address], [place] [address] Jul, [facility] [address] [id number] [address] [place] [address], [place] [address] Jul, [facility] [address] [id number] [address] [place] [address], [place] [address] Jul, [facility] [address] [id number] [address] [place] [address], [place] [address] Jul, [facility] [address] [id number] [address] [place] [phone] Jul, [facility] [address] [id number] [address] [place] [address] Jun, [facility] [address] [id number] [address] [place] [address], [place] [address] Jun, [facility] [address] [id number] [address] [place] [address], [place] [address] Jun, [facility] [address] [id number] [address] [place] [address], [place] [address] Jun, [facility] [address] [id number] [address] [place] [address], [place] [address] Apr, [facility] [address] [id number] [address] [place] [address], [place] [address] Apr, [facility] [address] [id number] [address] [place] [address], [place] [address] Mar, [facility] [address] [id number] [address] [place] [address], [place] [address] Mar, [facility] [address] [id number] [address] [place] [address], [place] [address] Feb, [facility] [address] [id number] [address] [place] [address], [place] [address] Feb, [facility] [address] [id number] [address] [place] [address], [place] [address] Sep, [facility] [address] [id number] [address] [place] [address], [place] [address] Sep, [facility] [address] [id number] [address] [place] [address], [place] [address] Aug, [facility] [address] [id number] [address] [place] [address], [place] [address] Aug, [facility] [address] [id number] [address] [place] [address], [place] [address] Aug, [facility] [address] [id number] [address] [place] [address], [place] [address] Aug, [facility] [address] [id number] [address] [place] [address], [place] [address] Jun, [facility] [address] [id number] [address] [place] [address], [place] [address] Jun, [facility] [address] [id number] [address] [place] [address], [place] [address] Jun, [facility] [address] [id number] [address] [place] [address], [place] [address] Jun, [facility] [address] [id number] [address] [place] [address], [place] [address] Jun, [facility] [address] [id number] [address] [place] [address], [place] [address] Jun, [facility] [address] [id number] [address] [place] [address], [place] [address] Jun, [facility] [address] [id number] [address] [place] [address], [place] [address] Jun, [facility] [address] [id number] [address] [place] [address], [place] [address] Jun, [facility] [address] [id number] [address] [place] [address], [place] [address] May, [facility] [address] [id number] [address] [place] [address], [place] [address] Apr, [facility] [address] [id number] [address] [place] [address], [place] [address] Apr, [facility] [address] [id number] [address] [place] [address], [place] [address] Apr, [facility] [address] [id number] [address] [place] [address], [place] [address] Mar, [facility] [address] [id number] [address] [place] [address], [place] [address] Mar, [facility] [address] [id number] [address] [place] [address], [place] [address] Mar, [facility] [address] [id number] [address] [place] [address], [place] [address] Mar, [facility] [address] [id number] [address] [place] [address], [place] [address] Mar, [facility] [address] [id number] [address] [place] [address], [place] [address] Mar, [facility] [address] [id number] [address] [place] [address] Mar, [facility] [address] [id number] [address] [place] [address] Mar, [facility] [address] [id number] [address] [place] [address] Mar, [facility] [address] [id number] [address] [place] [address] Mar, [facility] [address] [id number] [address] [place] [address] Feb, [facility] [address] [id number] [address] [place] [address] Oct, [facility] [address] [id number] [address] [place] [address] Sep, [facility] [address] [id number] [address] [place] [address] Aug, [facility] [address] [id number] [address] [place] [address] Aug, [facility] [address] [id number] [address] [place] [address] Aug, [facility] [address] [id number] [address] [place] [address] Aug, [facility] [address] [id number] [address] [place] [address] Nov, IMMUNIZATIONS No Known Immunizations SOCIAL HISTORY Never Assessed REASON FOR VISIT PLAN OF CARE VITAL SIGNS MEDICATIONS Unknown Medications RESULTS No Results PROCEDURES Procedure Date Ordered Result Body Site OVA AND PARASITES SMEARS April 09, 2013 FATS/LIPIDS, FECES, QUANT April 09, 2013 FATS/LIPIDS, FECES, QUAL April 09, 2013 LEUKOCYTE COUNT, FECAL April 09, 2013 FECES CULTURE, BACTERIA April 09, 2013 INSTRUCTIONS MEDICATIONS ADMINISTERED No Known Medications MEDICAL (GENERAL) HISTORY Type Description Date Medical History Hypothyroidism Medical History chronic pain Medical History Anxiety/Depression/Bipolar/P TSD?Painic Disorder/ADHD-Sees Via [facility] Medical History cyst on liver Medical History [...]
--- OUTSIDE RECORDS SUMMARY | 2020-02-15 08:36 | XMS REPORT ---
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 Role Phone ROBBIE ESPARZA Unavailable PROBLEMS Type Condition ICD9-CM Code CRH20-SZ Code Onset Dates Condition S tatus SNOMED Code Problem Mixed hyperlipidemia E78.2 Active 111497482 Problem Acquired hypothyroidism E03.9 Active 898899379 Problem COPD (chronic obstructive pulmonary disease) J44.9 Active 31416821 Problem Cigarette nicotine dependence without complication F17.210 Active 90703399 Problem Post-menopausal bleeding N95.0 Activ e 17909163 Problem Generalized anxiety disorder F41.1 A ctive 77929384 Problem Bipolar II disorder F31.81 Active 44899326 Problem Cannabis use disorder, mild, abuse F12.10 Active 70278984 Problem Hypothyroidism, unspecified E03.9 Ac tive [id number] ALLERGIES No Information ENCOUNTERS Encounter Location Date Diagnosis [place] [address] [facility] [id number] [address] [place] [address] Mar, [place] [address] [facility] [id number] [address] [place] [id number] 15 Dec, 2019 Bipolar II disorder F31.81 ; Generalized anxiety disorder F41.1 and Cannabis use disorder, mild, abuse F12.10 [facility] [address] [facility] [id number] [address] [place] [address] Dec, [place] [address] [facility] [id number] [address] [place] [address] Nov, Post-menopausal bleeding N95 .0 [facility] [address] [facility] [id number] [address] [place] [address] Oct, Bipolar II disorder F31.81 [place] [address] [address] Oct, [facility] [address] [address] Oct, [facility] [address] [place] [id number] [place] [address] Sep, Post-menopausal bleeding N95 .0 and Cigarette nicotine dependence without complication F17.210 [place] [address] [address] Sep, Bipolar II disorder F31.81 [place] [address] [address] Sep, 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 [place] [address] [address] Sep, Urticaria L50.9 and Mixed hy perlipidemia E78.2 [place] [address] [address] Aug, Acute cystitis with hematuri a N30.01 and Dysuria R30.0 [place] [address] [address] Aug, Bipolar II disorder F31.81 ; Generalized anxiety disorder F41.1 and Cannabis use disorder, mild, abuse F12.10 [place] [address] [address] Aug, [place] [address] [address] Jul, [place] [address] [address] May, Bipolar II disorder F31.81 [place] [address] [address] Apr, Bipolar II disorder F31.81 ; Generalized anxiety disorder F41.1 ; Cannabis use disorder, mild, abuse F12.10 and Other extermination inspector (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) drug therapy Z79.899 [place] [address] [facility] [id number] [address] [place] [address] January, Bipolar II disorder F31.81 ; Generalized anxiety disorder F41.1 and Cannabis use disorder, mild, abuse F12.10 [place] [address] [facility] [id number] [address] [place] [address] Dec, Well woman exam without gyne cological exam Z00.00 ; Screening for breast cancer Z12.31 and Screening for malignant neoplasm of colon Z12.11 [place] [address] [facility] [id number] [address] [place] [address] 06 Oct, 2018 Bipolar II disorder F31.81 ; Generalized anxiety disorder F41.1 and Cannabis use disorder, mild, abuse F12.10 [place] [address] [facility] [id number] [address] [place] [address] Jun, Trochanteric bursitis of rig ht hip M70.61 [place] [address] [facility] [id number] [address] [place] [address] May, Trochanteric bursitis of rig ht hip M70.61 and Cigarette nicotine dependence without complication F17.210 [place] [address] [facility] [id number] [address] [place] [address] Apr, [place] [address] [facility] [id number] [address] [place] [address] Apr, Mixed hyperlipidemia E78.2 [place] [address] [facility] [id number] [address] [place] [address] Apr, [place] [address] [facility] [id number] [address] [place] [address] Apr, Bipolar II disorder F31.81 ; Generalized anxiety disorder F41.1 and Cannabis use disorder, mild, abuse F12.10 [place] [address] [facility] [id number] [address] [place] [address] Feb, Mixed hyperlipidemia E78.2 ; Acquired hypothyroidism E03.9 and Routine adult health maintenance Z00.00 [facility] [address] [facility] [id number] [address] [place] [address] January, Bipolar II disorder F31.81 [place] [address] [facility] [id number] [address] [place] [address] January, Bipolar II disorder F31.81 ; Generalized anxiety disorder F41.1 ; Cannabis use disorder, mild, abuse F12.10 and Fatigue associated with anemia D64.9 [place] [address] [facility] [id number] [address] [place] [address] Dec, Hypothyroidism, unspecified E03.9 ; Tobacco abuse Z72.0 and COPD (chronic obstructive pulmonary disease) J44.9 [place] [address] [facility] [id number] [address] [place] [address] Jul, Bipolar II disorder F31.81 ; Generalized anxiety disorder F41.1 and Cannabis use disorder, mild, abuse F12.10 [place] [address] [facility] [id number] [address] [place] [address] Apr, Bipolar II disorder F31.81 ; Nausea and vomiting in adult R11.2 ; Generalized anxiety disorder F41.1 ; Heartburn R12 and Cannabis use disorder, mild, abuse F12.10 [place] [address] [facility] [id number] [address] [place] [address] Apr, Bipolar II disorder F31.81 ; Generalized anxiety disorder F41.1 and Cannabis use disorder, mild, abuse F12.10 [place] [address] [facility] [id number] [address] [place] [address] Apr, Nausea and vomiting in adult R11.2 and Heartburn R12 [place] [address] [facility] [id number] [address] [place] [address] Apr, Bipolar II disorder F31.81 [place] [address] [facility] [id number] [address] [place] [address] Mar, Generalized anxiety disorder F41.1 [place] [address] [facility] [id number] [address] [place] [address] Feb, Bipolar II disorder F31.81 ; Generalized anxiety disorder F41.1 and Cannabis use disorder, mild, abuse F12.10 [facility] [address] [facility] [id number] [address] [place] [address] January, Bipolar II disorder F31.81 ; Generalized anxiety disorder F41.1 and Cannabis use disorder, mild, abuse F12.10 [facility] [address] [facility] [id number] [address] [place] [address] Dec, Bipolar II disorder F31.81 ; Generalized anxiety disorder F41.1 and Cannabis use disorder, mild, abuse F12.10 [place] [address] [facility] [id number] [address] [place] [address] Dec, Generalized anxiety disorder F41.1 [place] [address] [facility] [id number] [address] [place] [address] Nov, [place] [address] [facility] [id number] [address] [place] [address] Nov, Generalized anxiety disorder F41.1 ; Cannabis use disorder, mild, abuse F12.10 and Bipolar II disorder F31.81 [place] [address] [facility] [id number] [address] [place] [address] Nov, Bipolar II disorder F31.81 [place] [address] [facility] [id number] [address] [place] [address] Nov, Bipolar II disorder F31.81 ; Generalized anxiety disorder F41.1 and Cannabis use disorder, mild, abuse F12.10 [place] [address] [facility] [id number] [address] [place] [address] Oct, [place] [address] [facility] [id number] [address] [place] [address] Oct, Bipolar II disorder F31.81 ; Generalized anxiety disorder F41.1 and Cannabis use disorder, mild, abuse F12.10 [place] [address] [address] 16 Aug, 2016 COPD (chronic obstructive pu lmonary disease) J44.9 [place] [address] [address] 08 Aug, 2016 Recent urinary tract infecti on Z87.440 ; Acquired hypothyroidism E03.9 ; Encounter for immunization Z23 ; Mixed hyperlipidemia E78.2 ; COPD (chronic obstructive pulmonary disease) J44.9 and Tobacco abuse Z72.0 [place] [address] [address] 15 Jul, 2016 [place] [address] [address] 11 Jul, 2016 [place] [address] [address] 09 Jul, 2016 Recent urinary tract infecti on Z87.440 ; Acute cystitis with hematuria N30.01 ; Vaginal itching L29.8 and Skin infection L08.9 [place] [address] [address] 04 Jun, 2016 Hydronephrosis, unspecified hydronephrosis type N13.30 [place] [address] [place] [id number] [place] [address] Apr, [place] [address] [address] Sep, Acquired hypothyroidism E03. 9 ; Mixed hyperlipidemia E78.2 ; COPD (chronic obstructive pulmonary disease) J44.9 and Thrush B37.0 [place] [address] [place] [id number] [place] [address] Aug, [place] [address] [place] [id number] [place] [address] Aug, Acquired hypothyroidism E03. 9 ; Mixed hyperlipidemia E78.2 ; COPD (chronic obstructive pulmonary disease) J44.9 and URI (upper respiratory infection) J06.9 [place] [address] [place] [id number] [place] [address] January, Blood in stool 578.1 and Hernando ght loss 783.21 [facility] [address] [id number] [address] [place] [address] January, Other and unspecified hyperl ipidemia 272.4 ; Unspecified hypothyroidism 244.9 ; Nondependent tobacco use disorder 305.1 ; Weight loss 783.21 ; History of colon polyps V12.72 and Blood in stool 578.1 [facility] [address] [id number] [address] [place] [address] 30 Dec, 2014 [facility] [address] [id number] [address] [place] [address] Dec, [facility] [address] [id number] [address] [place] [address] Dec, [facility] [address] [id number] [address] [place] [address] Dec, [facility] [address] [id number] [address] [place] [address] Nov, [facility] [address] [id number] [address] [place] [address] Nov, [facility] [address] [facility] [id number] [address] [place] [address] Nov, [facility] [address] [id number] [address] [place] [address] Nov, [facility] [address] [id number] [address] [place] [address] Sep, [facility] [address] [id number] [address] [place] [address] Sep, [facility] [address] [id number] [address] [place] [address] Aug, [facility] [address] [id number] [address] [place] [address] Aug, [facility] [address] [id number] [address] [place] [address], [place] [address] Aug, [facility] [address] [id number] [address] [place] [address], [place] [address] Aug, [facility] [address] [id number] [address] [place] [address], [place] [address] Aug, [facility] [address] [id number] [address] [place] [address], [place] [address] Aug, [facility] [address] [id number] [address] [place] [address], [place] [address] Aug, [facility] [address] [id number] [address] [place] [address], [place] [address] Aug, [facility] [address] [id number] [address] [place] [address], [place] [address] Jul, [facility] [address] [id number] [address] [place] [address], [place] [address] Jul, [facility] [address] [id number] [address] [place] [address], [place] [address] Jul, [facility] [address] [id number] [address] [place] [address], [place] [address] Jul, [facility] [address] [id number] [address] [place] [address], [place] [address] Jul, [facility] [address] [id number] [address] [place] [address] Jul, [facility] [address] [id number] [address] [place] [address], [place] [address] Jun, [facility] [address] [id number] [address] [place] [address], [place] [address] Jun, [facility] [address] [id number] [address] [place] [address], [place] [address] Jun, [facility] [address] [id number] [address] [place] [address], [place] [address] Jun, [facility] [address] [id number] [address] [place] [address], [place] [address] Apr, [facility] [address] [id number] [address] [place] [address], [place] [address] Apr, [facility] [address] [id number] [address] [place] [address], [place] [address] Mar, [facility] [address] [id number] [address] [place] [address], [place] [address] Mar, [facility] [address] [id number] [address] [place] [address], [place] [address] Feb, [facility] [address] [id number] [address] [place] [address], [place] [address] Feb, [facility] [address] [id number] [address] [place] [address], [place] [address] Sep, [facility] [address] [id number] [address] [place] [address], [place] [address] Sep, [facility] [address] [id number] [address] [place] [address], [place] [address] Aug, [facility] [address] [id number] [address] [place] [address], [place] [address] Aug, [facility] [address] [id number] [address] [place] [address], [place] [address] Aug, [facility] [address] [id number] [address] [place] [address], [place] [address] Aug, [facility] [address] [id number] [address] [place] [address], [place] [address] Jun, [facility] [address] [id number] [address] [place] [address], [place] [address] Jun, [facility] [address] [id number] [address] [place] [address], [place] [address] Jun, [facility] [address] [id number] [address] [place] [address], [place] [address] Jun, [facility] [address] [id number] [address] [place] [address], [place] [address] Jun, [facility] [address] [id number] [address] [place] [address], [place] [address] Jun, [facility] [address] [id number] [address] [place] [address], [place] [address] Jun, [facility] [address] [id number] [address] [place] [address], [place] [address] Jun, [facility] [address] [id number] [address] [place] [address], [place] [address] Jun, [facility] [address] [id number] [address] [place] [address], [place] [address] May, [facility] [address] [id number] [address] [place] [address], [place] [address] Apr, [facility] [address] [id number] [address] [place] [address], [place] [address] Apr, [facility] [address] [id number] [address] [place] [address], [place] [address] Apr, [facility] [address] [id number] [address] [place] [address], [place] [address] Mar, [facility] [address] [id number] [address] [place] [address], [place] [address] Mar, [facility] [address] [id number] [address] [place] [address], [place] [address] Mar, [facility] [address] [id number] [address] [place] [address], [place] [address] Mar, [facility] [address] [id number] [address] [place] [address], [place] [address] Mar, [facility] [address] [id number] [address] [address] Mar, [facility] [address] [id number] [address] [place] [address] Mar, [facility] [address] [id number] [address] [place] [address] Mar, [facility] [address] [id number] [address] [place] [address] Mar, [facility] [address] [id number] [address] [place] [address] Mar, [facility] [address] [id number] [address] [place] [address] Feb, [facility] [address] [id number] [address] [place] [address] Oct, [facility] [address] [id number] [address] [place] [address] Sep, [facility] [address] [id number] [address] [place] [address] Aug, [facility] [address] [id number] [address] [place] [address] Aug, [facility] [address] [id number] [address] [place] [address] Aug, [facility] [address] [id number] [address] [place] [address] Aug, [facility] [address] [id number] [address] [place] [address] Nov, IMMUNIZATIONS No Known Immunizations SOCIAL HISTORY [...]
--- OUTSIDE RECORDS SUMMARY | 2020-02-15 08:36 | XMS REPORT ---
Author Author Loan ESPARZA [facility] Address [address] [place] [address] Care Team Providers Care Database Designer Name Role Phone ROBBIE ESPARZA Unavailable PROBLEMS Type Condition ICD9-CM Code HRO32-UY Code Onset Dates Condition S tatus SNOMED Code Problem Mixed hyperlipidemia E78.2 Active 662509360 Problem Acquired hypothyroidism E03.9 Active 592830560 Problem COPD (chronic obstructive pulmonary disease) J44.9 Active 95204232 Problem Cigarette nicotine dependence without complication F17.210 Active 11886882 Problem Post-menopausal bleeding N95.0 Activ e 69393849 Problem Generalized anxiety disorder F41.1 A ctive 05414465 Problem Bipolar II disorder F31.81 Active 29321269 Problem Cannabis use disorder, mild, abuse F12.10 Active 38150626 Problem Hypothyroidism, unspecified E03.9 Ac tive 85415729 ALLERGIES No Information ENCOUNTERS Encounter Location Date Diagnosis [place] [address] [facility] [id number] [address] [place] [address] Mar, [place] [address] [facility] [id number] [address] [place] [address] 15 Dec, 2019 Bipolar II disorder F31.81 ; Generalized anxiety disorder F41.1 and Cannabis use disorder, mild, abuse F12.10 [facility] [address] [facility] [id number] [address] [place] [address] Dec, [place] [address] [facility] [id number] [address] [place] [address] Nov, Post-menopausal bleeding N95 .0 [facility] [address] [facility] [id number] [address] [place] [address] Oct, Bipolar II disorder F31.81 [place] [address] [address] Oct, [facility] [address] [address] Oct, [facility] [address] [place] [id number] [place] [address] Sep, Post-menopausal bleeding N95 .0 and Cigarette nicotine dependence without complication F17.210 [place] [address] [address] Sep, Bipolar II disorder F31.81 [place] [address] [address] Sep, Other drum filler (current) dr abdias craven Z79.899 [place] [address] [address] Sep, Urticaria L50.9 and Mixed hy perlipidemia E78.2 [place] [address] [address] Aug, Acute cystitis with hematuri a N30.01 and Dysuria R30.0 [place] [address] [address] Aug, Bipolar II disorder F31.81 ; Generalized anxiety disorder F41.1 and Cannabis use disorder, mild, abuse F12.10 [place] [address] [address] Aug, [place] [address] [address] Jul, [place] [address] [address] May, Bipolar II disorder F31.81 [place] [address] [address] Apr, Bipolar II disorder F31.81 ; Generalized anxiety disorder F41.1 ; Cannabis use disorder, mild, abuse F12.10 and Other drum filler (current) drug therapy Z79.899 [place] [address] [facility] [id number] [address] [place] [address] January, Bipolar II disorder F31.81 ; Generalized anxiety disorder F41.1 and Cannabis use disorder, mild, abuse F12.10 [place] [address] [facility] [id number] [address] [place] [address] Dec, Well woman exam without gyne cological exam Z00.00 ; Screening for breast cancer Z12.31 and Screening for malignant neoplasm of colon Z12.11 [place] [address] [facility] [id number] [address] [place] [address] 06 Oct, 2018 Bipolar II disorder F31.81 ; Generalized anxiety disorder F41.1 and Cannabis use disorder, mild, abuse F12.10 [place] [address] [facility] [id number] [address] [place] [address] Jun, Trochanteric bursitis of rig ht hip M70.61 [place] [address] [facility] [id number] [address] [place] [address] May, Trochanteric bursitis of rig ht hip M70.61 and Cigarette nicotine dependence without complication F17.210 [place] [address] [facility] [id number] [address] [place] [address] Apr, [place] [address] [facility] [id number] [address] [place] [address] Apr, Mixed hyperlipidemia E78.2 [place] [address] [facility] [id number] [address] [place] [address] Apr, [place] [address] [facility] [id number] [address] [place] [address] Apr, Bipolar II disorder F31.81 ; Generalized anxiety disorder F41.1 and Cannabis use disorder, mild, abuse F12.10 [place] [address] [facility] [id number] [address] [place] [address] Feb, Mixed hyperlipidemia E78.2 ; Acquired hypothyroidism E03.9 and Routine adult health maintenance Z00.00 [facility] [address] [facility] [id number] [address] [place] [address] January, Bipolar II disorder F31.81 [place] [facility] [id number] [address] [place] [address] January, Bipolar II disorder F31.81 ; Generalized anxiety disorder F41.1 ; Cannabis use disorder, mild, abuse F12.10 and Fatigue associated with anemia D64.9 [place] [address] [facility] [id number] [address] [place] [address] Dec, Hypothyroidism, unspecified E03.9 ; Tobacco abuse Z72.0 and COPD (chronic obstructive pulmonary disease) J44.9 [place] [address] [facility] [id number] [address] [place] [address] Jul, Bipolar II disorder F31.81 ; Generalized anxiety disorder F41.1 and Cannabis use disorder, mild, abuse F12.10 [place] [facility] [id number] [address] [place] [address] Apr, Bipolar II disorder F31.81 ; Nausea and vomiting in adult R11.2 ; Generalized anxiety disorder F41.1 ; Heartburn R12 and Cannabis use disorder, mild, abuse F12.10 [place] [address] [facility] [id number] [address] [place] [address] Apr, Bipolar II disorder F31.81 ; Generalized anxiety disorder F41.1 and Cannabis use disorder, mild, abuse F12.10 [place] [address] [facility] [id number] [address] [place] [address] Apr, Nausea and vomiting in adult R11.2 and Heartburn R12 [place] [address] [facility] [id number] [address] [place] [address] Apr, Bipolar II disorder F31.81 [place] [address] [facility] [id number] [address] [place] [address] Mar, Generalized anxiety disorder F41.1 [place] [address] [facility] [id number] [address] [place] [address] Feb, Bipolar II disorder F31.81 ; Generalized anxiety disorder F41.1 and Cannabis use disorder, mild, abuse F12.10 [facility] [address] [facility] [id number] [address] [place] [address] January, Bipolar II disorder F31.81 ; Generalized anxiety disorder F41.1 and Cannabis use disorder, mild, abuse F12.10 [facility] [address] [facility] [id number] [address] [place] [address] Dec, Bipolar II disorder F31.81 ; Generalized anxiety disorder F41.1 and Cannabis use disorder, mild, abuse F12.10 [place] [address] [facility] [id number] [address] [place] [address] Dec, Generalized anxiety disorder F41.1 [place] [address] [facility] [id number] [address] [place] [address] Nov, [place] [address] [facility] [id number] [address] [place] [address] Nov, Generalized anxiety disorder F41.1 ; Cannabis use disorder, mild, abuse F12.10 and Bipolar II disorder F31.81 [place] [address] [facility] [id number] [address] [place] [address] Nov, Bipolar II disorder F31.81 [place] [address] [facility] [id number] [address] [place] [address] Nov, Bipolar II disorder F31.81 ; Generalized anxiety disorder F41.1 and Cannabis use disorder, mild, abuse F12.10 [place] [address] [facility] [id number] [address] [place] [address] Oct, [place] [address] [facility] [id number] [address] [place] [address] Oct, Bipolar II disorder F31.81 ; Generalized anxiety disorder F41.1 and Cannabis use disorder, mild, abuse F12.10 [place] [address] [address] 16 Aug, 2016 COPD (chronic obstructive pu lmonary disease) J44.9 [place] [address] [address] 08 Aug, 2016 Recent urinary tract infecti on Z87.440 ; Acquired hypothyroidism E03.9 ; Encounter for immunization Z23 ; Mixed hyperlipidemia E78.2 ; COPD (chronic obstructive pulmonary disease) J44.9 and Tobacco abuse Z72.0 [place] [address] [address] 15 Jul, 2016 [place] [address] [address] 11 Jul, 2016 [place] [address] [address] 09 Jul, 2016 Recent urinary tract infecti on Z87.440 ; Acute cystitis with hematuria N30.01 ; Vaginal itching L29.8 and Skin infection L08.9 [place] [address] [address] 04 Jun, 2016 Hydronephrosis, unspecified hydronephrosis type N13.30 [place] [address] [place] [id number] [place] [address] Apr, [place] [address] [address] Sep, Acquired hypothyroidism E03. 9 ; Mixed hyperlipidemia E78.2 ; COPD (chronic obstructive pulmonary disease) J44.9 and Thrush B37.0 [place] [address] [place] [id number] [place] [address] Aug, [place] [address] [place] [id number] [place] [address] Aug, Acquired hypothyroidism E03. 9 ; Mixed hyperlipidemia E78.2 ; COPD (chronic obstructive pulmonary disease) J44.9 and URI (upper respiratory infection) J06.9 [place] [address] [place] [id number] [place] [address] January, Blood in stool 578.1 and Hernando ght loss 783.21 [facility] [address] [id number] [address] [place] [address] January, Other and unspecified hyperl ipidemia 272.4 ; Unspecified hypothyroidism 244.9 ; Nondependent tobacco use disorder 305.1 ; Weight loss 783.21 ; History of colon polyps V12.72 and Blood in stool 578.1 [facility] [address] [id number] [address] [place] [address] 30 Dec, 2014 [facility] [address] [id number] [address] [place] [address] Dec, [facility] [address] [id number] [address] [place] [address] Dec, [facility] [address] [id number] [address] [place] [address] Dec, [facility] [address] [id number] [address] [place] [address] Nov, [facility] [address] [id number] [address] [place] [address] Nov, [facility] [address] [facility] [id number] [address] [place] [address] Nov, [facility] [address] [id number] [address] [place] [address] Nov, [facility] [address] [id number] [address] [place] [address] Sep, [facility] [address] [id number] [address] [place] [address] Sep, [facility] [address] [id number] [address] [place] [address] Aug, [facility] [address] [id number] [address] [place] [address] Aug, [facility] [address] [id number] [address] [place] [place] [address], [place] [address] Aug, [facility] [address] [id number] [address] [place] [address], [place] [address] Aug, [facility] [address] [id number] [address] [place] [address], [place] [address] Aug, [facility] [address] [id number] [address] [place] [address], [place] [address] Aug, [facility] [address] [id number] [address] [place] [address], [place] [address] Aug, [facility] [address] [id number] [address] [place] [address], [place] [address] Aug, [facility] [address] [id number] [address] [place] [address], [place] [address] Jul, [facility] [address] [id number] [address] [place] [address], [place] [address] Jul, [facility] [address] [id number] [address] [place] [address], [place] [address] Jul, [facility] [address] [id number] [address] [place] [address], [place] [address] Jul, [facility] [address] [id number] [address] [place] [address], [place] [address] Jul, [facility] [address] [id number] [address] [place] [address] Jul, [facility] [address] [id number] [address] [place] [address], [place] [address] Jun, [facility] [address] [id number] [address] [place] [address], [place] [address] Jun, [facility] [address] [id number] [address] [place] [address], [place] [address] Jun, [facility] [address] [id number] [address] [place] [address], [place] [address] Jun, [facility] [address] [id number] [address] [place] [address], [place] [address] Apr, [facility] [address] [id number] [address] [place] [address], [place] [address] Apr, [facility] [address] [id number] [address] [place] [address], [place] [address] Mar, [facility] [address] [id number] [address] [place] [address], [place] [address] Mar, [facility] [address] [id number] [address] [place] [address], [place] [address] Feb, [facility] [address] [id number] [address] [place] [address], [place] [address] Feb, [facility] [address] [id number] [address] [place] [address], [place] [address] Sep, [facility] [address] [id number] [address] [place] [address], [place] [address] Sep, [facility] [address] [id number] [address] [place] [address], [place] [address] Aug, [facility] [address] [id number] [address] [place] [address], [place] [address] Aug, [facility] [address] [id number] [address] [place] [address], [place] [address] Aug, [facility] [address] [id number] [address] [place] [address], [place] [address] Aug, [facility] [address] [id number] [address] [place] [address], [place] [address] Jun, [facility] [address] [id number] [address] [place] [address], [place] [address] Jun, [facility] [address] [id number] [address] [place] [address], [place] [address] Jun, [facility] [address] [id number] [address] [place] [address], [place] [address] Jun, [facility] [address] [id number] [address] [place] [address], [place] [address] Jun, [facility] [address] [id number] [address] [place] [address], [place] [address] Jun, [facility] [address] [id number] [address] [place] [address], [place] [address] Jun, [facility] [address] [id number] [address] [place] [address], [place] [address] Jun, [facility] [address] [id number] [address] [place] [address], [place] [address] Jun, [facility] [address] [id number] [address] [place] [address], [place] [address] May, [facility] [address] [id number] [address] [place] [address], [place] [address] Apr, [facility] [address] [id number] [address] [place] [address], [place] [address] Apr, [facility] [address] [id number] [address] [place] [address], [place] [address] Apr, [facility] [address] [id number] [address] [place] [address], [place] [address] Mar, [facility] [address] [id number] [address] [place] [address], [place] [address] Mar, [facility] [address] [id number] [address] [place] [address], [place] [address] Mar, [facility] [address] [id number] [address] [place] [address], [place] [address] Mar, [facility] [address] [id number] [address] [place] [address], [place] [address] Mar, [facility] [address] [id number] [address] [address] Mar, [facility] [address] [id number] [address] [place] [address] Mar, [facility] [address] [id number] [address] [place] [address] Mar, [facility] [address] [id number] [address] [place] [address] Mar, [facility] [address] [id number] [address] [place] [address] Mar, [facility] [address] [id number] [address] [place] [address] Feb, [facility] [address] [id number] [address] [place] [address] Oct, [facility] [address] [id number] [address] [place] [address] Sep, [facility] [address] [id number] [address] [place] [address] Aug, [facility] [address] [id number] [address] [place] [address] Aug, [facility] [address] [id number] [address] [place] [address] Aug, [facility] [address] [id number] [address] [place] [address] Aug, [facility] [address] [id number] [address] [place] [address] Nov, IMMUNIZATIONS No Known Immunizations SOCIAL HISTORY [...]
--- OUTSIDE RECORDS SUMMARY | 2020-02-15 08:36 | XMS REPORT ---
Author Author Loan Dennis Doctor Organization [facility] Address Unknown Phone Unavailable Care Team Providers Care Exchange Engineer Name Role Phone Migration, Doctor Unavailable Unavailable PROBLEMS Type Condition ICD9-CM Code [id number] Code Onset Dates Condition S tatus SNOMED Code Problem Mixed hyperlipidemia E78.2 Active 328331197 Problem Acquired hypothyroidism E03.9 Active 983114280 Problem COPD (chronic obstructive pulmonary disease) J44.9 Active 75348361 Problem Cigarette nicotine dependence without complication F17.210 Active 35057304 Problem Post-menopausal bleeding N95.0 Activ e 11293023 Problem Generalized anxiety disorder F41.1 A ctive 28522690 Problem Bipolar II disorder F31.81 Active 12025425 Problem Cannabis use disorder, mild, abuse F12.10 Active 22987505 Problem Hypothyroidism, unspecified E03.9 Ac tive 55055775 ALLERGIES No Information ENCOUNTERS Encounter Location Date Diagnosis [place] [address] [address] Nov, [place] [address] [address] Nov, Post-menopausal bleeding N95.0 [place] [address] [address] Oct, Bipolar II disorder F31.81 [place] [address] [address] Oct, [place] [address] [address] Oct, [place] [address] [address] Sep, Post-menopausal bleeding N95.0 and Cigar ette nicotine dependence without complication F17.210 [place] [address] [address] Sep, Bipolar II disorder F31.81 [place] [address] [address] Sep, Other manager molecular (current) drug therapy Z 79.899 [place] [address] [address] Sep, Urticaria L50.9 and Mixed hyperlipidemia E78.2 [place] [address] [address] Aug, Acute cystitis with hematuria N30.01 and Dysuria R30.[address] [address] Aug, Bipolar II disorder F31.81 ; Generalized anxiety disorder F41.1 and Cannabis use disorder, mild, abuse F12.10 [place] [address] [address] Aug, [place] [address] [address] Jul, [place] [address] [address] May, Bipolar II disorder F31.81 [place] [address] [address] Apr, Bipolar II disorder F31.81 ; Generalized anxiety disorder F41.1 ; Cannabis use disorder, mild, abuse F12.10 and Other fci (current) drug therapy Z79.899 [place] [address] [address] January, Bipolar II disorder F31.81 ; Generalized anxiety disorder F41.1 and Cannabis use disorder, mild, abuse F12.[address] [address] Dec, Well woman exam without gynecological ex am Z00.00 ; Screening for breast cancer Z12.31 and Screening for malignant neoplasm of colon Z12.11 [place] [address] [address] Oct, Bipolar II disorder F31.81 ; Generalized anxiety disorder F41.1 and Cannabis use disorder, mild, abuse F12.10 [place] [address] [address] 09 Jun, 2018 Trochanteric bursitis of right hip M70.6 1 [place] [address] [address] 13 May, 2018 Trochanteric bursitis of right hip M70.6 1 and Cigarette nicotine dependence without complication F17.210 [place] [address] [address] Apr, [place] [address] [address] Apr, Mixed hyperlipidemia E78.[address] [address] Apr, [place] [address] [address] Apr, Bipolar II disorder F31.81 ; Generalized anxiety disorder F41.1 and Cannabis use disorder, mild, abuse F12.10 [place] [address] [address] Feb, Mixed hyperlipidemia E78.2 ; Acquired hy pothyroidism E03.9 and Routine adult health maintenance Z00.00 [place] [address] [address] January, Bipolar II disorder F31.81 [place] [address] [address] January, Bipolar II disorder F31.81 ; Generalized anxiety disorder F41.1 ; Cannabis use disorder, mild, abuse F12.10 and Fatigue associated with anemia D64.9 [place] [address] [address] Dec, Hypothyroidism, unspecified E03.9 ; Toba tobacco sample puller abuse Z72.0 and COPD (chronic obstructive pulmonary disease) J44.9 [facility] [address] [address] Jul, Bipolar II disorder F31.81 ; Generalized anxiety disorder F41.1 and Cannabis use disorder, mild, abuse F12.10 [facility] [address] [address] Apr, Bipolar II disorder F31.81 ; Nausea and vomiting in adult R11.2 ; Generalized anxiety disorder F41.1 ; Heartburn R12 and Cannabis use disorder, mild, abuse F12.10 [place] [address] [address] Apr, Bipolar II disorder F31.81 ; Generalized anxiety disorder F41.1 and Cannabis use disorder, mild, abuse F12.10 [place] [address] [address] Apr, Nausea and vomiting in adult R11.2 and H eartburn R12 [place] [address] [address] Apr, Bipolar II disorder F31.81 [place] [address] [address] Mar, Generalized anxiety disorder F41.1 [place] [address] [address] Feb, Bipolar II disorder F31.81 ; Generalized anxiety disorder F41.1 and Cannabis use disorder, mild, abuse F12.10 [facility] [address] [address] January, Bipolar II disorder F31.81 ; Generalized anxiety disorder F41.1 and Cannabis use disorder, mild, abuse F12.10 [facility] [address] [address] Dec, Bipolar II disorder F31.81 ; Generalized anxiety disorder F41.1 and Cannabis use disorder, mild, abuse F12.10 [place] [address] [address] Dec, Generalized anxiety disorder F41.1 [place] [address] [address] Nov, [address] [address] Nov, Generalized anxiety disorder F41.1 ; Can nabis use disorder, mild, abuse F12.10 and Bipolar II disorder F31.81 [place] [address] [address] Nov, Bipolar II disorder F31.81 [place] [address] [address] Nov, Bipolar II disorder F31.81 ; Generalized anxiety disorder F41.1 and Cannabis use disorder, mild, abuse F12.[address] [address] Oct, [address] [address] Oct, Bipolar II disorder F31.81 ; Generalized anxiety disorder F41.1 and Cannabis use disorder, mild, abuse F12.[address] [address] Aug, COPD (chronic obstructive pulmonary dise ase) J44.[address] [address] Aug, Recent urinary tract infection Z87.440 ; Acquired hypothyroidism E03.9 ; Encounter for immunization Z23 ; Mixed hyperlipidemia E78.2 ; COPD (chronic obstructive pulmonary disease) J44.9 and Tobacco abuse Z72.[address] [address] Jul, [address] [address] Jul, [address] [address] Jul, Recent urinary tract infection Z87.440 ; Acute cystitis with hematuria N30.01 ; Vaginal itching L29.8 and Skin infection L08.9 [place] [address] [address] Jun, Hydronephrosis, unspecified hydronephros is type N13.30 [place] [address] [address] Apr, [place] [address] [address] Sep, Acquired hypothyroidism E03.9 ; Mixed hy perlipidemia E78.2 ; COPD (chronic obstructive pulmonary disease) J44.9 and Thrush B37.[address] [address] Aug, [address] [address] Aug, Acquired hypothyroidism E03.9 ; Mixed hy perlipidemia E78.2 ; COPD (chronic obstructive pulmonary disease) J44.9 and URI (upper respiratory infection) J06.9 [place] [address] [address] January, Blood in stool 578.1 and Weight loss 783 [address] [address] January, Other and unspecified hyperlipidemia 272 .4 ; Unspecified hypothyroidism 244.9 ; Nondependent tobacco use disorder 305.1 ; Weight loss 783.21 ; History of colon polyps V12.72 and Blood in stool 578.1 [place] [address] [address] Dec, [address] [address] Dec, [place] [address] [address] Dec, [place] [address] [address] Dec, [facility] [address] [id number] [place] [address] Nov, [facility] [id number] [place] [address] Nov, [facility] [id number] [place] [address] Nov, [facility] [id number] [place] [address] Nov, [facility] [id number] [place] [address] Sep, [facility] [id number] [place] [address] Sep, [facility] [id number] [place] [address] Aug, [facility] [id number] [place] [address] Aug, [facility] [id number] [place] [address] Aug, [facility] [id number] [place] [address] Aug, [facility] [id number] [place] [address] Aug, [facility] [id number] [place] [address] Aug, [facility] [id number] [place] [address] Aug, [facility] [id number] [place] [address] Aug, [facility] [id number] [place] [address] Jul, [facility] [id number] [place] [address] Jul, [facility] [id number] [place] [address] Jul, [facility] [id number] [place] [address] Jul, [facility] [id number] [place] [address] Jul, [facility] [id number] [place] [address] Jul, [facility] [id number] [place] [address] Jun, [facility] [id number] [place] [address] Jun, [facility] [id number] [place] [address] Jun, [facility] [id number] [place] [address] Jun, [facility] [id number] [place] [address] Apr, [facility] [id number] [place] [address] Apr, [facility] [id number] [place] [address] Mar, [facility] [id number] [place] [address] Mar, [facility] [id number] [place] [address] Feb, [facility] [id number] [place] [address] Feb, [facility] [address] [place] [id number] [place] [address] Sep, [facility] [id number] [place] [address] Sep, [facility] [id number] [place] [address] Aug, [facility] [address] [facility] [id number] [place] [address] Aug, [facility] [address] [id number] [place] [address] Aug, [facility] [id number] [place] [address] Aug, [facility] [id number] [place] [address] Jun, [facility] [address] [facility] [id number] [place] [address] Jun, [facility] [address] [facility] [address] [id number] [place] [address] Jun, [facility] [address] [id number] [place] [address] Jun, [facility] [id number] [place] [address] Jun, [facility] [address] [address] [id number] [place] [address] Jun, [facility] [address] [address] [id number] [place] [address] Jun, [facility] [id number] [place] [address] Jun, [facility] [address] [id number] [place] [address] Jun, [facility] [address] [id number] [place] [address] May, [facility] [address] [address] [id number] [place] [address] Apr, [facility] [address] [facility] [address] [id number] [place] [address] Apr, [facility] [id number] [place] [address] Apr, [facility] [id number] [place] [address] Mar, [facility] [address] [facility] [id number] [place] [address] Mar, [facility] [id number] [facility] [place] [address] Mar, [facility] [id number] [place] [address] Mar, [facility] [id number] [place] [address] Mar, [facility] [address] [facility] [id number] [place] [address] Mar, [facility] [address] [facility] [id number] [place] [address] Mar, [facility] [address] [facility] [id number] [place] [address] Mar, [facility] [address] [address] [id number] [place] [address] Mar, [facility] [id number] [place] [address] Mar, [facility] [id number] [place] [address] Feb, [facility] [id number] [place] [address] Oct, [facility] [id number] [place] [address] Sep, [facility] [address] [id number] [place] [address] Aug, [facility] [id number] [place] [address] Aug, [facility] [address] [id number] [place] [address] Aug, [facility] [id number] [place] [address] Aug, [facility] [id number] [place] [address] 14 Nov, 2011 IMMUNIZATIONS No Known Immunizations SOCIAL HISTORY Never Assessed REASON FOR VISIT PLAN OF CARE VITAL SIGNS MEDICATIONS Unknown Medications RESULTS No Results PROCEDURES Procedure Date Ordered Result Body Site URINALYSIS, AUTO, W/O SCOPE Oct 16, 2013 INSTRUCTIONS MEDICATIONS ADMINISTERED No Known Medications [...]
--- OUTSIDE RECORDS SUMMARY | 2020-02-15 08:36 | XMS REPORT ---
Author Author Loan Dennis Doctor Organization [facility] Address Unknown Phone Unavailable Care Team Providers Care Circuit Designer Name Role Phone Migration, Doctor Unavailable Unavailable PROBLEMS Type Condition ICD9-CM Code ECQ20-ED Code Onset Dates Condition S tatus SNOMED Code Problem Mixed hyperlipidemia E78.2 Active 500982112 Problem Acquired hypothyroidism E03.9 Active 167691312 Problem COPD (chronic obstructive pulmonary disease) J44.9 Active 54874849 Problem Cigarette nicotine dependence without complication F17.210 Active 61299345 Problem Post-menopausal bleeding N95.0 Activ e 44781836 Problem Generalized anxiety disorder F41.1 A ctive 67582262 Problem Bipolar II disorder F31.81 Active 89985592 Problem Cannabis use disorder, mild, abuse F12.10 Active 35135517 Problem Hypothyroidism, unspecified E03.9 Ac tive 25340701 ALLERGIES No Information ENCOUNTERS Encounter Location Date Diagnosis [id number] [facility] [id number] [address] [place] [phone] Mar, [place] [address] [address] [facility] [id number] [address] [place] [phone] Dec, Bipolar II disorder F31.81 ; Generalized anxiety disorder F41.1 and Cannabis use disorder, mild, abuse F12.10 [facility] [address] [facility] [id number] [address] [place] [id number] Dec, [facility] [place] [address] [facility] [id number] [address] [place] [phone] Nov, Post-menopausal bleeding N95 .0 [facility] [address] [facility] [id number] [address] [place] [phone] Oct, Bipolar II disorder F31.81 [facility] [place] [address] [facility] [id number] [address] [place] [id number] 17 Oct, 2019 [place] [address] [address] Oct, [place] [address] [address] Sep, Post-menopausal bleeding N95 .0 and Cigarette nicotine dependence without complication F17.210 [place] [address] [address] Sep, Bipolar II disorder F31.81 [place] [address] [address] Sep, Other nursing home (current) dr ug therapy Z79.899 [place] [address] [address] Sep, Urticaria L50.9 and Mixed hy perlipidemia E78.2 [place] [address] [address] Aug, Acute cystitis with hematuri a N30.01 and Dysuria R30.0 [place] [address] [address] Aug, Bipolar II disorder F31.81 ; Generalized anxiety disorder F41.1 and Cannabis use disorder, mild, abuse F12.10 [place] [address] [address] [place] [id number] [address] [place] [phone] Aug, [place] [address] [address] Jul, [place] [address] [address] [place] [id number] [address] [place] [address] May, Bipolar II disorder F31.81 [place] [address] [address] Apr, Bipolar II disorder F31.81 ; Generalized anxiety disorder F41.1 ; Cannabis use disorder, mild, abuse F12.10 and Other nursing home (current) drug therapy Z79.899 [place] [address] [address] [place] [id number] [address] [place] [id number] January, Bipolar II disorder F31.81 ; Generalized anxiety disorder F41.1 and Cannabis use disorder, mild, abuse F12.10 [place] [address] [address] [place] [id number] [address] [place] [id number] 10 Dec, 2018 Well woman exam without gyne cological exam Z00.00 ; Screening for breast cancer Z12.31 and Screening for malignant neoplasm of colon Z12.11 [place] [address] [place] [id number] 06 Oct, 2018 Bipolar II disorder F31.81 ; Generalized anxiety disorder F41.1 and Cannabis use disorder, mild, abuse F12.10 [place] [address] [address] [place] [id number] [address] [place] [id number] 09 Jun, 2018 Trochanteric bursitis of rig ht hip M70.[address] [address] 13 May, 2018 Trochanteric bursitis of rig ht hip M70.61 and Cigarette nicotine dependence without complication F17.210 [place] [address] [place] [id number] [address] [place] [phone] Apr, [place] [address] [address] [place] [id number] [address] [place] [phone] Apr, Mixed hyperlipidemia E78.2 [place] [id number] [address] [place] [phone] Apr, [place] [address] [address] [place] [id number] [address] [place] [address] Apr, Bipolar II disorder F31.81 ; Generalized anxiety disorder F41.1 and Cannabis use disorder, mild, abuse F12.10 [place] [address] [address] [place] [id number] [address] [place] [phone] Feb, Mixed hyperlipidemia E78.2 ; Acquired hypothyroidism E03.9 and Routine adult health maintenance Z00.00 [place] [address] [address] [place] [id number] [address] [place] [address] January, Bipolar II disorder F31.81 [place] [address] [address] January, Bipolar II disorder F31.81 ; Generalized anxiety disorder F41.1 ; Cannabis use disorder, mild, abuse F12.10 and Fatigue associated with anemia D64.9 [facility] [place] [address] [place] [id number] [place] [address] Dec, Hypothyroidism, unspecified E03.9 ; Tobacco abuse Z72.0 and COPD (chronic obstructive pulmonary disease) J44.9 [place] [address] [address] Jul, Bipolar II disorder F31.81 ; Generalized anxiety disorder F41.1 and Cannabis use disorder, mild, abuse F12.10 [place] [address] [address] Apr, Bipolar II disorder F31.81 ; Nausea and vomiting in adult R11.2 ; Generalized anxiety disorder F41.1 ; Heartburn R12 and Cannabis use disorder, mild, abuse F12.10 [place] [address] [address] Apr, Bipolar II disorder F31.81 ; Generalized anxiety disorder F41.1 and Cannabis use disorder, mild, abuse F12.10 [place] [address] [address] Apr, Nausea and vomiting in adult R11.2 and Heartburn R12 [place] [address] [address] [place] [id number] [address] [place] [address] Apr, Bipolar II disorder F31.81 [place] [address] [address] [place] [id number] [place] [address] Mar, Generalized anxiety disorder F41.1 [place] [address] [address] [place] [id number] [address] [place] [address] 27 Cristino, 2017 Bipolar II disorder F31.81 ; Generalized anxiety disorder F41.1 and Cannabis use disorder, mild, abuse F12.10 [facility] [place] [address] [id number] [address] [place] [address] January, Bipolar II disorder F31.81 ; Generalized anxiety disorder F41.1 and Cannabis use disorder, mild, abuse F12.10 [facility] [place] [address] [id number] [address] [place] [address] Dec, Bipolar II disorder F31.81 ; Generalized anxiety disorder F41.1 and Cannabis use disorder, mild, abuse F12.10 [facility] [place] [address] [id number] [address] [place] [address] Dec, Generalized anxiety disorder F41.1 [facility] [place] [address] [id number] [address] [place] [phone] Nov, [facility] [place] [address] [facility] [id number] [address] [place] [address] Nov, Generalized anxiety disorder F41.1 ; Cannabis use disorder, mild, abuse F12.10 and Bipolar II disorder F31.81 [facility] [address] [id number] [address] [place] [address] Nov, Bipolar II disorder F31.81 [facility] [address] [id number] [address] [place] [id number] Nov, Bipolar II disorder F31.81 ; Generalized anxiety disorder F41.1 and Cannabis use disorder, mild, abuse F12.10 [facility] [address] [id number] [address] [place] [id number] Oct, [facility] [address] [id number] [address] [place] [address] Oct, Bipolar II disorder F31.81 ; Generalized anxiety disorder F41.1 and Cannabis use disorder, mild, abuse F12.10 [facility] [address] [id number] [address] [place] [id number] Aug, COPD (chronic obstructive pu lmonary disease) J44.9 [facility] [address] [facility] [id number] [address] [place] [id number] 08 Aug, 2016 Recent urinary tract infecti on Z87.440 ; Acquired hypothyroidism E03.9 ; Encounter for immunization Z23 ; Mixed hyperlipidemia E78.2 ; COPD (chronic obstructive pulmonary disease) J44.9 and Tobacco abuse Z72.0 [facility] [address] [facility] [id number] [address] [place] [id number] Jul, [facility] [address] [facility] [id number] [address] [place] [address] Jul, [place] [address] [facility] [id number] [address] [place] [address] Jul, Recent urinary tract infecti on Z87.440 ; Acute cystitis with hematuria N30.01 ; Vaginal itching L29.8 and Skin infection L08.9 [place] [address] [address] [place] [id number] [address] [place] [id number] Jun, Hydronephrosis, unspecified hydronephrosis type N13.30 [place] [address] [address] [facility] [id number] [address] [place] [address] Apr, [place] [address] [address] [place] [id number] [address] [place] [address] Sep, Acquired hypothyroidism E03. 9 ; Mixed hyperlipidemia E78.2 ; COPD (chronic obstructive pulmonary disease) J44.9 and Thrush B37.0 [facility] [address] [facility] [id number] [address] [place] [phone] Aug, [facility] [address] [facility] [id number] [address] [place] [id number] Aug, Acquired hypothyroidism E03. 9 ; Mixed hyperlipidemia E78.2 ; COPD (chronic obstructive pulmonary disease) J44.9 and URI (upper respiratory infection) J06.9 [facility] [address] [facility] [id number] [address] [place] [address] January, Blood in stool 578.1 and [place] ght loss 783.21 [facility] [address] [id number] [address] [place] [id number] January, Other and unspecified hyperl ipidemia 272.4 ; Unspecified hypothyroidism 244.9 ; Nondependent tobacco use disorder 305.1 ; Weight loss 783.21 ; History of colon polyps V12.72 and Blood in stool 578.1 [facility] [address] [id number] [address] [place] [id number] Dec, [facility] [address] [id number] [address] [place] [id number] Dec, [facility] [address] [id number] [address] [place] [id number] Dec, [facility] [address] [id number] [address] [place] [phone] Dec, [facility] [address] [id number] [address] [place] [id number] Nov, [facility] [address] [id number] [address] [place] [id number] Nov, [facility] [address] [id number] [address] [place] [id number] Nov, [facility] [address] [id number] [address] [place] [phone] Nov, [facility] [address] [id number] [address] [place] [address] Sep, [facility] [address] [id number] [address] [place] [phone] Sep, [facility] [address] [id number] [address] [place] [id number] Aug, [facility] [address] [id number] [address] [place] [id number] Aug, [facility] [address] [id number] [address] [place] [phone] Aug, [facility] [address] [id number] [address] [place] [address], [place] [address] Aug, [facility] [address] [id number] [address] [place] [address], [place] [address] Aug, [facility] [address] [id number] [address] [place] [address], [place] [address] Aug, [facility] [address] [id number] [address] [place] [address], [place] [address] Aug, [facility] [address] [id number] [address] [place] [address], [place] [address] Aug, [facility] [address] [id number] [address] [place] [address], [place] [address] Jul, [facility] [address] [id number] [address] [place] [address], [place] [address] Jul, [facility] [address] [id number] [address] [place] [address], [place] [address] Jul, [facility] [address] [id number] [address] [place] [address], [place] [address] Jul, [facility] [address] [id number] [address] [place] [address], [place] [address] Jul, [facility] [address] [id number] [address] [place] [id number] Jul, [facility] [address] [id number] [address] [place] [phone] Jun, [facility] [address] [id number] [address] [place] [address], [place] [address] Jun, [facility] [address] [id number] [address] [place] [address], [place] [address] Jun, [facility] [address] [id number] [address] [place] [address], [place] [address] Jun, [facility] [address] [id number] [address] [place] [address], [place] [address] Apr, [facility] [address] [id number] [address] [place] [address], [place] [address] Apr, [facility] [address] [id number] [address] [place] [address], [place] [address] Mar, [facility] [address] [id number] [address] [place] [address], [place] [address] Mar, [facility] [address] [id number] [address] [place] [address], [place] [address] Feb, [facility] [address] [id number] [address] [place] [address], [place] [address] Feb, [facility] [address] [id number] [address] [place] [address], [place] [address] Sep, [facility] [address] [id number] [address] [place] [address], [place] [address] Sep, [facility] [address] [id number] [address] [place] [address], [place] [address] Aug, [facility] [address] [id number] [address] [place] [address], [place] [address] Aug, [facility] [address] [id number] [address] [place] [address], [place] [address] Aug, [facility] [address] [id number] [address] [place] [address], [place] [address] Aug, [facility] [address] [id number] [address] [place] [address], [place] [address] Jun, [facility] [address] [id number] [address] [place] [address], [place] [address] Jun, [facility] [address] [id number] [address] [place] [address], [place] [address] Jun, [facility] [address] [id number] [address] [place] [address], [place] [address] Jun, [facility] [address] [id number] [address] [place] [address], [place] [address] Jun, [facility] [address] [id number] [address] [place] [address], [place] [address] Jun, [facility] [address] [id number] [address] [place] [address], [place] [address] Jun, [facility] [address] [id number] [address] [place] [address], [place] [address] Jun, [facility] [address] [id number] [address] [place] [address], [place] [address] Jun, [facility] [address] [id number] [address] [place] [address], [place] [address] May, [facility] [address] [id number] [address] [place] [address], [place] [address] Apr, [facility] [address] [id number] [address] [place] [address], [place] [address] Apr, [facility] [address] [id number] [address] [place] [address], [place] [address] Apr, [facility] [address] [id number] [address] [place] [address], [place] [address] Mar, [facility] [address] [id number] [address] [place] [address], [place] [address] Mar, [facility] [address] [id number] [address] [place] [address], [place] [address] Mar, [facility] [address] [id number] [address] [place] [address], [place] [address] Mar, [facility] [address] [id number] [address] [place] [address], [place] [address] Mar, [facility] [address] [id number] [address] [place] [address], [place] [address] Mar, [facility] [address] [id number] [address] [place] [id number] Mar, [facility] [address] [id number] [address] [place] [id number] Mar, [facility] [address] [id number] [address] [place] [id number] Mar, [facility] [address] [id number] [address] [place] [id number] Mar, [facility] [address] [id number] [address] [place] [id number] Feb, [facility] [address] [id number] [address] [place] [id number] Oct, [facility] [address] [id number] [address] [place] [phone] Sep, [facility] [address] [id number] [address] [place] [phone] Aug, [facility] [address] [id number] [address] [place] [address] Aug, [facility] [address] [id number] [address] [place] [id number] Aug, [facility] [address] [id number] [address] [place] [address] Aug, [facility] [address] [id number] [address] [place] [id number] Nov, IMMUNIZATIONS No Known Immunizations SOCIAL HISTORY [...]
--- OUTSIDE RECORDS SUMMARY | 2020-02-15 08:37 | XMS REPORT ---
Author Author Loan Ambrose Organization [facility] Address [address] [place] [address] Care Team Providers Care Flight Crew Ordnanceman Name Role Phone DIEGO Ambrose Unavailable PROBLEMS Type Condition ICD9-CM Code [id number] Code Onset Dates Condition S tatus SNOMED Code Problem Mixed hyperlipidemia E78.2 Active 225696193 Problem Acquired hypothyroidism E03.9 Active 306573791 Problem Hypothyroidism, unspecified E03.9 Ac tive 81767756 Problem Cigarette nicotine dependence without complication F17.210 Active 38738329 Problem COPD (chronic obstructive pulmonary disease) J44.9 Active 99043336 Problem Generalized anxiety disorder F41.1 A ctive 11101278 Problem Bipolar II disorder F31.81 Active 62616817 Problem Cannabis use disorder, mild, abuse F12.10 Active 29439871 ALLERGIES No Information ENCOUNTERS Encounter Location Date Diagnosis [place] [address] [address] Nov, [place] [address] [address] Sep, [place] [address] [address] Sep, Bipolar II disorder F31.81 [place] [address] [address] Sep, Other correction (current) drug therapy Z 79.899 [place] [address] [address] Sep, Urticaria L50.9 and Mixed hyperlipidemia E78.2 [place] [address] [address] Aug, Acute cystitis with hematuria N30.01 and Dysuria R30.0 [place] [address] [address] Aug, Bipolar II disorder F31.81 ; Generalized anxiety disorder F41.1 and Cannabis use disorder, mild, abuse F12.10 [place] [address] [address] Aug, [place] [address] [address] Jul, [place] [address] [address] May, Bipolar II disorder F31.[address] [address] Apr, Bipolar II disorder F31.81 ; Generalized anxiety disorder F41.1 ; Cannabis use disorder, mild, abuse F12.10 and 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.[address] [address] January, Bipolar II disorder F31.81 ; Generalized anxiety disorder F41.1 and Cannabis use disorder, mild, abuse F12.[address] [address] Dec, Well woman exam without gynecological ex am Z00.00 ; Screening for breast cancer Z12.31 and Screening for malignant neoplasm of colon Z12.[address] [address] 06 Oct, 2018 Bipolar II disorder F31.81 ; Generalized anxiety disorder F41.1 and Cannabis use disorder, mild, abuse F12.[address] [address] 09 Jun, 2018 Trochanteric bursitis of right hip M70.[address] [address] 13 May, 2018 Trochanteric bursitis of right hip M70.6 1 and Cigarette nicotine dependence without complication F17.[id number] [place] [address] Apr, [place] [address] [address] Apr, Mixed hyperlipidemia E78.2 [place] [address] [address] Apr, [place] [address] [address] Apr, Bipolar II disorder F31.81 ; Generalized anxiety disorder F41.1 and Cannabis use disorder, mild, abuse F12.10 [place] [address] [address] Feb, Mixed hyperlipidemia E78.2 ; Acquired hy pothyroidism E03.9 and Routine adult health maintenance Z00.[address] [address] January, Bipolar II disorder F31.81 [place] [address] [address] January, Bipolar II disorder F31.81 ; Generalized anxiety disorder F41.1 ; Cannabis use disorder, mild, abuse F12.10 and Fatigue associated with anemia D64.[address] [address] Dec, Hypothyroidism, unspecified E03.9 ; 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 and COPD (chronic obstructive pulmonary disease) J44.9 [place] [address] [address] Jul, Bipolar II disorder F31.81 ; Generalized anxiety disorder F41.1 and Cannabis use disorder, mild, abuse F12.10 [place] [address] [address] Apr, Bipolar II disorder F31.81 ; Nausea and vomiting in adult R11.2 ; Generalized anxiety disorder F41.1 ; Heartburn R12 and Cannabis use disorder, mild, abuse F12.10 [place] [address] [address] Apr, Bipolar II disorder F31.81 ; Generalized anxiety disorder F41.1 and Cannabis use disorder, mild, abuse F12.10 [place] [address] [address] Apr, Nausea and vomiting in adult R11.2 and H eartburn R12 [place] [address] [address] Apr, Bipolar II disorder F31.81 [place] [address] [address] Mar, Generalized anxiety disorder F41.1 [place] [address] [address] Feb, Bipolar II disorder F31.81 ; Generalized anxiety disorder F41.1 and Cannabis use disorder, mild, abuse F12.10 [place] [address] [address] January, Bipolar II disorder F31.81 ; Generalized anxiety disorder F41.1 and Cannabis use disorder, mild, abuse F12.10 [place] [address] [address] Dec, Bipolar II disorder F31.81 ; Generalized anxiety disorder F41.1 and Cannabis use disorder, mild, abuse F12.10 [place] [address] [address] Dec, Generalized anxiety disorder F41.1 [place] [address] [address] Nov, [place] [address] [address] Nov, Generalized anxiety disorder F41.1 ; Can nabis use disorder, mild, abuse F12.10 and Bipolar II disorder F31.81 [place] [address] [address] Nov, Bipolar II disorder F31.81 [place] [address] [address] Nov, Bipolar II disorder F31.81 ; Generalized anxiety disorder F41.1 and Cannabis use disorder, mild, abuse F12.10 [place] [address] [address] Oct, [place] [address] [address] 17 Oct, 2016 Bipolar II disorder F31.81 ; Generalized anxiety disorder F41.1 and Cannabis use disorder, mild, abuse F12.10 [place] [address] [address] 16 Aug, 2016 COPD (chronic obstructive pulmonary dise ase) J44.9 [place] [address] [address] 08 Aug, 2016 Recent urinary tract infection Z87.440 ; Acquired hypothyroidism E03.9 ; Encounter for immunization Z23 ; Mixed hyperlipidemia E78.2 ; COPD (chronic obstructive pulmonary disease) J44.9 and Tobacco abuse Z72.0 [place] [address] [address] Jul, [address] [address] Jul, [address] [address] Jul, Recent urinary tract infection Z87.440 ; Acute cystitis with hematuria N30.01 ; Vaginal itching L29.8 and Skin infection L08.9 [place] [address] [address] 04 Jun, 2016 Hydronephrosis, unspecified hydronephros is type N13.30 [place] [address] [address] Apr, [address] [address] Sep, Acquired hypothyroidism E03.9 ; Mixed hy perlipidemia E78.2 ; COPD (chronic obstructive pulmonary disease) J44.9 and Thrush B37.0 [place] [address] [address] Aug, [facility] [address] [address] Aug, Acquired hypothyroidism E03.9 ; Mixed hy perlipidemia E78.2 ; COPD (chronic obstructive pulmonary disease) J44.9 and URI (upper respiratory infection) J06.9 [place] [address] [address] January, Blood in stool 578.1 and Weight loss 783 .21 [place] [address] [address] January, Other and unspecified hyperlipidemia 272 .4 ; Unspecified hypothyroidism 244.9 ; Nondependent tobacco use disorder 305.1 ; Weight loss 783.21 ; History of colon polyps V12.72 and Blood in stool 578.1 [place] [address] [address] 30 Dec, 2014 [place] [address] [address] Dec, [place] [address] [address] Dec, [place] [address] [address] Dec, [facility] [address] [address] Nov, [facility] [address] [address] Nov, [facility] [address] [address] Nov, [facility] [address] [address] Nov, [facility] [address] [place] [address] Sep, [facility] [place] [facility] [address] [id number] [place] [address] Sep, [facility] [place] [facility] [address] [id number] [place] [address] Aug, [facility] [place] [facility] [address] [id number] [place] [address] Aug, [facility] [place] [facility] [address] [id number] [place] [address] Aug, [facility] [place] [facility] [address] [id number] [place] [address] Aug, [facility] [place] [facility] [address] [id number] [place] [address] Aug, [facility] [place] [facility] [address] [id number] [place] [address] Aug, [facility] [place] [facility] [address] [id number] [place] [address] Aug, [facility] [place] [facility] [address] [id number] [place] [address] Aug, [facility] [place] [facility] [address] [id number] [place] [address] Jul, [facility] [place] [facility] [address] [id number] [place] [address] Jul, [facility] [place] [facility] [address] [id number] [place] [address] Jul, [facility] [place] [facility] [address] [id number] [place] [address] Jul, [facility] [place] [facility] [address] [place] [id number] [place] [address] Jul, [facility] [place] [facility] [address] [id number] [place] [address] Jul, [facility] [place] [facility] [address] [id number] [place] [address] Jun, [facility] [place] [facility] [address] [id number] [place] [address] Jun, [facility] [place] [facility] [address] [id number] [place] [address] Jun, [facility] [place] [facility] [address] [id number] [place] [address] Jun, [facility] [place] [facility] [address] [id number] [place] [address] Apr, [facility] [place] [facility] [address] [id number] [place] [address] Apr, [facility] [place] [facility] [address] [id number] [place] [address] Mar, [facility] [place] [facility] [address] [id number] [place] [address] Mar, [facility] [place] [facility] [address] [id number] [place] [address] Feb, [facility] [place] [facility] [address] [id number] [place] [address] Feb, [facility] [place] [facility] [address] [id number] [place] [address] Sep, [facility] [place] [facility] [address] [id number] [place] [address] Sep, [facility] [place] [facility] [address] [id number] [place] [address] Aug, [facility] [place] [facility] [address] [id number] [place] [address] Aug, [facility] [place] [facility] [address] [id number] [place] [address] Aug, [facility] [place] [facility] [address] [id number] [place] [address] Aug, [facility] [place] [facility] [address] [id number] [place] [address] Jun, [facility] [place] [facility] [address] [id number] [place] [address] Jun, [facility] [place] [facility] [address] [facility] [id number] [place] [address] Jun, [facility] [place] [facility] [address] [facility] [id number] [facility] [place] [address] Jun, [facility] [place] [facility] [address] [facility] [id number] [place] [address] Jun, [facility] [place] [facility] [address] [facility] [id number] [facility] [place] [address] Jun, [facility] [place] [facility] [address] [facility] [id number] [place] [address] Jun, [facility] [place] [facility] [address] [id number] [place] [address] Jun, [facility] [place] [facility] [address] [id number] [place] [address] Jun, [facility] [place] [facility] [address] [id number] [place] [address] May, [facility] [place] [facility] [address] [facility] [id number] [place] [address] Apr, [facility] [place] [facility] [address] [id number] [place] [address] Apr, [facility] [place] [facility] [address] [id number] [place] [address] Apr, [facility] [place] [facility] [address] [id number] [place] [address] Mar, [facility] [place] [facility] [address] [facility] [id number] [place] [address] Mar, [facility] [place] [facility] [address] [facility] [id number] [place] [address] Mar, [facility] [place] [facility] [address] [facility] [id number] [place] [address] Mar, [facility] [place] [facility] [address] [id number] [place] [address] Mar, [facility] [place] [facility] [address] [place] [id number] [place] [address] Mar, [facility] [address] [place] [id number] [place] [address] Mar, [facility] [address] [place] [id number] [place] [address] Mar, [facility] [address] [place] [id number] [place] [address] Mar, [facility] [address] [place] [id number] [place] [address] Mar, [facility] [address] [address] Feb, [facility] [address] [address] Oct, [facility] [address] [address] Sep, [facility] [address] [address] Aug, [facility] [address] [place] [id number] [place] [address] Aug, [facility] [address] [address] Aug, [facility] [address] [address] Aug, [facility] [address] [address] Nov, IMMUNIZATIONS No Known Immunizations SOCIAL HISTORY Never Assessed REASON FOR VISIT PLAN OF CARE VITAL SIGNS Height 63 in 2014-04-04 Weight 114 lbs 2014-04-04 Temperature 97.4 degrees Fahrenheit 2014-04-04 Heart Rate 64 bpm 2014-04-04 Respiratory Rate 18 2014-04-04 Blood pressure systolic 116 mmHg 2014-04-04 Blood pressure diastolic 74 mmHg 2014-04-04 MEDICATIONS Unknown Medications RESULTS No Results PROCEDURES [...]
--- OUTSIDE RECORDS SUMMARY | 2020-02-15 08:40 | XMS REPORT | Continuity of Care Document ---
Author Organization Unknown Address Unknown Phone Unavailable Allergies Active Description Code Type Severity Reaction Onset Reported/Identified Relationship to Patient Clinical Status Yes mirtazapine [id number] Drug Aller gy Unknown N/A 07/27/2012 Yes Remeron Drug Allergy N/A N/A 09/13/2012 Yes Wellbutrin Drug Allergy N/A N/A 09/13/2012 Yes Remeron Drug Allergy 09/13/2012 Yes Wellbutrin Drug Allergy 09/13/2012 Yes oxybutynin Drug Allergy N/A N/A 04/04/2014 Yes bupropion HCl [id number] Mert g Allergy Unknown HIVES 01/08/2015 Yes oxybutynin [id number] Drug Allerg y Unknown N/A 01/08/2015 Yes oxybutynin [id number] Drug Allerg y Moderate "MADE ME CRAZY" 01/30/2019 Yes bupropion HCl [id number] Mert g Allergy Mild HIVES 01/30/2019 Medications There is no data. Problems Date Dx Coded Attending Type Code Diagnosis Diagnosed By 08/26/2011 Ot 346.90 JONAS BIB UNSPECIFIED W/O INTRACT MGRN W/ 08/26/2011 Ot 784.0 HEAD ACHE 08/01/2012 Ot 569.3 RECT AL ANAL HEMORRHAGE 08/01/2012 Ot 629.32 EXP OSURE OF IMPLANT VAG MESH OTH PROST 09/13/2012 SOLEDAD RICK MD 300.0 0 anxiety 09/13/2012 SOLEDAD RICK MD 305.1 NICOTINE DEPENDENCE 09/13/2012 SOLEDAD RICK MD 724.2 lower back pain 09/13/2012 300.00 anxiety 09/13/2012 305.1 SUSANNE AGUILA DEPENDENCE 09/13/2012 724.2 lowe r back pain 09/13/2012 SANTOS VELIZ MD 300.00 anxiety 09/13/2012 SANTOS VELIZ MD 305.1 NICOTINE DEPENDENCE 09/13/2012 SANTOS VELIZ MD 724.2 lower back pain 09/13/2012 JOSE ALFREDO CAROLINA, SANTOS M 300.00 anxiety 09/13/2012 SANTOS VELIZ MD M 305.1 NICOTINE DEPENDENCE 09/13/2012 SANTOS VELIZ MD M 724.2 lower back pain 09/13/2012 SANTOS VELIZ MD M 300.00 anxiety 09/13/2012 SANTOS VELIZ MD M 305.1 NICOTINE DEPENDENCE 09/13/2012 SANTOS VELIZ MD M 724.2 lower back pain 09/13/2012 FORD DO, FELIPA K 300.00 anxiety 09/13/2012 FORD DO, FELIPA K 305.1 NICOTINE DEPENDENCE 09/13/2012 FORD DO, FELIPA K 724.2 lower back pain 09/13/2012 FORD DO, FELIPA K 300.00 anxiety 09/13/2012 FORD DO, FELIPA K 305.1 NICOTINE DEPENDENCE 09/13/2012 FORD DO, FELIPA K 724.2 lower back pain 09/13/2012 MADL GASTROENTEROLOGY PHYSICIAN, ROBBIE L 300 .00 anxiety 09/13/2012 MADL GASTROENTEROLOGY PHYSICIAN, ROBBIE L 305 .1 NICOTINE DEPENDENCE 09/13/2012 MADL GASTROENTEROLOGY PHYSICIAN, ROBBIE L 724 .2 lower back pain 09/13/2012 MADL GASTROENTEROLOGY PHYSICIAN, ROBBIE L 300 .00 anxiety 09/13/2012 MADL GASTROENTEROLOGY PHYSICIAN, ROBBIE L 305 .1 NICOTINE DEPENDENCE 09/13/2012 MADL GASTROENTEROLOGY PHYSICIAN, ROBBIE L 724 .2 lower back pain 09/13/2012 MADL GASTROENTEROLOGY PHYSICIAN, ROBBIE L 300 .00 anxiety 09/13/2012 MADL GASTROENTEROLOGY PHYSICIAN, ROBBIE L 305 .1 NICOTINE DEPENDENCE 09/13/2012 MADL GASTROENTEROLOGY PHYSICIAN, ROBBIE L 724 .2 lower back pain 09/13/2012 MADL GASTROENTEROLOGY PHYSICIAN, ROBBIE L 300 .00 anxiety 09/13/2012 MADL GASTROENTEROLOGY PHYSICIAN, ROBBIE L 305 .1 NICOTINE DEPENDENCE 09/13/2012 MADL GASTROENTEROLOGY PHYSICIAN, ROBBIE L 724 .2 lower back pain 02/21/2013 DUKE CAR[place]INA, BRENNAN Singleton Ot 789.00 ABDOMINAL PAIN, UNSPECIFIED SITE 03/21/2013 228.04 WILLIE ER NEOPLASM, BENIGN - HEMANGIOMA 03/21/2013 625.9 PELV IC PAIN 03/21/2013 787.91 DOROTEO RRHEA 03/21/2013 SANTOS VELIZ MD 228.04 LIVER NEOPLASM, BENIGN - HEMANGIOMA 03/21/2013 JOSE ALFREDO CAR[place], SANTOS Gao 625.9 PELVIC PAIN 03/21/2013 SANTOS VELIZ MD [...] DO, FELIPA K 787.91 DIARRHEA 03/21/2013 MADL GASTROENTEROLOGY PHYSICIAN, ROBBIE L 228 .04 LIVER NEOPLASM, BENIGN - HEMANGIOMA 03/21/2013 MADL GASTROENTEROLOGY PHYSICIAN, ROBBIE L 625 .9 PELVIC PAIN 03/21/2013 MADL GASTROENTEROLOGY PHYSICIAN, ROBBIE L 787 .91 DIARRHEA 03/21/2013 MADL GASTROENTEROLOGY PHYSICIAN, ROBBIE L 228 .04 LIVER NEOPLASM, BENIGN - HEMANGIOMA 03/21/2013 MADL GASTROENTEROLOGY PHYSICIAN, ROBBIE L 625 .9 PELVIC PAIN 03/21/2013 MADL GASTROENTEROLOGY PHYSICIAN, ROBBIE L 787 .91 DIARRHEA 03/21/2013 MADL GASTROENTEROLOGY PHYSICIAN, ROBBIE L 228 .04 LIVER NEOPLASM, BENIGN - HEMANGIOMA 03/21/2013 MADL GASTROENTEROLOGY PHYSICIAN, ROBBIE L 625 .9 PELVIC PAIN 03/21/2013 MADL GASTROENTEROLOGY PHYSICIAN, ROBBIE L 787 .91 DIARRHEA 03/21/2013 MADL GASTROENTEROLOGY PHYSICIAN, ROBBIE L 228 .04 LIVER NEOPLASM, BENIGN - HEMANGIOMA 03/21/2013 MADL GASTROENTEROLOGY PHYSICIAN, ROBBIE L 625 .9 PELVIC PAIN 03/21/2013 MADL GASTROENTEROLOGY PHYSICIAN, ROBBIE L 787 .91 DIARRHEA 04/18/2013 CHRIS CAR[place]INA, CELESTINO Peterson Ot 789.00 ABDOMINAL PAIN, UNSPECIFIED SITE 07/11/2013 JOSE ALFREDO CAR[place], SANTOS Gao 788.30 URINARY INCONTINENCE UNSPECIFIED 07/11/2013 JOSE ALFREDO CAR[place], SANTOS Gao V04.81 FLU SHOT 07/11/2013 SANTOS VELIZ MD 788.30 URINARY INCONTINENCE UNSPECIFIED 07/11/2013 JOSE ALFREDO CAR[place], SANTOS Gao V04.81 FLU SHOT 07/11/2013 FORD DO, FELIPA K 788.30 URINARY INCONTINENCE UNSPECIFIED 07/11/2013 FORD DO, FELIPA K V04.81 FLU SHOT 07/11/2013 FORD DO, FELIPA K 788.30 URINARY INCONTINENCE UNSPECIFIED 07/11/2013 FORD DO, FELIPA K V04.81 FLU SHOT 07/11/2013 MADL GASTROENTEROLOGY PHYSICIAN, ROBBIE L 788 .30 URINARY INCONTINENCE UNSPECIFIED 07/11/2013 MADL GASTROENTEROLOGY PHYSICIAN, ROBBIE L V04 .81 FLU SHOT 07/11/2013 MADL GASTROENTEROLOGY PHYSICIAN, ROBBIE L 788 .30 URINARY INCONTINENCE UNSPECIFIED 07/11/2013 MADL GASTROENTEROLOGY PHYSICIAN, ROBBIE L V04 .81 FLU SHOT 07/11/2013 MADL GASTROENTEROLOGY PHYSICIAN, ROBBIE L 788 .30 URINARY INCONTINENCE UNSPECIFIED 07/11/2013 MADL GASTROENTEROLOGY PHYSICIAN, ROBBIE L V04 .81 FLU SHOT 07/11/2013 MADL GASTROENTEROLOGY PHYSICIAN, ROBBIE L 788 .30 URINARY INCONTINENCE UNSPECIFIED 07/11/2013 MADL GASTROENTEROLOGY PHYSICIAN, ROBBIE L V04 .81 FLU SHOT 12/16/2013 RAJENDRA SLAUGHTER GASTROENTEROLOGY PHYSICIAN Ot 564.00 UNSPEC CONSTIPATION 12/16/2013 RAJENDRA SLAUGHTER APRN Ot 789.09 ABDOMINAL PAIN, OTHER SPECIFIED SITE 04/04/2014 FORD DO, FELIPA K 625.8 OTHER SPECIFIED SYMPTOMS ASSOCIATED WITH FEMALE GENITAL ORGANS 04/04/2014 MADL GASTROENTEROLOGY PHYSICIAN, ROBBIE L 625 .8 OTHER SPECIFIED SYMPTOMS ASSOCIATED WITH FEMALE GENITAL ORGANS 04/04/2014 MADL GASTROENTEROLOGY PHYSICIAN, ROBBIE L 625 .8 OTHER SPECIFIED SYMPTOMS ASSOCIATED WITH FEMALE GENITAL ORGANS 04/04/2014 MADL GASTROENTEROLOGY PHYSICIAN, ROBBIE L 625 .8 OTHER SPECIFIED SYMPTOMS ASSOCIATED WITH FEMALE GENITAL ORGANS 04/04/2014 MADL GASTROENTEROLOGY PHYSICIAN, ROBBIE L 625 .8 OTHER SPECIFIED SYMPTOMS ASSOCIATED WITH FEMALE GENITAL ORGANS 07/18/2014 MADL GASTROENTEROLOGY PHYSICIAN, ROBBIE L 461 .9 SINUSITIS ACUTE 07/18/2014 MADL GASTROENTEROLOGY PHYSICIAN, ROBBIE L 786 .2 COUGH 07/18/2014 MADL GASTROENTEROLOGY PHYSICIAN, ROBBIE L 788 .1 DYSURIA 07/18/2014 MADL GASTROENTEROLOGY PHYSICIAN, ROBBIE L V03 .82 PPV23 (PNEUMOVAX) DX 07/18/2014 MADL GASTROENTEROLOGY PHYSICIAN, ROBBIE L 461 .9 SINUSITIS ACUTE 07/18/2014 MADL GASTROENTEROLOGY PHYSICIAN, ROBBIE L 786 .2 COUGH 07/18/2014 MADL GASTROENTEROLOGY PHYSICIAN, ROBBIE L 788 .1 DYSURIA 07/18/2014 MADL GASTROENTEROLOGY PHYSICIAN, ROBBIE L V03 .82 PPV23 (PNEUMOVAX) DX 07/18/2014 MADL GASTROENTEROLOGY PHYSICIAN, ROBBIE L 461 .9 SINUSITIS ACUTE 07/18/2014 MADL GASTROENTEROLOGY PHYSICIAN, ROBBIE L 786 .2 COUGH 07/18/2014 MADL GASTROENTEROLOGY PHYSICIAN, ROBBIE L 788 .1 DYSURIA 07/18/2014 MADL GASTROENTEROLOGY PHYSICIAN, ROBBIE L V03 .82 PPV23 (PNEUMOVAX) DX 07/18/2014 MADL GASTROENTEROLOGY PHYSICIAN, ROBBIE L 461 .9 SINUSITIS ACUTE 07/18/2014 MADL GASTROENTEROLOGY PHYSICIAN, ROBBIE L 786 .2 COUGH 07/18/2014 MADL GASTROENTEROLOGY PHYSICIAN, ROBBIE L 788 .1 DYSURIA 07/18/2014 MADL GASTROENTEROLOGY PHYSICIAN, ROBBIE L V03 .82 PPV23 (PNEUMOVAX) DX 08/13/2014 MADL GASTROENTEROLOGY PHYSICIAN, ROBBIE L 244 .9 UNSPECIFIED ACQUIRED HYPOTHYROIDISM 08/13/2014 MADL GASTROENTEROLOGY PHYSICIAN, ROBBIE L V65 .42 COUNSELING - SMOKING CESSATION 08/13/2014 MADL GASTROENTEROLOGY PHYSICIAN, ROBBIE L V72 .31 ORANGE PEEL OPERATOR EXAM, ROUTINE 08/13/2014 MADL GASTROENTEROLOGY PHYSICIAN, ROBBIE L V76 .10 BREAST CANCER SCREENING 08/13/2014 MADL GASTROENTEROLOGY PHYSICIAN, ROBBIE L 244 .9 UNSPECIFIED ACQUIRED HYPOTHYROIDISM 08/13/2014 MADL GASTROENTEROLOGY PHYSICIAN, ROBBIE L V65 .42 COUNSELING - SMOKING CESSATION 08/13/2014 MADL GASTROENTEROLOGY PHYSICIAN, ROBBIE L V72 .31 ORANGE PEEL OPERATOR EXAM, ROUTINE 08/13/2014 MADL GASTROENTEROLOGY PHYSICIAN, ROBBIE L V76 .10 BREAST CANCER SCREENING 08/13/2014 MADL GASTROENTEROLOGY PHYSICIAN, ROBBIE L 244 .9 UNSPECIFIED ACQUIRED HYPOTHYROIDISM 08/13/2014 MADL GASTROENTEROLOGY PHYSICIAN, ROBBIE L V65 .42 COUNSELING - SMOKING CESSATION 08/13/2014 MADL GASTROENTEROLOGY PHYSICIAN, ROBBIE L V72 .31 ORANGE PEEL OPERATOR EXAM, ROUTINE 08/13/2014 MADL GASTROENTEROLOGY PHYSICIAN, ROBBIE L V76 .10 BREAST CANCER SCREENING 08/19/2014 MADL GASTROENTEROLOGY PHYSICIAN, ROBBIE L 272 .4 OTHER AND UNSPECIFIED HYPERLIPIDEMIA 08/19/2014 MADL GASTROENTEROLOGY PHYSICIAN, ROBBIE L 272 .4 OTHER AND UNSPECIFIED HYPERLIPIDEMIA 09/10/2014 DIEGO DOVE GASTROENTEROLOGY PHYSICIAN Ot V76.12 01/08/2015 Ot V76.12 01/08/2015 Ot 285.9 01/08/2015 Ot 311 01/08/2015 Ot V58.69 01/08/2015 Ot 722.52 01/08/2015 Ot 783.21 01/08/2015 Ot V76.12 01/08/2015 Ot 623.8 01/08/2015 Ot V72.84 01/08/2015 Ot V74.8 01/08/2015 MAX BALL DO Ot 573.9 01/08/2015 SANTOS VELIZ MD Ot 625.9 01/08/2015 SANTOS VELIZ MD Ot 787.91 01/08/2015 DIEGO DOVE GASTROENTEROLOGY PHYSICIAN Ot V76.12 01/08/2015 Ot V76.12 01/08/2015 Ot 285.9 01/08/2015 Ot 311 01/08/2015 Ot V58.69 01/08/2015 Ot 722.52 01/08/2015 Ot 783.21 01/08/2015 Ot V76.12 01/08/2015 Ot 623.8 01/08/2015 Ot V72.84 01/08/2015 Ot V74.8 01/08/2015 MAX BALL DO Ot 573.9 01/08/2015 JOSE ALFREDO CAROLINA, SANTOS Gao Ot 625.9 01/08/2015 SANTOS VELIZ MD Ot 787.91 01/08/2015 DERRELL DIEGO A GASTROENTEROLOGY PHYSICIAN Ot V76.12 01/08/2015 RAJENDRA SLAUGHTER GASTROENTEROLOGY PHYSICIAN Ot 682 .3 CELLULITIS OF ARM 06/20/2016 BRENNAN WALL MD [...] URINARY TRACT INFECTION, SITE NOT SPECIF 06/24/2016 CELESTINO PEREZ MD Ot R10.84 GENERALIZED ABDOMINAL PAIN 06/24/2016 CELESTINO PEREZ MD Ot R11.2 NAUSEA WITH VOMITING, UNSPECIFIED 06/25/2016 [...] Ot R11.2 NAUSEA WITH VOMITING, UNSPECIFIED 06/30/2016 MARTIN HAIRSTON MD Ot N13.3 0 UNSPECIFIED HYDRONEPHROSIS 06/30/2016 MARTIN HAIRSTON MD Ot N32.8 1 OVERACTIVE BLADDER 06/30/2016 MARTIN HAIRSTON MD Ot R32 UNSPECIFIED URINARY INCONTINENCE 06/30/2016 MARTIN HAIRSTON MD Ot Z01.8 18 ENCOUNTER FOR OTHER PREPROCEDURAL EXAMIN 07/02/2016 MARTIN HAIRSTON MD Ot N13.3 0 UNSPECIFIED HYDRONEPHROSIS 07/02/2016 MARTIN HAIRSTON MD Ot N32.8 1 OVERACTIVE BLADDER 07/02/2016 MARTIN HAIRSTON MD Ot R32 UNSPECIFIED URINARY INCONTINENCE 07/02/2016 MARTIN HAIRSTON MD Ot Z01.8 18 ENCOUNTER FOR OTHER PREPROCEDURAL EXAMIN 07/06/2016 MARTIN HAIRSTON MD Ot N13.3 0 UNSPECIFIED HYDRONEPHROSIS 07/06/2016 MARTIN HAIRSTON MD Ot N32.8 1 OVERACTIVE BLADDER 07/06/2016 MARIKA CAROLINA, MARTIN Rinaldi Ot R32 UNSPECIFIED URINARY INCONTINENCE 07/06/2016 MARIKA CAROLINA, MARTIN Rinaldi Ot Z01.8 18 ENCOUNTER FOR OTHER PREPROCEDURAL EXAMIN 07/06/2016 MARIKA CAROLINA, MARTIN Rinaldi Ot Q62.5 DUPLICATION OF URETER 07/07/2016 MARTIN HAIRSTON MD Ot Q62.5 DUPLICATION OF URETER 07/09/2016 Ot 783.21 LOS S OF WEIGHT 07/09/2016 Ot V76.12 OTH SCREEN MAMMO- MALIGN NEOPLASM OF JASWINDER 07/09/2016 Ot 623.8 SEBASTIAN NFLAM DIS VAGINA NEC 07/09/2016 Ot V72.84 EXA M PRE- OPERATIVE NOS 07/09/2016 Ot V74.8 SCRE EN-BACTERIAL DIS NEC 07/09/2016 MAX BALL DO Ot 573.9 LIVER DISORDER NOS 07/09/2016 SANTOS VELIZ MD Ot 625.9 FEM GENITAL SYMPTOMS NOS 07/09/2016 SANTOS VELIZ MD Ot 787.91 DIARRHEA 07/09/2016 DIEGO DOVE GASTROENTEROLOGY PHYSICIAN Ot V76.12 OTH SCREEN MAMMO-MALIGN NEOPLASM OF [...] MD Ot 787.91 DIARRHEA 02/24/2018 DIEGO DOVE GASTROENTEROLOGY PHYSICIAN Ot V76.12 OTH SCREEN MAMMO-MALIGN NEOPLASM OF JASWINDER 06/05/2018 PRABHJOT CAROLINA, SOLEDAD Myers Ot Z12.31 ENCNTR SCREEN MAMMOGRAM FOR MALIGNANT NE 12/28/2018 ELIAS HERMAN GASTROENTEROLOGY PHYSICIAN Ot Z12.31 ENCNTR SCREEN MAMMOGRAM FOR MALIGNANT NE 01/08/2019 SHAHNAZ DOVEIDI A GASTROENTEROLOGY PHYSICIAN Ot V76.12 OTH SCREEN MAMMO-MALIGN NEOPLASM OF JASWINDER 01/08/2019 ELIAS HERMAN Mani GASTROENTEROLOGY PHYSICIAN Ot Z12.31 ENCNTR SCREEN MAMMOGRAM FOR MALIGNANT NE 01/09/2019 ELIAS HERMAN Mani GASTROENTEROLOGY PHYSICIAN Ot Z12.31 ENCNTR SCREEN MAMMOGRAM FOR MALIGNANT NE 01/14/2019 DIEGO DOVE A GASTROENTEROLOGY PHYSICIAN Ot V76.12 OTH SCREEN MAMMO-MALIGN NEOPLASM OF JASWINDER 01/14/2019 ELIAS HERMAN Mani GASTROENTEROLOGY PHYSICIAN Ot Z12.31 ENCNTR SCREEN MAMMOGRAM FOR MALIGNANT NE 01/30/2019 ELIAS HERMAN Mani GASTROENTEROLOGY PHYSICIAN Ot Z12.31 ENCNTR SCREEN MAMMOGRAM FOR MALIGNANT NE 01/30/2019 JAMISON RING DO Ot Z01.818 ENCOUNTER FOR OTHER PREPROCEDURAL EXAMIN 01/31/2019 JAMISON RING DO Ot Z01.818 ENCOUNTER FOR OTHER PREPROCEDURAL EXAMIN 02/05/2019 JAMISON RING DO Ot Z01.818 ENCOUNTER FOR OTHER PREPROCEDURAL EXAMIN 02/05/2019 DIEGO DOVE Gentry GASTROENTEROLOGY PHYSICIAN Ot V76.12 OTH SCREEN MAMMO-MALIGN NEOPLASM OF JASWINDER 02/05/2019 ELIAS HERMAN Mani GASTROENTEROLOGY PHYSICIAN Ot Z12.31 ENCNTR SCREEN MAMMOGRAM FOR MALIGNANT NE 02/06/2019 JAMISON RING DO Ot D12. 5 BENIGN NEOPLASM OF SIGMOID COLON 02/06/2019 JAMISON RING DO Ot E78. 00 PURE HYPERCHOLESTEROLEMIA, UNSPECIFIED 02/06/2019 JAMISON RING DO Ot F17.210 NICOTINE DEPENDENCE, CIGARETTES, UNCOMPL 02/06/2019 JAMISON RING DO Ot F33. 1 MAJOR DEPRESSIVE DISORDER, RECURRENT, MO 02/06/2019 JAMISON RING DO Ot F41. 0 PANIC DISORDER [EPISODIC PAROXYSMAL ANXI 02/06/2019 JAMISON RING DO Ot F43. 10 POST-TRAUMATIC STRESS DISORDER, UNSPECIF 02/06/2019 JAMISON RING DO Ot F90. 2 ATTENTION-DEFICIT HYPERACTIVITY DISORDER 02/06/2019 JAMISON RING DO Ot R32 UNSPECIFIED URINARY INCONTINENCE 02/06/2019 JAMISON RING DO Ot Z12. 11 ENCOUNTER FOR SCREENING FOR MALIGNANT NE 02/06/2019 JAMISON RING DO Ot Z79.899 OTHER CARE HOME (CURRENT) DRUG THERAPY 02/06/2019 JAMISON RING DO Ot Z86.010 PERSONAL HISTORY OF COLONIC POLYPS 02/08/2019 JAMISON RING DO Ot D12. 5 BENIGN NEOPLASM OF SIGMOID COLON 02/08/2019 JAMISON RING DO Ot E78. 00 PURE HYPERCHOLESTEROLEMIA, UNSPECIFIED 02/08/2019 JAMISON RING DO Ot F17.210 NICOTINE DEPENDENCE, CIGARETTES, UNCOMPL 02/08/2019 JAMISON RING DO Ot F33. 1 MAJOR DEPRESSIVE DISORDER, RECURRENT, MO 02/08/2019 JAMISON RING DO Ot F41. 0 PANIC DISORDER [EPISODIC PAROXYSMAL ANXI 02/08/2019 JAMISON RING DO Ot F43. 10 POST-TRAUMATIC STRESS DISORDER, UNSPECIF 02/08/2019 JAMISON RING DO Ot F90. 2 ATTENTION-DEFICIT HYPERACTIVITY DISORDER 02/08/2019 JAMISON RING DO Ot R32 UNSPECIFIED URINARY INCONTINENCE 02/08/2019 JAMISON RING DO Ot Z12. 11 ENCOUNTER FOR SCREENING FOR MALIGNANT NE 02/08/2019 JAMISON RING DO Ot Z79.899 OTHER PET STORE MERCHANDISER (CURRENT) DRUG THERAPY 02/08/2019 JAMISON RING DO Ot Z86.010 PERSONAL HISTORY OF COLONIC POLYPS 02/08/2019 JAMISON RING DO Ot D12. 5 BENIGN NEOPLASM OF SIGMOID COLON 02/08/2019 JAMISON RING DO Ot E78. 00 PURE HYPERCHOLESTEROLEMIA, UNSPECIFIED 02/08/2019 JAMISON RING DO Ot F17.210 NICOTINE DEPENDENCE, CIGARETTES, UNCOMPL 02/08/2019 JAMISON RING DO Ot F33. 1 MAJOR DEPRESSIVE DISORDER, RECURRENT, MO 02/08/2019 JAMISON RING DO Ot F41. 0 PANIC DISORDER [EPISODIC PAROXYSMAL ANXI 02/08/2019 JAMISON RING DO Ot F43. 10 POST-TRAUMATIC STRESS DISORDER, UNSPECIF 02/08/2019 JAMISON RING DO Ot F90. 2 ATTENTION-DEFICIT HYPERACTIVITY DISORDER 02/08/2019 JAMISON RING DO Ot R32 UNSPECIFIED URINARY INCONTINENCE 02/08/2019 JAMISON RING DO Ot Z12. 11 ENCOUNTER FOR SCREENING FOR MALIGNANT NE 02/08/2019 JAMISON RING DO Ot Z79.899 OTHER PET STORE MERCHANDISER (CURRENT) DRUG THERAPY 02/08/2019 JAMISON RING DO Ot Z86.010 PERSONAL HISTORY OF COLONIC POLYPS 09/02/2019 JESS FONTANEZ MD Ot D64. 9 ANEMIA, UNSPECIFIED 09/02/2019 JESS FONTANEZ MD J Ot E03. 9 HYPOTHYROIDISM, UNSPECIFIED 09/02/2019 JESS FONTANEZ MD J Ot E78. 00 PURE HYPERCHOLESTEROLEMIA, UNSPECIFIED 09/02/2019 JESS FONTANEZ MD Ot F17.210 NICOTINE DEPENDENCE, CIGARETTES, UNCOMPL 09/02/2019 JESS FONTANEZ MD Ot F31. 9 BIPOLAR DISORDER, UNSPECIFIED 09/02/2019 JESS FONTANEZ MD Ot F41. 9 ANXIETY DISORDER, UNSPECIFIED 09/02/2019 JESS FONTANEZ MD J Ot F90. 9 ATTENTION-DEFICIT HYPERACTIVITY DISORDER 09/02/2019 JESS FONTANEZ MD Ot N39. 0 URINARY TRACT INFECTION, SITE NOT SPECIF 09/02/2019 JESS FONTANEZ MD Ot N93. 9 ABNORMAL UTERINE AND VAGINAL BLEEDING, U 09/02/2019 JESS FONTANEZ MD Ot Z88. 8 ALLERGY STATUS TO OTH DRUG/MEDS/BIOL SUB 09/02/2019 JESS FONTANEZ MD Ot Z90.710 ACQUIRED ABSENCE OF BOTH CERVIX AND UTER 09/04/2019 JESS FONTANEZ MD Ot D64. 9 ANEMIA, UNSPECIFIED 09/04/2019 JESS FONTANEZ MD Ot E03. 9 HYPOTHYROIDISM, UNSPECIFIED 09/04/2019 JESS FONTANEZ MD J Ot E78. 00 PURE HYPERCHOLESTEROLEMIA, UNSPECIFIED 09/04/2019 JESS FONTANEZ MD Ot F17.210 NICOTINE DEPENDENCE, CIGARETTES, UNCOMPL 09/04/2019 JESS FONTANEZ MD Ot F31. 9 BIPOLAR DISORDER, UNSPECIFIED 09/04/2019 JESS FONTANEZ MD J Ot F41. 9 ANXIETY DISORDER, UNSPECIFIED 09/04/2019 JESS FONTANEZ MD J Ot F90. 9 ATTENTION-DEFICIT HYPERACTIVITY DISORDER 09/04/2019 JESS FONTANEZ MD Ot N39. 0 URINARY TRACT INFECTION, SITE NOT SPECIF 09/04/2019 JESS FONTANEZ MD Ot N93. 9 ABNORMAL UTERINE AND VAGINAL BLEEDING, U 09/04/2019 JESS FONTANEZ MD Ot Z88. 8 ALLERGY STATUS TO OTH DRUG/MEDS/BIOL SUB 09/04/2019 JESS FONTANEZ MD Ot Z90.710 ACQUIRED ABSENCE OF BOTH CERVIX AND UTER 12/06/2019 CRISTHIAN POSADA MD Ot Z01.818 ENCOUNTER FOR OTHER PREPROCEDURAL EXAMIN Procedures Code Description [place] [address] ROUT INE VENIPUNCTURE 09/14/2012 81638 URIN E DRUG SCREEN (IN-HOUSE) 09/14/2012 96752 A1C (IN-HOUSE) 09/14/2012 72519 CBC 09/14/2012 66466 MAGNESIUM 09/14/2012 45112 LIPI D PANEL 09/14/2012 40392 CMP 09/14/2012 [id number] GF R CALC (RESULT ONLY) 09/14/2012 21346 TSH 09/15/2012 75101 ROUT INE VENIPUNCTURE 03/21/2013 80909 HEPA TITIS PROFILE 03/21/2013 59922 IZABELA AC DISEASE ANALYZER 03/23/2013 81389 UA W / CULTURE IF INDICATED 07/11/2013 G0008 FLU ADMINISTRATION (MEDICARE ONLY) 07/11/2013 14264 ROUT INE VENIPUNCTURE 07/11/2013 03443 CBC 07/12/2013 [id number] GF R CALC (RESULT ONLY) 07/12/2013 09517 CMP 07/12/2013 61120 MAGNESIUM 07/12/2013 3181977 SPTYPE 07/12/2013 31413 UA W / CULTURE IF INDICATED 10/16/2013 08141 ROUT INE VENIPUNCTURE 07/18/2014 53144 URIN E DRUG SCREEN (IN-HOUSE) 07/18/2014 40595 CBC 07/18/2014 [id number] GF R CALC (RESULT ONLY) 07/18/2014 07910 CMP 07/18/2014 THYANA THY ROID ANALYZER 07/18/2014 00920 T4 FREE 07/18/2014 37330 ROUT INE VENIPUNCTURE 08/13/2014 36490 UA W / CULTURE IF INDICATED 08/13/2014 81756 MAMM OGRAM, SCREENING 08/13/2014 27848 LIPI D PANEL 08/13/2014 Results Test Result Range Complete urinalysis with reflex to cultu re - 06/20/16 18:10 Urine color determination YELLOW NRG Urine clarity determination SLIGHTLY CLOUDY NRG Urine pH measurement by test strip 6.5 5-9 Specific gravity of urine by test strip 1.010 1.016-1.022 Urine protein assay by test strip, semi-quantitative 1+ NEGATIVE Urine glucose detection by automated test strip NE GATIVE NEGATIVE Erythrocytes detection in urine sediment by light micr oscopy 2+ NEGATIVE Urine ketones detection by automated test strip NE GATIVE NEGATIVE Urine nitrite detection by test strip NEGATIVE NEGATIVE Urine total bilirubin detection by test strip NEGA TIVE NEGATIVE Urine urobilinogen measurement by automated test strip (mass/volume) NORMAL NORMAL Urine leukocyte esterase detection by dipstick 3+ NEGATIVE Automated urine sediment erythrocyte cou nt by microscopy (number/high power field) [HPF] NRG Automated urine sediment leukocyte count by microscopy (number/high power field) > [HPF] NRG Bacteria detection in urine sediment by light microsco py FEW NRG Squamous epithelial cells detection in u rine sediment by light microscopy 0-2 NRG Crystals detection in urine sediment by light microsco py NONE NRG Casts detection in urine sediment by light microscopy NONE NRG Mucus detection in urine sediment by light microscopy NEGATIVE NRG Complete urinalysis with reflex to culture YES NRG Bacterial urine culture - 06/20/16 18:10 Bacterial urine culture [id number] NRG COLONY COUNT 10,000/ML - 100,000/ML NRG FTX;REPORTABLE SENSITIVITY REPORTED AT 0712, 10-4- 16 NRG URINE CULTURE RESULTS PLUS NRG Bacterial susceptibility panel - 6 18:10 Gentamicin susceptibility test by minimum inhibitory c oncentration <= NRG Trimethoprim/sulfamethoxazole susceptibi lity test by minimum inhibitoryconcentration <= NRG Ampicillin susceptibility test by minimum inhibitory c oncentration <= NRG Tobramycin susceptibility test by minimum inhibitory c oncentration <= NRG Cefazolin susceptibility test by minimum inhibitory co ncentration <= NRG Ceftriaxone susceptibility test by minimum inhibitory concentration <= NRG Ampicillin/sulbactam susceptibility test by minimum inhibitory concentration <= NRG Piperacillin/tazobactam susceptibility t est by minimum inhibitory concentration <= NRG Ciprofloxacin susceptibility test by minimum inhibitor y concentration <= NRG Meropenem susceptibility test by minimum inhibitory co ncentration <= NRG Nitrofurantoin susceptibility test by mi nimum inhibitory concentration <= NRG Aztreonam susceptibility test by minimum inhibitory co ncentration <= NRG Extended spectrum beta lactamase (ESBL) producing bacteria susceptibility test by minimum inhibitory concentration - NRG Complete blood count (CBC) with automate d white blood cell (WBC) differential - 06/20/16 18:14 Blood leukocytes automated count (number/volume) 10.7 10*3/uL 4.3-11.0 Blood erythrocytes automated count (number/volume) 4.58 10*6/uL 4.35-5.85 Venous blood hemoglobin measurement (mass/volume) 13.4 g/dL 11.5-16.0 Blood hematocrit (volume fraction) 39 % 35-52 Automated erythrocyte mean corpuscular volume 85 [ foz_us] 80-99 Automated erythrocyte mean corpuscular h emoglobin (mass per erythrocyte) 29 pg 25-34 Automated erythrocyte mean corpuscular h emoglobin concentration measurement (mass/volume) 34 g/dL 32-36 Automated erythrocyte distribution width ratio 14. 4 % 10.0- 14.5 Automated blood platelet count [...] 10*3 1.0-4.0 Blood monocytes automated count (number/volume) 1. 0 10*3 0.0-1.0 Automated eosinophil count 0.1 10*3/uL 0 .0-0.3 Automated blood basophil count (count/volume) 0.0 10*3/uL 0.0-0.1 Comprehensive metabolic panel - 06/20/16 18:14 Serum or plasma sodium measurement (moles/volume) 135 mmol/L 135-145 Serum or plasma potassium measurement (moles/volume) 2.7 mmol/L 3.6-5.0 Serum or plasma chloride measurement (moles/volume) 93 mmol/L 98-107 Carbon dioxide 26 mmol/L 21-32 Serum or plasma anion gap determination (moles/volume) 16 mmol/L 5-14 Serum or plasma urea nitrogen measurement (mass/volume ) 7 mg/dL 7-18 Serum or plasma creatinine measurement (mass/volume) 0.96 mg/dL 0.60-1.30 Serum or plasma urea nitrogen/creatinine mass ratio 7 NRG Serum or plasma creatinine measurement w ith calculation of estimated glomerular filtration rate > NRG Serum or plasma glucose measurement (mass/volume) 132 mg/dL 70-105 Serum or plasma calcium measurement (mass/volume) 9.3 mg/dL 8.5-10.1 Serum or plasma total bilirubin measurement (mass/volu me) 0.7 mg/dL 0.1-1.0 Serum or plasma alkaline phosphatase richard surement (enzymatic activity/volume) 132 U/L 40-136 Serum or plasma aspartate aminotransfera se measurement (enzymatic activity/volume) 35 U/L 5-34 Serum or plasma alanine aminotransferase measurement (enzymatic activity/volume) 31 U/L 0-55 Serum or plasma protein measurement (mass/volume) 7.2 g/dL 6.4-8.2 Serum or plasma albumin measurement (mass/volume) 3.7 g/dL 3.2-4.5 Magnesium - 06/20/16 18:14 Magnesium 2.1 mg/dL 1.8-2.4 Serum or plasma amylase measurement (enz ymatic activity/volume) - 06/20/16 18:14 Serum or plasma amylase measurement (enzymatic activit y/volume) 74 U/L 25-125 Lipase - 06/20/16 18:14 Lipase 36 U/L 8-78 THYROID STIMULATING HORMONE - 06/20/16 1 8:14 THYROID STIMULATING HORMONE 1.88 u[iU]/mL 0.35-4.94 Complete urinalysis with reflex to cultu re - 06/24/16 15:39 Urine color determination YELLOW NRG Urine clarity determination CLEAR NR G Urine pH measurement by test strip 7 5-9 Specific gravity of urine by test strip 1.010 1.016-1.022 Urine protein assay by test strip, semi-quantitative NEGATIVE NEGATIVE Urine glucose detection by automated test strip NE GATIVE NEGATIVE Erythrocytes detection in urine sediment by light micr oscopy 1+ NEGATIVE Urine ketones detection by automated test strip NE GATIVE NEGATIVE Urine nitrite detection by test strip NEGATIVE NEGATIVE Urine total bilirubin detection by test strip NEGA TIVE NEGATIVE Urine urobilinogen measurement by automated test strip (mass/volume) NORMAL NORMAL Urine leukocyte esterase detection by dipstick 3+ NEGATIVE Automated urine sediment erythrocyte cou nt by microscopy (number/high power field) [HPF] NRG Automated urine sediment leukocyte count by microscopy (number/high power field) [HPF] NRG Bacteria detection in urine sediment by light microsco py TRACE NRG Squamous epithelial cells detection in u rine sediment by light microscopy 0-2 NRG Crystals detection in urine sediment by light microsco py NONE NRG Casts detection in urine sediment by light microscopy NONE NRG Mucus detection in urine sediment by light microscopy NEGATIVE NRG Complete urinalysis with reflex to culture YES NRG Bacterial urine culture - 06/24/16 15:39 Bacterial urine culture [id number] NRG COLONY COUNT <10,000 NRG FTX;REPORTABLE PLUS NRG FREE TEXT ENTRY 2 MIXED GRAM POSITIVES NRG FREE TEXT ENTRY 3 <10, 000/ML NRG Magnesium - 06/24/16 15:45 Magnesium 2.0 mg/dL 1.8-2.4 Complete blood count (CBC) with automate d white blood cell (WBC) differential - 06/24/16 15:47 Blood leukocytes automated count (number/volume) 10.3 10*3/uL 4.3-11.0 Blood erythrocytes automated count (number/volume) 4.48 10*6/uL 4.35-5.85 Venous blood hemoglobin measurement (mass/volume) 13.2 g/dL 11.5-16.0 Blood hematocrit (volume fraction) 39 % 35-52 Automated erythrocyte mean corpuscular volume 87 [ foz_us] 80-99 Automated erythrocyte mean corpuscular h emoglobin (mass per erythrocyte) 30 pg 25-34 Automated erythrocyte mean corpuscular h emoglobin concentration measurement (mass/volume) 34 g/dL 32-36 Automated erythrocyte distribution width ratio 14. 7 % 10.0- 14.5 Automated blood platelet count [...] 10*3 1.0-4.0 Blood monocytes automated count (number/volume) 0. 7 10*3 0.0-1.0 Automated eosinophil count 0.1 10*3/uL 0 .0-0.3 Automated blood basophil count (count/volume) 0.0 10*3/uL 0.0-0.1 Comprehensive metabolic panel - 06/24/16 15:47 Serum or plasma sodium measurement (moles/volume) 142 mmol/L 135-145 Serum or plasma potassium measurement (moles/volume) 3.2 mmol/L 3.6-5.0 Serum or plasma chloride measurement (moles/volume) 102 mmol/L 98-107 Carbon dioxide 27 mmol/L 21-32 Serum or plasma anion gap determination (moles/volume) 13 mmol/L 5-14 Serum or plasma urea nitrogen measurement (mass/volume ) 4 mg/dL 7-18 Serum or plasma creatinine measurement (mass/volume) 0.95 mg/dL 0.60-1.30 Serum or plasma urea nitrogen/creatinine mass ratio 4 NRG Serum or plasma creatinine measurement w ith calculation of estimated glomerular filtration rate > NRG Serum or plasma glucose measurement (mass/volume) 105 mg/dL 70-105 Serum or plasma calcium measurement (mass/volume) 9.4 mg/dL 8.5-10.1 Serum or plasma total bilirubin measurement (mass/volu me) 0.3 mg/dL 0.1-1.0 Serum or plasma alkaline phosphatase richard surement (enzymatic activity/volume) 114 U/L 40-136 Serum or plasma aspartate aminotransfera se measurement (enzymatic activity/volume) 22 U/L 5-34 Serum or plasma alanine aminotransferase measurement (enzymatic activity/volume) 20 U/L 0-55 Serum or plasma protein measurement (mass/volume) 7.1 g/dL 6.4-8.2 Serum or plasma albumin measurement (mass/volume) 3.8 g/dL 3.2-4.5 Lipase - 06/24/16 15:47 Lipase 37 U/L 8-78 THYROID STIMULATING HORMONE - 06/24/16 1 5:47 THYROID STIMULATING HORMONE 2.16 u[iU]/mL 0.35-4.94 Serum or plasma thyroxine (T4) free gracy urement (mass/volume) - 06/24/16 15:47 Serum or plasma thyroxine (T4) free measurement (mass/ volume) 1.05 ng/dL 0.70-1.48 Methicillin resistant Staphylococcus aur eus (MRSA) screening culture - 07/06/16 08:15 Methicillin resistant Staphylococcus aureus (MRSA) scr eening culture NEG NRG Urine Culture, Routine - 07/28/16 17:46 Urine Culture, Routine Note Genital Culture, Routine - 07/28/16 17:4 6 Genital Culture, Routine Note Aerobic Bacterial Culture - 07/28/16 17: 46 Aerobic Bacterial Culture Note TSH - 08/26/16 13:55 TSH 2.070 uIU/mL 0.450-4.500 Comp. Metabolic Panel (14) - 05/16/17 12 :49 Glucose, Serum 95 mg/dL 65-99 BUN 9 mg/dL 6-24 Creatinine, Serum 0.69 mg/dL 0.57-1.00 eGFR If NonAfricn Am 100 mL/min/1.73 >59 eGFR If Africn Am 116 mL/min/1.73 >5 9 BUN/Creatinine Ratio 13 9-23 Sodium, Serum 140 [...] IU/L 0-40 ALT (SGPT) 10 IU/L 0-32 Lipid Panel - 05/16/17 12:49 Cholesterol, Total 209 mg/dL 100-199 Triglycerides 107 mg/dL 0-149 HDL Cholesterol 49 mg/dL >39 VLDL Cholesterol Delano 21 mg/dL 5-40 LDL Cholesterol Calc 139 mg/dL 0-99 Hemoglobin A1c - 05/16/17 12:49 Hemoglobin A1c 5.3 % 4.8-5.6 CMP - 05/16/17 12:49 Glucose, Serum 95 mg/dL 65-99 BUN 9 mg/dL 6-24 Creatinine, Serum 0.69 mg/dL 0.57-1.00 eGFR If NonAfricn Am 100 mL/min/1.73 >59 eGFR If Africn Am 116 mL/min/1.73 >5 9 BUN/Creatinine Ratio 13 9-23 Sodium, Serum 140 [...] <5.0 NON HDL CHOLESTEROL 147 mg/dL (calc) <13 0 Complete urinalysis with reflex to cultu re - 09/02/19 01:16 Urine color determination RED NRG Urine clarity determination SL CLOUDY N RG Urine pH measurement by test strip 6.0 5-9 Specific gravity of urine by test strip <= 1.016-1.022 Urine protein assay by test strip, semi-quantitative TRACE NEGATIVE Urine glucose detection by automated test strip NE GATIVE NEGATIVE Erythrocytes detection in urine sediment by light micr oscopy 3+ NEGATIVE Urine ketones detection by automated test strip NE GATIVE NEGATIVE Urine nitrite detection by test strip NEGATIVE NEGATIVE Urine total bilirubin detection by test strip NEGA TIVE NEGATIVE Urine urobilinogen measurement by automated test strip (mass/volume) 0.2 mg/dL < = 1.0 Urine leukocyte esterase detection by dipstick 1+ NEGATIVE Automated urine sediment erythrocyte cou nt by microscopy (number/high power field) TNTC NRG Automated urine sediment leukocyte count by microscopy (number/high power field) [HPF] NRG Bacteria detection in urine sediment by light microsco py TRACE NRG Squamous epithelial cells detection in u rine sediment by light microscopy 0-2 NRG Crystals detection in urine sediment by light microsco py NONE NRG Casts detection in urine sediment by light microscopy NONE NRG Mucus detection in urine sediment by light microscopy SMALL NRG Complete urinalysis with reflex to culture YES NRG Complete blood count (CBC) with automate d white blood cell (WBC) differential - 09/02/19 01:21 Blood leukocytes automated count (number/volume) 8.4 10*3/uL 4.3-11.0 Blood erythrocytes automated count (number/volume) 4.70 10*6/uL 4.35-5.85 Venous blood hemoglobin measurement (mass/volume) 14.0 g/dL 11.5-16.0 Blood hematocrit (volume fraction) 41 % 35-52 Automated erythrocyte mean corpuscular volume 88 [ foz_us] 80-99 Automated erythrocyte mean corpuscular h emoglobin (mass per erythrocyte) 30 pg 25-34 Automated erythrocyte mean corpuscular h emoglobin concentration measurement (mass/volume) 34 g/dL 32-36 Automated erythrocyte distribution width ratio 14. 8 % 10.0- 14.5 Automated blood platelet count (count/volume) 268 10*3/uL 130-400 Automated blood platelet mean volume measurement 10.2 [foz_us] 7.4-10.4 Automated blood neutrophils/100 leukocytes 67 % 42-75 Automated blood lymphocytes/100 leukocytes 23 % 12-44 Blood monocytes/100 leukocytes 7 % 0-12 Automated blood eosinophils/100 leukocytes 3 % 0-10 Automated blood basophils/100 leukocytes 1 % 0-10 Blood neutrophils automated count (number/volume) 5.6 10*3 1.8-7.8 Blood lymphocytes automated count (number/volume) 1.9 10*3 1.0-4.0 Blood monocytes automated count (number/volume) 0. 6 10*3 0.0-1.0 Automated eosinophil count 0.3 10*3/uL 0 .0-0.3 Automated blood basophil count (count/volume) 0.0 10*3/uL 0.0-0.1 Comprehensive metabolic panel - 09/02/19 01:21 Serum or plasma sodium measurement (moles/volume) 138 mmol/L 135-145 Serum or plasma potassium measurement (moles/volume) 3.2 mmol/L 3.6-5.0 Serum or plasma chloride measurement (moles/volume) 99 mmol/L 98-107 Carbon dioxide 26 mmol/L 21-32 Serum or plasma anion gap determination (moles/volume) 13 mmol/L 5-14 Serum or plasma urea nitrogen measurement (mass/volume ) 8 mg/dL 7-18 Serum or plasma creatinine measurement (mass/volume) 0.78 mg/dL 0.60-1.30 Serum or plasma urea nitrogen/creatinine mass ratio 10 NRG Serum or plasma creatinine measurement w ith calculation of estimated glomerular filtration rate > NRG Serum or plasma glucose measurement (mass/volume) 119 mg/dL 70-105 Serum or plasma calcium measurement (mass/volume) 9.0 mg/dL 8.5-10.1 Serum or plasma total bilirubin measurement (mass/volu me) 0.2 mg/dL 0.1-1.0 Serum or plasma alkaline phosphatase richard surement (enzymatic activity/volume) 112 U/L 40-136 Serum or plasma aspartate aminotransfera se measurement (enzymatic activity/volume) 17 U/L 5-34 Serum or plasma alanine aminotransferase measurement (enzymatic activity/volume) 8 U/L 0-55 Serum or plasma protein measurement (mass/volume) 7.2 g/dL 6.4-8.2 Serum or plasma albumin measurement (mass/volume) 4.4 g/dL 3.2-4.5 CALCIUM CORRECTED 8.7 mg/dL 8.5-10.1 Microscopic examination by wet preparati on - 09/02/19 01:34 WET PREP RESULTS AT 0155 BY CN/KD NRG Chlamydia trachomatis DNA detection by p robe and signal amplification method - 09/02/19 01:34 Chlamydia trachomatis DNA detection by p robe and target amplification method Not Detected Not Detected Neisseria gonorrhoeae DNA detection by p robe and signal amplification method - 09/02/19 01:34 Gonorrhea amp DNA-urine Not Detected No t Detected Serum reagin antibody assay (units/volum e) by RPR - 09/02/19 01:34 Serum reagin antibody assay (units/volume) by RPR Non-Reactive Non-Reactive CULTURE, URINE - 09/13/19 00:00 CULTURE, URINE, ROUTINE SEE NOTE NRG LIPID PANEL - 10/08/19 15:25 CHOLESTEROL, TOTAL 185 mg/dL <200 HDL CHOLESTEROL 56 mg/dL >50 TRIGLYCERIDES 83 mg/dL <150 LDL-CHOLESTEROL 112 mg/dL (calc) NRG CHOL/HDLC RATIO 3.3 (calc) <5.0 NON HDL CHOLESTEROL 129 mg/dL (calc) <13 0 CMP - 10/08/19 15:25 GLUCOSE 109 mg/dL 65-99 UREA NITROGEN (BUN) 8 mg/dL 7-25 CREATININE 0.87 mg/dL 0.50-1.05 eGFR NON-AFR. ZIMBABWEAN 76 mL/min/1.73m2 > OR = 60 eGFR 88 mL/min/1.73m2 > OR = 60 BUN/CREATININE RATIO NOT APPLICABLE (calc) 6-22 SODIUM 140 mmol/L 135-146 POTASSIUM 4.4 mmol/L 3.5-5.3 CHLORIDE 98 mmol/L 98-110 CARBON DIOXIDE 35 mmol/L 20-32 CALCIUM 9.7 mg/dL 8.6-10.4 PROTEIN, TOTAL 6.7 g/dL 6.1-8.1 ALBUMIN 4.4 g/dL 3.6-5.1 GLOBULIN 2.3 g/dL (calc) 1.9-3.7 ALBUMIN/GLOBULIN RATIO 1.9 (calc) 1.0-2. 5 BILIRUBIN, TOTAL 0.7 mg/dL 0.2-1.2 ALKALINE PHOSPHATASE 105 U/L 33-130 AST 14 U/L 10-35 ALT 9 U/L 6-29 Coronavirus SARS-CoV-2 SO 2018 - 0 13:40 Coronavirus Ab [Units/volume] in Serum Negative Negative Encounters ACCT No. Visit Date/Time Discharge Status Pt. Type Provider Facility Loc./Unit Complaint [id number] 10/28/2014 00:00:00 10/28/2014 23:59: 59 CLS Outpatient MADL ROBBIE OSORIO L [id number] 08/19/2014 14:06:00 08/19/2014 23:59: 59 CLS Outpatient ROBBIE ESPARZA APRN [id number] 08/13/2014 10:45:00 08/13/2014 23:59: 59 CLS Outpatient ROBBIE ESPARZA APRN [id number] 07/18/2014 14:26:00 07/18/2014 23:59: 59 CLS Outpatient ROBBIE ESPARZA APRN [id number] 04/04/2014 14:39:00 04/04/2014 23:59: 59 CLS Outpatient LOGAN ECHOLSFELIPA [id number] 10/16/2013 11:52:00 10/16/2013 23:59: 59 CLS Outpatient LOGAN ECHOLSFELIPA [id number] 07/11/2013 15:13:00 07/11/2013 23:59: 59 CLS Outpatient SANTOS VELIZ MD [id number] 07/11/2013 15:13:00 07/11/2013 23:59: 59 CLS Outpatient SANTOS VELIZ MD [id number] 03/29/2013 00:00:00 03/29/2013 23:59: 59 CLS Outpatient SANTOS VELIZ MD [id number] 09/14/2012 09:09:00 09/14/2012 23:59: 59 CLS Outpatient SOLEDAD RICK MD [id number] 03/21/2013 14:14:00 Document Registration [id number] 02/12/2020 09:05:00 15:48:00 DIS Outpatient CRISTHIAN POSADA MD [facility] PREOP CATARACT RIGHT [id number] 02/08/2020 09:00:00 23:59:59 CLS Preadmit CRISTHIAN POSADA MD Via [facility] CATARACT RIGHT EYE [id number] 12/07/2019 13:15:00 23:59:59 CLS Preadmit CRISTHIAN POSADA MD [facility] CATARACT RIGHT EYE [id number] 12/06/2019 09:15:00 10:11:00 DIS Outpatient CRISTHIAN POSADA MD [facility] PREOP CATARACT RIGHT EYE [id number] 09/02/2019 00:15:00 02:16:00 DIS Emergency HUSEYIN CAROLINA, JESS Solis [facility] ER VAGINAL BLEEDING [id number] 02/06/2019 07:25:00 10:10:00 DIS Outpatient JAMISON RING DO [facility] ENDO SCREENING/HX POLYPS [id number] 01/30/2019 05:35:00 11:03:00 DIS Outpatient JAMISON RING DO [facility] PREOP COLONOSCOPY [id number] 01/08/2019 10:57:00 23:59:59 CLS Outpatient ELIAS HERMAN APRN [facility] RAD SCREENING [id number] 06/05/2018 09:02:00 23:59:59 CLS Preadmit SOLEDAD RICK MD [facility] RAD SCREENING [id number] 02/24/2018 16:10:00 23:59:59 CLS Preadmit SOLEDAD RICK MD [facility] RAD ROUTINE ADULT HEALTH MA INTENANCE [id number] 07/06/2016 07:44:00 11:35:00 DIS Outpatient MARTIN HAIRSTON MD [facility] SDC RT. HYDRONEPHROSIS, INC ONT., OVERACTIVE BLADDER [id number] 06/30/2016 05:43:00 14:49:00 DIS Outpatient MARTIN HAIRSTON MD [facility] PREOP RT. HYDRONEPHROSIS, INC ONTENCE, OVERACTIVE BLADDER [id number] 06/24/2016 15:29:00 18:25:00 DIS Emergency CELESTINO PEREZ MD [facility] ER ABD PAIN,VOMITI NG [id number] 06/20/2016 17:46:00 21:11:00 DIS Emergency BRENNAN WALL MD [facility] ER VOMITING/NAUSEA /HEADACHE [id number] 01/08/2015 16:00:00 015 17:15:00 DIS Emergency RAJENDRA SLAUGHTER GASTROENTEROLOGY PHYSICIAN [facility] ER L UNDER ARM ABCESS [id number] 08/26/2014 15:18:00 014 23:59:59 CLS Outpatient DERRELL DIEGO A GASTROENTEROLOGY PHYSICIAN [facility] RAD SCREENING [id number] 12/16/2013 16:05:00 014 19:07:00 DIS Emergency RAJENDRA SLAUGHTER GASTROENTEROLOGY PHYSICIAN [facility] ER ABD PAIN [id number] 04/18/2013 17:37:00 013 20:01:00 DIS Emergency CHRIS CAROLINA, CELESTINO Peterson [facility] ER ABD PAIN [id number] 04/11/2013 13:46:00 013 23:59:59 CLS Outpatient SANTOS VELIZ MD [facility] RAD LOWER ABD PAIN, BOWEL INCONT [id number] 02/27/2013 11:50:00 013 23:59:59 CLS Outpatient MAX BALL DO [facility] RAD LIVER MASS [id number] 02/21/2013 10:18:00 013 16:19:00 DIS Emergency BRENNAN WALL MD [facility] ER LOWER ABD PAIN/ VOMITING [id number] 01/08/2015 16:01:00 Document Registration [id number] 01/08/2015 16:01:00 Document Registration [id number] 01/08/2015 16:01:00 Document Registration [id number] 01/08/2015 16:01:00 Document Registration [id number] 08/01/2012 08:56:00 Document Registration [id number] 08/26/2011 13:16:00 Document Registration [id number] 06/22/2011 09:23:00 Document Registration [id number] 12/18/2009 10:35:00 Document Registration [id number] 10/28/2009 09:22:00 Document Registration [id number] 10/28/2009 09:12:00 Document Registration [id number] 09/22/2019 13:23:00 09/22/2019 23:59 :00 DIS Outpatient Kuldeep Vidal [id number] 08/27/2016 08:44:00 Document Registration [id number] 07/30/2016 05:06:00 Document Registration [id number] 08/01/2016 07:05:00 Document Registration [id number] 05/17/2017 08:36:00 Document Registration [id number] 10/16/2019 14:20:00 10/16/2019 23:59:5 9 CLS Outpatient PRABHJOT CAROLINA, SOLEDAD [facility] [id number] 10/08/2019 15:00:00 Document Registration [id number] 09/13/2019 13:20:00 Document Registration [id number] 05/11/2018 10:20:00 Document Registration [id number] 05/16/2017 12:40:00 Document Registration [id number] 08/01/2016 13:05:00 Document Registration
[2020-02-15] MEDS ORDERED: acetaZOLAMIDE ER 500 MG CAP (DIAMOX SEQUELS) PO ONE (11:00)
--- NOTE | 2020-02-15 12:36 | Anesthesia-General Post-Op ---
MAC Patient Condition Mental Status/LOC: Same as Preop Cardiovascular: Satisfactory Nausea/Vomiting: Absent Respiratory: Satisfactory Pain: Controlled Complications: Absent Post Op Complications Complications None Follow Up Care/Instructions Patient Instructions None needed. Anesthesiology Discharge Order Discharge Order Patient is doing well, no complaints, stable vital signs, no apparent adverse anesthesia problems. No complications reported per nursing. AALIYAH GARBER CRNA February 15, 2020 12:36
== END 2020-02-15 08:00 | disposition home or self-care (01) ==
LOC: SDC 06:07
PROVIDERS: ATTEND Specialist
DX: H25.11 Age-related nuclear cataract, right eye (principal); E78.5 Hyperlipidemia, unspecified; F32.9 Major depressive disorder, single episode, unspecified; F41.9 Anxiety disorder, unspecified; Z88.8 Allergy status to other drugs, medicaments and biological substances; Z87.891 Personal history of nicotine dependence; Z79.899 Other long term (current) drug therapy

== ENCOUNTER 2020-08-07 13:58 | Emergency (ER) | payer MEDICARE, MEDICAID ==
[~2020-08-07] VITALS: Ht 160 cm; Wt 52.1 kg
--- NOTE | 2020-08-07 14:49 | ED GU-Female ---
General Chief Complaint: Female Reproductive Stated Complaint: CRAMPING BLEEDING Nursing Triage Note: pt amb to rm 5 with complaint of pelvic crmaping and bleeding. states had hysterectomy 10 yrs ago. Nursing Sepsis Screen: No Definite Risk Source: patient (CORAZON MONTERO,MED STUDENT) Source: old records (CELESTINO PEREZ MD) History of Present Illness Date Seen by Provider: Aug 07, 2020 Time Seen by Provider: 14:20 Initial Comments Patient is a 55yo female c/o lower abdominal cramping and vaginal bleeding that began this morning. She had a hysterectomy several years ago and has a hx of similar bleeding in August 2019, so she wears a pad and this morning she noticed it was soaked in blood. She also reports seeing 3 clots. She changed the pad and 2 hours later it was also covered in blood, which prompted her to go to the ER. She describes the bleeding and cramping as "having a really heavy p eriod". She describes the cramping as "sharp", non-radiating, and states the pain was a 7/10 this morning, but is currently a 4/10. She also admits a strong odor with urination this morning, but denies dysuria, burning, or urgency. She denies any trauma to the area and states she last had intercourse around 6 months ago. She reports recently seeing Dr. Smith who did a pelvic exam, but states this did not reveal the source of the bleeding. Timing/Duration: this morning (CORAZON MONTERO,MED STUDENT) Allergies and Home Medications Allergies Coded Allergies: oxybutynin (Verified Allergy, Intermediate, "MADE ME CRAZY", 01/30/19) bupropion HCl (Unverified Allergy, Mild, HIVES, 01/30/19) Home Medications Aripiprazole 10 Mg Tablet, 10 MG PO DAILY, (Reported) Gabapentin 300 Mg Capsule, 300 MG PO BID, (Reported) Gabapentin 100 Mg Capsule, 300 MG PO BID, (Reported) Levothyroxine Sodium 25 Mcg Tablet, 25 MCG PO DAILY, (Reported) Lovastatin 40 Mg Tablet, 40 MG PO DAILY, (Reported) Paroxetine HCl 40 Mg Tablet, 40 MG PO DAILY, (Reported) Patient Home Medication List Home Medication List Reviewed: Yes (CELESTINO PEREZ MD) Review of Systems Review of Systems Constitutional: No chills, No dizziness, No fever EENTM: no symptoms reported Respiratory: No cough, No short of breath, No wheezing Cardiovascular: No chest pain, No edema, No palpitations, No syncope Gastrointestinal: abdominal pain; No constipation, No diarrhea, No nausea, No vomiting Genitourinary: denies burning, denies dysuria, denies urgency Musculoskeletal: no symptoms reported Skin: no symptoms reported Psychiatric/Neurological: Anxiety; Denies Numbness, Denies Tingling Endocrine: No Symptoms Reported (CORAZON MONTERO MED STUDENT) Genitourinary: see HPI (CELESTINO PEREZ MD) Past Dezlfwe-Aknwvx-Pabtmj Hx Patient Social History Alcohol Use: Denies Use Recreational Drug Use: No Smoking Status: Current Everyday Smoker Type Used: Cigarettes 2nd Hand Smoke Exposure: Yes Recent Foreign Travel: No Contact w/Someone Who Travel: No Recent Infectious Disease Expo: No Recent Hopitalizations: No (CORAZON MONTERO MED STUDENT) Immunizations Up To Date Tetanus Booster (TDap): More than 5yrs Date of Influenza Vaccine: Jun 26, 2018 (CORAZON MONTERO MED STUDENT) Seasonal Allergies Seasonal Allergies: No (CORAZON MONTERO MED STUDENT) Past Medical History Surgeries: Yes (BACK, PV SLING/REMOVAL, PERF BOWEL FROM BACK SX) Hysterectomy, Oophorectomy, Orthopedic Respiratory: No Cardiac: Yes Heart Murmur, High Cholesterol Neurological: No Reproductive Disorders: No 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 History: Hysterectomy Sexually Transmitted Disease: No HIV/AIDS: No Genitourinary: No Gastrointestinal: Yes Chronic Constipation, Chronic Diarrhea, Polyps Musculoskeletal: Yes Chronic Back Pain Endocrine: Yes Hypothyroidsim HEENT: Yes (GLASSES, DENTURES) Loss of Vision: Bilateral Hearing Impairment: Denies Cancer: No Psychosocial: Yes ADD/ADHD, Anxiety, Bipolar, Depression Integumentary: No Blood Disorders: No (HX ANEMIA) Adverse Reaction/Blood Tranf: No (HAS HAD BLOOD AN INFANT-NO REACTION) (CORAZON MONTERO MED STUDENT) Family Medical History No Pertinent Family Hx (CORAZON MONTERO MED STUDENT) Physical Exam Vital Signs Vital Signs - First Documented 08/07/20 14:11 Temp 35.0 Pulse 74 Resp 17 B/P (MAP) 130/76 (94) Pulse Ox 94 O2 Delivery Room Air (CELESTINO PEREZ MD) Vital Signs Capillary Refill : Less Than 3 Seconds (CORAZON MONTERO MED STUDENT) Height, Weight, BMI Height: 5'2.00" Weight: 116lbs. 0.0oz. [id number]; 20.00 BMI Method:Stated General Appearance: WD/WN, no apparent distress HEENT: PERRL/EOMI, pharynx normal Neck: full range of motion, normal inspection Cardiovascular: normal peripheral pulses, regular rate, rhythm, no edema Respiratory: lungs clear, normal breath sounds, no respiratory distress, no accessory muscle use Gastrointestinal: normal bowel sounds, non tender, soft; No guarding Extremities: normal inspection, no pedal edema, no calf tenderness Neurologic/Psychiatric: alert, normal mood/affect, oriented x 3 Skin: normal color, warm/dry (CORAZON MONTERO MED STUDENT) Progress/Results/Core Measures Suspected Sepsis Recent Fever Within 48 Hours: No Infection Criteria Present: None New/Unexplained Altered Menta: No Sepsis Screen: No Definite Risk SIRS Temperature: Pulse: 74 Respiratory Rate: 17 Blood Pressure 130 /76 Mean: 94 (CORAZON MONTERO MED STUDENT) Results/Orders Lab Results Laboratory Tests Test 08/07/20 15:39 Range/Units Urine Color YELLOW Urine Clarity CLEAR Urine pH 6.0 5-9 Urine Specific [place] 1.025 H 1.016-1.022 Urine Protein NEGATIVE NEGATIVE Urine Glucose (UA) NEGATIVE NEGATIVE Urine Ketones NEGATIVE NEGATIVE Urine Nitrite NEGATIVE NEGATIVE Urine Bilirubin NEGATIVE NEGATIVE Urine Urobilinogen 0.2 < = 1.0 MG/DL Urine Leukocyte Esterase NEGATIVE NEGATIVE Urine RBC (Auto) 3+ H NEGATIVE Urine RBC 50-100 H /HPF Urine WBC NONE /HPF Urine Squamous Epithelial Cells NONE /HPF Urine Crystals NONE /LPF Urine Bacteria NEGATIVE /HPF Urine Casts NONE /LPF Urine Mucus NEGATIVE /LPF Urine Culture Indicated NO (CELESTINO PEREZ MD) My Orders Orders - CELESTINO PEREZ MD Ua Culture If Indicated (08/07/20 14:39) (CELESTINO PEREZ MD) Vital Signs/I&O (CELESTINO PEREZ MD) Vital Signs/I&O Capillary Refill : Less Than 3 Seconds (CORAZON MONTERO MED STUDENT) Blood Pressure Mean: 94 Progress Note : Progress Note Pelvic exam with speculum revealed a moderate amount of bright red blood and clots. There appeared to be no significant active bleeding. Clots were cleared and there appeared to be a small dusky appearing ulcerative type lesion in the patient's left vaginal vault between tissue folds. This was discussed with Dr. SMITH. She may have recurrent problems related to her TVT mesh as she did in 2011. This deserves evaluation by a chuck wagon cook. Patient was advised to follow-up as soon as possible in the clinic. She does have an appointment on September 03. I advised her to try to get in sooner. Patient was invited to return for worsening symptoms. (CELESTINO PEREZ MD) Departure Impression Primary Impression: Abnormal vaginal bleeding Disposition: HOME, SELF-CARE Condition: Stable Departure-Patient Inst. Decision time for Depature: 16:07 (CELESTINO PEREZ MD) Referrals: PAOLO SMITH DAVID F MD (PCP/Family) Primary Care Physician Patient Instructions: NO INSTRUCTIONS GIVEN Add. Discharge Instructions: Follow-up with Dr. SMITH as soon as possible. Please call in the morning to try to get a sooner appointment. In the meantime you may use pads and tampons in the same way you would manage a menstrual cycle. Return to care in the emergency room if you have escalating bleeding, fever, escalating pain, etc. All discharge instructions reviewed with patient and/or family. Voiced understanding. Medical Student Attestation and Attending Note: I have personally interviewed and examined this patient along with KARL Marsh. I have reviewed student documentation including history, physical, and assessments. I agree with the documentation except where otherwise noted. Exam: General: Thin, alert, oriented, no acute distress HEENT: Normocephalic and atraumatic Heart: Regular rate and rhythm without murmur Lungs: Clear to auscultation bilaterally Abdomen: Soft, nontender, nondistended Pelvic: Speculum exam reveals a small amount of red blood and a few small clots in the vaginal vault. There is an area in the left vaginal cuff region between tissue folds that is dusky or dark lynn in appearance and resembles an ulcer. This area was covered with a clot and is tender to touch with the swab. There were otherwise no signs of purulence or inflammation. Neuropsych: Alert, oriented, no focal deficits, normal mood and affect (CELESTINO PEREZ MD) Copy Copies To 1: PAOLO SMITH JOSEPH,MED STUDENT Aug 07, 2020 14:49 CELESTINO PEREZ MD Aug 07, 2020 16:08
[2020-08-07 15:45] LABS: BILIRUBIN,URINE NEGATIVE (NEGATIVE); CLARITY,URINE CLEAR; COLOR,URINE YELLOW; GLUCOSE, URINE (UA) NEGATIVE (NEGATIVE); KETONES,URINE NEGATIVE (NEGATIVE); LEUKOCYTE ESTERASE ,URINE NEGATIVE (NEGATIVE); NITRITE,URINE NEGATIVE (NEGATIVE); PROTEIN,URINE NEGATIVE (NEGATIVE)
[2020-08-07 15:50] LABS: BACTERIA,URINE NEGATIVE /HPF; RBC,URINE 50-100 /HPF
[2020-08-07 16:19] VITALS: BP 125/80
== END 2020-08-07 16:19 | disposition home or self-care (01) ==
LOC: EDUNIT# 13:58 → ER 14:01
DX: N93.9 Abnormal uterine and vaginal bleeding, unspecified (principal); F31.9 Bipolar disorder, unspecified; E78.00 Pure hypercholesterolemia, unspecified; F41.9 Anxiety disorder, unspecified; E03.9 Hypothyroidism, unspecified; F17.210 Nicotine dependence, cigarettes, uncomplicated; Z88.8 Allergy status to other drugs, medicaments and biological substances; Z79.890 Hormone replacement therapy
CPT/HCPCS: 81000; 99282

== ENCOUNTER → 2021-01-05 | Outpatient (CLI) | payer MEDICARE, MEDICAID ==
--- NOTE | 2021-01-05 16:09 | Diagnostic Imaging Report ---
INDICATION: Routine screening. COMPARISON is made with prior mammograms from 01/08/2019 and 08/26/2014. 2-D and 3-D bilateral screening mammography was performed with CAD. Scattered fibroglandular densities are identified bilaterally. The parenchymal pattern is stable. No mass or malignant appearing microcalcifications are seen. Axillae are unremarkable. IMPRESSION: BI-RADS Category 1. No mammographic features suspicious for malignancy are identified. Dictated by: Dictated on workstation # [id number]
== END ==
LOC: RAD 14:27
PROVIDERS: ATTEND Obstetrics & Gynecology
DX: Z12.31 Encounter for screening mammogram for malignant neoplasm of breast (principal)
CPT/HCPCS: 77063; 77067

== ENCOUNTER → 2021-02-20 | Outpatient (CLI) | payer MEDICARE, MEDICAID ==
--- NOTE | 2021-02-20 19:47 | Diagnostic Imaging Report ---
CT Lung Screening INDICATION: 35 pack-year smoking history. TECHNIQUE: Noncontrast, low-dose CT imaging performed according to the lung cancer screening protocol. Auto Exposure Controls were utilize during the CT exam to meet ALARA standards for radiation dose reduction. COMPARISON: None. FINDINGS: There is no prior CT chest examination available for comparison. FINDINGS: There is no parenchymal lung mass to suggest malignancy. The lungs are clear. There is no sign of failure, pneumonia or a pleural effusion. There are mild emphysematous changes involving both lungs. The heart size is within normal limits. The ascending aorta is not abnormally dilated. There is no obvious mediastinal or hilar adenopathy. The thyroid gland was not well visualized. There is no definite breast mass. The images through the upper abdomen failed to show any sign of an acute abnormality. The bone windows are unremarkable for a fracture or for a destructive lesion. IMPRESSION: 1. There is no parenchymal lung mass to suggest malignancy. A follow-up low-dose lung cancer screening exam in one year would be recommended for further study. 2. There are mild emphysematous changes involving both lungs but there is no sign of an acute cardiopulmonary abnormality. LUNG-RADS CATEGORY: 1 Dictated by: Dictated on workstation # [id number]
== END ==
LOC: RAD 15:31
PROVIDERS: ATTEND Internal Medicine
DX: Z12.2 Encounter for screening for malignant neoplasm of respiratory organs (principal); J43.9 Emphysema, unspecified; F17.210 Nicotine dependence, cigarettes, uncomplicated
CPT/HCPCS: 71271

== ENCOUNTER 2021-12-17 08:00 | Outpatient (CLI) | payer MEDICARE, MEDICAID ==
[~2021-12-17] VITALS: Ht 157.5 cm; Wt 54.5 kg
[~2021-12-17 08:00] MED LIST changes: -ARIP10TA17 PO; +ARIP10TA55 PO
[2021-12-17] MEDS ORDERED: TOLT4CAP26 PO (12:15)
== END 2021-12-17 14:29 | disposition home or self-care (01) ==
LOC: PREOP 08:00
PROVIDERS: ATTEND Specialist
DX: Z01.818 Encounter for other preprocedural examination (principal)

== ENCOUNTER → 2023-04-28 | Outpatient (CLI) | payer MEDICARE, MEDICAID ==
[~2023-04-28] MED LIST changes: +CATHETER FLUSH 10 ML SYR IVP PRN; +PARO-135 PO; -PARO40TA PO; +TOLT4CAP26 PO
--- NOTE | 2023-04-29 12:52 | Diagnostic Imaging Report ---
INDICATION: Abnormal outside CT chest demonstrating multiple nodules. The study is performed for further evaluation. TECHNIQUE: PET/CT imaging was obtained from the base of the skull through the pelvis after the administration of mCi of F-[address] imaging was utilized for localization and attenuation correction purposes. The low energy CT utilized for attenuation correction is not considered to be of high enough spatial resolution to allow in and of itself a separate anatomical analysis. Noncontrast CT was also performed for attenuation correction and anatomic correlation. Correlation is made with outside CT study from [facility] performed 04/06/2023. Serum blood glucose level at the time of injection is 92 mg/dL. The patient was administered 10.0 mCi F-18 FDG intravenously. There is symmetric activity throughout the brain. Soft tissues of the neck are unremarkable. No mediastinal or hilar hypermetabolism is identified. There is some low-level borderline activity involving lymph nodes in the right axilla with an SUV max of approximately 3.0. There is some low-level activity involving the left axillary lymph nodes as well. No definite pulmonary parenchymal hypermetabolism is identified. Specifically, the dominant nodule in the left upper lobe does not demonstrate FDG avidity. There is physiologic activity throughout the GI and tracts of the abdomen and pelvis. No suspicious area of hypermetabolism is seen. IMPRESSION: There is borderline uptake involving lymph nodes in the axillae, bilaterally. The study is otherwise unremarkable. No pulmonary parenchymal nodule FDG avidity is detected. Continued follow-up of pulmonary nodules is recommended with conventional CT. Dictated on workstation # [id number]
== END ==
LOC: RAD 07:21
PROVIDERS: ATTEND Nurse Practitioner Family
DX: R91.8 Other nonspecific abnormal finding of lung field (principal)
CPT/HCPCS: 78816; 82947; A9552